=== PATIENT | male | born 1960 | race American Indian/Alaskan Native ===

== ENCOUNTER 2018-11-18 01:12 | Inpatient (IN) | payer BC ==
[2018-11-18 01:45] LABS: Basophils # (Auto) 0.1 K/mm3 (0.0-0.1); Basophils % (Auto) 0.4 % (0.0-1.8); Eosinophils # (Auto) 0.1 K/mm3 (0.0-0.4); Eosinophils % (Auto) 0.4 % (0.0-4.3); Hematocrit 42.3 % (35.5-45.6); Hemoglobin 14.4 gm/dl (11.8-15.2); Lymphocytes # (Auto) 2.4 K/mm3 (1.2-5.4); Lymphocytes % (Auto) 15.2 % (13.4-35.0); Mean Corpuscular HGB Conc 34 % (32-34); Mean Corpuscular Volume 88 fl (84-94); Monocytes # (Auto) 1.6 K/mm3 (0.0-0.8); Monocytes % (Auto) 10.1 % (0.0-7.3); Platelet Count 280 K/mm3 (140-440); Red Blood Count 4.83 M/mm3 (3.65-5.03); Red Cell Distribution Width 14.2 % (13.2-15.2)
--- NOTE | 2018-11-18 02:20 | XRay Report ---
PROCEDURE: XR CHEST ROUTINE 2V TECHNIQUE: PA and lateral chest radiographs were obtained. HISTORY: sob COMPARISONS: None. FINDINGS: Heart: Normal. Mediastinum/Vessels: Normal. Lungs/Pleural space: There is bilateral perihilar pulmonary edema. There are small effusions. There is no pneumothorax.. Bony thorax: No acute osseous abnormality. IMPRESSION: The heart size is normal.There is bilateral perihilar pulmonary edema. There are small ef fusions. There is no pneumothorax.. This document is electronically signed by Cheo Bright MD., November 18 2018 02:18:07 AM ET
[2018-11-18 02:31] LABS: BUN/Creatinine Ratio 21; Blood Urea Nitrogen 23 mg/dL (9-20); Calcium 9.3 mg/dL (8.4-10.2); Hemolysis Index 9
[2018-11-18 03:42] LABS: Chol/HDL Ratio 5.79 %
[2018-11-18] MEDS ORDERED: CARDIZEM ONE (03:49)
[2018-11-18] MEDS ORDERED: CARDIZEM IV ONE ×2 (03:51→04:43)
[2018-11-18] MEDS ORDERED: ASPIRIN PO ONE (03:53)
--- NOTE | 2018-11-18 04:01 | Emergency Department Report ---
ED General Adult HPI - General Chief complaint: Dyspnea/Respdistress Stated complaint: SOB/LUNGS SOUND LIKE FLUID IN THEM Time Seen by Provider: 11/18/18 03:47 Source: patient Mode of arrival: Ambulatory Limitations: No Limitations - History of Present Illness Initial comments: 58-year-old male with a history of hypertension and per him borderline diabetes presents with a complaint of shortness of breath. Patient states he says shortness of breath for the past 3 days progressively worsening. Patient also complains of feeling like his heart is racing as well. Patient states he has no prior history of PE or DVT. Patient states that he has no history of atrial fibrillation either. Patient states he felt like there was fluid on his lungs and thus he presented here. Patient complains of a cough as well which is nonproductive. - Related Data Allergies Allergy/AdvReac Type Severity Reaction Status Date / Time No Known Allergies Allergy Verified 11/18/18 03:58 ED Review of Systems ROS: Stated complaint: SOB/LUNGS SOUND LIKE FLUID IN THEM Other details as noted in HPI Constitutional: denies: chills, fever Eyes: denies: eye pain, eye discharge, vision change ENT: denies: ear pain, throat pain Respiratory: cough, SOB with exertion Cardiovascular: denies: chest pain, palpitations Endocrine: no symptoms reported Gastrointestinal: denies: abdominal pain, nausea, diarrhea Genitourinary: denies: urgency, dysuria Musculoskeletal: denies: back pain, joint swelling, arthralgia Skin: denies: rash, lesions Neurological: denies: headache, weakness, paresthesias Psychiatric: denies: anxiety, depression Hematological/Lymphatic: denies: easy bleeding, easy bruising ED Past Medical Hx - Past Medical History Previous Medical History?: Yes Hx Hypertension: Yes - Surgical History Past Surgical History?: No - Social History Smoking Status: Former Smoker Substance Use Type: None ED Physical Exam - General Limitations: No Limitations General appearance: alert, other (uncomfortable; moderate distress) - Head Head exam: Present: atraumatic, normocephalic - Eye Eye exam: Present: normal appearance - ENT ENT exam: Present: mucous membranes moist - Neck Neck exam: Present: normal inspection - Respiratory Respiratory exam: Present: respiratory distress, rales (to mid apices) - Cardiovascular Cardiovascular Exam: Present: tachycardia, irregular rhythm. Absent: systolic murmur, diastolic murmur, rubs, gallop - GI/Abdominal GI/Abdominal exam: Present: soft, normal bowel sounds - Rectal Rectal exam: Present: deferred - Extremities Exam Extremities exam: Present: normal inspection - Back Exam Back exam: Present: normal inspection - Neurological Exam Neurological exam: Present: alert, oriented X3, CN II-XII intact - Psychiatric Psychiatric exam: Present: normal affect, normal mood - Skin Skin exam: Present: warm, dry, intact, normal color. Absent: rash ED Course Vital Signs 11/18/18 11/18/18 11/18/18 01:25 03:31 03:45 Temperature 97.4 F L Pulse Rate 53 L 137 H 135 H Respiratory 20 13 38 H Rate Blood Pressure 142/113 159/119 159/119 O2 Sat by Pulse 95 94 92 Oximetry 11/18/18 11/18/18 11/18/18 03:53 04:00 04:15 Temperature Pulse Rate 146 H 104 H 103 H Respiratory 22 18 Rate Blood Pressure 159/116 143/92 145/102 O2 Sat by Pulse 90 93 Oximetry 11/18/18 11/18/18 04:35 04:45 Temperature Pulse Rate 117 H 108 H Respiratory 21 Rate Blood Pressure 145/102 156/108 O2 Sat by Pulse 90 Oximetry ED Medical Decision Making - Lab Data Result diagrams: 11/18/18 01:33 11/18/18 01:33 - EKG Data Rate: tachycardia - EKG Data Interpretation: other (atrial fibrillation with rapid ventricular rate) - Medical Decision Making Patient was placed on supplemental oxygen by emergency department. Patient's EKG shows rapid ventricular rate with atrial fibrillation which is new onset for the patient. Patient also noted have an elevated troponin was given aspirin therapy while in emergency department. She control his elevated heart rate patient received 2 doses of diltiazem 20 mg IV while in the emergency department. Cardiology was also consulted regarding the patient patient was started on heparin as well. Patient to be admitted to the hospitalist service for continuing management and treatment. - Differential Diagnosis anemia; arrhythmia; pulmonary embolism; STEMI; NSTEMI Critical Care Time: Yes Critical care time in (mins) excluding proc time.: 40 Critical care attestation.: If time is entered above; I have spent that time in minutes in the direct care of this critically ill patient, excluding procedure time. Critical care time does not include time spent in direct bedside care, frequent reassessments, and physician consultation. ED Disposition Clinical Impression: Atrial fibrillation with RVR, CHF (congestive heart failure), Pulmonary edema, NSTEMI (non-ST elevated myocardial infarction) Disposition: 09 OP ADMIT IP TO THIS HOSP Is pt being admited?: Yes Does the pt Need Aspirin: No Condition: Fair Instructions: Pulmonary Edema (ED) Referrals: PRIMARY CARE, [Primary Care Provider] - 3-5 Days Time of Disposition: 05:04
[2018-11-18] MEDS ORDERED: HEPARIN 10,000 UNITS/10 ML IV ONE (04:04)
[2018-11-18 04:21] LABS: INR 1.13 (0.87-1.13)
[2018-11-18 04:22] LABS: Partial Thromboplastin Time 32.3 Sec. (24.2-36.6)
[2018-11-18] MEDS ORDERED: NITROSTAT SL ONE (04:44)
--- NOTE | 2018-11-18 05:12 | Cat Scan Report ---
PROCEDURE: CT ANGIO CHEST TECHNIQUE: CT imaging is obtained through the chest and pulmonary angiographic phase following intra venous administration of contrast. Transaxial, coronal and sagittal reformations are provided with ma ximal intensity projection HISTORY: chest pain COMPARISONS: Chest radiographs of the same date FINDINGS: Normal caliber main pulmonary artery. Well opacified pulmonary arterial tree. No pulmonary embolism . No pericardial effusion. Coronary artery calcification. Mediastinal and hilar lymph node prominenc e, for example in the right hilum on axial series 2, image 54 measuring approximately 19 x 18 mm. Thoracic aorta is normal in course and caliber. No periaortic fluid or stranding. No pneumothorax. Right larger than left pleural effusions with associated compressive atelectasis. Pa tchy areas of airspace disease in the left greater than right upper lung and superior segment of the right lower lobe are most consolidative in the left upper lung seen on axial series 2, image 53. Air bronchograms are present. Mild bronchiectasis. Central airways are patent. Imaged portion of the upper abdomen is remarkable for a 2 cm left adrenal nodule with attenuation of approximately 8 Hounsfield units. The superficial soft tissues are unremarkable. No acute bony abnorm ality or worrisome osseous lesions identified. IMPRESSION: No pulmonary embolism. Multifocal airspace disease and right larger than left pleural effusions with mediastinal lymph node prominence. Correlation for infectious symptoms is requested. Radiographic follow-up to resolution is suggested. Coronary artery calcification. Benign left adrenal lipid rich adenoma measures up to 2 cm. This document is electronically signed by Neo Singer MD., November 18 2018 05:10:41 AM ET
[2018-11-18] MEDS: HEPARIN/ 0.45% NACL-25,000 UNIT/500 ML 25,000 UNIT/500 ML BAG IV SCH (05:17)
[2018-11-18 05:19] LABS: Hematocrit 41.2 % (35.5-45.6); Hemoglobin 14.2 gm/dl (11.8-15.2)
[2018-11-18] MEDS ORDERED: PROVENTIL IH ONE (05:30)
[2018-11-18 06:04] LABS: INR 1.1 (0.87-1.13)
[2018-11-18 06:05] LABS: Partial Thromboplastin Time 31.8 Sec. (24.2-36.6)
[2018-11-18] MEDS: CARDIZEM 100 MG in D5W 80 ML IV SCH (06:39)
[2018-11-18] MEDS: LEVAQUIN 500MG/100ML 500 MG/100 ML BAG IV SCH (06:39)
--- NOTE | 2018-11-18 13:57 | Consultation ---
History of Present Illness Consult date: 11/18/18 Consult reason: chest pain History of present illness: Patient is a 58 year old man who gives a history of hypertension, diabetes and a former smoker. He denies prior cardiac history and has not had any recent cardiac workup. He presents to the emergency department with shortness of breath. He was found to be in rapid atrial fibrillation and is currently on intravenous Diltiazem. Patient denies history of arrhythmias. He denies chest pain and palpations. He reports feeling well until 5 days ago. He has an elevated WBC but remains afebrile. Chest x-ray reports bilateral perihilar pulmonary edema with small pleural effusions. CTA is negative for pulmonary embolism. Medications and Allergies Allergies Allergy/AdvReac Type Severity Reaction Status Date / Time No Known Allergies Allergy Verified 11/18/18 03:58 Home Medications Medication Instructions Recorded Confirmed Last Taken Type Amlodipine Besylate [Norvasc] 10 mg PO QDAY 11/18/18 11/18/18 11/18/18 History Atorvastatin Calcium [Lipitor] 40 mg PO QDAY 11/18/18 11/18/18 Unknown History Lisinopril [Zestril TAB] 2.5 mg PO QDAY 11/18/18 11/18/18 11/18/18 History Metformin HCl 500 mg PO BIDWM 11/18/18 11/18/18 Unknown History methylPREDNISolone [Medrol] 1 dose PO TITRATE 11/18/18 11/18/18 11/18/18 History Active Meds: Active Medications Heparin Sodium/Sodium Chloride (Heparin/ 0.45% Nacl-25,000 Unit/500 Ml) 25,000 unit in 500 mls @ 20 mls/hr IV TITRATE [facility]; Protocol Last Admin: 11/18/18 05:17 Dose: 1,000 units/hr, 20 mls/hr Documented by: Levofloxacin/Dextrose (Levaquin 500mg/100ml) 500 mg in 100 mls @ 100 mls/hr IV Q24HR@0600 [facility]; Protocol Last Admin: 11/18/18 06:39 Dose: 100 mls/hr Documented by: Diltiazem HCl 100 mg/ Dextrose 100 mls @ 5 mls/hr IV DIRECT [facility]; Protocol Last Infusion: 11/18/18 07:05 Dose: 10 mg/hr, 10 mls/hr Documented by: Physical Examination Vital Signs Temp Pulse Resp BP Pulse Ox 97.4 F L 53 L 20 142/113 95 11/18/18 01:25 11/18/18 01:25 11/18/18 01:25 11/18/18 01:25 11/18/18 01:25 General appearance: no acute distress HEENT: Positive: PERRL Neck: Positive: trachea midline Cardiac: Positive: irregularly irregular Lungs: Positive: Decreased Breath Sounds Extremities: Present: +1 Edema Results 11/18/18 05:07 11/18/18 01:33 Coagulation 11/18/18 11/18/18 Range/Units 04:01 05:20 PT 15.2 H 14.9 (12.2-14.9) Sec. INR 1.13 1.10 (0.87-1.13) APTT 32.3 31.8 (24.2-36.6) Sec. Lipids 11/18/18 Range/Units 01:33 Triglycerides 178 H (2-149) mg/dL Cholesterol 197 (50-199) mg/dL HDL Cholesterol 34 L (40-59) mg/dL Cholesterol/HDL Ratio 5.79 % CBC 11/18/18 11/18/18 Range/Units 01:33 05:07 WBC 16.0 H (4.5-11.0) K/mm3 RBC 4.83 (3.65-5.03) M/mm3 Hgb 14.4 14.2 (11.8-15.2) gm/dl Hct 42.3 41.2 (35.5-45.6) % Plt Count 280 277 (140-440) K/mm3 Lymph # 2.4 (1.2-5.4) K/mm3 [place] # 1.6 H (0.0-0.8) K/mm3 Eos # 0.1 (0.0-0.4) K/mm3 Baso # 0.1 (0.0-0.1) K/mm3 Comprehensive Metabolic Panel 11/18/18 Range/Units 01:33 Sodium 141 (137-145) mmol/L Potassium 3.9 (3.6-5.0) mmol/L Chloride 100.6 (98-107) mmol/L Carbon Dioxide 25 (22-30) mmol/L BUN 23 H (9-20) mg/dL Creatinine 1.1 (0.8-1.5) mg/dL Glucose 172 H (75-100) mg/dL Calcium 9.3 (8.4-10.2) mg/dL
--- NOTE | 2018-11-18 14:55 | History and Physical Report ---
History of Present Illness Date of examination: 11/18/18 Date of admission: 11/18/18 06:19 Chief complaint: sob History of present illness: 58-year-old male with significant past medical history of hypertension and diabetes mellitus who presented through the emergency department with complaints of progressively worsening shortness of breath for the past 4 days. Patient denied any chest pain or palpitations. Patient denies any history of heart disease or atrial fibrillation. Patient reports some cough and cold-like symptoms that occur also worsening over the past 4 days. Patient reports cough of yellowish brown sputum. She denies any headache or visual disturbances. Past History Past Medical History: diabetes, hypertension Past Surgical History: No surgical history Social history: smoking (former) Family history: no significant family history Medications and Allergies Allergies Allergy/AdvReac Type Severity Reaction Status Date / Time No Known Allergies Allergy Verified 11/18/18 03:58 Home Medications Medication Instructions Recorded Confirmed Last Taken Type Amlodipine Besylate [Norvasc] 10 mg PO QDAY 11/18/18 11/18/18 11/18/18 History Atorvastatin Calcium [Lipitor] 40 mg PO QDAY 11/18/18 11/18/18 Unknown History Lisinopril [Zestril TAB] 2.5 mg PO QDAY 11/18/18 11/18/18 11/18/18 History Metformin HCl 500 mg PO BIDWM 11/18/18 11/18/18 Unknown History methylPREDNISolone [Medrol] 1 dose PO TITRATE 11/18/18 11/18/18 11/18/18 History Active Meds: Active Medications Heparin Sodium/Sodium Chloride (Heparin/ 0.45% Nacl-25,000 Unit/500 Ml) 25,000 unit in 500 mls @ 20 mls/hr IV TITRATE [facility]; Protocol Last Admin: 11/18/18 05:17 Dose: 1,000 units/hr, 20 mls/hr Documented by: Levofloxacin/Dextrose (Levaquin 500mg/100ml) 500 mg in 100 mls @ 100 mls/hr IV Q24HR@0600 [facility]; Protocol Last Admin: 11/18/18 06:39 Dose: 100 mls/hr Documented by: Diltiazem HCl 100 mg/ Dextrose 100 mls @ 5 mls/hr IV DIRECT [facility]; Protocol Last Infusion: 11/18/18 07:05 Dose: 10 mg/hr, 10 mls/hr Documented by: Review of Systems All systems: negative Exam - Constitutional Vitals: Temp Pulse Resp BP Pulse Ox 97.4 F L 104 H 23 140/83 92 11/18/18 01:25 11/18/18 12:45 11/18/18 12:45 11/18/18 12:45 11/18/18 12:45 General appearance: Present: no acute distress, well-nourished - EENT Eyes: Present: PERRL ENT: hearing intact, clear oral mucosa - Neck Neck: Present: supple, normal ROM - Respiratory Respiratory effort: normal Respiratory: bilateral: CTA - Cardiovascular Heart Sounds: Present: S1 & S2. Absent: rub, click - Extremities Extremities: pulses symmetrical, No edema Peripheral Pulses: within normal limits - Abdominal General gastrointestinal: Present: soft, non-tender, non-distended, normal bowel sounds Male genitourinary: Present: normal - Integumentary Integumentary: Present: clear, warm, dry - Musculoskeletal Musculoskeletal: gait normal, strength equal bilaterally - Psychiatric Psychiatric: appropriate mood/affect, intact judgment & insight - Neurologic Neurologic: CNII-XII intact, moves all extremities Results - Labs CBC & Chem 7: 11/18/18 05:07 11/18/18 01:33 Labs: Laboratory Last Values WBC 16.0 K/mm3 (4.5-11.0) H 11/18/18 01:33 RBC 4.83 M/mm3 (3.65-5.03) 11/18/18 01:33 Hgb 14.2 gm/dl (11.8-15.2) 11/18/18 05:07 Hct 41.2 % (35.5-45.6) 11/18/18 05:07 MCV 88 fl (84-94) 11/18/18 01:33 MCH 30 pg (28-32) 11/18/18 01:33 MCHC 34 % (32-34) 11/18/18 01:33 RDW 14.2 % (13.2-15.2) 11/18/18 01:33 Plt Count 277 K/mm3 (140-440) 11/18/18 05:07 Lymph % (Auto) 15.2 % (13.4-35.0) 11/18/18 01:33 [place] % (Auto) 10.1 % (0.0-7.3) H 11/18/18 01:33 Eos % (Auto) 0.4 % (0.0-4.3) 11/18/18 01:33 Baso % (Auto) 0.4 % (0.0-1.8) 11/18/18 01:33 Lymph # 2.4 K/mm3 (1.2-5.4) 11/18/18 01:33 [place] # 1.6 K/mm3 (0.0-0.8) H 11/18/18 01:33 Eos # 0.1 K/mm3 (0.0-0.4) 11/18/18 01:33 Baso # 0.1 K/mm3 (0.0-0.1) 11/18/18 01:33 Seg Neutrophils % 73.9 % (40.0-70.0) H 11/18/18 01:33 Seg Neutrophils # 11.8 K/mm3 (1.8-7.7) H 11/18/18 01:33 PT 14.9 Sec. (12.2-14.9) 11/18/18 05:20 INR 1.10 (0.87-1.13) 11/18/18 05:20 APTT 31.8 Sec. (24.2-36.6) 11/18/18 05:20 Heparin Anti-Xa Level < 0.10 U.I./ml (0.3-0.7) L 11/18/18 11:33 Sodium 141 mmol/L (137-145) 11/18/18 01:33 Potassium 3.9 mmol/L (3.6-5.0) 11/18/18 01:33 Chloride 100.6 mmol/L (98-107) 11/18/18 01:33 Carbon Dioxide 25 mmol/L (22-30) 11/18/18 01:33 Anion Gap 19 mmol/L 11/18/18 01:33 BUN 23 mg/dL (9-20) H 11/18/18 01:33 Creatinine 1.1 mg/dL (0.8-1.5) 11/18/18 01:33 Estimated GFR > 60 ml/min 11/18/18 01:33 BUN/Creatinine Ratio 21 % 11/18/18 01:33 Glucose 172 mg/dL (75-100) H 11/18/18 01:33 Lactic Acid 1.60 mmol/L (0.7-2.0) 11/18/18 06:00 Calcium 9.3 mg/dL (8.4-10.2) 11/18/18 01:33 Troponin T 0.243 ng/mL (0.00-0.029) H* 11/18/18 01:33 NT-Pro-B Natriuret Pep 4314 pg/mL (0-900) H 11/18/18 01:33 Triglycerides 178 mg/dL (2-149) H 11/18/18 01:33 Cholesterol 197 mg/dL (50-199) 11/18/18 01:33 LDL Cholesterol Direct 132 mg/dL (50-130) H 11/18/18 01:33 HDL Cholesterol 34 mg/dL (40-59) L 11/18/18 01:33 Cholesterol/HDL Ratio 5.79 % 11/18/18 01:33 Assessment and Plan Assessment and plan: Acute hypoxemic respiratory failure. Etiology secondary to heart failure and pneumonia. Continue O2 for supportive care. BiPAP if clinically indicated. Atrial fibrillation with RVR. Rate has been controlled with Cardizem. Cardiology to consider addition of amiodarone. Patient will likely need long- term anticoagulation. Echocardiogram pending. Left lower lobe pneumonia. Continue IV antibiotics.
--- NOTE | 2018-11-18 15:11 | Consultation ---
History of Present Illness Consult date: 11/18/18 Requesting physician: CIERA MEDLEY Reason for consult: other (Atrial Fibrillation with RVR; SOB) History of present illness: PULMONARY/CCM CONSULT NOTE (Full dictation # [id number]) Please see dictated notes for full details Past History Past Medical History: diabetes, hypertension Past Surgical History: No surgical history Social history: smoking (former) Family history: no significant family history Medications and Allergies Allergies Allergy/AdvReac Type Severity Reaction Status Date / Time No Known Allergies Allergy Verified 11/18/18 03:58 Home Medications Medication Instructions Recorded Confirmed Last Taken Type Amlodipine Besylate [Norvasc] 10 mg PO QDAY 11/18/18 11/18/18 11/18/18 History Atorvastatin Calcium [Lipitor] 40 mg PO QDAY 11/18/18 11/18/18 Unknown History Lisinopril [Zestril TAB] 2.5 mg PO QDAY 11/18/18 11/18/18 11/18/18 History Metformin HCl 500 mg PO BIDWM 11/18/18 11/18/18 Unknown History methylPREDNISolone [Medrol] 1 dose PO TITRATE 11/18/18 11/18/18 11/18/18 History Active Meds: Active Medications Heparin Sodium/Sodium Chloride (Heparin/ 0.45% Nacl-25,000 Unit/500 Ml) 25,000 unit in 500 mls @ 20 mls/hr IV TITRATE [facility]; Protocol Last Admin: 11/18/18 05:17 Dose: 1,000 units/hr, 20 mls/hr Documented by: Levofloxacin/Dextrose (Levaquin 500mg/100ml) 500 mg in 100 mls @ 100 mls/hr IV Q24HR@0600 [facility]; Protocol Last Admin: 11/18/18 06:39 Dose: 100 mls/hr Documented by: Diltiazem HCl 100 mg/ Dextrose 100 mls @ 5 mls/hr IV DIRECT [facility]; Protocol Last Infusion: 11/18/18 07:05 Dose: 10 mg/hr, 10 mls/hr Documented by: Physical Examination Vital signs: Vital Signs Temp Pulse Resp BP Pulse Ox 97.4 F L 53 L 20 142/113 95 11/18/18 01:25 11/18/18 01:25 11/18/18 01:25 11/18/18 01:25 11/18/18 01:25 Results - Laboratory Findings CBC and BMP: 11/18/18 05:07 11/18/18 01:33 PT/INR, D-dimer PT 14.9 Sec. (12.2-14.9) 11/18/18 05:20 INR 1.10 (0.87-1.13) 11/18/18 05:20 Abnormal lab findings: Abnormal Labs 11/18/18 11/18/18 11/18/18 01:33 01:33 01:33 WBC 16.0 H [place] % (Auto) 10.1 H [place] # 1.6 H Seg Neutrophils % 73.9 H Seg Neutrophils # 11.8 H PT Heparin Anti-Xa Level BUN 23 H Glucose 172 H Troponin T 0.243 H* NT-Pro-B Natriuret Pep 4314 H Triglycerides 178 H LDL Cholesterol Direct 132 H HDL Cholesterol 34 L 11/18/18 11/18/18 04:01 11:33 WBC [place] % (Auto) [place] # Seg Neutrophils % Seg Neutrophils # PT 15.2 H Heparin Anti-Xa Level < 0.10 L BUN Glucose Troponin T NT-Pro-B Natriuret Pep Triglycerides LDL Cholesterol Direct HDL Cholesterol
[2018-11-18] MEDS ORDERED: LASIX ONE (18:13)
[2018-11-18] MEDS ORDERED: PEPCID ONE (18:14)
[2018-11-18] MEDS: PEPCID PO SCH (18:20)
[2018-11-18] MEDS: LASIX IV SCH (18:20)
--- NOTE | 2018-11-18 23:02 | Consultation ---
PULMONARY CRITICAL CARE CONSULTATION NOTE CONSULTING PHYSICIAN: Yris Dobbins MD REASON FOR CONSULTATION: Shortness of breath, atrial fibrillation with rapid ventricular response, new onset. CHIEF COMPLAINT AND HISTORY OF PRESENT ILLNESS: The patient is a 58-year-old male with a past medical history significant amongst other things for a diagnosis of hypertension and borderline diabetes according to the patient, came in after about 3-4 days of shortness of breath. He denied any palpitations. He denied any loss of consciousness. He also described increasing dyspnea on exertion. He apparently did complain of palpitations when he initially came, but denied that to me. He was evaluated in the Emergency Room, found to be in atrial and flutter. He also had a cough that was nonproductive. We were asked to assist with management. When I stopped by to see him, he was resting in bed, 2D echocardiogram was being done. He was feeling a little bit better, was still confused and trying to understand what exactly was going on with his health. He describes himself as a former smoker. He has a 10+ pack year tobacco smoking history, but family confirms he quit smoking about 2 months ago. He denied any new onset leg pain or swelling either unilaterally or bilaterally or any suggestion of venous thromboembolic phenomenon. This really is as much of the history of presentation as I have. PAST MEDICAL HISTORY: Again, significant for a diagnosis of hypertension, borderline diabetes, also history of tobacco use disorder. PAST SURGICAL HISTORY: Denied. MEDICATIONS: He was on at the time I stopped by to see him were reviewed. Pertinent medications include the following: He was on a diltiazem drip at 10 mg per hour, IV heparin for atrial fibrillation protocol, Levaquin 500 mg IV daily. ALLERGIES: No known drug allergies. DIET: Obese gentleman. Denies significant weight loss or gain in the preceding few weeks to months. FAMILY AND SOCIAL HISTORY: Lives in the community, has a 10+ pack year tobacco smoking history. Denies illicit drug use or abuse. Denies alcohol abuse. REVIEW OF SYSTEMS: No loss of consciousness. No new onset seizures. No new onset focal weakness. He had the dyspnea on exertion. He had some palpitations apparently. Denied gross hematochezia or melena. Denied gross hematuria or dysuria. Denies hematemesis. Denies hemoptysis. As far as he knows, he denies any snoring. He denies nonrestorative sleep. He denies polydipsia, polyuria. He denies heat or cold intolerance. A complete 13-system review of system was obtained. Pertinent positives and/or negatives as in body of history above, otherwise they are noncontributory. PHYSICAL EXAMINATION: VITAL SIGNS: At presentation in the emergency room, he was afebrile, temperature 97.4 degrees Fahrenheit, pulse was 137, respiratory rate was 13, blood pressure 159/119. O2 sats were 92%, inspired oxygen concentration at that time was not recorded. When I stopped by to see him, O2 sats were 97% that was on 3 liters nasal cannula. GENERAL: He is a well-built, middle-aged obese -[place] male. HEAD, EYES, EARS, NOSE AND THROAT: Normocephalic, atraumatic, talking to me in mostly complete sentences with mildly increased respiratory effort at rest. He is anicteric. No conjunctival erythema. Oropharynx is moist, is a Mallampati #3 oropharynx. He has some mild jugular venous distention. No thyromegaly. Grossly, no palpable lymph nodes in the supraclavicular or submandibular lymph node chains. LUNGS: Auscultation of both lung caban do reveal diminished bilateral breath sounds, inspiratory rales in the bases in particular, no active wheezing. Some dull reduced basilar air entry. HEART: Heart sounds 1 and 2 are heard. Irregular rate and rhythm at the time of my evaluation with a soft systolic murmur. ABDOMEN: Soft, full, protuberant. Bowel sounds are positive, nontender. No palpable hepatosplenomegaly. EXTREMITIES: Without overt digital clubbing or cyanosis. He has trace pedal edema. Dorsalis pedis pulses are palpable bilaterally. NEUROLOGIC: Pupils are equal, round, about 4 mm, reactive to light. Extraocular muscle movements are intact. He moves all 4 extremities spontaneously. No fasciculations. No spasticity. The skin is of normal turgor without overt cellulitis or rash. His mood is normal and his affect is appropriate, but anxious. LABORATORY DATA: From my review are as follows: White cell count 16,000, hemoglobin 14.4, hematocrit 42.3 and platelet count 280. No manual differential. INR within normal limits. Serum sodium 141, potassium 3.9, chloride was 101, bicarbonate was 25, BUN 23, creatinine 1.1, glucose was 172. Lactic acid within normal limits. Troponin was elevated at 0.24. BNP was elevated at 4314, LDL cholesterol was elevated at 132. Two sets of blood cultures are no growth to date. Radiographic studies have been reviewed. Chest x-ray shows gross cardiomegaly, uncoiling of the aorta. He has an enlarged right pulmonary artery trunk. He has small bilateral effusions and increased interstitial markings with a hilar predominant consistent with pulmonary edema. I would say mild to moderate. A CT angiogram was also done. I have reviewed the radiologist's interpretation. I have also reviewed the film, decent contrast face timing. No gross filling defects consistent with pulmonary emboli, large right pleural effusion, moderately large right pleural effusion and a small pleural effusion on the left, mild ground glass opacification and infiltrates involving the upper lobes bilaterally, overall still consistent with pulmonary edema, but cannot rule out pneumonia. No pulmonary embolism. ASSESSMENT AND PLAN: 1. Acute hypoxemic respiratory failure presumably secondary to acute congestive heart failure exacerbation. 2. Acute congestive heart failure exacerbation. A 2D echo shows an ejection fraction of 15-20%. 3. Pulmonary hypertension, probably related to above. 4. Atrial fibrillation with rapid ventricular response, new onset. 5. Bilateral pleural effusions. 6. Pulmonary edema. 7. Leukocytosis, possibly secondary to occult pneumonia. 8. Elevated serum troponin, non-ST elevation myocardial infarction. 9. Elevated BNP. 10. Hyperlipidemia. 11. Tobacco use disorder. PLAN: We will continue the IV Cardizem drip. I will defer amiodarone infusion therapy to Cardiology. The rate is a little bit better at this point. Heart failure optimization therapy will also be deferred to Cardiology. He will benefit obviously from beta blockade. Gentle diuresis as necessary will also be utilized during this admission. I doubt we need to go after the pleural effusion at this time as long as his blood pressure is fine. I will go with gentle diuresis in the short time. I will go with Lasix 20 mg IV b.i.d. x 2 doses and reevaluate. Cardiology evaluation is in order and is ongoing. We will continue full anticoagulation. We will complete 5 days of empiric Levaquin monotherapy. Sputum will be sent for Gram stain, cultures and sensitivities if he is able to cough up any. I will put him on GI prophylaxis, especially with him being on full anticoagulation. Tobacco abstinence continued has been strongly counseled. I will get a CRP level to better evaluate the true infectious potential of this leukocytosis. Lactic acid level was within normal limits. Flu and pneumonia vaccination will be addressed per protocol. Thank you very much for the consult, Dr. Dobbins. We will follow along and make further recommendations as picture progresses/becomes clearer. He is critically ill on life-sustaining interventions including intravenous anticoagulation and IV Cardizem at high risk for further deterioration including the risk of . At this time, we spent about 35-40 minutes of critical care time without overlap and excluding any procedural time that may be necessary. JOB# [id number] NURIS/CHEVY ARRIETA
[2018-11-19 05:23] LABS: Basophils # (Auto) 0.1 K/mm3 (0.0-0.1); Basophils % (Auto) 0.7 % (0.0-1.8); Eosinophils # (Auto) 0.1 K/mm3 (0.0-0.4); Eosinophils % (Auto) 0.3 % (0.0-4.3); Hematocrit 43.1 % (35.5-45.6); Hemoglobin 14.7 gm/dl (11.8-15.2); Lymphocytes # (Auto) 2.2 K/mm3 (1.2-5.4); Lymphocytes % (Auto) 13.3 % (13.4-35.0); Mean Corpuscular HGB Conc 34 % (32-34); Mean Corpuscular Volume 88 fl (84-94); Monocytes # (Auto) 2.1 K/mm3 (0.0-0.8); Monocytes % (Auto) 12.8 % (0.0-7.3); Platelet Count 280 K/mm3 (140-440); Red Blood Count 4.88 M/mm3 (3.65-5.03); Red Cell Distribution Width 14.6 % (13.2-15.2)
[2018-11-19 05:36] LABS: BUN/Creatinine Ratio 16; Blood Urea Nitrogen 11 mg/dL (9-20); Calcium 9.2 mg/dL (8.4-10.2); Hemolysis Index 2
[2018-11-19] MEDS ORDERED: APRESOLINE IV PRN (06:06)
[2018-11-19] MEDS: LEVAQUIN 500MG/100ML 500 MG/100 ML BAG IV SCH (06:36)
[2018-11-19] MEDS: LASIX IV SCH ×2 (06:37→21:22)
[2018-11-19] MEDS: HEPARIN/ 0.45% NACL-25,000 UNIT/500 ML 25,000 UNIT/500 ML BAG IV SCH (08:53)
[2018-11-19] MEDS: CARDIZEM 100 MG in D5W 80 ML IV SCH ×3 (08:55→23:03)
[2018-11-19] MEDS: PEPCID PO SCH (10:54)
--- NOTE | 2018-11-19 12:52 | Progress Note ---
Assessment and Plan Atrial fibrillation, new onset on IV diltiazem Shortness of breath chest x-ray showed a left hilar infiltrate, and the white count was 16,000. an echocardiogram revealed a 4 chamber dilated cardiomyopathy, decreased left ventricular systolic function, EF 15-20%. The duration of the cardiomyopathy is uncertain. Hypertension Diabetes Recommendations: Atrial fibrillation rate control, with Cardizem. We will transition to oral cardizem. He will ultimately need long-term oral anticoagulation therapy. Medical therapy for dilated cardiomyopathy as tolerated. Further cardiac evaluation and management will depend on clinical course. Subjective Date of service: 11/19/18 Interval history: Patient reports his breathing has improved. Afib with a well controlled ventricular rate on telemetry. IV diltiazem continues. Objective Vital Signs Temp Pulse Resp BP Pulse Ox 11/19/18 09:45 95 11/19/18 07:11 103 H 27 H 145/101 91 11/19/18 07:00 108 H 32 H 145/101 93 11/19/18 06:51 111 H 29 H 150/109 92 11/19/18 06:40 96 H 28 H 150/109 87 11/19/18 06:31 110 H 29 H 156/106 91 11/19/18 06:21 107 H 22 159/97 93 11/19/18 06:11 98 H 25 H 158/112 90 11/19/18 06:00 101 H 24 158/112 90 11/19/18 05:51 98 H 23 159/99 90 11/19/18 05:41 98 H 27 H 152/108 88 11/19/18 05:30 86 29 H 152/108 90 11/19/18 05:21 93 H 30 H 144/111 90 11/19/18 05:11 143 H 26 H 146/113 88 11/19/18 05:09 92 11/19/18 05:00 108 H 26 H 146/113 93 11/19/18 04:50 113 H 22 149/104 89 11/19/18 04:41 96 H 24 159/97 86 11/19/18 04:30 88 28 H 159/97 88 11/19/18 04:21 91 H 30 H 156/107 89 11/19/18 04:11 99 H 31 H 166/113 86 11/19/18 04:00 95 H 30 H 166/113 88 11/19/18 03:51 97 H 28 H 151/113 89 11/19/18 03:41 83 25 H 151/113 91 11/19/18 03:31 108 H 22 151/113 91 11/19/18 03:21 88 29 H 151/108 91 11/19/18 03:11 102 H 25 H 149/106 87 11/19/18 03:01 99 H 31 H 149/106 91 11/19/18 02:51 100 H 28 H 141/109 92 11/19/18 02:40 97 H 26 H 89 11/19/18 02:00 98 11/19/18 01:45 121 H 30 H 163/108 96 11/19/18 00:15 110 H 25 H 162/106 87 11/19/18 00:00 97 H 25 H 162/106 88 11/18/18 23:45 115 H 19 165/114 91 11/18/18 23:31 164/120 90 11/18/18 22:15 109 H 29 H 153/102 93 11/18/18 22:00 95 H 23 153/102 94 11/18/18 21:45 108 H 27 H 149/100 92 11/18/18 21:15 112 H 15 156/135 92 11/18/18 21:01 102 H 21 149/100 94 11/18/18 20:31 117 H 25 H 168/88 95 11/18/18 20:15 113 H 15 168/88 97 11/18/18 20:00 103 H 32 H 168/88 93 11/18/18 19:45 110 H 18 168/88 93 11/18/18 19:31 100 H 26 H 170/130 90 11/18/18 19:15 112 H 22 143/113 92 11/18/18 19:01 107 H 23 143/113 91 11/18/18 18:45 102 H 34 H 143/113 94 11/18/18 18:31 117 H 17 152/116 93 11/18/18 18:15 92 H 28 H 155/112 93 11/18/18 18:01 98 H 29 H 155/112 94 11/18/18 17:31 96 H 23 155/112 89 11/18/18 17:26 97.9 F 11/18/18 17:25 106 H 17 155/112 94 11/18/18 17:15 103 H 32 H 150/102 91 11/18/18 17:01 113 H 20 93 11/18/18 16:45 150/102 95 11/18/18 16:31 97 H 27 H 93 11/18/18 16:15 110 H 21 93 11/18/18 16:01 112 H 32 H 91 11/18/18 15:45 110 H 19 150/102 95 11/18/18 15:31 111 H 26 H 150/102 95 11/18/18 15:15 15 150/102 92 11/18/18 15:01 20 150/102 93 11/18/18 14:45 99 H 14 150/102 95 11/18/18 14:31 22 150/102 92 11/18/18 14:30 107 H 11/18/18 14:15 30 H 150/102 93 11/18/18 14:01 24 150/102 95 11/18/18 14:00 100 H 11/18/18 13:45 28 H 150/102 94 11/18/18 13:31 30 H 150/102 95 11/18/18 13:15 17 150/102 93 11/18/18 13:01 109 H 25 H 150/102 93 - Physical Examination General: No Apparent Distress HEENT: Positive: PERRL Neck: Positive: trachea midline Cardiac: Positive: irregularly irregular Lungs: Positive: Decreased Breath Sounds Neuro: Positive: Grossly Intact Extremities: Present: +1 Edema - Labs and Meds CBC 11/19/18 Range/Units 04:50 WBC 16.6 H (4.5-11.0) K/mm3 RBC 4.88 (3.65-5.03) M/mm3 Hgb 14.7 (11.8-15.2) gm/dl Hct 43.1 (35.5-45.6) % Plt Count 280 (140-440) K/mm3 Lymph # 2.2 (1.2-5.4) K/mm3 [place] # 2.1 H (0.0-0.8) K/mm3 Eos # 0.1 (0.0-0.4) K/mm3 Baso # 0.1 (0.0-0.1) K/mm3 Comprehensive Metabolic Panel 11/19/18 Range/Units 04:50 Sodium 143 (137-145) mmol/L Potassium 3.6 (3.6-5.0) mmol/L Chloride 99.1 (98-107) mmol/L Carbon Dioxide 28 (22-30) mmol/L BUN 11 (9-20) mg/dL Creatinine 0.7 L (0.8-1.5) mg/dL Glucose 140 H (75-100) mg/dL Calcium 9.2 (8.4-10.2) mg/dL
--- NOTE | 2018-11-19 12:57 | Progress Note ---
Assessment and Plan Assessment and plan: Acute hypoxemic respiratory failure. Etiology secondary to heart failure and pneumonia. Continue O2 for supportive care. BiPAP if clinically indicated. New-onset Atrial fibrillation with RVR. Rate has been controlled with IV Cardizem. Patient will likely need long-term anticoagulation. Echocardiogram revealed a 4 chamber dilated cardiomyopathy, decreased left ventricular systolic function, EF 15-20%. Left lower lobe pneumonia. Continue IV antibiotics. Hypertension. Continue antihypertensive medications. Diabetes mellitus type 2. Continue Accu-Cheks and sliding scale insulin. History Interval history: no new issues Hospitalist Physical - Constitutional Vitals: Temp Pulse Resp BP Pulse Ox 97.9 F 103 H 27 H 145/101 95 11/18/18 17:26 11/19/18 07:11 11/19/18 07:11 11/19/18 07:11 11/19/18 09:45 General appearance: Present: no acute distress, well-nourished - EENT Eyes: Present: PERRL, EOM intact ENT: hearing intact, clear oral mucosa, dentition normal - Neck Neck: Present: supple, normal ROM - Respiratory Respiratory effort: normal Respiratory: bilateral: CTA - Cardiovascular Rhythm: regular Heart Sounds: Present: S1 & S2. Absent: gallop, rub - Extremities Extremities: no ischemia, No edema, Full ROM - Abdominal General gastrointestinal: soft, non-tender, non-distended, normal bowel sounds - Integumentary Integumentary: Present: clear, warm, dry - Neurologic Neurologic: CNII-XII intact, moves all extremities Results - Labs CBC & Chem 7: 11/19/18 04:50 11/19/18 04:50 Labs: Laboratory Last Values WBC 16.6 K/mm3 (4.5-11.0) H 11/19/18 04:50 RBC 4.88 M/mm3 (3.65-5.03) 11/19/18 04:50 Hgb 14.7 gm/dl (11.8-15.2) 11/19/18 04:50 Hct 43.1 % (35.5-45.6) 11/19/18 04:50 MCV 88 fl (84-94) 11/19/18 04:50 MCH 30 pg (28-32) 11/19/18 04:50 MCHC 34 % (32-34) 11/19/18 04:50 RDW 14.6 % (13.2-15.2) 11/19/18 04:50 Plt Count 280 K/mm3 (140-440) 11/19/18 04:50 Lymph % (Auto) 13.3 % (13.4-35.0) L 11/19/18 04:50 [place] % (Auto) 12.8 % (0.0-7.3) H 11/19/18 04:50 Eos % (Auto) 0.3 % (0.0-4.3) 11/19/18 04:50 Baso % (Auto) 0.7 % (0.0-1.8) 11/19/18 04:50 Lymph # 2.2 K/mm3 (1.2-5.4) 11/19/18 04:50 [place] # 2.1 K/mm3 (0.0-0.8) H 11/19/18 04:50 Eos # 0.1 K/mm3 (0.0-0.4) 11/19/18 04:50 Baso # 0.1 K/mm3 (0.0-0.1) 11/19/18 04:50 Seg Neutrophils % 72.9 % (40.0-70.0) H 11/19/18 04:50 Seg Neutrophils # 12.1 K/mm3 (1.8-7.7) H 11/19/18 04:50 PT 14.9 Sec. (12.2-14.9) 11/18/18 05:20 INR 1.10 (0.87-1.13) 11/18/18 05:20 APTT 31.8 Sec. (24.2-36.6) 11/18/18 05:20 Heparin Anti-Xa Level 0.17 U.I./ml (0.3-0.7) L 11/19/18 08:15 Sodium 143 mmol/L (137-145) 11/19/18 04:50 Potassium 3.6 mmol/L (3.6-5.0) 11/19/18 04:50 Chloride 99.1 mmol/L (98-107) 11/19/18 04:50 Carbon Dioxide 28 mmol/L (22-30) 11/19/18 04:50 Anion Gap 20 mmol/L 11/19/18 04:50 BUN 11 mg/dL (9-20) 11/19/18 04:50 Creatinine 0.7 mg/dL (0.8-1.5) L 11/19/18 04:50 Estimated GFR > 60 ml/min 11/19/18 04:50 BUN/Creatinine Ratio 16 % 11/19/18 04:50 Glucose 140 mg/dL (75-100) H 11/19/18 04:50 Lactic Acid 1.60 mmol/L (0.7-2.0) 11/18/18 06:00 Calcium 9.2 mg/dL (8.4-10.2) 11/19/18 04:50 Troponin T 0.243 ng/mL (0.00-0.029) H* 11/18/18 01:33 C-Reactive Protein 2.30 mg/dL (0.00-1.30) H 11/18/18 15:32 NT-Pro-B Natriuret Pep 4314 pg/mL (0-900) H 11/18/18 01:33 Triglycerides 178 mg/dL (2-149) H 11/18/18 01:33 Cholesterol 197 mg/dL (50-199) 11/18/18 01:33 LDL Cholesterol Direct 132 mg/dL (50-130) H 11/18/18 01:33 HDL Cholesterol 34 mg/dL (40-59) L 11/18/18 01:33 Cholesterol/HDL Ratio 5.79 % 11/18/18 01:33 Active Medications - Current Medications Current Medications: Generic Name Dose Route Start Last Admin Trade Name Freq PRN Reason Stop Dose Admin Famotidine 20 mg 11/18/18 16:00 11/19/18 10:54 Pepcid PO 20 mg QDAY IBIS Administration Furosemide 20 mg 11/18/18 18:00 11/19/18 06:37 Lasix IV 11/20/18 06:01 20 mg 0600,1800 IBIS Administration Hydralazine HCl 10 mg 11/19/18 06:06 Apresoline IV Q4H PRN Hypertension Heparin Sodium/Sodium Chloride 25,000 unit in 500 mls @ 20 mls/hr 11/18/18 05:00 11/19/18 08:53 Heparin/ 0.45% Nacl-25,000 Unit/500 Ml IV 1,600 units/hr TITRATE IBIS 32 mls/hr Administration Protocol 1,000 UNITS/HR Levofloxacin/Dextrose 500 mg in 100 mls @ 100 mls/hr 11/18/18 05:26 11/19/18 06:36 Levaquin 500mg/100ml IV 100 mls/hr Q24HR@0600 IBIS Administration Protocol Diltiazem HCl 100 mg/ Dextrose 100 mls @ 5 mls/hr 11/18/18 06:00 11/19/18 08:55 IV 15 mg/hr DIRECT IBIS 15 mls/hr Administration Protocol 5 MG/HR
--- NOTE | 2018-11-19 13:46 | Progress Note ---
Assessment and Plan Acute hypoxemic respiratory failure presumably secondary to acute CHF exacerbation. Acute congestive heart failure exacerbation. (ejection fraction of 15-20%) Pulmonary hypertension, probably related to above. Atrial fibrillation with rapid ventricular response, new onset. Bilateral pleural effusions. Pulmonary edema. Leukocytosis, possibly secondary to occult pneumonia. Elevated serum troponin, non-ST elevation myocardial infarction. Elevated BNP. Hyperlipidemia. Tobacco use disorder. - continue to wean supplemental oxygen to keep O2 sats>90% - Continue with cardizem infusion for rate, control. Transition to oral therapy - Anticoagulated with heparin infusion, transition to oral therapy - Heart failure measures - Cardioprotective measures - Diuresis while monitoring renal function, hemodynamics and electrolyte profile - Replace electrolytes as indicated - Smoking cessation counselling - Cardiac diet - Complete 5 day course for CAP - Mobility, increase activity - Influenza and pneumonia vaccination per protocol prior to discharge - ABG and CXR prn - continue other care per attending / other consultants ... re-evaluate in am & prn The high probability of a clinically significant, sudden or life-threatening deterioration of the [cardiac, neurology] system(s) required my full and direct attention, intervention and personal management. The aggregate critical care time was [31] minutes without overlap. Time includes spent on; [x] Data Review and interpretation [x] Patient assessment and monitoring of vital signs [x] Documentation [x] Medication orders and management Subjective Date of service: 11/19/18 Principal diagnosis: Ac hypoxemic Resp failure; New onset CHF (EF 20%); Pulm HTN; A-Fib with RVR Interval history: Patient is seen today for: Acute hypoxemic Resp failure; Acute congestive heart failure exacerbation (ejection fraction of 15-20%); Pulmonary hypertension; Atrial fibrillation with rapid ventricular response, new onset; Bilateral pleural effusions; Acute Pulmonary edema. Seen and examined at bedside; 24hour events reviewed; nursing and respiratory care staff consulted; no adverse overnight events reported to me; remains on cardizem drip; remains on supplemental oxygen; good diuresis; denies acute chest pains or palpitations; still with RVR and cardizem drip up to 15 mg/hr Objective Vital Signs - 12hr 11/19/18 11/19/18 11/19/18 01:45 02:00 02:40 Pulse Rate 121 H 97 H Respiratory 30 H 26 H Rate Blood Pressure 163/108 O2 Sat by Pulse 96 98 89 Oximetry 11/19/18 11/19/18 11/19/18 02:51 03:01 03:11 Pulse Rate 100 H 99 H 102 H Respiratory 28 H 31 H 25 H Rate Blood Pressure 141/109 149/106 149/106 O2 Sat by Pulse 92 91 87 Oximetry 11/19/18 11/19/18 11/19/18 03:21 03:31 03:41 Pulse Rate 88 108 H 83 Respiratory 29 H 22 25 H Rate Blood Pressure 151/108 151/113 151/113 O2 Sat by Pulse 91 91 91 Oximetry 11/19/18 11/19/18 11/19/18 03:51 04:00 04:11 Pulse Rate 97 H 95 H 99 H Respiratory 28 H 30 H 31 H Rate Blood Pressure 151/113 166/113 166/113 O2 Sat by Pulse 89 88 86 Oximetry 11/19/18 11/19/18 11/19/18 04:21 04:30 04:41 Pulse Rate 91 H 88 96 H Respiratory 30 H 28 H 24 Rate Blood Pressure 156/107 159/97 159/97 O2 Sat by Pulse 89 88 86 Oximetry 11/19/18 11/19/18 11/19/18 04:50 05:00 05:09 Pulse Rate 113 H 108 H Respiratory 22 26 H Rate Blood Pressure 149/104 146/113 O2 Sat by Pulse 89 93 92 Oximetry 11/19/18 11/19/18 11/19/18 05:11 05:21 05:30 Pulse Rate 143 H 93 H 86 Respiratory 26 H 30 H 29 H Rate Blood Pressure 146/113 144/111 152/108 O2 Sat by Pulse 88 90 90 Oximetry 11/19/18 11/19/18 11/19/18 05:41 05:51 06:00 Pulse Rate 98 H 98 H 101 H Respiratory 27 H 23 24 Rate Blood Pressure 152/108 159/99 158/112 O2 Sat by Pulse 88 90 90 Oximetry 11/19/18 11/19/18 11/19/18 06:11 06:21 06:31 Pulse Rate 98 H 107 H 110 H Respiratory 25 H 22 29 H Rate Blood Pressure 158/112 159/97 156/106 O2 Sat by Pulse 90 93 91 Oximetry 11/19/18 11/19/18 11/19/18 06:40 06:51 07:00 Pulse Rate 96 H 111 H 108 H Respiratory 28 H 29 H 32 H Rate Blood Pressure 150/109 150/109 145/101 O2 Sat by Pulse 87 92 93 Oximetry 11/19/18 11/19/18 07:11 09:45 Pulse Rate 103 H Respiratory 27 H Rate Blood Pressure 145/101 O2 Sat by Pulse 91 95 Oximetry Constitutional: alert, appears uncomfortable, other (middle aged AAM normocephalic and atraumatic with mildly increased resp effort at rest) Eyes: non-icteric ENT: oropharynx moist, other (mallampati 3) Neck: supple, no lymphadenopathy, no JVD, other (no thyromegaly) Effort: mildly labored Ascultation: Bilateral: diminished breath sounds, rales Percussion: Bilateral: not dull Cardiovascular: irregular rhythm, murmur noted (REFUGIO) Gastrointestinal: normoactive bowel sounds, soft, non-tender, non-distended Integumentary: normal Extremities: no cyanosis, pulses normal, no ischemia or petechiae, edema (1+) Neurologic: normal mental status, non-focal exam, pupils equal and round, CN II- XII normal, motor strength normal and Psychiatric: mood appropriate, affect normal CBC and BMP: 11/22/18 06:09 11/22/18 06:09 ABG, PT/INR, D-dimer: PT/INR, D-dimer PT 14.9 Sec. (12.2-14.9) 11/18/18 05:20 INR 1.10 (0.87-1.13) 11/18/18 05:20 Abnormal lab findings: Abnormal Labs 11/18/18 11/18/18 11/18/18 01:33 01:33 01:33 WBC 16.0 H Lymph % (Auto) [place] % (Auto) 10.1 H [place] # 1.6 H Seg Neutrophils % 73.9 H Seg Neutrophils # 11.8 H PT Heparin Anti-Xa Level BUN 23 H Creatinine Glucose 172 H Troponin T 0.243 H* C-Reactive Protein NT-Pro-B Natriuret Pep 4314 H Triglycerides 178 H LDL Cholesterol Direct 132 H HDL Cholesterol 34 L 11/18/18 11/18/18 11/18/18 04:01 11:33 15:32 WBC Lymph % (Auto) [place] % (Auto) [place] # Seg Neutrophils % Seg Neutrophils # PT 15.2 H Heparin Anti-Xa Level < 0.10 L BUN Creatinine Glucose Troponin T C-Reactive Protein 2.30 H NT-Pro-B Natriuret Pep Triglycerides LDL Cholesterol Direct HDL Cholesterol 11/18/18 11/19/18 11/19/18 18:10 00:54 04:50 WBC 16.6 H Lymph % (Auto) 13.3 L [place] % (Auto) 12.8 H [place] # 2.1 H Seg Neutrophils % 72.9 H Seg Neutrophils # 12.1 H PT Heparin Anti-Xa Level < 0.10 L < 0.10 L BUN Creatinine Glucose Troponin T C-Reactive Protein NT-Pro-B Natriuret Pep Triglycerides LDL Cholesterol Direct HDL Cholesterol 11/19/18 11/19/18 04:50 08:15 WBC Lymph % (Auto) [place] % (Auto) [place] # Seg Neutrophils % Seg Neutrophils # PT Heparin Anti-Xa Level 0.17 L BUN Creatinine 0.7 L Glucose 140 H Troponin T C-Reactive Protein NT-Pro-B Natriuret Pep Triglycerides LDL Cholesterol Direct HDL Cholesterol Chest x-ray: image reviewed (mild interstitial edema with small pleural effusion) Allied health notes reviewed: nursing
[2018-11-19] MEDS: LOPRESSOR PO SCH ×2 (13:48→21:20)
[2018-11-20] MEDS: HEPARIN/ 0.45% NACL-25,000 UNIT/500 ML 25,000 UNIT/500 ML BAG IV SCH ×2 (00:57→19:25)
[2018-11-20] MEDS: LEVAQUIN 500MG/100ML 500 MG/100 ML BAG IV SCH (06:21)
[2018-11-20] MEDS: LASIX IV SCH (06:21)
[2018-11-20 06:26] LABS: Basophils # (Auto) 0.1 K/mm3 (0.0-0.1); Basophils % (Auto) 0.6 % (0.0-1.8); Eosinophils # (Auto) 0.1 K/mm3 (0.0-0.4); Eosinophils % (Auto) 0.4 % (0.0-4.3); Hematocrit 43.2 % (35.5-45.6); Hemoglobin 15.1 gm/dl (11.8-15.2); Lymphocytes # (Auto) 2.3 K/mm3 (1.2-5.4); Lymphocytes % (Auto) 11.5 % (13.4-35.0); Mean Corpuscular HGB Conc 35 % (32-34); Mean Corpuscular Volume 88 fl (84-94); Monocytes # (Auto) 2.1 K/mm3 (0.0-0.8); Platelet Count 280 K/mm3 (140-440); Red Blood Count 4.92 M/mm3 (3.65-5.03); Red Cell Distribution Width 14.6 % (13.2-15.2)
[2018-11-20 07:30] LABS: BUN/Creatinine Ratio TNR; Blood Urea Nitrogen TNR mg/dL (9-20); Calcium TNR mg/dL (8.4-10.2); Hemolysis Index TNR
[2018-11-20 09:46] LABS: BUN/Creatinine Ratio 14; Blood Urea Nitrogen 11 mg/dL (9-20); Calcium 8.8 mg/dL (8.4-10.2); Hemolysis Index 19
[2018-11-20] MEDS: PEPCID PO SCH (10:56)
--- NOTE | 2018-11-20 11:58 | Progress Note ---
Assessment and Plan 1. Atrial fibrillation with a controlled ventricular response. 2. Dilated cardiomyopathy four-chamber dilation and the ejection fraction 15- 20% 3. Essential hypertension 4. Type 2 diabetes mellitus 5. Pulmonary infiltrate with elevated white count. Rule out colon malignancy acquired pneumonia. Plan. Transition to oral Cardizem and oral anticoagulation. She'll have a follow-up chest x-ray. Subjective Date of service: 11/20/18 Interval history: No cardiac symptoms. Objective Vital Signs Temp Pulse Resp BP Pulse Ox 11/20/18 10:09 96 11/20/18 08:00 98.9 F 18 96 11/20/18 04:38 99.0 F 80 27 H 94 11/20/18 04:31 112 H 27 H 166/113 94 11/20/18 04:21 105 H 33 H 161/105 83 L 11/20/18 04:11 100 H 30 H 161/105 87 11/20/18 04:00 105 H 35 H 161/105 81 L 11/20/18 03:51 107 H 32 H 157/117 85 11/20/18 03:41 100 H 32 H 157/117 85 11/20/18 03:30 103 H 27 H 157/117 85 11/20/18 03:21 108 H 21 159/117 88 11/20/18 03:11 96 H 32 H 159/117 82 L 11/20/18 03:00 100 H 28 H 159/117 88 11/20/18 02:51 99 H 34 H 140/107 77 L 11/20/18 02:41 90 33 H 140/107 84 11/20/18 02:30 92 H 30 H 140/107 88 11/20/18 02:21 92 H 20 143/100 91 11/20/18 02:11 90 31 H 143/100 92 11/20/18 02:00 96 H 31 H 143/100 11/20/18 01:51 96 H 25 H 140/102 94 11/20/18 01:41 82 32 H 140/102 94 11/20/18 01:30 90 24 140/102 94 11/20/18 01:21 85 34 H 137/101 95 11/20/18 01:11 82 23 137/101 96 11/20/18 01:00 80 26 H 137/101 89 11/20/18 00:51 82 29 H 134/102 93 11/20/18 00:41 81 30 H 134/102 94 11/20/18 00:30 98.8 F 80 28 H 134/102 90 11/20/18 00:21 79 31 H 136/106 91 11/20/18 00:11 69 32 H 136/106 94 11/20/18 00:01 89 26 H 136/106 94 11/19/18 23:51 81 30 H 136/106 95 11/19/18 23:41 67 26 H 136/106 97 11/19/18 23:30 69 32 H 136/106 100 11/19/18 23:21 66 19 140/105 98 11/19/18 23:11 66 30 H 140/105 96 11/19/18 23:01 69 27 H 144/97 94 11/19/18 22:50 75 28 H 140/105 94 11/19/18 22:40 67 19 140/105 94 11/19/18 22:30 76 20 140/105 96 11/19/18 22:21 76 19 143/101 96 11/19/18 22:11 77 29 H 143/101 91 11/19/18 22:01 68 25 H 143/101 94 11/19/18 22:00 95 11/19/18 21:51 105 H 21 139/88 95 11/19/18 21:43 79 26 H 139/88 94 11/19/18 21:41 85 27 H 139/88 94 11/19/18 21:30 66 22 139/88 94 11/19/18 21:21 75 18 129/90 95 11/19/18 21:20 85 18 129/90 94 11/19/18 21:18 79 17 129/90 100 11/19/18 21:11 76 20 129/90 96 11/19/18 21:00 78 19 129/90 98 11/19/18 20:51 78 27 H 135/109 92 11/19/18 20:41 74 28 H 135/109 98 11/19/18 20:30 80 29 H 135/109 93 11/19/18 20:21 64 18 110/80 97 11/19/18 20:11 77 28 H 110/80 97 11/19/18 20:01 80 28 H 110/80 96 11/19/18 19:51 79 19 123/84 97 11/19/18 19:41 80 25 H 123/84 94 11/19/18 19:31 73 19 123/84 91 11/19/18 19:30 98.0 F 11/19/18 19:21 84 23 136/85 96 11/19/18 19:15 79 18 94 11/19/18 19:11 71 24 96 11/19/18 19:01 81 22 96 11/19/18 18:51 75 25 H 96 11/19/18 18:41 73 24 93 11/19/18 18:31 81 26 H 95 11/19/18 18:21 68 25 H 93 11/19/18 18:11 77 23 94 11/19/18 18:00 70 25 H 133/94 92 11/19/18 17:51 73 30 H 137/96 93 11/19/18 17:45 94 11/19/18 17:41 80 27 H 137/96 98 11/19/18 17:30 76 30 H 137/96 89 11/19/18 17:21 75 24 137/88 95 11/19/18 17:11 80 16 137/88 94 11/19/18 17:00 74 25 H 137/88 97 11/19/18 16:51 86 26 H 124/94 93 11/19/18 16:41 71 30 H 124/94 94 11/19/18 16:30 77 29 H 124/94 90 11/19/18 16:21 70 22 123/88 96 11/19/18 16:11 71 20 123/88 96 11/19/18 16:00 69 18 123/88 93 11/19/18 15:51 76 14 121/91 96 11/19/18 15:41 77 33 H 121/91 95 11/19/18 15:31 83 17 121/91 89 11/19/18 15:21 78 25 H 140/87 96 11/19/18 15:11 79 18 140/87 95 11/19/18 15:01 82 28 H 112/60 91 11/19/18 14:51 85 24 140/87 93 11/19/18 14:41 92 H 26 H 140/87 94 11/19/18 14:31 90 18 140/87 90 11/19/18 14:21 86 36 H 144/84 93 11/19/18 14:11 112 H 21 144/84 95 11/19/18 14:01 99 H 20 144/84 88 11/19/18 14:00 94 11/19/18 13:51 114 H 21 136/104 95 11/19/18 13:48 116 H 136/104 11/19/18 13:41 104 H 12 136/104 95 11/19/18 13:31 112 H 23 136/104 93 11/19/18 13:21 105 H 18 140/85 96 11/19/18 13:11 100 H 25 H 140/85 94 11/19/18 13:00 101 H 32 H 140/85 92 11/19/18 12:51 103 H 23 138/95 94 11/19/18 12:41 103 H 17 138/95 94 11/19/18 12:30 102 H 28 H 138/95 90 11/19/18 12:21 103 H 22 135/93 93 11/19/18 12:11 110 H 25 H 135/93 93 11/19/18 12:00 95 H 17 141/86 90 - Physical Examination General: Appears Well, No Apparent Distress HEENT: Positive: PERRL, Normocephaly, Mucus Membranes Moist Neck: Positive: neck supple, trachea midline. Negative: JVD/HJR Cardiac: Positive: irregularly irregular, S1/S2, PMI, Laterally Displaced Lungs: Positive: clear to auscultation, No Wheeze, Rales, Rhonchi Neuro: Positive: Grossly Intact Abdomen: Positive: Unremarkable, Soft Extremities: Present: +1 Edema - Labs and Meds CBC 11/20/18 Range/Units 05:32 WBC 19.5 H (4.5-11.0) K/mm3 RBC 4.92 (3.65-5.03) M/mm3 Hgb 15.1 (11.8-15.2) gm/dl Hct 43.2 (35.5-45.6) % Plt Count 280 (140-440) K/mm3 Lymph # 2.3 (1.2-5.4) K/mm3 [place] # 2.1 H (0.0-0.8) K/mm3 Eos # 0.1 (0.0-0.4) K/mm3 Baso # 0.1 (0.0-0.1) K/mm3 Comprehensive Metabolic Panel 11/20/18 11/20/18 Range/Units 05:32 08:44 Sodium TNR 137 Potassium TNR 3.7 Chloride TNR 94.5 L Carbon Dioxide TNR 27 BUN TNR 11 Creatinine TNR 0.8 Glucose TNR 200 H Calcium TNR 8.8
[2018-11-20] MEDS: LOPRESSOR PO SCH ×3 (12:04→21:42)
--- NOTE | 2018-11-20 12:22 | Progress Note ---
Assessment and Plan Assessment and plan: Acute hypoxemic respiratory failure. Etiology secondary to heart failure and pneumonia. Continue O2 for supportive care. BiPAP if clinically indicated. New-onset Atrial fibrillation with RVR. Rate has been controlled with IV Cardizem. Transition to by mouth medications per cardiology. Patient will likely need long-term anticoagulation. Echocardiogram revealed a 4 chamber dilated cardiomyopathy, decreased left ventricular systolic function, EF 15-20%. Left lower lobe pneumonia. Continue IV antibiotics. Hypertension. Continue antihypertensive medications. Diabetes mellitus type 2. Continue Accu-Cheks and sliding scale insulin. History Interval history: no new issues Hospitalist Physical - Constitutional Vitals: Temp Pulse Resp BP Pulse Ox 98.9 F 118 H 18 166/113 96 11/20/18 08:00 11/20/18 10:00 11/20/18 12:00 11/20/18 04:31 11/20/18 12:00 General appearance: Present: no acute distress, well-nourished - EENT Eyes: Present: PERRL, EOM intact ENT: hearing intact, clear oral mucosa, dentition normal - Neck Neck: Present: supple, normal ROM - Respiratory Respiratory effort: normal Respiratory: bilateral: CTA - Cardiovascular Rhythm: regular Heart Sounds: Present: S1 & S2. Absent: gallop, rub - Extremities Extremities: no ischemia, No edema, Full ROM - Abdominal General gastrointestinal: soft, non-tender, non-distended, normal bowel sounds - Integumentary Integumentary: Present: clear, warm, dry - Neurologic Neurologic: CNII-XII intact, moves all extremities Results - Labs CBC & Chem 7: 11/20/18 05:32 11/20/18 08:44 Labs: Laboratory Last Values WBC 19.5 K/mm3 (4.5-11.0) H 11/20/18 05:32 RBC 4.92 M/mm3 (3.65-5.03) 11/20/18 05:32 Hgb 15.1 gm/dl (11.8-15.2) 11/20/18 05:32 Hct 43.2 % (35.5-45.6) 11/20/18 05:32 MCV 88 fl (84-94) 11/20/18 05:32 MCH 31 pg (28-32) 11/20/18 05:32 MCHC 35 % (32-34) H 11/20/18 05:32 RDW 14.6 % (13.2-15.2) 11/20/18 05:32 Plt Count 280 K/mm3 (140-440) 11/20/18 05:32 Lymph % (Auto) 11.5 % (13.4-35.0) L 11/20/18 05:32 [place] % (Auto) 11.0 % (0.0-7.3) H 11/20/18 05:32 Eos % (Auto) 0.4 % (0.0-4.3) 11/20/18 05:32 Baso % (Auto) 0.6 % (0.0-1.8) 11/20/18 05:32 Lymph # 2.3 K/mm3 (1.2-5.4) 11/20/18 05:32 [place] # 2.1 K/mm3 (0.0-0.8) H 11/20/18 05:32 Eos # 0.1 K/mm3 (0.0-0.4) 11/20/18 05:32 Baso # 0.1 K/mm3 (0.0-0.1) 11/20/18 05:32 Seg Neutrophils % 76.5 % (40.0-70.0) H 11/20/18 05:32 Seg Neutrophils # 14.9 K/mm3 (1.8-7.7) H 11/20/18 05:32 PT 14.9 Sec. (12.2-14.9) 11/18/18 05:20 INR 1.10 (0.87-1.13) 11/18/18 05:20 APTT 31.8 Sec. (24.2-36.6) 11/18/18 05:20 Heparin Anti-Xa Level 0.10 U.I./ml (0.3-0.7) L 11/20/18 08:44 Sodium 137 mmol/L (137-145) 11/20/18 08:44 Potassium 3.7 mmol/L (3.6-5.0) 11/20/18 08:44 Chloride 94.5 mmol/L (98-107) L 11/20/18 08:44 Carbon Dioxide 27 mmol/L (22-30) 11/20/18 08:44 Anion Gap 19 mmol/L 11/20/18 08:44 BUN 11 mg/dL (9-20) 11/20/18 08:44 Creatinine 0.8 mg/dL (0.8-1.5) 11/20/18 08:44 Estimated GFR > 60 ml/min 11/20/18 08:44 BUN/Creatinine Ratio 14 % 11/20/18 08:44 Glucose 200 mg/dL (75-100) H 11/20/18 08:44 Lactic Acid 1.60 mmol/L (0.7-2.0) 11/18/18 06:00 Calcium 8.8 mg/dL (8.4-10.2) 11/20/18 08:44 Troponin T 0.243 ng/mL (0.00-0.029) H* 11/18/18 01:33 C-Reactive Protein 2.30 mg/dL (0.00-1.30) H 11/18/18 15:32 NT-Pro-B Natriuret Pep 4314 pg/mL (0-900) H 11/18/18 01:33 Triglycerides 178 mg/dL (2-149) H 11/18/18 01:33 Cholesterol 197 mg/dL (50-199) 11/18/18 01:33 LDL Cholesterol Direct 132 mg/dL (50-130) H 11/18/18 01:33 HDL Cholesterol 34 mg/dL (40-59) L 11/18/18 01:33 Cholesterol/HDL Ratio 5.79 % 11/18/18 01:33 Active Medications - Current Medications Current Medications: Generic Name Dose Route Start Last Admin Trade Name Freq PRN Reason Stop Dose Admin Famotidine 20 mg 11/18/18 16:00 11/20/18 10:56 Pepcid PO 20 mg QDAY IBIS Administration Hydralazine HCl 10 mg 11/19/18 06:06 Apresoline IV Q4H PRN Hypertension Heparin Sodium/Sodium Chloride 25,000 unit in 500 mls @ 20 mls/hr 11/18/18 05:00 11/20/18 09:02 Heparin/ 0.45% Nacl-25,000 Unit/500 Ml IV 1,700 units/hr TITRATE IBIS 34 mls/hr Titration Protocol 1,000 UNITS/HR Levofloxacin/Dextrose 500 mg in 100 mls @ 100 mls/hr 11/18/18 05:26 11/20/18 06:21 Levaquin 500mg/100ml IV 100 mls/hr Q24HR@0600 IBIS Administration Protocol Diltiazem HCl 100 mg/ Dextrose 100 mls @ 5 mls/hr 11/18/18 06:00 11/19/18 23:03 IV 15 mg/hr DIRECT IBIS 15 mls/hr Administration Protocol 5 MG/HR Metoprolol Tartrate 50 mg 11/19/18 14:00 11/20/18 12:04 Lopressor PO Not Given Q8H IBIS
--- NOTE | 2018-11-20 12:51 | Progress Note ---
Assessment and Plan Acute hypoxemic respiratory failure presumably secondary to acute CHF exacerbation. Acute congestive heart failure exacerbation. (ejection fraction of 15-20%) Pulmonary hypertension, probably related to above. Atrial fibrillation with rapid ventricular response, new onset. Bilateral pleural effusions. Pulmonary edema. Leukocytosis, possibly secondary to occult pneumonia. Elevated serum troponin, non-ST elevation myocardial infarction. Elevated BNP. Hyperlipidemia. Tobacco use disorder. - Wean supplemental oxygen to keep O2 sats>90% -Continue with cardizem infusion for rate, control. Transition to oral therapy -Anticoagulated with heparin infusion, transition to oral therapy -Heart failure measures -Cardioprotective measures -Diuresis while monitoring renal function, hemodynamics and electrolyte profile -Replace electrolytes as indicated -Smoking cessation counselling -Cardiac diet -Complete 5 day course for CAP -Mobility, increase activity -Influenza and pneumonia vaccination per protocol prior to discharge -ABG and CXR prn Subjective Date of service: 11/20/18 Interval history: Patient is seen today for: Acute hypoxemic respiratory failure, Afib with RVR, Acute heart failure, pulmonary edema, bilateral pleural effusions Seen and examined at bedside; 24hour events reviewed; nursing and respiratory care staff consulted; no adverse overnight events reported to me; lying quietly in bed on supplemental oxygen at 3L/min, no chest pain, no shortness of breath, no nausea, vomiting, no fever. Remains on cardizem and heparin infusions Objective - Exam Narrative Exam: General appearance: Present: no acute distress, well-nourished, on supplemental oxygen - EENT Eyes: Present: PERRL, EOM intact ENT: hearing intact, clear oral mucosa, dentition normal - Neck Neck: Present: supple, normal ROM - Respiratory Respiratory effort: normal Respiratory: bilateral: CTA - Cardiovascular Rhythm: irregular Heart Sounds: Present: S1 & S2. Absent: gallop, rub - Extremities Extremities: no ischemia, No edema, Full ROM - Abdominal General gastrointestinal: soft, non-tender, non-distended, normal bowel sounds - Integumentary Integumentary: Present: clear, warm, dry - Neurologic Neurologic: CNII-XII intact, moves all extremities Vital Signs - 12hr 11/20/18 11/20/18 11/20/18 00:51 01:00 01:11 Temperature Pulse Rate 82 80 82 Respiratory 29 H 26 H 23 Rate Blood Pressure 134/102 137/101 137/101 O2 Sat by Pulse 93 89 96 Oximetry 03/23/19 03/23/19 03/23/19 01:21 01:30 01:41 Temperature Pulse Rate 85 90 82 Respiratory 34 H 24 32 H Rate Blood Pressure 137/101 140/102 140/102 O2 Sat by Pulse 95 94 94 Oximetry 11/20/18 11/20/18 11/20/18 01:51 02:00 02:11 Temperature Pulse Rate 96 H 96 H 90 Respiratory 25 H 31 H 31 H Rate Blood Pressure 140/102 143/100 143/100 O2 Sat by Pulse 94 92 Oximetry 11/20/18 11/20/18 11/20/18 02:21 02:30 02:41 Temperature Pulse Rate 92 H 92 H 90 Respiratory 20 30 H 33 H Rate Blood Pressure 143/100 140/107 140/107 O2 Sat by Pulse 91 88 84 Oximetry 11/20/18 11/20/18 11/20/18 02:51 03:00 03:11 Temperature Pulse Rate 99 H 100 H 96 H Respiratory 34 H 28 H 32 H Rate Blood Pressure 140/107 159/117 159/117 O2 Sat by Pulse 77 L 88 82 L Oximetry 11/20/18 11/20/18 11/20/18 03:21 03:30 03:41 Temperature Pulse Rate 108 H 103 H 100 H Respiratory 21 27 H 32 H Rate Blood Pressure 159/117 157/117 157/117 O2 Sat by Pulse 88 85 85 Oximetry 11/20/18 11/20/18 11/20/18 03:51 04:00 04:11 Temperature Pulse Rate 107 H 105 H 100 H Respiratory 32 H 35 H 30 H Rate Blood Pressure 157/117 161/105 161/105 O2 Sat by Pulse 85 81 L 87 Oximetry 11/20/18 11/20/18 11/20/18 04:21 04:31 04:38 Temperature 99.0 F Pulse Rate 105 H 112 H 80 Respiratory 33 H 27 H 27 H Rate Blood Pressure 161/105 166/113 O2 Sat by Pulse 83 L 94 94 Oximetry 11/20/18 11/20/18 11/20/18 08:00 10:00 10:09 Temperature 98.9 F Pulse Rate 118 H Respiratory 18 18 Rate Blood Pressure O2 Sat by Pulse 96 96 96 Oximetry 11/20/18 12:00 Temperature 98.1 F Pulse Rate Respiratory 18 Rate Blood Pressure O2 Sat by Pulse 96 Oximetry CBC and BMP: 11/22/18 06:09 11/22/18 06:09 ABG, PT/INR, D-dimer: PT/INR, D-dimer PT 14.9 Sec. (12.2-14.9) 11/18/18 05:20 INR 1.10 (0.87-1.13) 11/18/18 05:20 Abnormal lab findings: Abnormal Labs 11/18/18 11/18/18 11/18/18 01:33 01:33 01:33 WBC 16.0 H MCHC Lymph % (Auto) [place] % (Auto) 10.1 H Rains # 1.6 H Seg Neutrophils % 73.9 H Seg Neutrophils # 11.8 H PT Heparin Anti-Xa Level Chloride BUN 23 H Creatinine Glucose 172 H Troponin T 0.243 H* C-Reactive Protein NT-Pro-B Natriuret Pep 4314 H Triglycerides 178 H LDL Cholesterol Direct 132 H HDL Cholesterol 34 L 11/18/18 11/18/18 11/18/18 04:01 11:33 15:32 WBC MCHC Lymph % (Auto) [place] % (Auto) Rains # Seg Neutrophils % Seg Neutrophils # PT 15.2 H Heparin Anti-Xa Level < 0.10 L Chloride BUN Creatinine Glucose Troponin T C-Reactive Protein 2.30 H NT-Pro-B Natriuret Pep Triglycerides LDL Cholesterol Direct HDL Cholesterol 11/18/18 11/19/18 11/19/18 18:10 00:54 04:50 WBC 16.6 H MCHC Lymph % (Auto) 13.3 L [place] % (Auto) 12.8 H Rains # 2.1 H Seg Neutrophils % 72.9 H Seg Neutrophils # 12.1 H PT Heparin Anti-Xa Level < 0.10 L < 0.10 L Chloride BUN Creatinine Glucose Troponin T C-Reactive Protein NT-Pro-B Natriuret Pep Triglycerides LDL Cholesterol Direct HDL Cholesterol 11/19/18 11/19/18 11/20/18 04:50 08:15 05:32 WBC 19.5 H MCHC 35 H Lymph % (Auto) 11.5 L [place] % (Auto) 11.0 H Rains # 2.1 H Seg Neutrophils % 76.5 H Seg Neutrophils # 14.9 H PT Heparin Anti-Xa Level 0.17 L Chloride BUN Creatinine 0.7 L Glucose 140 H Troponin T C-Reactive Protein NT-Pro-B Natriuret Pep Triglycerides LDL Cholesterol Direct HDL Cholesterol 11/20/18 11/20/18 08:44 08:44 WBC MCHC Lymph % (Auto) [place] % (Auto) Rains # Seg Neutrophils % Seg Neutrophils # PT Heparin Anti-Xa Level 0.10 L Chloride 94.5 L BUN Creatinine Glucose 200 H Troponin T C-Reactive Protein NT-Pro-B Natriuret Pep Triglycerides LDL Cholesterol Direct HDL Cholesterol Chest x-ray: image reviewed Allied health notes reviewed: nursing
[2018-11-20] MEDS: CARDIZEM 100 MG in D5W 80 ML IV SCH (18:32)
[2018-11-21] MEDS: CARDIZEM 100 MG in D5W 80 ML IV SCH ×2 (02:46→09:31)
[2018-11-21] MEDS: LOPRESSOR PO SCH ×3 (06:47→22:59)
[2018-11-21] MEDS: LEVAQUIN 500MG/100ML 500 MG/100 ML BAG IV SCH (08:37)
--- NOTE | 2018-11-21 10:44 | Progress Note ---
Assessment and Plan Assessment and plan: Acute hypoxemic respiratory failure. Etiology secondary to heart failure and pneumonia. Continue O2 for supportive care. BiPAP if clinically indicated. New-onset Atrial fibrillation with RVR. Rate has been controlled with IV Cardizem. Transition to by mouth medications per cardiology. Patient will likely need long-term anticoagulation. Echocardiogram revealed a 4 chamber dilated cardiomyopathy, decreased left ventricular systolic function, EF 15-20%. Sepsis. Present on admission. Continue antibiotics and follow cultures. Left lower lobe pneumonia. Continue IV antibiotics. Hypertension. Continue antihypertensive medications. Diabetes mellitus type 2. Continue Accu-Cheks and sliding scale insulin. History Interval history: no new issues Hospitalist Physical - Constitutional Vitals: Temp Pulse Resp BP Pulse Ox 99.5 F 88 29 H 147/90 94 11/21/18 08:00 11/21/18 10:00 11/21/18 08:00 11/21/18 06:47 11/21/18 10:06 General appearance: Present: no acute distress, well-nourished - EENT Eyes: Present: PERRL, EOM intact ENT: hearing intact, clear oral mucosa, dentition normal - Neck Neck: Present: supple, normal ROM - Respiratory Respiratory effort: normal Respiratory: bilateral: CTA - Cardiovascular Rhythm: regular Heart Sounds: Present: S1 & S2. Absent: gallop, rub - Extremities Extremities: no ischemia, No edema, Full ROM - Abdominal General gastrointestinal: soft, non-tender, non-distended, normal bowel sounds - Integumentary Integumentary: Present: clear, warm, dry - Neurologic Neurologic: CNII-XII intact, moves all extremities Results - Labs CBC & Chem 7: 11/20/18 05:32 11/20/18 08:44 Labs: Laboratory Last Values WBC 19.5 K/mm3 (4.5-11.0) H 11/20/18 05:32 RBC 4.92 M/mm3 (3.65-5.03) 11/20/18 05:32 Hgb 15.1 gm/dl (11.8-15.2) 11/20/18 05:32 Hct 43.2 % (35.5-45.6) 11/20/18 05:32 MCV 88 fl (84-94) 11/20/18 05:32 MCH 31 pg (28-32) 11/20/18 05:32 MCHC 35 % (32-34) H 11/20/18 05:32 RDW 14.6 % (13.2-15.2) 11/20/18 05:32 Plt Count 280 K/mm3 (140-440) 11/20/18 05:32 Lymph % (Auto) 11.5 % (13.4-35.0) L 11/20/18 05:32 [place] % (Auto) 11.0 % (0.0-7.3) H 11/20/18 05:32 Eos % (Auto) 0.4 % (0.0-4.3) 11/20/18 05:32 Baso % (Auto) 0.6 % (0.0-1.8) 11/20/18 05:32 Lymph # 2.3 K/mm3 (1.2-5.4) 11/20/18 05:32 [place] # 2.1 K/mm3 (0.0-0.8) H 11/20/18 05:32 Eos # 0.1 K/mm3 (0.0-0.4) 11/20/18 05:32 Baso # 0.1 K/mm3 (0.0-0.1) 11/20/18 05:32 Seg Neutrophils % 76.5 % (40.0-70.0) H 11/20/18 05:32 Seg Neutrophils # 14.9 K/mm3 (1.8-7.7) H 11/20/18 05:32 PT 14.9 Sec. (12.2-14.9) 11/18/18 05:20 INR 1.10 (0.87-1.13) 11/18/18 05:20 APTT 31.8 Sec. (24.2-36.6) 11/18/18 05:20 Heparin Anti-Xa Level 0.15 U.I./ml (0.3-0.7) L 11/20/18 15:41 Sodium 137 mmol/L (137-145) 11/20/18 08:44 Potassium 3.7 mmol/L (3.6-5.0) 11/20/18 08:44 Chloride 94.5 mmol/L (98-107) L 11/20/18 08:44 Carbon Dioxide 27 mmol/L (22-30) 11/20/18 08:44 Anion Gap 19 mmol/L 11/20/18 08:44 BUN 11 mg/dL (9-20) 11/20/18 08:44 Creatinine 0.8 mg/dL (0.8-1.5) 11/20/18 08:44 Estimated GFR > 60 ml/min 11/20/18 08:44 BUN/Creatinine Ratio 14 % 11/20/18 08:44 Glucose 200 mg/dL (75-100) H 11/20/18 08:44 Lactic Acid 1.60 mmol/L (0.7-2.0) 11/18/18 06:00 Calcium 8.8 mg/dL (8.4-10.2) 11/20/18 08:44 Troponin T 0.243 ng/mL (0.00-0.029) H* 11/18/18 01:33 C-Reactive Protein 2.30 mg/dL (0.00-1.30) H 11/18/18 15:32 NT-Pro-B Natriuret Pep 4314 pg/mL (0-900) H 11/18/18 01:33 Triglycerides 178 mg/dL (2-149) H 11/18/18 01:33 Cholesterol 197 mg/dL (50-199) 11/18/18 01:33 LDL Cholesterol Direct 132 mg/dL (50-130) H 11/18/18 01:33 HDL Cholesterol 34 mg/dL (40-59) L 11/18/18 01:33 Cholesterol/HDL Ratio 5.79 % 11/18/18 01:33 Active Medications - Current Medications Current Medications: Generic Name Dose Route Start Last Admin Trade Name Freq PRN Reason Stop Dose Admin Famotidine 20 mg 11/18/18 16:00 11/20/18 10:56 Pepcid PO 20 mg QDAY IBIS Administration Hydralazine HCl 10 mg 11/19/18 06:06 Apresoline IV Q4H PRN Hypertension Heparin Sodium/Sodium Chloride 25,000 unit in 500 mls @ 20 mls/hr 11/18/18 05:00 11/20/18 19:25 Heparin/ 0.45% Nacl-25,000 Unit/500 Ml IV 1,700 units/hr TITRATE IBIS 34 mls/hr Administration Protocol 1,000 UNITS/HR Levofloxacin/Dextrose 500 mg in 100 mls @ 100 mls/hr 11/18/18 05:26 11/21/18 08:37 Levaquin 500mg/100ml IV 11/22/18 06:59 100 mls/hr Q24HR@0600 IBIS Administration Protocol Diltiazem HCl 100 mg/ Dextrose 100 mls @ 5 mls/hr 11/18/18 06:00 11/21/18 09: 31 IV 10 mg/hr DIRECT IBIS 10 mls/hr Administration Protocol 5 MG/HR Metoprolol Tartrate 50 mg 11/19/18 14:00 11/21/18 06:47 Lopressor PO 50 mg Q8H IBIS Administration
--- NOTE | 2018-11-21 12:37 | Progress Note ---
Assessment and Plan Acute hypoxemic respiratory failure presumably secondary to acute CHF exacerbation. Acute congestive heart failure exacerbation. (ejection fraction of 15-20%) Pulmonary hypertension, probably related to above. Atrial fibrillation with rapid ventricular response, new onset. Bilateral pleural effusions. Pulmonary edema. Leukocytosis, possibly secondary to occult pneumonia. Elevated serum troponin, non-ST elevation myocardial infarction. Elevated BNP. Hyperlipidemia. Tobacco use disorder. - Wean supplemental oxygen to keep O2 sats>90% -Continue with cardizem infusion for rate, control. Transition to oral therapy -Anticoagulated with heparin infusion, transition to oral therapy -Heart failure measures -Cardioprotective measures -Diuresis while monitoring renal function, hemodynamics and electrolyte profile -Replace electrolytes as indicated -Smoking cessation counselling -Cardiac diet -Complete 5 day course for CAP -Mobility, increase activity -Influenza and pneumonia vaccination per protocol prior to discharge -ABG and CXR prn Subjective Date of service: 11/21/18 Interval history: Patient is seen today for: Acute hypoxemic respiratory failure, Afib with RVR, Acute heart failure, pulmonary edema, bilateral pleural effusions Seen and examined at bedside; 24hour events reviewed; nursing and respiratory care staff consulted; no adverse overnight events reported to me; lying quietly in bed on supplemental oxygen at 3L/min, no chest pain, no shortness of breath, no nausea, vomiting, no fever. Remains on cardizem and heparin infusions Objective - Exam Narrative Exam: General appearance: Present: no acute distress, well-nourished, on supplemental oxygen - EENT Eyes: Present: PERRL, EOM intact ENT: hearing intact, clear oral mucosa, dentition normal - Neck Neck: Present: supple, normal ROM - Respiratory Respiratory effort: normal Respiratory: bilateral: CTA - Cardiovascular Rhythm: irregular Heart Sounds: Present: S1 & S2. Absent: gallop, rub - Extremities Extremities: no ischemia, No edema, Full ROM - Abdominal General gastrointestinal: soft, non-tender, non-distended, normal bowel sounds - Integumentary Integumentary: Present: clear, warm, dry - Neurologic Neurologic: CNII-XII intact, moves all extremities Vital Signs - 12hr 11/21/18 11/21/18 11/21/18 04:00 06:47 08:00 Temperature 98.8 F 99.5 F Pulse Rate 94 H Pulse Rate [ 95 H 81 From Monitor] Respiratory 30 H 29 H Rate Blood Pressure 147/90 O2 Sat by Pulse 93 99 Oximetry 11/21/18 11/21/18 10:00 10:06 Temperature Pulse Rate 88 Pulse Rate [ From Monitor] Respiratory Rate Blood Pressure O2 Sat by Pulse 94 Oximetry CBC and BMP: 11/22/18 06:09 11/22/18 06:09 ABG, PT/INR, D-dimer: PT/INR, D-dimer PT 14.9 Sec. (12.2-14.9) 11/18/18 05:20 INR 1.10 (0.87-1.13) 11/18/18 05:20 Abnormal lab findings: Abnormal Labs 11/18/18 11/18/18 11/18/18 01:33 01:33 01:33 WBC 16.0 H MCHC Lymph % (Auto) [place] % (Auto) 10.1 H [place] # 1.6 H Seg Neutrophils % 73.9 H Seg Neutrophils # 11.8 H PT Heparin Anti-Xa Level Chloride BUN 23 H Creatinine Glucose 172 H Troponin T 0.243 H* C-Reactive Protein NT-Pro-B Natriuret Pep 4314 H Triglycerides 178 H LDL Cholesterol Direct 132 H HDL Cholesterol 34 L 11/18/18 11/18/18 11/18/18 04:01 11:33 15:32 WBC MCHC Lymph % (Auto) [place] % (Auto) [place] # Seg Neutrophils % Seg Neutrophils # PT 15.2 H Heparin Anti-Xa Level < 0.10 L Chloride BUN Creatinine Glucose Troponin T C-Reactive Protein 2.30 H NT-Pro-B Natriuret Pep Triglycerides LDL Cholesterol Direct HDL Cholesterol 11/18/18 11/19/18 11/19/18 18:10 00:54 04:50 WBC 16.6 H MCHC Lymph % (Auto) 13.3 L [place] % (Auto) 12.8 H [place] # 2.1 H Seg Neutrophils % 72.9 H Seg Neutrophils # 12.1 H PT Heparin Anti-Xa Level < 0.10 L < 0.10 L Chloride BUN Creatinine Glucose Troponin T C-Reactive Protein NT-Pro-B Natriuret Pep Triglycerides LDL Cholesterol Direct HDL Cholesterol 11/19/18 11/19/18 11/20/18 04:50 08:15 05:32 WBC 19.5 H MCHC 35 H Lymph % (Auto) 11.5 L [place] % (Auto) 11.0 H [place] # 2.1 H Seg Neutrophils % 76.5 H Seg Neutrophils # 14.9 H PT Heparin Anti-Xa Level 0.17 L Chloride BUN Creatinine 0.7 L Glucose 140 H Troponin T C-Reactive Protein NT-Pro-B Natriuret Pep Triglycerides LDL Cholesterol Direct HDL Cholesterol 11/20/18 11/20/18 11/20/18 08:44 08:44 15:41 WBC MCHC Lymph % (Auto) [place] % (Auto) [place] # Seg Neutrophils % Seg Neutrophils # PT Heparin Anti-Xa Level 0.10 L 0.15 L Chloride 94.5 L BUN Creatinine Glucose 200 H Troponin T C-Reactive Protein NT-Pro-B Natriuret Pep Triglycerides LDL Cholesterol Direct HDL Cholesterol
[2018-11-21] MEDS ORDERED: CARDIZEM PO SCH (13:00)
[2018-11-21] MEDS: CARDIZEM PO SCH ×2 (13:22→22:59)
[2018-11-21] MEDS: PEPCID PO SCH (13:22)
--- NOTE | 2018-11-21 13:51 | Progress Note ---
Assessment and Plan 1. Atrial fibrillation with a controlled ventricular response. 2. Dilated cardiomyopathy four-chamber dilation and the ejection fraction 15- 20% 3. Essential hypertension 4. Type 2 diabetes mellitus 5. Pulmonary infiltrate with elevated white count. Rule out malignancy vs acquired pneumonia. Plan. Transition to oral Cardizem and oral anticoagulation. He'll have a follow-up chest x-ray. Subjective Date of service: 11/21/18 Interval history: No cardiac symptoms. Objective Vital Signs Temp Pulse Pulse Resp BP Pulse Ox 11/21/18 13:27 96 H 139/83 11/21/18 13:22 94 H 139/83 11/21/18 12:00 98.5 F 91 H 23 92 11/21/18 10:06 94 11/21/18 10:00 88 11/21/18 08:00 99.5 F 81 29 H 99 11/21/18 06:47 94 H 147/90 11/21/18 04:00 98.8 F 95 H 30 H 93 11/21/18 00:00 98.9 F 87 28 H 93 11/20/18 22:00 87 97 11/20/18 21:42 90 136/95 11/20/18 20:00 98.1 F 11/20/18 19:49 93 H 16 96 11/20/18 18:00 18 96 11/20/18 16:00 98.4 F 18 96 11/20/18 14:05 95 H 122/86 11/20/18 14:00 16 96 - Physical Examination General: Appears Well, No Apparent Distress HEENT: Positive: PERRL, Normocephaly, Mucus Membranes Moist Neck: Positive: neck supple, trachea midline. Negative: JVD/HJR Cardiac: Positive: irregularly irregular, S1/S2, PMI, Laterally Displaced. Negative: S3 Lungs: Positive: clear to auscultation, No Wheeze, Rales, Rhonchi Neuro: Positive: Grossly Intact Abdomen: Positive: Unremarkable, Soft Extremities: Present: +1 Edema
[2018-11-21] MEDS: HEPARIN/ 0.45% NACL-25,000 UNIT/500 ML 25,000 UNIT/500 ML BAG IV SCH (14:30)
[2018-11-22] MEDS: HEPARIN/ 0.45% NACL-25,000 UNIT/500 ML 25,000 UNIT/500 ML BAG IV SCH ×2 (01:34→17:54)
[2018-11-22] MEDS: LOPRESSOR PO SCH ×3 (06:30→21:28)
[2018-11-22] MEDS: LEVAQUIN 500MG/100ML 500 MG/100 ML BAG IV SCH (06:30)
[2018-11-22] MEDS: CARDIZEM PO SCH ×3 (06:31→21:30)
[2018-11-22 06:43] LABS: Basophils # (Auto) 0.1 K/mm3 (0.0-0.1); Basophils % (Auto) 0.5 % (0.0-1.8); Eosinophils # (Auto) 0.5 K/mm3 (0.0-0.4); Eosinophils % (Auto) 2.8 % (0.0-4.3); Hematocrit 42.3 % (35.5-45.6); Hemoglobin 14.4 gm/dl (11.8-15.2); Lymphocytes # (Auto) 2.1 K/mm3 (1.2-5.4); Lymphocytes % (Auto) 12.2 % (13.4-35.0); Mean Corpuscular HGB Conc 34 % (32-34); Mean Corpuscular Volume 87 fl (84-94); Monocytes # (Auto) 1.6 K/mm3 (0.0-0.8); Monocytes % (Auto) 9.7 % (0.0-7.3); Platelet Count 302 K/mm3 (140-440); Red Blood Count 4.85 M/mm3 (3.65-5.03); Red Cell Distribution Width 14.6 % (13.2-15.2)
[2018-11-22 07:25] LABS: BUN/Creatinine Ratio 19; Blood Urea Nitrogen 13 mg/dL (9-20); Calcium 8.8 mg/dL (8.4-10.2); Hemolysis Index 49
[2018-11-22] MEDS: PEPCID PO SCH (10:25)
--- NOTE | 2018-11-22 12:21 | Progress Note ---
Assessment and Plan Atrial fibrillation, new onset on cardizem and metoprolol for rate control. Shortness of breath chest x-ray showed a left hilar infiltrate, and the white count was 16,000. an echocardiogram revealed a 4 chamber dilated cardiomyopathy, decreased left ventricular systolic function, EF 15-20%. The duration of the cardiomyopathy is uncertain. Hypertension Diabetes Recommendations: Atrial fibrillation rate control, with Cardizem and metoprolol. He will ultimately need long-term oral anticoagulation therapy. Medical therapy for dilated cardiomyopathy as tolerated. Further ischemic evaluation with a [facility] tomorrow morning. Subjective Date of service: 11/22/18 Interval history: Patient reports his breathing has improved. Afib with a well controlled ventricular rate on telemetry. Objective Vital Signs Temp Pulse Pulse Resp BP Pulse Ox 11/22/18 12:03 98.4 F 89 20 140/92 95 11/22/18 10:00 95 11/22/18 08:15 98.3 F 88 20 125/99 88 11/22/18 06:30 115 H 154/107 11/22/18 04:34 99.0 F 20 154/107 11/22/18 04:00 115 H 20 154/107 97 11/22/18 03:24 20 11/22/18 00:20 98.7 F 20 133/93 11/22/18 00:00 98.7 F 91 H 91 H 104 H 133/93 91 11/21/18 22:59 106 H 126/97 11/21/18 22:45 94 11/21/18 20:14 98.5 F 95 H 20 126/97 91 11/21/18 19:33 89 11/21/18 17:27 98.4 F 89 20 140/107 91 11/21/18 17:00 86 33 H 142/98 93 11/21/18 16:50 83 14 126/82 93 11/21/18 16:40 88 19 126/82 95 11/21/18 16:30 86 16 146/95 91 11/21/18 16:20 79 16 146/95 89 11/21/18 16:10 83 16 146/95 94 11/21/18 16:00 75 20 146/95 91 11/21/18 15:50 81 27 H 141/104 95 11/21/18 15:40 80 32 H 141/104 89 11/21/18 15:30 82 31 H 141/104 93 11/21/18 15:20 81 31 H 125/92 95 11/21/18 15:10 83 32 H 125/92 95 11/21/18 15:00 81 29 H 125/92 90 11/21/18 14:50 82 13 135/91 93 11/21/18 14:40 85 25 H 135/91 95 11/21/18 14:30 85 25 H 135/91 92 11/21/18 14:20 94 H 28 H 136/97 93 11/21/18 14:10 82 24 136/97 91 11/21/18 14:00 85 28 H 136/97 94 11/21/18 13:50 93 H 37 H 130/93 94 11/21/18 13:40 90 34 H 130/93 93 11/21/18 13:30 100 H 32 H 130/93 93 11/21/18 13:27 96 H 139/83 11/21/18 13:22 94 H 139/83 11/21/18 13:20 108 H 156/126 93 11/21/18 13:15 93 11/21/18 13:00 90 36 H 126/89 90 11/21/18 12:50 98 H 37 H 126/89 90 11/21/18 12:40 97 H 24 126/89 90 11/21/18 12:30 90 29 H 126/89 93 11/21/18 12:20 94 H 18 126/89 92 - Physical Examination General: No Apparent Distress HEENT: Positive: PERRL Neck: Positive: trachea midline Cardiac: Positive: irregularly irregular Lungs: Positive: Decreased Breath Sounds Neuro: Positive: Grossly Intact - Labs and Meds CBC 11/22/18 Range/Units 06:09 WBC 17.1 H (4.5-11.0) K/mm3 RBC 4.85 (3.65-5.03) M/mm3 Hgb 14.4 (11.8-15.2) gm/dl Hct 42.3 (35.5-45.6) % Plt Count 302 (140-440) K/mm3 Lymph # 2.1 (1.2-5.4) K/mm3 [place] # 1.6 H (0.0-0.8) K/mm3 Eos # 0.5 H (0.0-0.4) K/mm3 Baso # 0.1 (0.0-0.1) K/mm3 Comprehensive Metabolic Panel 11/22/18 Range/Units 06:09 Sodium 138 (137-145) mmol/L Potassium 4.6 D (3.6-5.0) mmol/L Chloride 99.8 (98-107) mmol/L Carbon Dioxide 24 (22-30) mmol/L BUN 13 (9-20) mg/dL Creatinine 0.7 L (0.8-1.5) mg/dL Glucose 154 H (75-100) mg/dL Calcium 8.8 (8.4-10.2) mg/dL - Allied health notes Allied health notes reviewed: nursing
--- NOTE | 2018-11-22 12:46 | Progress Note ---
Assessment and Plan Assessment and plan: Acute hypoxemic respiratory failure. Etiology secondary to heart failure and pneumonia. Continue O2 for supportive care. BiPAP if clinically indicated. New-onset Atrial fibrillation with RVR. Rate controlled on by mouth Cardizem and metoprolol. Patient will likely need long-term anticoagulation. Currently with IV heparin. Echocardiogram revealed a 4 chamber dilated cardiomyopathy, decreased left ventricular systolic function, EF 15-20%. Further ischemic evaluation with a [facility] tomorrow morning. Sepsis. Present on admission. Continue antibiotics and follow cultures. Left lower lobe pneumonia. Continue IV antibiotics. Recheck chest x-ray in a.m. Hypertension. Continue antihypertensive medications. Diabetes mellitus type 2. Continue Accu-Cheks and sliding scale insulin. History Interval history: no new issues Hospitalist Physical - Constitutional Vitals: Temp Pulse Resp BP Pulse Ox 98.4 F 89 20 140/92 95 11/22/18 12:03 11/22/18 12:03 11/22/18 12:03 11/22/18 12:03 11/22/18 12:03 General appearance: Present: no acute distress, well-nourished - EENT Eyes: Present: PERRL, EOM intact ENT: hearing intact, clear oral mucosa, dentition normal - Neck Neck: Present: supple, normal ROM - Respiratory Respiratory effort: normal Respiratory: bilateral: CTA - Cardiovascular Rhythm: regular Heart Sounds: Present: S1 & S2. Absent: gallop, rub - Extremities Extremities: no ischemia, No edema, Full ROM - Abdominal General gastrointestinal: soft, non-tender, non-distended, normal bowel sounds - Integumentary Integumentary: Present: clear, warm, dry - Neurologic Neurologic: CNII-XII intact, moves all extremities Results - Labs CBC & Chem 7: 11/22/18 06:09 11/22/18 06:09 Labs: Laboratory Last Values WBC 17.1 K/mm3 (4.5-11.0) H 11/22/18 06:09 RBC 4.85 M/mm3 (3.65-5.03) 11/22/18 06:09 Hgb 14.4 gm/dl (11.8-15.2) 11/22/18 06:09 Hct 42.3 % (35.5-45.6) 11/22/18 06:09 MCV 87 fl (84-94) 11/22/18 06:09 MCH 30 pg (28-32) 11/22/18 06:09 MCHC 34 % (32-34) 11/22/18 06:09 RDW 14.6 % (13.2-15.2) 11/22/18 06:09 Plt Count 302 K/mm3 (140-440) 11/22/18 06:09 Lymph % (Auto) 12.2 % (13.4-35.0) L 11/22/18 06:09 [place] % (Auto) 9.7 % (0.0-7.3) H 11/22/18 06:09 Eos % (Auto) 2.8 % (0.0-4.3) 11/22/18 06:09 Baso % (Auto) 0.5 % (0.0-1.8) 11/22/18 06:09 Lymph # 2.1 K/mm3 (1.2-5.4) 11/22/18 06:09 [place] # 1.6 K/mm3 (0.0-0.8) H 11/22/18 06:09 Eos # 0.5 K/mm3 (0.0-0.4) H 11/22/18 06:09 Baso # 0.1 K/mm3 (0.0-0.1) 11/22/18 06:09 Seg Neutrophils % 74.8 % (40.0-70.0) H 11/22/18 06:09 Seg Neutrophils # 12.8 K/mm3 (1.8-7.7) H 11/22/18 06:09 PT 14.9 Sec. (12.2-14.9) 11/18/18 05:20 INR 1.10 (0.87-1.13) 11/18/18 05:20 APTT 31.8 Sec. (24.2-36.6) 11/18/18 05:20 Heparin Anti-Xa Level 0.14 U.I./ml (0.3-0.7) L 11/21/18 23:05 Sodium 138 mmol/L (137-145) 11/22/18 06:09 Potassium 4.6 mmol/L (3.6-5.0) D 11/22/18 06:09 Chloride 99.8 mmol/L (98-107) 11/22/18 06:09 Carbon Dioxide 24 mmol/L (22-30) 11/22/18 06:09 Anion Gap 19 mmol/L 11/22/18 06:09 BUN 13 mg/dL (9-20) 11/22/18 06:09 Creatinine 0.7 mg/dL (0.8-1.5) L 11/22/18 06:09 Estimated GFR > 60 ml/min 11/22/18 06:09 BUN/Creatinine Ratio 19 % 11/22/18 06:09 Glucose 154 mg/dL (75-100) H 11/22/18 06:09 Lactic Acid 1.60 mmol/L (0.7-2.0) 11/18/18 06:00 Calcium 8.8 mg/dL (8.4-10.2) 11/22/18 06:09 Troponin T 0.243 ng/mL (0.00-0.029) H* 11/18/18 01:33 C-Reactive Protein 2.30 mg/dL (0.00-1.30) H 11/18/18 15:32 NT-Pro-B Natriuret Pep 4314 pg/mL (0-900) H 11/18/18 01:33 Triglycerides 178 mg/dL (2-149) H 11/18/18 01:33 Cholesterol 197 mg/dL (50-199) 11/18/18 01:33 LDL Cholesterol Direct 132 mg/dL (50-130) H 11/18/18 01:33 HDL Cholesterol 34 mg/dL (40-59) L 11/18/18 01:33 Cholesterol/HDL Ratio 5.79 % 11/18/18 01:33 Active Medications - Current Medications Current Medications: Generic Name Dose Route Start Last Admin Trade Name Freq PRN Reason Stop Dose Admin Diltiazem HCl 60 mg 11/21/18 14:00 11/22/18 06:31 Cardizem PO 60 mg Q8HR IBIS Administration Famotidine 20 mg 11/18/18 16:00 11/22/18 10:25 Pepcid PO 20 mg QDAY IBIS Administration Hydralazine HCl 10 mg 11/19/18 06:06 Apresoline IV Q4H PRN Hypertension Heparin Sodium/Sodium Chloride 25,000 unit in 500 mls @ 20 mls/hr 11/18/18 05:00 11/22/18 01:34 Heparin/ 0.45% Nacl-25,000 Unit/500 Ml IV 1,900 units/hr TITRATE IBIS 38 mls/hr Administration Protocol 1,000 UNITS/HR Sodium Chloride 500 mls @ 50 mls/hr 11/22/18 13:00 Nacl 0.9% 500 Ml IV 11/22/18 22:59 DIRECT IBIS Metoprolol Tartrate 50 mg 11/19/18 14:00 11/22/18 06:30 Lopressor PO 50 mg Q8H IBIS Administration
[2018-11-22] MEDS ORDERED: NACL 0.9% 500 ML 500 ML IV SCH (13:00)
--- NOTE | 2018-11-22 13:45 | Progress Note ---
Assessment and Plan Patient resting on nasal canula. O2 saturation 95% on 2 litres O2. No complaint of chest pain or shortness of breath or cough. IMMPRESSION: 1. Perihilar edema 2. Perihilar pneumonia. 3.Bilateral pleural effusions. 4.Possible COPD. 5. CHF 6. Atrial fibrillation 7. Pulmonary hypertension. - Patient Problems (1) CHF (congestive heart failure) Current Visit: Yes Status: Acute Plan to address problem: Management as per cardiology. (2) NSTEMI (non-ST elevated myocardial infarction) Current Visit: Yes Status: Acute Plan to address problem: Patient is on I/V Heparin. Management as per cardiology. (3) Atrial fibrillation with RVR Current Visit: Yes Status: Acute Plan to address problem: Patient is on I/V Heparin. Management as per cardiology. (4) Pulmonary edema Current Visit: Yes Status: Acute Plan to address problem: Improving. (5) Pneumonia Current Visit: Yes Status: Acute Plan to address problem: Possible perihilar pneumonia. Patient is on Levaquin. (6) COPD (chronic obstructive pulmonary disease) Current Visit: Yes Status: Acute Plan to address problem: Possible COPD with History of smoking. Albuterol/atrovent aerosol treatments q 6 hours prn for shortness of breath. PFTs as out patient. Subjective Date of service: 11/22/18 Interval history: Patient resting on nasal canula. O2 saturation 95% on 2 litres O2. No complaint of chest pain or shortness of breath or cough. Objective Vital Signs - 12hr 11/22/18 11/22/18 11/22/18 03:24 04:00 04:34 Temperature 99.0 F Pulse Rate Pulse Rate [ 115 H Left] Respiratory 20 20 20 Rate Blood Pressure 154/107 154/107 O2 Sat by Pulse 97 Oximetry 11/22/18 11/22/18 11/22/18 06:30 08:15 10:00 Temperature 98.3 F Pulse Rate 115 H 88 Pulse Rate [ Left] Respiratory 20 Rate Blood Pressure 154/107 125/99 O2 Sat by Pulse 88 95 Oximetry 11/22/18 12:03 Temperature 98.4 F Pulse Rate 89 Pulse Rate [ Left] Respiratory 20 Rate Blood Pressure 140/92 O2 Sat by Pulse 95 Oximetry Constitutional: no acute distress, alert Eyes: non-icteric ENT: oropharynx moist Neck: supple Ascultation: Bilateral: diminished breath sounds, rales Cardiovascular: regular rate and rhythm Gastrointestinal: normoactive bowel sounds, soft, non-tender Integumentary: normal Extremities: no cyanosis, no edema Neurologic: normal mental status, non-focal exam, pupils equal and round, CN II- XII normal Psychiatric: mood appropriate CBC and BMP: 11/22/18 06:09 11/22/18 06:09 ABG, PT/INR, D-dimer: PT/INR, D-dimer PT 14.9 Sec. (12.2-14.9) 11/18/18 05:20 INR 1.10 (0.87-1.13) 11/18/18 05:20 Abnormal lab findings: Abnormal Labs 11/18/18 11/18/18 11/18/18 01:33 01:33 01:33 WBC 16.0 H MCHC Lymph % (Auto) [place] % (Auto) 10.1 H [place] # 1.6 H Eos # Seg Neutrophils % 73.9 H Seg Neutrophils # 11.8 H PT Heparin Anti-Xa Level Chloride BUN 23 H Creatinine Glucose 172 H Troponin T 0.243 H* C-Reactive Protein NT-Pro-B Natriuret Pep 4314 H Triglycerides 178 H LDL Cholesterol Direct 132 H HDL Cholesterol 34 L 11/18/18 11/18/18 11/18/18 04:01 11:33 15:32 WBC MCHC Lymph % (Auto) [place] % (Auto) [place] # Eos # Seg Neutrophils % Seg Neutrophils # PT 15.2 H Heparin Anti-Xa Level < 0.10 L Chloride BUN Creatinine Glucose Troponin T C-Reactive Protein 2.30 H NT-Pro-B Natriuret Pep Triglycerides LDL Cholesterol Direct HDL Cholesterol 11/18/18 11/19/18 11/19/18 18:10 00:54 04:50 WBC 16.6 H MCHC Lymph % (Auto) 13.3 L [place] % (Auto) 12.8 H [place] # 2.1 H Eos # Seg Neutrophils % 72.9 H Seg Neutrophils # 12.1 H PT Heparin Anti-Xa Level < 0.10 L < 0.10 L Chloride BUN Creatinine Glucose Troponin T C-Reactive Protein NT-Pro-B Natriuret Pep Triglycerides LDL Cholesterol Direct HDL Cholesterol 11/19/18 11/19/18 11/20/18 04:50 08:15 05:32 WBC 19.5 H MCHC 35 H Lymph % (Auto) 11.5 L [place] % (Auto) 11.0 H [place] # 2.1 H Eos # Seg Neutrophils % 76.5 H Seg Neutrophils # 14.9 H PT Heparin Anti-Xa Level 0.17 L Chloride BUN Creatinine 0.7 L Glucose 140 H Troponin T C-Reactive Protein NT-Pro-B Natriuret Pep Triglycerides LDL Cholesterol Direct HDL Cholesterol 11/20/18 11/20/18 11/20/18 08:44 08:44 15:41 WBC MCHC Lymph % (Auto) [place] % (Auto) [place] # Eos # Seg Neutrophils % Seg Neutrophils # PT Heparin Anti-Xa Level 0.10 L 0.15 L Chloride 94.5 L BUN Creatinine Glucose 200 H Troponin T C-Reactive Protein NT-Pro-B Natriuret Pep Triglycerides LDL Cholesterol Direct HDL Cholesterol 11/21/18 11/21/18 11/22/18 15:16 23:05 06:09 WBC 17.1 H MCHC Lymph % (Auto) 12.2 L [place] % (Auto) 9.7 H [place] # 1.6 H Eos # 0.5 H Seg Neutrophils % 74.8 H Seg Neutrophils # 12.8 H PT Heparin Anti-Xa Level < 0.10 L 0.14 L Chloride BUN Creatinine Glucose Troponin T C-Reactive Protein NT-Pro-B Natriuret Pep Triglycerides LDL Cholesterol Direct HDL Cholesterol 11/22/18 06:09 WBC MCHC Lymph % (Auto) [place] % (Auto) [place] # Eos # Seg Neutrophils % Seg Neutrophils # PT Heparin Anti-Xa Level Chloride BUN Creatinine 0.7 L Glucose 154 H Troponin T C-Reactive Protein NT-Pro-B Natriuret Pep Triglycerides LDL Cholesterol Direct HDL Cholesterol Chest x-ray: report reviewed (Perihilaredema.), image reviewed Additional Studies: Angio CT of chest done on IMPRESSION: No pulmonary embolism. Multifocal airspace disease and right larger than left pleural effusions with mediastinal lymph node prominence. Correlation for infectious symptoms is requested. Radiographic follow-up to resolution is suggested. Coronary artery calcification. Benign left adrenal lipid rich adenoma measures up to 2 cm. Allied health notes reviewed: nursing
--- NOTE | 2018-11-22 13:46 | Progress Note ---
Assessment and Plan Acute hypoxemic respiratory failure presumably secondary to acute CHF exacerbation. Acute congestive heart failure exacerbation. (ejection fraction of 15-20%) Pulmonary hypertension, probably related to above. Atrial fibrillation with rapid ventricular response, new onset. Bilateral pleural effusions. Pulmonary edema. Leukocytosis, possibly secondary to occult pneumonia. Elevated serum troponin, non-ST elevation myocardial infarction. Elevated BNP. Hyperlipidemia. Tobacco use disorder. - continue to wean supplemental oxygen to keep O2 sats>90% - Continue with cardizem infusion for rate, control. Transition to oral therapy - Anticoagulated with heparin infusion, transition to oral therapy - Heart failure measures - Cardioprotective measures - Diuresis while monitoring renal function, hemodynamics and electrolyte profile - Replace electrolytes as indicated - Smoking cessation counselling - Cardiac diet - Complete 5 day course for CAP - Mobility, increase activity - Influenza and pneumonia vaccination per protocol prior to discharge - ABG and CXR prn - continue other care per attending / other consultants ... re-evaluate in am & prn The high probability of a clinically significant, sudden or life-threatening deterioration of the [cardiac, neurology] system(s) required my full and direct attention, intervention and personal management. The aggregate critical care time was [31] minutes without overlap. Time includes spent on; [x] Data Review and interpretation [x] Patient assessment and monitoring of vital signs [x] Documentation [x] Medication orders and management Subjective Date of service: 11/22/18 Principal diagnosis: Ac hypoxemic Resp failure; New onset CHF (EF 20%); Pulm HTN; A-Fib with RVR Interval history: Patient is seen today for: Acute hypoxemic Resp failure; Acute congestive heart failure exacerbation (ejection fraction of 15-20%); Pulmonary hypertension; Atrial fibrillation with rapid ventricular response, new onset; Bilateral pleural effusions; Acute Pulmonary edema. Seen and examined at bedside; 24hour events reviewed; nursing and respiratory care staff consulted; no adverse overnight events reported to me; Objective Vital Signs - 12hr 11/22/18 11/22/18 11/22/18 03:24 04:00 04:34 Temperature 99.0 F Pulse Rate Pulse Rate [ 115 H Left] Respiratory 20 20 20 Rate Blood Pressure 154/107 154/107 O2 Sat by Pulse 97 Oximetry 11/22/18 11/22/18 11/22/18 06:30 08:15 10:00 Temperature 98.3 F Pulse Rate 115 H 88 Pulse Rate [ Left] Respiratory 20 Rate Blood Pressure 154/107 125/99 O2 Sat by Pulse 88 95 Oximetry 11/22/18 12:03 Temperature 98.4 F Pulse Rate 89 Pulse Rate [ Left] Respiratory 20 Rate Blood Pressure 140/92 O2 Sat by Pulse 95 Oximetry Constitutional: alert, appears uncomfortable, other (middle aged AAM normocephalic and atraumatic with mildly increased resp effort at rest) Eyes: non-icteric ENT: oropharynx moist, other (mallampati 3) Neck: supple, no lymphadenopathy, no JVD, other (no thyromegaly) Effort: mildly labored Ascultation: Bilateral: diminished breath sounds, rales Percussion: Bilateral: not dull Cardiovascular: irregular rhythm, murmur noted (REFUGIO) Gastrointestinal: normoactive bowel sounds, soft, non-tender, non-distended Integumentary: normal Extremities: no cyanosis, pulses normal, no ischemia or petechiae, edema (1+) Neurologic: normal mental status, non-focal exam, pupils equal and round, CN II- XII normal, motor strength normal and Psychiatric: mood appropriate, affect normal CBC and BMP: 11/22/18 06:09 11/22/18 06:09 ABG, PT/INR, D-dimer: PT/INR, D-dimer PT 14.9 Sec. (12.2-14.9) 11/18/18 05:20 INR 1.10 (0.87-1.13) 11/18/18 05:20 Abnormal lab findings: Abnormal Labs 11/18/18 11/18/18 11/18/18 01:33 01:33 01:33 WBC 16.0 H MCHC Lymph % (Auto) [place] % (Auto) 10.1 H [place] # 1.6 H Eos # Seg Neutrophils % 73.9 H Seg Neutrophils # 11.8 H PT Heparin Anti-Xa Level Chloride BUN 23 H Creatinine Glucose 172 H Troponin T 0.243 H* C-Reactive Protein NT-Pro-B Natriuret Pep 4314 H Triglycerides 178 H LDL Cholesterol Direct 132 H HDL Cholesterol 34 L 11/18/18 11/18/18 11/18/18 04:01 11:33 15:32 WBC MCHC Lymph % (Auto) [place] % (Auto) [place] # Eos # Seg Neutrophils % Seg Neutrophils # PT 15.2 H Heparin Anti-Xa Level < 0.10 L Chloride BUN Creatinine Glucose Troponin T C-Reactive Protein 2.30 H NT-Pro-B Natriuret Pep Triglycerides LDL Cholesterol Direct HDL Cholesterol 11/18/18 11/19/18 11/19/18 18:10 00:54 04:50 WBC 16.6 H MCHC Lymph % (Auto) 13.3 L [place] % (Auto) 12.8 H [place] # 2.1 H Eos # Seg Neutrophils % 72.9 H Seg Neutrophils # 12.1 H PT Heparin Anti-Xa Level < 0.10 L < 0.10 L Chloride BUN Creatinine Glucose Troponin T C-Reactive Protein NT-Pro-B Natriuret Pep Triglycerides LDL Cholesterol Direct HDL Cholesterol 11/19/18 11/19/18 11/20/18 04:50 08:15 05:32 WBC 19.5 H MCHC 35 H Lymph % (Auto) 11.5 L [place] % (Auto) 11.0 H [place] # 2.1 H Eos # Seg Neutrophils % 76.5 H Seg Neutrophils # 14.9 H PT Heparin Anti-Xa Level 0.17 L Chloride BUN Creatinine 0.7 L Glucose 140 H Troponin T C-Reactive Protein NT-Pro-B Natriuret Pep Triglycerides LDL Cholesterol Direct HDL Cholesterol 11/20/18 11/20/18 11/20/18 08:44 08:44 15:41 WBC MCHC Lymph % (Auto) [place] % (Auto) [place] # Eos # Seg Neutrophils % Seg Neutrophils # PT Heparin Anti-Xa Level 0.10 L 0.15 L Chloride 94.5 L BUN Creatinine Glucose 200 H Troponin T C-Reactive Protein NT-Pro-B Natriuret Pep Triglycerides LDL Cholesterol Direct HDL Cholesterol 11/21/18 11/21/18 11/22/18 15:16 23:05 06:09 WBC 17.1 H MCHC Lymph % (Auto) 12.2 L [place] % (Auto) 9.7 H [place] # 1.6 H Eos # 0.5 H Seg Neutrophils % 74.8 H Seg Neutrophils # 12.8 H PT Heparin Anti-Xa Level < 0.10 L 0.14 L Chloride BUN Creatinine Glucose Troponin T C-Reactive Protein NT-Pro-B Natriuret Pep Triglycerides LDL Cholesterol Direct HDL Cholesterol 11/22/18 06:09 WBC MCHC Lymph % (Auto) [place] % (Auto) [place] # Eos # Seg Neutrophils % Seg Neutrophils # PT Heparin Anti-Xa Level Chloride BUN Creatinine 0.7 L Glucose 154 H Troponin T C-Reactive Protein NT-Pro-B Natriuret Pep Triglycerides LDL Cholesterol Direct HDL Cholesterol Allied health notes reviewed: nursing
[2018-11-22] MEDS: XOPENEX IH PRN (18:32)
[2018-11-22] MEDS: ATROVENT IH SCH (18:33)
[2018-11-23] MEDS: ATROVENT IH SCH ×3 (01:16→18:30)
[2018-11-23 05:41] LABS: INR 1.04 (0.87-1.13)
[2018-11-23 06:11] LABS: BUN/Creatinine Ratio 18; Blood Urea Nitrogen 14 mg/dL (9-20); Calcium 9.1 mg/dL (8.4-10.2); Hemolysis Index 3
[2018-11-23] MEDS: HEPARIN/ 0.45% NACL-25,000 UNIT/500 ML 25,000 UNIT/500 ML BAG IV SCH ×2 (06:24→11:28)
[2018-11-23] MEDS: LOPRESSOR PO SCH ×4 (06:29→21:10)
[2018-11-23] MEDS: CARDIZEM PO SCH ×4 (06:29→21:10)
[2018-11-23] MEDS ORDERED: ECOTRIN PO ONE (09:12)
--- NOTE | 2018-11-23 09:33 | XRay Report ---
ROUTINE CHEST, TWO VIEWS: HISTORY: Pneumonia. Minimal improvement in the bilateral perihilar infiltrates or edema is demonstrated. No new consolidation has developed. Small pleural effusions are and lateral image which are unchanged in heart size is borderline. IMPRESSION: Mild improvement in bilateral infiltrates or edema.
[2018-11-23] MEDS: NACL 0.9% 500 ML 500 ML IV SCH ×2 (09:37→10:10)
[2018-11-23] MEDS ORDERED: HEPARIN/NS 5000 UNIT/500ML(CATH LAB) 1,000 ML IR ONE (09:43)
[2018-11-23] MEDS ORDERED: HEPARIN 10,000 UNITS/10 ML ONE (09:43)
[2018-11-23] MEDS ORDERED: XYLOCAINE 2% INFILTRATI ONE (09:43)
[2018-11-23] MEDS ORDERED: CALAN ONE (09:43)
[2018-11-23] MEDS ORDERED: NITROGLYCERIN SYRINGE 3 ML ONE (09:44)
[2018-11-23] MEDS ORDERED: SUBLIMAZE ONE (09:44)
[2018-11-23] MEDS ORDERED: VERSED ONE (09:44)
--- NOTE | 2018-11-23 10:52 | Event Note ---
Date: 11/23/18 Cardiac catheterization completed via the right radial artery, no complications. Findings: Mild irregularities, no significant obstructive lesions. A 50% stenosis of the distal LAD is of no clinical significance. Severe dilated nonischemic cardiomyopathy, ejection fraction approximately 20%. Recommend medical therapy for nonischemic cardiomyopathy and risk factor modification.
[2018-11-23] MEDS ORDERED: NACL 0.9% 1000 ML 1,000 ML IV SCH (11:00)
--- NOTE | 2018-11-23 11:23 | Cardiac Catherization Report ---
REASON FOR PROCEDURE: The patient is a 58-year-old man who presented to the hospital with congestive heart failure, and atrial fibrillation. His heart failure was treated, an echocardiogram demonstrated severe left ventricular systolic dysfunction. He is recommended for left heart catheterization for ischemic assessment of his heart failure and left ventricular systolic dysfunction. PROCEDURES: 1. Left heart catheterization. 2. Selective left and right coronary angiography. 3. Left ventricular angiography. 4. Sedation time start 10:09, end 10:23. DESCRIPTION OF PROCEDURE: The patient was prepped and draped in a sterile fashion after informed consent. The right radial cath site was prepped and draped after a negative Zachery test. The right radial artery was entered using Seldinger technique followed by placement of a 6-Divehi hydrophilic sheath. Routine radial cocktail was administered via the sheath. Left coronary angiography was performed using a #3.5 left Alyssa catheter. A #4 right Alyssa was used for right coronary angiography. The right coronary catheter was also used for left ventricle angiography. The catheters were then removed, sheath removed, and hemostasis achieved using a TR band. The patient was returned to the postprocedure unit in stable condition. There were no complications. FINDINGS: HEMODYNAMICS: Left ventricle end-diastolic pressure was 22, following coronary angiography. Ascending aortic pressure 151/87. There was no significant pressure gradient on pullback across the aortic valve. CORONARY ANGIOGRAPHY: The left main coronary artery was free of significant disease. The left anterior descending artery contained a 50% stenosis located in its distal segment, Otherwise, the remainder of the LAD and diagonal branches contained mild irregularities with no significant obstructive lesions. A small remote intermedius artery was free of significant disease. The circumflex artery and its obtuse marginal branches contained mild luminal irregularities. The right coronary artery was dominant and similarly contained mild luminal irregularities. The left ventricle is severely dilated, with severe left ventricular systolic dysfunction and estimated ejection fraction 20%. CONCLUSION: 1. 50% stenosis of the distal LAD, otherwise mild luminal irregularities with no significant obstructive lesions in other coronary segments. 2. Dilated, nonischemic cardiomyopathy, severe left ventricular systolic dysfunction, ejection fraction approximately 20%. RECOMMENDATION: Medical therapy for dilated nonischemic cardiomyopathy. JOB# [id number] CA/NTS
[2018-11-23] MEDS: LEVAQUIN 750MG/150ML 750 MG/150 ML BAG IV SCH (11:27)
[2018-11-23] MEDS: PEPCID PO SCH (11:27)
--- NOTE | 2018-11-23 13:28 | Progress Note ---
Assessment and Plan Patient resting on room air. O2 saturation 91% on room air. No complaint of chest pain or shortness of breath or cough.Ultrasound of chest results pending. IMMPRESSION: 1. Perihilar edema 2. Perihilar pneumonia. 3.Bilateral pleural effusions. 4.Possible COPD. 5. CHF 6. Atrial fibrillation 7. Pulmonary hypertension. - Patient Problems (1) CHF (congestive heart failure) Current Visit: Yes Status: Acute Plan to address problem: Management as per cardiology. (2) NSTEMI (non-ST elevated myocardial infarction) Current Visit: Yes Status: Acute Plan to address problem: Patient is on I/V Heparin. Management as per cardiology. (3) Atrial fibrillation with RVR Current Visit: Yes Status: Acute Plan to address problem: Patient is on I/V Heparin. Management as per cardiology. (4) Pulmonary edema Current Visit: Yes Status: Acute Plan to address problem: Improving. (5) Pneumonia Current Visit: Yes Status: Acute Plan to address problem: Possible perihilar pneumonia. Patient is on Levaquin. (6) COPD (chronic obstructive pulmonary disease) Current Visit: Yes Status: Acute Plan to address problem: Possible COPD with History of smoking. Albuterol/atrovent aerosol treatments q 6 hours prn for shortness of breath. PFTs as out patient. Subjective Date of service: 11/23/18 Principal diagnosis: Ac hypoxemic Resp failure; New onset CHF (EF 20%); Pulm HTN; A-Fib with RVR Interval history: Patient resting on room air. O2 saturation 91% on room air. No complaint of chest pain or shortness of breath or cough.Ultrasound of chest results pending. Objective Vital Signs - 12hr 11/23/18 11/23/18 11/23/18 01:31 04:19 08:00 Temperature 98.5 F Pulse Rate 107 H Pulse Rate [ 84 Anterior Bilateral Throughout] Pulse Rate [ 58 L From Monitor] Respiratory 20 18 Rate Respiratory 18 Rate [Anterior Bilateral Throughout] Blood Pressure 153/101 Blood Pressure [Left] O2 Sat by Pulse 94 Oximetry 11/23/18 11/23/18 11/23/18 08:14 10:00 11:00 Temperature 98.4 F Pulse Rate 97 H 94 H Pulse Rate [ Anterior Bilateral Throughout] Pulse Rate [ From Monitor] Respiratory 18 Rate Respiratory Rate [Anterior Bilateral Throughout] Blood Pressure 124/99 Blood Pressure 145/110 [Left] O2 Sat by Pulse Oximetry 11/23/18 11/23/18 11/23/18 11:05 11:23 11:25 Temperature Pulse Rate 56 L 84 Pulse Rate [ Anterior Bilateral Throughout] Pulse Rate [ From Monitor] Respiratory Rate Respiratory Rate [Anterior Bilateral Throughout] Blood Pressure 145/110 151/105 Blood Pressure 151/105 [Left] O2 Sat by Pulse 94 Oximetry 11/23/18 11/23/18 11/23/18 11:47 11:50 12:05 Temperature Pulse Rate 84 98 H 80 Pulse Rate [ Anterior Bilateral Throughout] Pulse Rate [ From Monitor] Respiratory Rate Respiratory Rate [Anterior Bilateral Throughout] Blood Pressure 151/105 Blood Pressure 151/105 153/101 [Left] O2 Sat by Pulse Oximetry Constitutional: no acute distress, alert Eyes: non-icteric ENT: oropharynx moist Neck: supple Effort: mildly labored Ascultation: Bilateral: diminished breath sounds, rales Percussion: Bilateral: not dull Cardiovascular: regular rate and rhythm Gastrointestinal: normoactive bowel sounds, soft, non-tender Integumentary: normal Extremities: no cyanosis, no edema Neurologic: normal mental status, non-focal exam, pupils equal and round, CN II- XII normal Psychiatric: mood appropriate CBC and BMP: 11/22/18 06:09 11/23/18 04:44 ABG, PT/INR, D-dimer: PT/INR, D-dimer PT 14.2 Sec. (12.2-14.9) 11/23/18 04:44 INR 1.04 (0.87-1.13) 11/23/18 04:44 Abnormal lab findings: Abnormal Labs 11/18/18 11/18/18 11/18/18 01:33 01:33 01:33 WBC 16.0 H MCHC Lymph % (Auto) [place] % (Auto) 10.1 H [place] # 1.6 H Eos # Seg Neutrophils % 73.9 H Seg Neutrophils # 11.8 H PT Heparin Anti-Xa Level Sodium Chloride BUN 23 H Creatinine Glucose 172 H POC Glucose Troponin T 0.243 H* C-Reactive Protein NT-Pro-B Natriuret Pep 4314 H Triglycerides 178 H LDL Cholesterol Direct 132 H HDL Cholesterol 34 L 11/18/18 11/18/18 11/18/18 04:01 11:33 15:32 WBC MCHC Lymph % (Auto) [place] % (Auto) [place] # Eos # Seg Neutrophils % Seg Neutrophils # PT 15.2 H Heparin Anti-Xa Level < 0.10 L Sodium Chloride BUN Creatinine Glucose POC Glucose Troponin T C-Reactive Protein 2.30 H NT-Pro-B Natriuret Pep Triglycerides LDL Cholesterol Direct HDL Cholesterol 11/18/18 11/19/18 11/19/18 18:10 00:54 04:50 WBC 16.6 H MCHC Lymph % (Auto) 13.3 L [place] % (Auto) 12.8 H [place] # 2.1 H Eos # Seg Neutrophils % 72.9 H Seg Neutrophils # 12.1 H PT Heparin Anti-Xa Level < 0.10 L < 0.10 L Sodium Chloride BUN Creatinine Glucose POC Glucose Troponin T C-Reactive Protein NT-Pro-B Natriuret Pep Triglycerides LDL Cholesterol Direct HDL Cholesterol 11/19/18 11/19/18 11/20/18 04:50 08:15 05:32 WBC 19.5 H MCHC 35 H Lymph % (Auto) 11.5 L [place] % (Auto) 11.0 H [place] # 2.1 H Eos # Seg Neutrophils % 76.5 H Seg Neutrophils # 14.9 H PT Heparin Anti-Xa Level 0.17 L Sodium Chloride BUN Creatinine 0.7 L Glucose 140 H POC Glucose Troponin T C-Reactive Protein NT-Pro-B Natriuret Pep Triglycerides LDL Cholesterol Direct HDL Cholesterol 11/20/18 11/20/18 11/20/18 08:44 08:44 15:41 WBC MCHC Lymph % (Auto) [place] % (Auto) [place] # Eos # Seg Neutrophils % Seg Neutrophils # PT Heparin Anti-Xa Level 0.10 L 0.15 L Sodium Chloride 94.5 L BUN Creatinine Glucose 200 H POC Glucose Troponin T C-Reactive Protein NT-Pro-B Natriuret Pep Triglycerides LDL Cholesterol Direct HDL Cholesterol 11/21/18 11/21/18 11/22/18 15:16 23:05 06:09 WBC 17.1 H MCHC Lymph % (Auto) 12.2 L [place] % (Auto) 9.7 H [place] # 1.6 H Eos # 0.5 H Seg Neutrophils % 74.8 H Seg Neutrophils # 12.8 H PT Heparin Anti-Xa Level < 0.10 L 0.14 L Sodium Chloride BUN Creatinine Glucose POC Glucose Troponin T C-Reactive Protein NT-Pro-B Natriuret Pep Triglycerides LDL Cholesterol Direct HDL Cholesterol 11/22/18 11/22/18 11/22/18 06:09 18:27 21:12 WBC MCHC Lymph % (Auto) [place] % (Auto) [place] # Eos # Seg Neutrophils % Seg Neutrophils # PT Heparin Anti-Xa Level Sodium Chloride BUN Creatinine 0.7 L Glucose 154 H POC Glucose 134 H 150 H Troponin T C-Reactive Protein NT-Pro-B Natriuret Pep Triglycerides LDL Cholesterol Direct HDL Cholesterol 11/23/18 11/23/18 11/23/18 04:44 04:44 07:21 WBC MCHC Lymph % (Auto) [place] % (Auto) [place] # Eos # Seg Neutrophils % Seg Neutrophils # PT Heparin Anti-Xa Level 0.10 L Sodium 136 L Chloride BUN Creatinine Glucose 126 H POC Glucose 126 H Troponin T C-Reactive Protein NT-Pro-B Natriuret Pep Triglycerides LDL Cholesterol Direct HDL Cholesterol Chest x-ray: report reviewed (Mild improvement in bilateral pulmonary infiltrates or edema.), image reviewed Allied health notes reviewed: nursing
--- NOTE | 2018-11-23 16:08 | Progress Note ---
Assessment and Plan Assessment and plan: Acute hypoxemic respiratory failure. Etiology secondary to heart failure and pneumonia. Continue O2 for supportive care. BiPAP if clinically indicated. New-onset Atrial fibrillation with RVR. Rate controlled on by mouth Cardizem and metoprolol. Patient will likely need long-term anticoagulation. Currently with IV heparin. Echocardiogram revealed a 4 chamber dilated cardiomyopathy, decreased left ventricular systolic function, EF 15-20%. LHC done this morning showed mild irregularities, EF 20% Sepsis. Present on admission. Continue antibiotics and cultures are negative so far Left lower lobe pneumonia. Continue IV antibiotics. Repeat chest x-ray showed mild improvement in infiltrates and edema Hypertension. Continue antihypertensive medications. Diabetes mellitus type 2. Continue Accu-Cheks and sliding scale insulin. Disposition; possible discharge tomorrow. History Interval history: Patient was seen and evaluated this morning, patient denies shortness of breath, chest pain. Hospitalist Physical - Physical exam Narrative exam: Not in cardiopulmonary distress. The patient appeared well nourished and normally developed. Vital signs as documented. Head exam is unremarkable. No scleral icterus . Neck is without jugular venous distension, thyromegaly, or carotid bruits. Lungs are clear to auscultation. Cardiac exam reveals regular rate and Rhythm. First and second heart sounds normal. No murmurs, rubs or gallops. Abdominal exam reveals normal bowel sounds, no masses, no organomegaly and no aortic enlargement. Extremities are nonedematous and both femoral and pedal pulses are normal. 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 No focal weakness. - Constitutional Vitals: Temp Pulse Resp BP Pulse Ox 98.4 F 87 18 125/97 94 11/23/18 08:14 11/23/18 12:50 11/23/18 08:14 11/23/18 12:50 11/23/18 11:05 General appearance: Present: no acute distress, well-nourished Results - Labs CBC & Chem 7: 11/22/18 06:09 11/23/18 04:44 Labs: Laboratory Last Values WBC 17.1 K/mm3 (4.5-11.0) H 11/22/18 06:09 RBC 4.85 M/mm3 (3.65-5.03) 11/22/18 06:09 Hgb 14.4 gm/dl (11.8-15.2) 11/22/18 06:09 Hct 42.3 % (35.5-45.6) 11/22/18 06:09 MCV 87 fl (84-94) 11/22/18 06:09 MCH 30 pg (28-32) 11/22/18 06:09 MCHC 34 % (32-34) 11/22/18 06:09 RDW 14.6 % (13.2-15.2) 11/22/18 06:09 Plt Count 302 K/mm3 (140-440) 11/22/18 06:09 Lymph % (Auto) 12.2 % (13.4-35.0) L 11/22/18 06:09 [place] % (Auto) 9.7 % (0.0-7.3) H 11/22/18 06:09 Eos % (Auto) 2.8 % (0.0-4.3) 11/22/18 06:09 Baso % (Auto) 0.5 % (0.0-1.8) 11/22/18 06:09 Lymph # 2.1 K/mm3 (1.2-5.4) 11/22/18 06:09 [place] # 1.6 K/mm3 (0.0-0.8) H 11/22/18 06:09 Eos # 0.5 K/mm3 (0.0-0.4) H 11/22/18 06:09 Baso # 0.1 K/mm3 (0.0-0.1) 11/22/18 06:09 Seg Neutrophils % 74.8 % (40.0-70.0) H 11/22/18 06:09 Seg Neutrophils # 12.8 K/mm3 (1.8-7.7) H 11/22/18 06:09 PT 14.2 Sec. (12.2-14.9) 11/23/18 04:44 INR 1.04 (0.87-1.13) 11/23/18 04:44 APTT 31.8 Sec. (24.2-36.6) 11/18/18 05:20 Heparin Anti-Xa Level < 0.10 U.I./ml (0.3-0.7) L 11/23/18 14:24 Sodium 136 mmol/L (137-145) L 11/23/18 04:44 Potassium 4.0 mmol/L (3.6-5.0) 11/23/18 04:44 Chloride 99.1 mmol/L (98-107) 11/23/18 04:44 Carbon Dioxide 25 mmol/L (22-30) 11/23/18 04:44 Anion Gap 16 mmol/L 11/23/18 04:44 BUN 14 mg/dL (9-20) 11/23/18 04:44 Creatinine 0.8 mg/dL (0.8-1.5) 11/23/18 04:44 Estimated GFR > 60 ml/min 11/23/18 04:44 BUN/Creatinine Ratio 18 % 11/23/18 04:44 Glucose 126 mg/dL (75-100) H 11/23/18 04:44 POC Glucose 158 (70-105) H 11/23/18 15:46 Lactic Acid 1.60 mmol/L (0.7-2.0) 11/18/18 06:00 Calcium 9.1 mg/dL (8.4-10.2) 11/23/18 04:44 Troponin T 0.243 ng/mL (0.00-0.029) H* 11/18/18 01:33 C-Reactive Protein 2.30 mg/dL (0.00-1.30) H 11/18/18 15:32 NT-Pro-B Natriuret Pep 4314 pg/mL (0-900) H 11/18/18 01:33 Triglycerides 178 mg/dL (2-149) H 11/18/18 01:33 Cholesterol 197 mg/dL (50-199) 11/18/18 01:33 LDL Cholesterol Direct 132 mg/dL (50-130) H 11/18/18 01:33 HDL Cholesterol 34 mg/dL (40-59) L 11/18/18 01:33 Cholesterol/HDL Ratio 5.79 % 11/18/18 01:33 Active Medications - Current Medications Current Medications: Generic Name Dose Route Start Last Admin Trade Name Freq PRN Reason Stop Dose Admin Diltiazem HCl 60 mg 11/21/18 14:00 11/23/18 13:15 Cardizem PO Not Given Q8HR IBIS Famotidine 20 mg 11/18/18 16:00 11/23/18 11:27 Pepcid PO 20 mg QDAY IBIS Administration Hydralazine HCl 10 mg 11/19/18 06:06 Apresoline IV Q4H PRN Hypertension Heparin Sodium/Sodium Chloride 25,000 unit in 500 mls @ 20 mls/hr 11/18/18 05:00 11/23/18 11:28 Heparin/ 0.45% Nacl-25,000 Unit/500 Ml IV 2,000 units/hr TITRATE IBIS 40 mls/hr Administration Protocol 1,000 UNITS/HR Levofloxacin/Dextrose 750 mg in 150 mls @ 100 mls/hr 11/23/18 10:00 11/23/18 11:27 Levaquin 750mg/150ml IV 100 mls/hr Q24HR IBIS Administration Protocol Sodium Chloride 500 mls @ 50 mls/hr 11/23/18 10:00 11/23/18 10:10 Nacl 0.9% 500 Ml IV 50 mls/hr DIRECT IBIS Administration Ipratropium [place] 0.5 mg 11/22/18 16:00 11/23/18 09:54 Atrovent IH Not Given Q8HRT IBIS Levalbuterol HCl 0.63 mg 11/22/18 14:10 11/22/18 18:32 Xopenex IH 0.63 mg Q8HRT PRN Administration Shortness Of Breath Metoprolol Tartrate 50 mg 11/19/18 14:00 11/23/18 13:15 Lopressor PO Not Given Q8H IBIS
[2018-11-23] MEDS ORDERED: TESSALON PERLES PO PRN (22:17)
[2018-11-24] MEDS: ATROVENT IH SCH ×3 (01:21→16:48)
[2018-11-24] MEDS: HEPARIN/ 0.45% NACL-25,000 UNIT/500 ML 25,000 UNIT/500 ML BAG IV SCH (06:19)
[2018-11-24] MEDS: LOPRESSOR PO SCH (06:20)
[2018-11-24] MEDS: CARDIZEM PO SCH (06:23)
[2018-11-24 06:35] LABS: Basophils # (Auto) 0.1 K/mm3 (0.0-0.1); Basophils % (Auto) 1.1 % (0.0-1.8); Eosinophils % (Auto) 7.7 % (0.0-4.3); Hematocrit 44.2 % (35.5-45.6); Hemoglobin 15.2 gm/dl (11.8-15.2); Lymphocytes # (Auto) 2.3 K/mm3 (1.2-5.4); Lymphocytes % (Auto) 18.5 % (13.4-35.0); Mean Corpuscular HGB Conc 34 % (32-34); Mean Corpuscular Volume 87 fl (84-94); Monocytes # (Auto) 1.1 K/mm3 (0.0-0.8); Monocytes % (Auto) 8.8 % (0.0-7.3); Platelet Count 346 K/mm3 (140-440); Red Blood Count 5.08 M/mm3 (3.65-5.03); Red Cell Distribution Width 14.2 % (13.2-15.2)
[2018-11-24 07:01] LABS: BUN/Creatinine Ratio 14; Blood Urea Nitrogen 13 mg/dL (9-20); Calcium 9.1 mg/dL (8.4-10.2); Hemolysis Index 0
[2018-11-24] MEDS ORDERED: NACL 0.9% 500 ML 500 ML ONE (08:12)
--- NOTE | 2018-11-24 08:50 | Progress Note ---
Assessment and Plan Persistent atrial fibrillation + SHAJI thrombus on HOLLAND therefore cardioversion deferred Non-ischemic cardiomyopathy, LVEF < 20% Slow flow on HOLLAND consistent with depressed CO Non-obstructive CAD by cardiac cath Chronic systolic heart failure Pneumonia Recommendations: Start eliquis 5 mg po bid Change metoprolol to toprol XL 50 mg bid Start low dose ACEi and aldactone Outpatient cardiology follow-up will be scheduled prior to discharge Subjective Date of service: 11/24/18 Principal diagnosis: Ac hypoxemic Resp failure; New onset CHF (EF 20%); Pulm HTN; A-Fib with RVR Interval history: HOLLAND performed today without complications Objective Vital Signs Temp Pulse Pulse Resp Resp BP BP 11/24/18 08:39 115 H 20 160/133 11/24/18 08:35 117 H 30 H 139/113 11/24/18 08:33 92 H 26 H 156/105 11/24/18 08:27 96 H 20 156/108 11/24/18 06:23 59 L 144/115 11/24/18 06:20 59 L 144/115 11/24/18 05:16 97.8 F 56 L 18 144/100 11/24/18 00:39 98.4 F 84 129/88 11/23/18 22:00 90 11/23/18 21:11 11/23/18 21:10 102 H 160/113 11/23/18 19:59 97.8 F 72 20 142/105 11/23/18 12:50 87 11/23/18 12:35 80 11/23/18 12:20 98 H 11/23/18 12:05 80 11/23/18 11:50 98 H 11/23/18 11:47 84 151/105 11/23/18 11:25 151/105 11/23/18 11:23 84 11/23/18 11:05 56 L 145/110 11/23/18 11:00 94 H 11/23/18 10:00 97 H BP Pulse Ox Pulse Ox 11/24/18 08:39 97 11/24/18 08:35 98 11/24/18 08:33 93 11/24/18 08:27 92 11/24/18 06:23 11/24/18 06:20 11/24/18 05:16 96 11/24/18 00:39 95 11/23/18 22:00 11/23/18 21:11 96 11/23/18 21:10 11/23/18 19:59 90 11/23/18 12:50 125/97 11/23/18 12:35 142/96 11/23/18 12:20 141/101 11/23/18 12:05 153/101 11/23/18 11:50 151/105 11/23/18 11:47 11/23/18 11:25 11/23/18 11:23 151/105 11/23/18 11:05 94 11/23/18 11:00 145/110 11/23/18 10:00 - Physical Examination General: No Apparent Distress HEENT: Positive: PERRL Neck: Positive: trachea midline Cardiac: Positive: Reg Rate and Rhythm, irregularly irregular Lungs: Positive: Normal Exam Neuro: Positive: Grossly Intact Abdomen: Positive: Unremarkable, Soft Extremities: Present: +1 Edema - Labs and Meds CBC 11/24/18 Range/Units 06:19 WBC 12.7 H (4.5-11.0) K/mm3 RBC 5.08 H (3.65-5.03) M/mm3 Hgb 15.2 (11.8-15.2) gm/dl Hct 44.2 (35.5-45.6) % Plt Count 346 (140-440) K/mm3 Lymph # 2.3 (1.2-5.4) K/mm3 [place] # 1.1 H (0.0-0.8) K/mm3 Eos # 1.0 H (0.0-0.4) K/mm3 Baso # 0.1 (0.0-0.1) K/mm3 Comprehensive Metabolic Panel 11/24/18 Range/Units 06:19 Sodium 135 L (137-145) mmol/L Potassium 4.4 (3.6-5.0) mmol/L Chloride 98.6 (98-107) mmol/L Carbon Dioxide 23 (22-30) mmol/L BUN 13 (9-20) mg/dL Creatinine 0.9 (0.8-1.5) mg/dL Glucose 132 H (75-100) mg/dL Calcium 9.1 (8.4-10.2) mg/dL - Allied health notes Allied health notes reviewed: nursing
[2018-11-24] MEDS ORDERED: VERSED IV NR (09:00)
[2018-11-24] MEDS ORDERED: NACL 0.9% 500 ML 500 ML IV SCH (09:00)
[2018-11-24] MEDS ORDERED: HURRICAINE ONE 20% TOPICAL SPRAY MM NR (09:00)
[2018-11-24] MEDS ORDERED: SUBLIMAZE IV NR (09:00)
[2018-11-24 09:38] LABS: Albumin 3.5 g/dL (3.9-5); Bilirubin,Direct 0.3 mg/dL (0-0.2)
[2018-11-24] MEDS: PEPCID PO SCH (09:49)
[2018-11-24] MEDS: LEVAQUIN 750MG/150ML 750 MG/150 ML BAG IV SCH (09:49)
[2018-11-24] MEDS: ALDACTONE PO SCH (10:02)
[2018-11-24] MEDS: ZESTRIL PO SCH (10:03)
[2018-11-24] MEDS: TOPROL XL PO SCH ×2 (10:04→22:48)
[2018-11-24] MEDS: ELIQUIS PO SCH ×2 (10:32→22:48)
--- NOTE | 2018-11-24 11:14 | Progress Note ---
Assessment and Plan Patient resting on room air. O2 saturation 95% on room air. No complaint of chest pain or shortness of breath or cough.Ultrasound of chest results still pending. IMMPRESSION: 1. Perihilar edema 2. Perihilar pneumonia. 3.Bilateral pleural effusions. 4.Possible COPD. 5. CHF 6. Atrial fibrillation 7. Pulmonary hypertension. - Patient Problems (1) CHF (congestive heart failure) Current Visit: Yes Status: Acute Plan to address problem: Management as per cardiology. (2) NSTEMI (non-ST elevated myocardial infarction) Current Visit: Yes Status: Acute Plan to address problem: Management as per cardiology. (3) Atrial fibrillation with RVR Current Visit: Yes Status: Acute Plan to address problem: Patient is on Eliquis. Management as per cardiology. (4) Pulmonary edema Current Visit: Yes Status: Acute Plan to address problem: Improving. (5) Pneumonia Current Visit: Yes Status: Acute Plan to address problem: Possible perihilar pneumonia. Patient is on Levaquin. (6) COPD (chronic obstructive pulmonary disease) Current Visit: Yes Status: Acute Plan to address problem: Possible COPD with History of smoking. Albuterol/atrovent aerosol treatments q 6 hours prn for shortness of breath. PFTs as out patient. Subjective Date of service: 11/24/18 Principal diagnosis: Ac hypoxemic Resp failure; New onset CHF (EF 20%); Pulm HTN; A-Fib with RVR Interval history: Patient resting on room air. O2 saturation 95% on room air. No complaint of chest pain or shortness of breath or cough.Ultrasound of chest results still pending. Objective Vital Signs - 12hr 11/24/18 11/24/18 11/24/18 00:39 05:16 06:20 Temperature 98.4 F 97.8 F Pulse Rate 84 56 L 59 L Pulse Rate [ Intra-Procedure ] Pulse Rate [ Post-Procedure] Respiratory 18 Rate Respiratory Rate [Intra- Procedure] Respiratory Rate [Post- Procedure] Blood Pressure 129/88 144/100 144/115 Blood Pressure [Intra- Procedure] Blood Pressure [Post-Procedure ] O2 Sat by Pulse 95 96 Oximetry O2 Sat by Pulse Oximetry [ Intra-Procedure ] O2 Sat by Pulse Oximetry [Post -Procedure] 11/24/18 11/24/18 11/24/18 06:23 08:27 08:33 Temperature Pulse Rate 59 L Pulse Rate [ 96 H 92 H Intra-Procedure ] Pulse Rate [ Post-Procedure] Respiratory Rate Respiratory 20 26 H Rate [Intra- Procedure] Respiratory Rate [Post- Procedure] Blood Pressure 144/115 Blood Pressure 156/108 156/105 [Intra- Procedure] Blood Pressure [Post-Procedure ] O2 Sat by Pulse Oximetry O2 Sat by Pulse 92 93 Oximetry [ Intra-Procedure ] O2 Sat by Pulse Oximetry [Post -Procedure] 11/24/18 11/24/18 11/24/18 08:35 08:39 08:44 Temperature Pulse Rate Pulse Rate [ 117 H 115 H 106 H Intra-Procedure ] Pulse Rate [ Post-Procedure] Respiratory Rate Respiratory 30 H 20 20 Rate [Intra- Procedure] Respiratory Rate [Post- Procedure] Blood Pressure Blood Pressure 139/113 160/133 131/108 [Intra- Procedure] Blood Pressure [Post-Procedure ] O2 Sat by Pulse Oximetry O2 Sat by Pulse 98 97 96 Oximetry [ Intra-Procedure ] O2 Sat by Pulse Oximetry [Post -Procedure] 11/24/18 09:03 Temperature Pulse Rate Pulse Rate [ Intra-Procedure ] Pulse Rate [ 103 H Post-Procedure] Respiratory Rate Respiratory Rate [Intra- Procedure] Respiratory 20 Rate [Post- Procedure] Blood Pressure Blood Pressure [Intra- Procedure] Blood Pressure 152/108 [Post-Procedure ] O2 Sat by Pulse Oximetry O2 Sat by Pulse Oximetry [ Intra-Procedure ] O2 Sat by Pulse 99 Oximetry [Post -Procedure] Constitutional: no acute distress, alert Eyes: non-icteric ENT: oropharynx moist Neck: supple Effort: mildly labored Ascultation: Bilateral: diminished breath sounds, rales Percussion: Bilateral: not dull Cardiovascular: regular rate and rhythm Gastrointestinal: normoactive bowel sounds, soft, non-tender Integumentary: normal Extremities: no cyanosis, no edema Neurologic: normal mental status, non-focal exam, pupils equal and round, CN II- XII normal Psychiatric: mood appropriate CBC and BMP: 11/24/18 06:19 11/24/18 06:19 ABG, PT/INR, D-dimer: PT/INR, D-dimer PT 14.2 Sec. (12.2-14.9) 11/23/18 04:44 INR 1.04 (0.87-1.13) 11/23/18 04:44 Abnormal lab findings: Abnormal Labs 11/18/18 11/18/18 11/18/18 01:33 01:33 01:33 WBC 16.0 H RBC MCHC Lymph % (Auto) [place] % (Auto) 10.1 H Eos % (Auto) [place] # 1.6 H Eos # Seg Neutrophils % 73.9 H Seg Neutrophils # 11.8 H PT Heparin Anti-Xa Level Sodium Chloride BUN 23 H Creatinine Glucose 172 H POC Glucose Direct Bilirubin ALT Troponin T 0.243 H* C-Reactive Protein NT-Pro-B Natriuret Pep 4314 H Albumin Triglycerides 178 H LDL Cholesterol Direct 132 H HDL Cholesterol 34 L 11/18/18 11/18/18 11/18/18 04:01 11:33 15:32 WBC RBC MCHC Lymph % (Auto) [place] % (Auto) Eos % (Auto) [place] # Eos # Seg Neutrophils % Seg Neutrophils # PT 15.2 H Heparin Anti-Xa Level < 0.10 L Sodium Chloride BUN Creatinine Glucose POC Glucose Direct Bilirubin ALT Troponin T C-Reactive Protein 2.30 H NT-Pro-B Natriuret Pep Albumin Triglycerides LDL Cholesterol Direct HDL Cholesterol 11/18/18 11/19/18 11/19/18 18:10 00:54 04:50 WBC 16.6 H RBC MCHC Lymph % (Auto) 13.3 L [place] % (Auto) 12.8 H Eos % (Auto) [place] # 2.1 H Eos # Seg Neutrophils % 72.9 H Seg Neutrophils # 12.1 H PT Heparin Anti-Xa Level < 0.10 L < 0.10 L Sodium Chloride BUN Creatinine Glucose POC Glucose Direct Bilirubin ALT Troponin T C-Reactive Protein NT-Pro-B Natriuret Pep Albumin Triglycerides LDL Cholesterol Direct HDL Cholesterol 11/19/18 11/19/18 11/20/18 04:50 08:15 05:32 WBC 19.5 H RBC MCHC 35 H Lymph % (Auto) 11.5 L [place] % (Auto) 11.0 H Eos % (Auto) [place] # 2.1 H Eos # Seg Neutrophils % 76.5 H Seg Neutrophils # 14.9 H PT Heparin Anti-Xa Level 0.17 L Sodium Chloride BUN Creatinine 0.7 L Glucose 140 H POC Glucose Direct Bilirubin ALT Troponin T C-Reactive Protein NT-Pro-B Natriuret Pep Albumin Triglycerides LDL Cholesterol Direct HDL Cholesterol 11/20/18 11/20/18 11/20/18 08:44 08:44 15:41 WBC RBC MCHC Lymph % (Auto) [place] % (Auto) Eos % (Auto) [place] # Eos # Seg Neutrophils % Seg Neutrophils # PT Heparin Anti-Xa Level 0.10 L 0.15 L Sodium Chloride 94.5 L BUN Creatinine Glucose 200 H POC Glucose Direct Bilirubin ALT Troponin T C-Reactive Protein NT-Pro-B Natriuret Pep Albumin Triglycerides LDL Cholesterol Direct HDL Cholesterol 11/21/18 11/21/18 11/22/18 15:16 23:05 06:09 WBC 17.1 H RBC MCHC Lymph % (Auto) 12.2 L [place] % (Auto) 9.7 H Eos % (Auto) [place] # 1.6 H Eos # 0.5 H Seg Neutrophils % 74.8 H Seg Neutrophils # 12.8 H PT Heparin Anti-Xa Level < 0.10 L 0.14 L Sodium Chloride BUN Creatinine Glucose POC Glucose Direct Bilirubin ALT Troponin T C-Reactive Protein NT-Pro-B Natriuret Pep Albumin Triglycerides LDL Cholesterol Direct HDL Cholesterol 11/22/18 11/22/18 11/22/18 06:09 18:27 21:12 WBC RBC MCHC Lymph % (Auto) [place] % (Auto) Eos % (Auto) [place] # Eos # Seg Neutrophils % Seg Neutrophils # PT Heparin Anti-Xa Level Sodium Chloride BUN Creatinine 0.7 L Glucose 154 H POC Glucose 134 H 150 H Direct Bilirubin ALT Troponin T C-Reactive Protein NT-Pro-B Natriuret Pep Albumin Triglycerides LDL Cholesterol Direct HDL Cholesterol 11/23/18 11/23/18 11/23/18 04:44 04:44 07:21 WBC RBC MCHC Lymph % (Auto) [place] % (Auto) Eos % (Auto) [place] # Eos # Seg Neutrophils % Seg Neutrophils # PT Heparin Anti-Xa Level 0.10 L Sodium 136 L Chloride BUN Creatinine Glucose 126 H POC Glucose 126 H Direct Bilirubin ALT Troponin T C-Reactive Protein NT-Pro-B Natriuret Pep Albumin Triglycerides LDL Cholesterol Direct HDL Cholesterol 11/23/18 11/23/18 11/23/18 11:49 14:24 15:46 WBC RBC MCHC Lymph % (Auto) [place] % (Auto) Eos % (Auto) [place] # Eos # Seg Neutrophils % Seg Neutrophils # PT Heparin Anti-Xa Level < 0.10 L Sodium Chloride BUN Creatinine Glucose POC Glucose 186 H 158 H Direct Bilirubin ALT Troponin T C-Reactive Protein NT-Pro-B Natriuret Pep Albumin Triglycerides LDL Cholesterol Direct HDL Cholesterol 11/23/18 11/23/18 11/24/18 19:47 21:41 06:19 WBC 12.7 H RBC 5.08 H MCHC Lymph % (Auto) [place] % (Auto) 8.8 H Eos % (Auto) 7.7 H [place] # 1.1 H Eos # 1.0 H Seg Neutrophils % Seg Neutrophils # 8.1 H PT Heparin Anti-Xa Level 0.21 L Sodium Chloride BUN Creatinine Glucose POC Glucose 136 H Direct Bilirubin ALT Troponin T C-Reactive Protein NT-Pro-B Natriuret Pep Albumin Triglycerides LDL Cholesterol Direct HDL Cholesterol 11/24/18 11/24/18 06:19 06:19 WBC RBC MCHC Lymph % (Auto) [place] % (Auto) Eos % (Auto) [place] # Eos # Seg Neutrophils % Seg Neutrophils # PT Heparin Anti-Xa Level Sodium 135 L Chloride BUN Creatinine Glucose 132 H POC Glucose Direct Bilirubin 0.3 H ALT 66 H Troponin T C-Reactive Protein NT-Pro-B Natriuret Pep Albumin 3.5 L Triglycerides LDL Cholesterol Direct HDL Cholesterol Allied health notes reviewed: nursing
--- NOTE | 2018-11-24 15:58 | Progress Note ---
Assessment and Plan Assessment and plan: Acute hypoxemic respiratory failure. Etiology secondary to heart failure and pneumonia. Continue O2 for supportive care. BiPAP if clinically indicated. New-onset Atrial fibrillation with RVR. Rate controlled on by mouth Cardizem and metoprolol. Patient will likely need long-term anticoagulation. Currently with IV heparin. Echocardiogram revealed a 4 chamber dilated cardiomyopathy, decreased left ventricular systolic function, EF 15-20%. LHC done this morning showed mild irregularities, EF 20% HOLLAND was done and showed left atrial appendage thrombus. Sepsis. Present on admission. Continue antibiotics and cultures are negative so far Left lower lobe pneumonia. Continue IV antibiotics. Repeat chest x-ray showed mild improvement in infiltrates and edema Hypertension. Continue antihypertensive medications. Diabetes mellitus type 2. Continue Accu-Cheks and sliding scale insulin. Disposition; continue inpatient care. We'll follow cardiology recommendations. History Interval history: Patient was seen and evaluated this morning, patient denies shortness of breath, chest pain. Hospitalist Physical - Physical exam Narrative exam: Not in cardiopulmonary distress. The patient appeared well nourished and normally developed. Vital signs as documented. Head exam is unremarkable. No scleral icterus . Neck is without jugular venous distension, thyromegaly, or carotid bruits. Lungs are clear to auscultation. Cardiac exam reveals regular rate and Rhythm. First and second heart sounds normal. No murmurs, rubs or gallops. Abdominal exam reveals normal bowel sounds, no masses, no organomegaly and no aortic enlargement. Extremities are nonedematous and both femoral and pedal pulses are normal. FURNITURE STAINER: Alert and oriented 3. No focal weakness. - Constitutional Vitals: Temp Pulse Resp BP Pulse Ox 97.8 F 103 H 20 152/108 99 11/24/18 05:16 11/24/18 09:03 11/24/18 09:03 11/24/18 09:03 11/24/18 09:03 General appearance: Present: no acute distress, well-nourished Results - Labs CBC & Chem 7: 11/24/18 06:19 11/24/18 06:19 Labs: Laboratory Last Values WBC 12.7 K/mm3 (4.5-11.0) H 11/24/18 06:19 RBC 5.08 M/mm3 (3.65-5.03) H 11/24/18 06:19 Hgb 15.2 gm/dl (11.8-15.2) 11/24/18 06:19 Hct 44.2 % (35.5-45.6) 11/24/18 06:19 MCV 87 fl (84-94) 11/24/18 06:19 MCH 30 pg (28-32) 11/24/18 06:19 MCHC 34 % (32-34) 11/24/18 06:19 RDW 14.2 % (13.2-15.2) 11/24/18 06:19 Plt Count 346 K/mm3 (140-440) 11/24/18 06:19 Lymph % (Auto) 18.5 % (13.4-35.0) 11/24/18 06:19 [place] % (Auto) 8.8 % (0.0-7.3) H 11/24/18 06:19 Eos % (Auto) 7.7 % (0.0-4.3) H 11/24/18 06:19 Baso % (Auto) 1.1 % (0.0-1.8) 11/24/18 06:19 Lymph # 2.3 K/mm3 (1.2-5.4) 11/24/18 06:19 [place] # 1.1 K/mm3 (0.0-0.8) H 11/24/18 06:19 Eos # 1.0 K/mm3 (0.0-0.4) H 11/24/18 06:19 Baso # 0.1 K/mm3 (0.0-0.1) 11/24/18 06:19 Seg Neutrophils % 63.9 % (40.0-70.0) 11/24/18 06:19 Seg Neutrophils # 8.1 K/mm3 (1.8-7.7) H 11/24/18 06:19 PT 14.2 Sec. (12.2-14.9) 11/23/18 04:44 INR 1.04 (0.87-1.13) 11/23/18 04:44 APTT 31.8 Sec. (24.2-36.6) 11/18/18 05:20 Heparin Anti-Xa Level 0.21 U.I./ml (0.3-0.7) L 11/23/18 19:47 Sodium 135 mmol/L (137-145) L 11/24/18 06:19 Potassium 4.4 mmol/L (3.6-5.0) 11/24/18 06:19 Chloride 98.6 mmol/L (98-107) 11/24/18 06:19 Carbon Dioxide 23 mmol/L (22-30) 11/24/18 06:19 Anion Gap 18 mmol/L 11/24/18 06:19 BUN 13 mg/dL (9-20) 11/24/18 06:19 Creatinine 0.9 mg/dL (0.8-1.5) 11/24/18 06:19 Estimated GFR > 60 ml/min 11/24/18 06:19 BUN/Creatinine Ratio 14 % 11/24/18 06:19 Glucose 132 mg/dL (75-100) H 11/24/18 06:19 POC Glucose 160 (70-105) H 11/24/18 12:17 Lactic Acid 1.60 mmol/L (0.7-2.0) 11/18/18 06:00 Calcium 9.1 mg/dL (8.4-10.2) 11/24/18 06:19 Total Bilirubin 1.20 mg/dL (0.1-1.2) 11/24/18 06:19 Direct Bilirubin 0.3 mg/dL (0-0.2) H 11/24/18 06:19 Indirect Bilirubin 0.9 mg/dL 11/24/18 06:19 AST 32 units/L (5-40) 11/24/18 06:19 ALT 66 units/L (7-56) H 11/24/18 06:19 Alkaline Phosphatase 75 units/L (35-129) 11/24/18 06:19 Troponin T 0.243 ng/mL (0.00-0.029) H* 11/18/18 01:33 C-Reactive Protein 2.30 mg/dL (0.00-1.30) H 11/18/18 15:32 NT-Pro-B Natriuret Pep 4314 pg/mL (0-900) H 11/18/18 01:33 Total Protein 7.0 g/dL (6.3-8.2) 11/24/18 06:19 Albumin 3.5 g/dL (3.9-5) L 11/24/18 06:19 Albumin/Globulin Ratio 1.0 % 11/24/18 06:19 Triglycerides 178 mg/dL (2-149) H 11/18/18 01:33 Cholesterol 197 mg/dL (50-199) 11/18/18 01:33 LDL Cholesterol Direct 132 mg/dL (50-130) H 11/18/18 01:33 HDL Cholesterol 34 mg/dL (40-59) L 11/18/18 01:33 Cholesterol/HDL Ratio 5.79 % 11/18/18 01:33 Active Medications - Current Medications Current Medications: Generic Name Dose Route Start Last Admin Trade Name Freq PRN Reason Stop Dose Admin Apixaban 5 mg 11/24/18 10:00 11/24/18 10:32 Eliquis PO 5 mg Q12HR IBIS Administration Protocol Atorvastatin Calcium 40 mg 11/24/18 22:00 Lipitor PO QHS IBIS Benzonatate 100 mg 11/23/18 22:17 Tessalon Perles PO Q6H PRN COUGHING Famotidine 20 mg 11/18/18 16:00 11/24/18 09:49 Pepcid PO 20 mg QDAY IBIS Administration Hydralazine HCl 10 mg 11/19/18 06:06 Apresoline IV Q4H PRN Hypertension Levofloxacin/Dextrose 750 mg in 150 mls @ 100 mls/hr 11/23/18 10:00 11/24/18 09:49 Levaquin 750mg/150ml IV 100 mls/hr Q24HR IBIS Administration Protocol Sodium Chloride 500 mls @ 50 mls/hr 11/23/18 10:00 11/23/18 10:10 Nacl 0.9% 500 Ml IV 50 mls/hr DIRECT IBIS Administration Ipratropium [place] 0.5 mg 11/22/18 16:00 11/24/18 08:50 Atrovent IH Not Given Q8HRT IBIS Levalbuterol HCl 0.63 mg 11/22/18 14:10 11/22/18 18:32 Xopenex IH 0.63 mg Q8HRT PRN Administration Shortness Of Breath Lisinopril 2.5 mg 11/24/18 10:00 11/24/18 10:03 Zestril PO 2.5 mg QDAY IBIS Administration Metoprolol Succinate 50 mg 11/24/18 10:00 11/24/18 10:04 Toprol Xl PO 50 mg Q12HR IBIS Administration Spironolactone 25 mg 11/24/18 10:00 11/24/18 10:02 Aldactone PO 25 mg QDAY IBIS Administration
[2018-11-25 06:35] LABS: BUN/Creatinine Ratio 18; Blood Urea Nitrogen 16 mg/dL (9-20); Calcium 9.3 mg/dL (8.4-10.2); Hemolysis Index 18
[2018-11-25] MEDS: ATROVENT IH SCH ×5 (08:24→22:27)
[2018-11-25] MEDS: LEVAQUIN 750MG/150ML 750 MG/150 ML BAG IV SCH (09:33)
[2018-11-25] MEDS: ALDACTONE PO SCH (09:34)
[2018-11-25] MEDS: ZESTRIL PO SCH (09:34)
[2018-11-25] MEDS: TOPROL XL PO SCH ×2 (09:35→22:17)
[2018-11-25] MEDS: ELIQUIS PO SCH ×2 (09:36→22:16)
[2018-11-25] MEDS: PEPCID PO SCH (09:36)
--- NOTE | 2018-11-25 09:56 | Progress Note ---
Assessment and Plan Acute hypoxemic respiratory failure presumably secondary to acute CHF exacerbation. Acute congestive heart failure exacerbation. (ejection fraction of 15-20%) Pulmonary hypertension, probably related to above. Atrial fibrillation with rapid ventricular response, new onset. Bilateral pleural effusions. Pulmonary edema. Leukocytosis, possibly secondary to occult pneumonia. Elevated serum troponin, non-ST elevation myocardial infarction. Elevated BNP. Hyperlipidemia. Tobacco use disorder. - Wean supplemental oxygen to keep O2 sats>90% -Anticoagulated on oral therapy -Heart failure measures -Cardioprotective measures -Diuresis while monitoring renal function, hemodynamics and electrolyte profile -Replace electrolytes as indicated -Smoking cessation counselling -Cardiac diet -Completed 5 day course for CAP, monitor off antibiotics -Mobility, increase activity -Influenza and pneumonia vaccination per protocol prior to discharge -ABG and CXR prn Discharge planning Subjective Date of service: 11/25/18 Principal diagnosis: Ac hypoxemic Resp failure; New onset CHF (EF 20%); Pulm HTN; A-Fib with RVR Interval history: Patient is seen today for: Acute hypoxemic respiratory failure, Afib with RVR, Acute heart failure, pulmonary edema, bilateral pleural effusions Seen and examined at bedside; 24hour events reviewed; nursing and respiratory care staff consulted; no adverse overnight events reported to me; lying quietly in bed off supplemental oxygen , no chest pain, no shortness of breath, no nausea, vomiting, no fever. s/p Echocardiogram revealed a 4 chamber dilated cardiomyopathy, decreased left ventricular systolic function, EF 15-20%. LHC done,showed mild irregularities, EF 20% HOLLAND was done and showed left atrial appendage thrombus. Objective Vital Signs - 12hr 11/24/18 11/25/18 11/25/18 22:00 00:00 00:10 Temperature Pulse Rate 121 H Pulse Rate [ 72 72 Anterior Bilateral Throughout] Respiratory Rate Respiratory 20 20 Rate [Anterior Bilateral Throughout] Blood Pressure Blood Pressure [Left] O2 Sat by Pulse Oximetry 11/25/18 11/25/18 11/25/18 00:14 05:49 08:00 Temperature 97.7 F 97.3 F L 98 F Pulse Rate 79 49 L 60 Pulse Rate [ Anterior Bilateral Throughout] Respiratory 24 20 18 Rate Respiratory Rate [Anterior Bilateral Throughout] Blood Pressure 131/78 113/83 Blood Pressure 153/105 [Left] O2 Sat by Pulse 96 97 Oximetry 11/25/18 11/25/18 11/25/18 08:20 09:34 09:35 Temperature Pulse Rate 113 H 120 H 120 H Pulse Rate [ Anterior Bilateral Throughout] Respiratory Rate Respiratory Rate [Anterior Bilateral Throughout] Blood Pressure 153/105 153/105 Blood Pressure [Left] O2 Sat by Pulse 97 Oximetry Constitutional: no acute distress, alert Eyes: non-icteric ENT: oropharynx moist Neck: supple Effort: mildly labored Ascultation: Bilateral: diminished breath sounds, rales Percussion: Bilateral: not dull Cardiovascular: regular rate and rhythm Gastrointestinal: normoactive bowel sounds, soft, non-tender Integumentary: normal Extremities: no cyanosis, no edema Neurologic: normal mental status, non-focal exam, pupils equal and round, CN II- XII normal Psychiatric: mood appropriate CBC and BMP: 11/26/18 05:58 11/25/18 04:35 ABG, PT/INR, D-dimer: PT/INR, D-dimer PT 14.2 Sec. (12.2-14.9) 11/23/18 04:44 INR 1.04 (0.87-1.13) 11/23/18 04:44 Abnormal lab findings: Abnormal Labs 11/18/18 11/18/18 11/18/18 01:33 01:33 01:33 WBC 16.0 H RBC MCHC Lymph % (Auto) [place] % (Auto) 10.1 H Eos % (Auto) [place] # 1.6 H Eos # Seg Neutrophils % 73.9 H Seg Neutrophils # 11.8 H PT Heparin Anti-Xa Level Sodium Chloride BUN 23 H Creatinine Glucose 172 H POC Glucose Direct Bilirubin ALT Troponin T 0.243 H* C-Reactive Protein NT-Pro-B Natriuret Pep 4314 H Albumin Triglycerides 178 H LDL Cholesterol Direct 132 H HDL Cholesterol 34 L 11/18/18 11/18/18 11/18/18 04:01 11:33 15:32 WBC RBC MCHC Lymph % (Auto) [place] % (Auto) Eos % (Auto) [place] # Eos # Seg Neutrophils % Seg Neutrophils # PT 15.2 H Heparin Anti-Xa Level < 0.10 L Sodium Chloride BUN Creatinine Glucose POC Glucose Direct Bilirubin ALT Troponin T C-Reactive Protein 2.30 H NT-Pro-B Natriuret Pep Albumin Triglycerides LDL Cholesterol Direct HDL Cholesterol 11/18/18 11/19/18 11/19/18 18:10 00:54 04:50 WBC 16.6 H RBC MCHC Lymph % (Auto) 13.3 L [place] % (Auto) 12.8 H Eos % (Auto) [place] # 2.1 H Eos # Seg Neutrophils % 72.9 H Seg Neutrophils # 12.1 H PT Heparin Anti-Xa Level < 0.10 L < 0.10 L Sodium Chloride BUN Creatinine Glucose POC Glucose Direct Bilirubin ALT Troponin T C-Reactive Protein NT-Pro-B Natriuret Pep Albumin Triglycerides LDL Cholesterol Direct HDL Cholesterol 11/19/18 11/19/18 11/20/18 04:50 08:15 05:32 WBC 19.5 H RBC MCHC 35 H Lymph % (Auto) 11.5 L [place] % (Auto) 11.0 H Eos % (Auto) [place] # 2.1 H Eos # Seg Neutrophils % 76.5 H Seg Neutrophils # 14.9 H PT Heparin Anti-Xa Level 0.17 L Sodium Chloride BUN Creatinine 0.7 L Glucose 140 H POC Glucose Direct Bilirubin ALT Troponin T C-Reactive Protein NT-Pro-B Natriuret Pep Albumin Triglycerides LDL Cholesterol Direct HDL Cholesterol 11/20/18 11/20/18 11/20/18 08:44 08:44 15:41 WBC RBC MCHC Lymph % (Auto) [place] % (Auto) Eos % (Auto) [place] # Eos # Seg Neutrophils % Seg Neutrophils # PT Heparin Anti-Xa Level 0.10 L 0.15 L Sodium Chloride 94.5 L BUN Creatinine Glucose 200 H POC Glucose Direct Bilirubin ALT Troponin T C-Reactive Protein NT-Pro-B Natriuret Pep Albumin Triglycerides LDL Cholesterol Direct HDL Cholesterol 11/21/18 11/21/18 11/22/18 15:16 23:05 06:09 WBC 17.1 H RBC MCHC Lymph % (Auto) 12.2 L [place] % (Auto) 9.7 H Eos % (Auto) [place] # 1.6 H Eos # 0.5 H Seg Neutrophils % 74.8 H Seg Neutrophils # 12.8 H PT Heparin Anti-Xa Level < 0.10 L 0.14 L Sodium Chloride BUN Creatinine Glucose POC Glucose Direct Bilirubin ALT Troponin T C-Reactive Protein NT-Pro-B Natriuret Pep Albumin Triglycerides LDL Cholesterol Direct HDL Cholesterol 11/22/18 11/22/18 11/22/18 06:09 18:27 21:12 WBC RBC MCHC Lymph % (Auto) [place] % (Auto) Eos % (Auto) [place] # Eos # Seg Neutrophils % Seg Neutrophils # PT Heparin Anti-Xa Level Sodium Chloride BUN Creatinine 0.7 L Glucose 154 H POC Glucose 134 H 150 H Direct Bilirubin ALT Troponin T C-Reactive Protein NT-Pro-B Natriuret Pep Albumin Triglycerides LDL Cholesterol Direct HDL Cholesterol 11/23/18 11/23/18 11/23/18 04:44 04:44 07:21 WBC RBC MCHC Lymph % (Auto) [place] % (Auto) Eos % (Auto) [place] # Eos # Seg Neutrophils % Seg Neutrophils # PT Heparin Anti-Xa Level 0.10 L Sodium 136 L Chloride BUN Creatinine Glucose 126 H POC Glucose 126 H Direct Bilirubin ALT Troponin T C-Reactive Protein NT-Pro-B Natriuret Pep Albumin Triglycerides LDL Cholesterol Direct HDL Cholesterol 11/23/18 11/23/18 11/23/18 11:49 14:24 15:46 WBC RBC MCHC Lymph % (Auto) [place] % (Auto) Eos % (Auto) [place] # Eos # Seg Neutrophils % Seg Neutrophils # PT Heparin Anti-Xa Level < 0.10 L Sodium Chloride BUN Creatinine Glucose POC Glucose 186 H 158 H Direct Bilirubin ALT Troponin T C-Reactive Protein NT-Pro-B Natriuret Pep Albumin Triglycerides LDL Cholesterol Direct HDL Cholesterol 11/23/18 11/23/18 11/24/18 19:47 21:41 06:19 WBC 12.7 H RBC 5.08 H MCHC Lymph % (Auto) [place] % (Auto) 8.8 H Eos % (Auto) 7.7 H [place] # 1.1 H Eos # 1.0 H Seg Neutrophils % Seg Neutrophils # 8.1 H PT Heparin Anti-Xa Level 0.21 L Sodium Chloride BUN Creatinine Glucose POC Glucose 136 H Direct Bilirubin ALT Troponin T C-Reactive Protein NT-Pro-B Natriuret Pep Albumin Triglycerides LDL Cholesterol Direct HDL Cholesterol 11/24/18 11/24/18 11/24/18 06:19 06:19 09:37 WBC RBC MCHC Lymph % (Auto) [place] % (Auto) Eos % (Auto) [place] # Eos # Seg Neutrophils % Seg Neutrophils # PT Heparin Anti-Xa Level Sodium 135 L Chloride BUN Creatinine Glucose 132 H POC Glucose 136 H Direct Bilirubin 0.3 H ALT 66 H Troponin T C-Reactive Protein NT-Pro-B Natriuret Pep Albumin 3.5 L Triglycerides LDL Cholesterol Direct HDL Cholesterol 11/24/18 11/24/18 11/24/18 12:17 17:00 21:48 WBC RBC MCHC Lymph % (Auto) [place] % (Auto) Eos % (Auto) [place] # Eos # Seg Neutrophils % Seg Neutrophils # PT Heparin Anti-Xa Level Sodium Chloride BUN Creatinine Glucose POC Glucose 160 H 108 H 135 H Direct Bilirubin ALT Troponin T C-Reactive Protein NT-Pro-B Natriuret Pep Albumin Triglycerides LDL Cholesterol Direct HDL Cholesterol 11/25/18 11/25/18 00:19 04:35 WBC RBC MCHC Lymph % (Auto) [place] % (Auto) Eos % (Auto) [place] # Eos # Seg Neutrophils % Seg Neutrophils # PT Heparin Anti-Xa Level Sodium Chloride BUN Creatinine Glucose 136 H POC Glucose 134 H Direct Bilirubin ALT Troponin T C-Reactive Protein NT-Pro-B Natriuret Pep Albumin Triglycerides LDL Cholesterol Direct HDL Cholesterol Allied health notes reviewed: nursing
--- NOTE | 2018-11-25 11:37 | Discharge Summary ---
Providers - Providers Date of Admission: 11/18/18 06:19 Date of discharge: 11/26/18 Attending physician: NELSON FERRERA MD 11/18/18 03:52 Consult to Cardiology [CONS] Stat Consulting Provider: JODY SANTOS Reason For Exam: chest pain 11/18/18 07:01 Consult to Physician [CONS] Routine Comment: Rodger @ notified @ 08:32- LXM Consulting Provider: ANGELA MCDERMOTT Physician Instructions: Reason For Exam: cc 11/23/18 10:49 Consult to Cardiac Rehabilitation [CONS] Routine Reason For Exam: Cardiac Rehab Evaluation Primary care physician: MANAGER ORACLE Hospitalization Reason for admission: atrial fibrillation, pneumonia, left atrial thrombus Condition: Stable Hospital course: Acute hypoxemic respiratory failure. Etiology secondary to heart failure and pneumonia. Continue O2 for supportive care. BiPAP if clinically indicated. resolved. New-onset Atrial fibrillation with RVR; on by mouth metoprolol, digoxin and eliquis. Echocardiogram revealed a 4 chamber dilated cardiomyopathy, decreased left ventricular systolic function, EF 15-20%. LHC done showed mild irregularities, EF 20% HOLLAND was done and showed left atrial appendage thrombus. Continue with eliquis. Sepsis; resolved with IV antibiotics and fluids Left lower lobe pneumonia. treated with antibiotic and resolved Hypertension controlled Diabetes mellitus type 2 continue home medications. Cardiology evaluated the patient and recommend to DC the patient once heart rate is not >110. patient was hemodynamically stable. Appropriate medication scripts were given. Disposition: DC-01 TO HOME OR SELFCARE Time spent for discharge: 32 minutes - Discharge Diagnoses (1) Atrial fibrillation with RVR Status: Acute (2) CHF (congestive heart failure) Status: Acute (3) COPD (chronic obstructive pulmonary disease) Status: Acute (4) NSTEMI (non-ST elevated myocardial infarction) Status: Acute (5) Pneumonia Status: Acute (6) Pulmonary edema Status: Acute Core Measure Documentation - Palliative Care Palliative Care/ Comfort Measures: Not Applicable - Core Measures Any of the following diagnoses?: heart failure, none - Heart Failure Discharge Requirements KELLY/ARB for LVSD if EF <40%: Yes Beta darien at discharge: Yes Exam - Physical Exam Narrative exam: Not in cardiopulmonary distress. The patient appeared well nourished and normally developed. Vital signs as documented. Head exam is unremarkable. No scleral icterus . Neck is without jugular venous distension, thyromegaly, or carotid bruits. Lungs are clear to auscultation. Cardiac exam reveals irregular rate and Rhythm. Abdominal exam reveals normal bowel sounds. Extremities are nonedematous and both femoral and pedal pulses are normal. PREPRESS SUPERVISOR: Alert and oriented 3. No focal weakness. - Constitutional Vitals: Temp Pulse Resp BP Pulse Ox 98 F 113 H 18 153/105 98 11/25/18 08:00 11/25/18 10:00 11/25/18 10:00 11/25/18 09:35 11/25/18 10:00 Plan Activity: no restrictions Weight Bearing Status: Full Weight Bearing Diet: low salt Follow up with: PRIMARY CAREMD [Primary Care Provider] - 3-5 Days JODY SANTOS MD [Staff Physician] - 7 Days Prescriptions: Digoxin 250 mcg PO DAILY #30 tablet Apixaban [Eliquis] 5 mg PO Q12HR #60 tablet levoFLOXacin [Levaquin] 750 mg PO QDAY #3 tablet Atorvastatin Calcium [Lipitor] 40 mg PO QDAY #30 tablet Metoprolol Xl [Metoprolol SUCCINATE ER TAB] 100 mg PO Q12HR #120 tablet Famotidine [Pepcid] 20 mg PO QDAY #30 tablet Lisinopril [Zestril TAB] 2.5 mg PO QDAY #30 tablet
[2018-11-25] MEDS ORDERED: CORDARONE 150 MG in D5W 100 ML IV ONE (13:30)
--- NOTE | 2018-11-25 14:02 | Progress Note ---
Assessment and Plan Assessment and plan: Acute hypoxemic respiratory failure. Etiology secondary to heart failure and pneumonia. Continue O2 for supportive care. BiPAP if clinically indicated. New-onset Atrial fibrillation with RVR; on by mouth metoprolol. Rate is not controlled and patient started with amiodarone. Patient is on eliquis Echocardiogram revealed a 4 chamber dilated cardiomyopathy, decreased left ventricular systolic function, EF 15-20%. LHC done this morning showed mild irregularities, EF 20% HOLLAND was done and showed left atrial appendage thrombus. Sepsis; continue his Levaquin Left lower lobe pneumonia. Continue Levaquin. Repeat chest x-ray showed mild improvement in infiltrates and edema Hypertension. Continue antihypertensive medications. Diabetes mellitus type 2. Continue Accu-Cheks and sliding scale insulin. Disposition; continue inpatient care. Patient started with amiodarone today. - Patient Problems (1) Atrial fibrillation with RVR Current Visit: Yes Status: Acute (2) CHF (congestive heart failure) Current Visit: Yes Status: Acute (3) COPD (chronic obstructive pulmonary disease) Current Visit: Yes Status: Acute (4) NSTEMI (non-ST elevated myocardial infarction) Current Visit: Yes Status: Acute (5) Pneumonia Current Visit: Yes Status: Acute (6) Pulmonary edema Current Visit: Yes Status: Acute History Interval history: Patient was seen and evaluated this morning, patient denies shortness of breath, chest pain. The plan was to discharge him today but his heart rate went up in the 150s and cardiology held the discharge and will start on amiodarone Hospitalist Physical - Physical exam Narrative exam: Not in cardiopulmonary distress. The patient appeared well nourished and normally developed. Vital signs as documented. Head exam is unremarkable. No scleral icterus . Neck is without jugular venous distension, thyromegaly, or carotid bruits. Lungs are clear to auscultation. Cardiac exam reveals irregular rate and Rhythm. Abdominal exam reveals normal bowel sounds. Extremities are nonedematous and both femoral and pedal pulses are normal. MEDICAL AUTHORIZATION SPECIALIST: Alert and oriented 3. No focal weakness. - Constitutional Vitals: Temp Pulse Resp BP Pulse Ox 98 F 113 H 18 153/105 98 11/25/18 08:00 11/25/18 10:00 11/25/18 10:00 11/25/18 09:35 11/25/18 10:00 General appearance: Present: no acute distress, well-nourished Results - Labs CBC & Chem 7: 11/24/18 06:19 11/25/18 04:35 Labs: Laboratory Last Values WBC 12.7 K/mm3 (4.5-11.0) H 11/24/18 06:19 RBC 5.08 M/mm3 (3.65-5.03) H 11/24/18 06:19 Hgb 15.2 gm/dl (11.8-15.2) 11/24/18 06:19 Hct 44.2 % (35.5-45.6) 11/24/18 06:19 MCV 87 fl (84-94) 11/24/18 06:19 MCH 30 pg (28-32) 11/24/18 06:19 MCHC 34 % (32-34) 11/24/18 06:19 RDW 14.2 % (13.2-15.2) 11/24/18 06:19 Plt Count 346 K/mm3 (140-440) 11/24/18 06:19 Lymph % (Auto) 18.5 % (13.4-35.0) 11/24/18 06:19 [place] % (Auto) 8.8 % (0.0-7.3) H 11/24/18 06:19 Eos % (Auto) 7.7 % (0.0-4.3) H 11/24/18 06:19 Baso % (Auto) 1.1 % (0.0-1.8) 11/24/18 06:19 Lymph # 2.3 K/mm3 (1.2-5.4) 11/24/18 06:19 [place] # 1.1 K/mm3 (0.0-0.8) H 11/24/18 06:19 Eos # 1.0 K/mm3 (0.0-0.4) H 11/24/18 06:19 Baso # 0.1 K/mm3 (0.0-0.1) 11/24/18 06:19 Seg Neutrophils % 63.9 % (40.0-70.0) 11/24/18 06:19 Seg Neutrophils # 8.1 K/mm3 (1.8-7.7) H 11/24/18 06:19 PT 14.2 Sec. (12.2-14.9) 11/23/18 04:44 INR 1.04 (0.87-1.13) 11/23/18 04:44 APTT 31.8 Sec. (24.2-36.6) 11/18/18 05:20 Heparin Anti-Xa Level 0.21 U.I./ml (0.3-0.7) L 11/23/18 19:47 Sodium 138 mmol/L (137-145) 11/25/18 04:35 Potassium 4.7 mmol/L (3.6-5.0) 11/25/18 04:35 Chloride 98.4 mmol/L (98-107) 11/25/18 04:35 Carbon Dioxide 24 mmol/L (22-30) 11/25/18 04:35 Anion Gap 20 mmol/L 11/25/18 04:35 BUN 16 mg/dL (9-20) 11/25/18 04:35 Creatinine 0.9 mg/dL (0.8-1.5) 11/25/18 04:35 Estimated GFR > 60 ml/min 11/25/18 04:35 BUN/Creatinine Ratio 18 % 11/25/18 04:35 Glucose 136 mg/dL (75-100) H 11/25/18 04:35 POC Glucose 152 (70-105) H 11/25/18 08:35 Lactic Acid 1.60 mmol/L (0.7-2.0) 11/18/18 06:00 Calcium 9.3 mg/dL (8.4-10.2) 11/25/18 04:35 Total Bilirubin 1.20 mg/dL (0.1-1.2) 11/24/18 06:19 Direct Bilirubin 0.3 mg/dL (0-0.2) H 11/24/18 06:19 Indirect Bilirubin 0.9 mg/dL 11/24/18 06:19 AST 32 units/L (5-40) 11/24/18 06:19 ALT 66 units/L (7-56) H 11/24/18 06:19 Alkaline Phosphatase 75 units/L (35-129) 11/24/18 06:19 Troponin T 0.243 ng/mL (0.00-0.029) H* 11/18/18 01:33 C-Reactive Protein 2.30 mg/dL (0.00-1.30) H 11/18/18 15:32 NT-Pro-B Natriuret Pep 4314 pg/mL (0-900) H 11/18/18 01:33 Total Protein 7.0 g/dL (6.3-8.2) 11/24/18 06:19 Albumin 3.5 g/dL (3.9-5) L 11/24/18 06:19 Albumin/Globulin Ratio 1.0 % 11/24/18 06:19 Triglycerides 178 mg/dL (2-149) H 11/18/18 01:33 Cholesterol 197 mg/dL (50-199) 11/18/18 01:33 LDL Cholesterol Direct 132 mg/dL (50-130) H 11/18/18 01:33 HDL Cholesterol 34 mg/dL (40-59) L 11/18/18 01:33 Cholesterol/HDL Ratio 5.79 % 11/18/18 01:33 Active Medications - Current Medications Current Medications: Generic Name Dose Route Start Last Admin Trade Name Freq PRN Reason Stop Dose Admin Amiodarone HCl 400 mg 11/25/18 22:00 Cordarone PO 11/26/18 10:01 BID IBIS Amiodarone HCl 200 mg 11/27/18 10:00 Cordarone PO QDAY IBIS Apixaban 5 mg 11/24/18 10:00 11/25/18 09:36 Eliquis PO 5 mg Q12HR IBIS Administration Protocol Atorvastatin Calcium 40 mg 11/24/18 22:00 11/24/18 22:48 Lipitor PO 40 mg QHS IBIS Administration Benzonatate 100 mg 11/23/18 22:17 Tessalon Perles PO Q6H PRN COUGHING Famotidine 20 mg 11/18/18 16:00 11/25/18 09:36 Pepcid PO 20 mg QDAY IBIS Administration Hydralazine HCl 10 mg 11/19/18 06:06 Apresoline IV Q4H PRN Hypertension Levofloxacin/Dextrose 750 mg in 150 mls @ 100 mls/hr 11/23/18 10:00 11/25/18 09:33 Levaquin 750mg/150ml IV 100 mls/hr Q24HR IBIS Administration Protocol Sodium Chloride 500 mls @ 50 mls/hr 11/23/18 10:00 11/23/18 10:10 Nacl 0.9% 500 Ml IV 50 mls/hr DIRECT IBIS Administration Ipratropium [place] 0.5 mg 11/22/18 16:00 11/25/18 08:24 Atrovent IH 0.5 mg Q8HRT IBIS Administration Levalbuterol HCl 0.63 mg 11/22/18 14:10 11/22/18 18:32 Xopenex IH 0.63 mg Q8HRT PRN Administration Shortness Of Breath Lisinopril 2.5 mg 11/24/18 10:00 11/25/18 09:34 Zestril PO 2.5 mg QDAY IBIS Administration Metoprolol Succinate 50 mg 11/24/18 10:00 11/25/18 09:35 Toprol Xl PO 50 mg Q12HR IBIS Administration Spironolactone 25 mg 11/24/18 10:00 11/25/18 09:34 Aldactone PO 25 mg QDAY IBIS Administration Nutrition/Malnutrition Assess - Dietary Evaluation Nutrition/Malnutrition Findings: Nutrition Notes Start: 11/25/18 13:41 Freq: Status: Active Protocol: Document 11/25/18 13:42 RD (Rec: 11/25/18 13:45 RD [email or web address]) Co-Sign 11/25/18 13:42 LP Nutrition Notes Need for Assessment generated from: LOS Initial or Follow up Brief Note Current Diagnosis COPD,Diabetes,Sepsis,Heart Failure,Respiratory Failure Other Pertinent Diagnosis A fib, Pulm edema, NSTEMI, Pneu Current Diet cardiac Subjective/Other Information RD screen for LOS. Pt reports eating most of meals when he likes the food. Pt complains that food served in hospital is bland. Requests more omelettes, grits, hamburgers, broccoli, toast, and jam. Pt states appetite is normal. Reported intakes average 81%. Nutrition Intervention Revisit per MD consult or patient Sign Off request:
--- NOTE | 2018-11-25 15:03 | Progress Note ---
Assessment and Plan Acute systolic heart failure Pneumonia Persistent atrial fibrillation + SHAJI thrombus on HOLLAND therefore cardioversion deferred Non-ischemic cardiomyopathy, uncertain duration LVEF < 20% by echo this admission Non-obstructive CAD by cardiac cath this admission Hypertension Diabetes Recommendations: Continue eliquis and metoprolol. We will add amiodarone for optimal rate control of Afib that persists. Continue medical management for his nonischemic cardiomyopathy. Subjective Date of service: 11/25/18 Principal diagnosis: Ac hypoxemic Resp failure; New onset CHF (EF 20%); Pulm HTN; A-Fib with RVR Interval history: Rapid atrial fibrillation on telemetry. Patient remains asymptomatic. Objective Vital Signs Temp Pulse Pulse Pulse Pulse Pulse Resp 11/25/18 14:52 106 H 11/25/18 14:40 105 H 11/25/18 11:13 65 11/25/18 10:00 156 H 113 H 113 H 113 H 18 11/25/18 09:35 120 H 11/25/18 09:34 120 H 11/25/18 08:35 122 H 11/25/18 08:23 113 H 11/25/18 08:20 113 H 11/25/18 08:00 98 F 60 18 11/25/18 05:49 97.3 F L 49 L 20 11/25/18 00:14 97.7 F 79 24 11/25/18 00:10 72 11/25/18 00:00 72 11/24/18 22:00 121 H 11/24/18 20:28 97.9 F 61 20 11/24/18 18:26 97.6 F 56 L 20 11/24/18 17:04 97.5 F L 54 L 11/24/18 17:03 11/24/18 17:01 69 11/24/18 16:50 80 Resp BP BP Pulse Ox 11/25/18 14:52 18 11/25/18 14:40 18 11/25/18 11:13 119/99 90 11/25/18 10:00 98 11/25/18 09:35 153/105 11/25/18 09:34 153/105 11/25/18 08:35 18 11/25/18 08:23 18 11/25/18 08:20 97 11/25/18 08:00 153/105 11/25/18 05:49 113/83 97 11/25/18 00:14 131/78 96 11/25/18 00:10 20 11/25/18 00:00 20 11/24/18 22:00 11/24/18 20:28 133/96 93 11/24/18 18:26 135/87 95 11/24/18 17:04 130/83 98 11/24/18 17:03 97 11/24/18 17:01 16 11/24/18 16:50 16 - Physical Examination General: No Apparent Distress HEENT: Positive: PERRL Neck: Positive: trachea midline Cardiac: Positive: irregularly irregular Lungs: Positive: Decreased Breath Sounds Neuro: Positive: Grossly Intact Extremities: Absent: +1 Edema - Labs and Meds Comprehensive Metabolic Panel 11/25/18 Range/Units 04:35 Sodium 138 (137-145) mmol/L Potassium 4.7 (3.6-5.0) mmol/L Chloride 98.4 (98-107) mmol/L Carbon Dioxide 24 (22-30) mmol/L BUN 16 (9-20) mg/dL Creatinine 0.9 (0.8-1.5) mg/dL Glucose 136 H (75-100) mg/dL Calcium 9.3 (8.4-10.2) mg/dL - Allied health notes Allied health notes reviewed: nursing
[2018-11-25] MEDS ORDERED: CORDARONE PO SCH (22:00)
[2018-11-26 06:29] LABS: Hematocrit 42.4 % (35.5-45.6); Hemoglobin 14.8 gm/dl (11.8-15.2)
--- NOTE | 2018-11-26 07:16 | Ultrasound Report ---
PROCEDURE: US CHEST TECHNIQUE: Targeted imaging was obtained of the patient's bilateral effusions. HISTORY: Bilateral pleural effusions. COMPARISONS: None FINDINGS: There is a large right-sided effusion with an estimated volume of 1412 cc. There is a smaller left-sided effusion with an estimated volume of 119 cc. IMPRESSION: Bilateral effusions as described.. This document is electronically signed by Jose Angel Orantes MD., November 26 2018 07:13:54 AM ET
[2018-11-26] MEDS: ATROVENT IH SCH (07:46)
[2018-11-26] MEDS: XOPENEX IH PRN (07:46)
[2018-11-26] MEDS ORDERED: TOPROL XL PO SCH (10:00)
[2018-11-26] MEDS ORDERED: ZESTRIL PO SCH (10:00)
[2018-11-26] MEDS: LEVAQUIN 750MG/150ML 750 MG/150 ML BAG IV SCH (10:16)
[2018-11-26] MEDS: PEPCID PO SCH (10:18)
[2018-11-26] MEDS: ELIQUIS PO SCH (10:18)
[2018-11-26] MEDS: ALDACTONE PO SCH (10:19)
--- NOTE | 2018-11-26 10:22 | Progress Note ---
Assessment and Plan Acute hypoxemic respiratory failure presumably secondary to acute CHF exacerbation. Acute congestive heart failure exacerbation. (ejection fraction of 15-20%) Pulmonary hypertension, probably related to above. Atrial fibrillation with rapid ventricular response, new onset. Bilateral pleural effusions. Pulmonary edema. Leukocytosis, possibly secondary to occult pneumonia. Elevated serum troponin, non-ST elevation myocardial infarction. Elevated BNP. Hyperlipidemia. Tobacco use disorder. -Anticoagulated -Heart failure measures -Cardioprotective measures -Diuresis while monitoring renal function, hemodynamics and electrolyte profile -Replace electrolytes as indicated -Smoking cessation counselling reiterated at the bedside -Cardiac diet -Continue to monitor off antibioitcs -Mobility, increase activity -Influenza and pneumonia vaccination per protocol prior to discharge -ABG and CXR prn Out patient follow up for PFT to evaluate lung physiology. Patient has a history of tobacco use disorder and heart failure. They often have concomitant sleep apnea and undiagnosed COPD Subjective Date of service: 11/26/18 Principal diagnosis: Ac hypoxemic Resp failure; New onset CHF (EF 20%); Pulm HTN; A-Fib with RVR Interval history: Patient is seen today for: Acute hypoxemic respiratory failure, Afib with RVR, Acute heart failure, pulmonary edema, bilateral pleural effusions Seen and examined at bedside; 24hour events reviewed; nursing and respiratory care staff consulted; no adverse overnight events reported to me; lying quietly in bed on room air with adequate saturations, no chest pain, no shortness of b reath, no nausea, vomiting, no fever. s/p Echocardiogram revealed a 4 chamber dilated cardiomyopathy, decreased left ventricular systolic function, EF 15-20%. LHC done,showed mild irregularities, EF 20% HOLLAND was done and showed left atrial appendage thrombus. Objective Vital Signs - 12hr 11/25/18 11/25/18 11/26/18 22:28 23:22 04:00 Temperature 98.1 F 98.5 F Pulse Rate 62 77 Pulse Rate [ 110 H Anterior Bilateral Throughout] Respiratory 18 18 Rate Respiratory 16 Rate [Anterior Bilateral Throughout] Blood Pressure 138/100 Blood Pressure 132/93 [Left] O2 Sat by Pulse 93 91 Oximetry 11/26/18 11/26/18 04:25 07:43 Temperature 97.9 F Pulse Rate 109 H 60 Pulse Rate [ Anterior Bilateral Throughout] Respiratory 20 Rate Respiratory Rate [Anterior Bilateral Throughout] Blood Pressure 137/92 Blood Pressure [Left] O2 Sat by Pulse 91 Oximetry Constitutional: no acute distress, alert Eyes: non-icteric ENT: oropharynx moist Neck: supple, no lymphadenopathy, no JVD Effort: normal Ascultation: Bilateral: diminished breath sounds, rhonchi (at the bases) Percussion: Bilateral: not dull Cardiovascular: regular rate and rhythm Gastrointestinal: normoactive bowel sounds, soft, non-tender Integumentary: normal Extremities: no cyanosis, no edema Neurologic: normal mental status, non-focal exam, pupils equal and round, CN II- XII normal, motor strength normal and Psychiatric: mood appropriate, affect normal CBC and BMP: 11/26/18 05:58 11/25/18 04:35 ABG, PT/INR, D-dimer: PT/INR, D-dimer PT 14.2 Sec. (12.2-14.9) 11/23/18 04:44 INR 1.04 (0.87-1.13) 11/23/18 04:44 Abnormal lab findings: Abnormal Labs 11/18/18 11/18/18 11/18/18 01:33 01:33 01:33 WBC 16.0 H RBC MCHC Lymph % (Auto) Wright % (Auto) 10.1 H Eos % (Auto) Wright # 1.6 H Eos # Seg Neutrophils % 73.9 H Seg Neutrophils # 11.8 H PT Heparin Anti-Xa Level Sodium Chloride BUN 23 H Creatinine Glucose 172 H POC Glucose Direct Bilirubin ALT Troponin T 0.243 H* C-Reactive Protein NT-Pro-B Natriuret Pep 4314 H Albumin Triglycerides 178 H LDL Cholesterol Direct 132 H HDL Cholesterol 34 L 11/18/18 11/18/18 11/18/18 04:01 11:33 15:32 WBC RBC MCHC Lymph % (Auto) Wright % (Auto) Eos % (Auto) Wright # Eos # Seg Neutrophils % Seg Neutrophils # PT 15.2 H Heparin Anti-Xa Level < 0.10 L Sodium Chloride BUN Creatinine Glucose POC Glucose Direct Bilirubin ALT Troponin T C-Reactive Protein 2.30 H NT-Pro-B Natriuret Pep Albumin Triglycerides LDL Cholesterol Direct HDL Cholesterol 11/18/18 11/19/18 11/19/18 18:10 00:54 04:50 WBC 16.6 H RBC MCHC Lymph % (Auto) 13.3 L Wright % (Auto) 12.8 H Eos % (Auto) Wright # 2.1 H Eos # Seg Neutrophils % 72.9 H Seg Neutrophils # 12.1 H PT Heparin Anti-Xa Level < 0.10 L < 0.10 L Sodium Chloride BUN Creatinine Glucose POC Glucose Direct Bilirubin ALT Troponin T C-Reactive Protein NT-Pro-B Natriuret Pep Albumin Triglycerides LDL Cholesterol Direct HDL Cholesterol 11/19/18 11/19/18 11/20/18 04:50 08:15 05:32 WBC 19.5 H RBC MCHC 35 H Lymph % (Auto) 11.5 L Wright % (Auto) 11.0 H Eos % (Auto) Wright # 2.1 H Eos # Seg Neutrophils % 76.5 H Seg Neutrophils # 14.9 H PT Heparin Anti-Xa Level 0.17 L Sodium Chloride BUN Creatinine 0.7 L Glucose 140 H POC Glucose Direct Bilirubin ALT Troponin T C-Reactive Protein NT-Pro-B Natriuret Pep Albumin Triglycerides LDL Cholesterol Direct HDL Cholesterol 11/20/18 11/20/18 11/20/18 08:44 08:44 15:41 WBC RBC MCHC Lymph % (Auto) Wright % (Auto) Eos % (Auto) Wright # Eos # Seg Neutrophils % Seg Neutrophils # PT Heparin Anti-Xa Level 0.10 L 0.15 L Sodium Chloride 94.5 L BUN Creatinine Glucose 200 H POC Glucose Direct Bilirubin ALT Troponin T C-Reactive Protein NT-Pro-B Natriuret Pep Albumin Triglycerides LDL Cholesterol Direct HDL Cholesterol 11/21/18 11/21/18 11/22/18 15:16 23:05 06:09 WBC 17.1 H RBC MCHC Lymph % (Auto) 12.2 L Wright % (Auto) 9.7 H Eos % (Auto) Wright # 1.6 H Eos # 0.5 H Seg Neutrophils % 74.8 H Seg Neutrophils # 12.8 H PT Heparin Anti-Xa Level < 0.10 L 0.14 L Sodium Chloride BUN Creatinine Glucose POC Glucose Direct Bilirubin ALT Troponin T C-Reactive Protein NT-Pro-B Natriuret Pep Albumin Triglycerides LDL Cholesterol Direct HDL Cholesterol 11/22/18 11/22/18 11/22/18 06:09 18:27 21:12 WBC RBC MCHC Lymph % (Auto) Wright % (Auto) Eos % (Auto) Wright # Eos # Seg Neutrophils % Seg Neutrophils # PT Heparin Anti-Xa Level Sodium Chloride BUN Creatinine 0.7 L Glucose 154 H POC Glucose 134 H 150 H Direct Bilirubin ALT Troponin T C-Reactive Protein NT-Pro-B Natriuret Pep Albumin Triglycerides LDL Cholesterol Direct HDL Cholesterol 11/23/18 11/23/18 11/23/18 04:44 04:44 07:21 WBC RBC MCHC Lymph % (Auto) Wright % (Auto) Eos % (Auto) Wright # Eos # Seg Neutrophils % Seg Neutrophils # PT Heparin Anti-Xa Level 0.10 L Sodium 136 L Chloride BUN Creatinine Glucose 126 H POC Glucose 126 H Direct Bilirubin ALT Troponin T C-Reactive Protein NT-Pro-B Natriuret Pep Albumin Triglycerides LDL Cholesterol Direct HDL Cholesterol 11/23/18 11/23/18 11/23/18 11:49 14:24 15:46 WBC RBC MCHC Lymph % (Auto) Wright % (Auto) Eos % (Auto) Wright # Eos # Seg Neutrophils % Seg Neutrophils # PT Heparin Anti-Xa Level < 0.10 L Sodium Chloride BUN Creatinine Glucose POC Glucose 186 H 158 H Direct Bilirubin ALT Troponin T C-Reactive Protein NT-Pro-B Natriuret Pep Albumin Triglycerides LDL Cholesterol Direct HDL Cholesterol 11/23/18 11/23/18 11/24/18 19:47 21:41 06:19 WBC 12.7 H RBC 5.08 H MCHC Lymph % (Auto) Wright % (Auto) 8.8 H Eos % (Auto) 7.7 H Wright # 1.1 H Eos # 1.0 H Seg Neutrophils % Seg Neutrophils # 8.1 H PT Heparin Anti-Xa Level 0.21 L Sodium Chloride BUN Creatinine Glucose POC Glucose 136 H Direct Bilirubin ALT Troponin T C-Reactive Protein NT-Pro-B Natriuret Pep Albumin Triglycerides LDL Cholesterol Direct HDL Cholesterol 11/24/18 11/24/18 11/24/18 06:19 06:19 09:37 WBC RBC MCHC Lymph % (Auto) Wright % (Auto) Eos % (Auto) Wright # Eos # Seg Neutrophils % Seg Neutrophils # PT Heparin Anti-Xa Level Sodium 135 L Chloride BUN Creatinine Glucose 132 H POC Glucose 136 H Direct Bilirubin 0.3 H ALT 66 H Troponin T C-Reactive Protein NT-Pro-B Natriuret Pep Albumin 3.5 L Triglycerides LDL Cholesterol Direct HDL Cholesterol 11/24/18 11/24/18 11/24/18 12:17 17:00 21:48 WBC RBC MCHC Lymph % (Auto) Wright % (Auto) Eos % (Auto) Wright # Eos # Seg Neutrophils % Seg Neutrophils # PT Heparin Anti-Xa Level Sodium Chloride BUN Creatinine Glucose POC Glucose 160 H 108 H 135 H Direct Bilirubin ALT Troponin T C-Reactive Protein NT-Pro-B Natriuret Pep Albumin Triglycerides LDL Cholesterol Direct HDL Cholesterol 11/25/18 11/25/18 11/25/18 00:19 04:35 08:35 WBC RBC MCHC Lymph % (Auto) Wright % (Auto) Eos % (Auto) Wright # Eos # Seg Neutrophils % Seg Neutrophils # PT Heparin Anti-Xa Level Sodium Chloride BUN Creatinine Glucose 136 H POC Glucose 134 H 152 H Direct Bilirubin ALT Troponin T C-Reactive Protein NT-Pro-B Natriuret Pep Albumin Triglycerides LDL Cholesterol Direct HDL Cholesterol 11/25/18 20:48 WBC RBC MCHC Lymph % (Auto) Wright % (Auto) Eos % (Auto) Wright # Eos # Seg Neutrophils % Seg Neutrophils # PT Heparin Anti-Xa Level Sodium Chloride BUN Creatinine Glucose POC Glucose 125 H Direct Bilirubin ALT Troponin T C-Reactive Protein NT-Pro-B Natriuret Pep Albumin Triglycerides LDL Cholesterol Direct HDL Cholesterol Allied health notes reviewed: nursing
--- NOTE | 2018-11-26 10:25 | Progress Note ---
Assessment and Plan Acute systolic heart failure Pneumonia Persistent atrial fibrillation + SHAJI thrombus on HOLLAND therefore cardioversion deferred Non-ischemic cardiomyopathy, uncertain duration LVEF < 20% by echo this admission Non-obstructive CAD by cardiac cath this admission Hypertension Diabetes Recommendations: Increase metoprolol XL to 100 mg po bid Start digoxin loading Discontinue amiodarone due to risk of cardioversion as patient has evidence of a SHAJI thrombus Discussed with Dr Flores Subjective Date of service: 11/26/18 Principal diagnosis: Ac hypoxemic Resp failure; New onset CHF (EF 20%); Pulm HTN; A-Fib with RVR Interval history: Patient is doing well He wants to go home Tele is showing afib with RVR Objective Vital Signs Temp Pulse Pulse Resp Resp BP BP 11/26/18 07:43 97.9 F 60 20 137/92 11/26/18 04:25 109 H 11/26/18 04:00 98.5 F 77 18 132/93 11/25/18 23:22 98.1 F 62 18 138/100 11/25/18 22:28 110 H 16 11/25/18 22:17 109 H 138/72 11/25/18 20:00 98.4 F 49 L 18 138/72 11/25/18 19:30 115 H 11/25/18 16:00 98.4 F 66 18 114/82 11/25/18 15:59 98.4 F 20 11/25/18 15:56 72 11/25/18 14:52 106 H 18 11/25/18 14:40 105 H 18 11/25/18 11:13 65 119/99 Pulse Ox 11/26/18 07:43 91 11/26/18 04:25 11/26/18 04:00 91 11/25/18 23:22 93 11/25/18 22:28 11/25/18 22:17 11/25/18 20:00 97 11/25/18 19:30 11/25/18 16:00 98 11/25/18 15:59 11/25/18 15:56 98 11/25/18 14:52 11/25/18 14:40 11/25/18 11:13 90 - Physical Examination General: No Apparent Distress HEENT: Positive: PERRL Neck: Positive: trachea midline Cardiac: Positive: irregularly irregular Lungs: Positive: Normal Exam Neuro: Positive: Grossly Intact Abdomen: Positive: Unremarkable, Soft Extremities: Absent: +1 Edema - Labs and Meds CBC 11/26/18 Range/Units 05:58 Hgb 14.8 (11.8-15.2) gm/dl Hct 42.4 (35.5-45.6) % Plt Count 372 (140-440) K/mm3 - Allied health notes Allied health notes reviewed: nursing
[2018-11-26 11:39] VITALS: BP 133/104
[2018-11-26] MEDS ORDERED: LANOXIN IV SCH (12:00)
[2018-11-27] MEDS ORDERED: CORDARONE PO SCH (10:00)
== END 2018-11-26 14:30 | disposition home or self-care (01) | DRG 871 ==
LOC: ED 01:12 → CC1 06:19 → 4A 11-21 17:40
PROVIDERS: ADMIT Internal Medicine; ATTEND Internal Medicine
PROC: 4A023N7 Measurement of Cardiac Sampling and Pressure, Left Heart, Percutaneous Approach (ICD-10-PCS; principal; 2018-11-23)
PROC: B2151ZZ Fluoroscopy of Left Heart using Low Osmolar Contrast (ICD-10-PCS; 2018-11-23)
PROC: B2111ZZ Fluoroscopy of Multiple Coronary Arteries using Low Osmolar Contrast (ICD-10-PCS; 2018-11-23)
DX: A41.9 Sepsis, unspecified organism (principal); I21.4 Non-ST elevation (NSTEMI) myocardial infarction; J96.01 Acute respiratory failure with hypoxia; J18.1 Lobar pneumonia, unspecified organism; I50.23 Acute on chronic systolic (congestive) heart failure; J90 Pleural effusion, not elsewhere classified; I42.0 Dilated cardiomyopathy; J44.0 Chronic obstructive pulmonary disease with (acute) lower respiratory infection; Z87.891 Personal history of nicotine dependence; I48.91 Unspecified atrial fibrillation; Z79.899 Other long term (current) drug therapy; Z79.84 Long term (current) use of oral hypoglycemic drugs; E11.9 Type 2 diabetes mellitus without complications; I11.0 Hypertensive heart disease with heart failure; I27.20 Pulmonary hypertension, unspecified; E78.5 Hyperlipidemia, unspecified
CPT/HCPCS: 36415; 71046; 71275; 76604; 80048; 80061; 80076; 82140; 82962; 83880; 84484; 85014; 85018; 85025; 85049; 85520; 85610; 85730; 86140; 87040; 93005; 93010; 93306; 93312; 93320; 93325; 93458; 94640; 94760; G0378; A9270-GY; C1894; J0282; J0360; J1160; J1644; J1940; J1956; J2250; J3010; J7030; J7040; Q9967

== ENCOUNTER 2019-07-19 17:00 | Inpatient (IN) | payer BC, OTHER ==
--- NOTE | 2019-07-19 17:15 | Event Note ---
ED Screening Note Date of service: 07/19/19 Time: 17:14 ED Screening Note: 59 y/o male comes in for bilateral lower extremity swelling This initial assessment/diagnostic orders/clinical plan/treatment(s) is/are subject to change based on patients health status, clinical progression and re-assessment by fellow clinical providers in the ED. Further treatment and workup at subsequent clinical providers discretion. Patient/guardian urged not to elope from the ED as their condition may be serious if not clinically assessed and managed. Initial orders include:
--- NOTE | 2019-07-19 17:51 | XRay Report ---
CHEST 2 VIEWS INDICATION / CLINICAL INFORMATION: sob. COMPARISON: 11/23/2018 FINDINGS: SUPPORT DEVICES: None. HEART / MEDIASTINUM: Mild cardiomegaly with left ventricular configuration. The thoracic aorta is tor tuous but unchanged in appearance. LUNGS / PLEURA: No acute pulmonary disease. A small right pleural effusion is present. No pneumothorax. ADDITIONAL FINDINGS: No significant additional findings. IMPRESSION: 1. Small right pleural effusion. 2. Stable mild cardiomegaly. Signer Name: Juanpablo Rosen MD Signed: 07/19/2019 5:46 PM Workstation Name: [id number]
[2019-07-19 18:10] LABS: Basophils % (Auto) 0.4 % (0.0-1.8); Eosinophils # (Auto) 0.1 K/mm3 (0.0-0.4); Eosinophils % (Auto) 0.5 % (0.0-4.3); Hematocrit 50.4 % (35.5-45.6); Hemoglobin 16.8 gm/dl (11.8-15.2); Lymphocytes # (Auto) 2.1 K/mm3 (1.2-5.4); Lymphocytes % (Auto) 16.6 % (13.4-35.0); Mean Corpuscular HGB Conc 33 % (32-34); Mean Corpuscular Volume 93 fl (84-94); Monocytes # (Auto) 1.1 K/mm3 (0.0-0.8); Monocytes % (Auto) 8.8 % (0.0-7.3); Platelet Count 189 K/mm3 (140-440); Red Blood Count 5.44 M/mm3 (3.65-5.03)
[2019-07-19 18:41] LABS: Albumin 3.6 g/dL (3.9-5); Calcium 8.9 mg/dL (8.4-10.2)
[2019-07-19] MEDS ORDERED: FUROSEMIDE 40 MG/4 ML INJ IV ONE (19:27)
[2019-07-19] MEDS ORDERED: dilTIAZem 25 MG/5 ML INJ IV ONE (19:41)
[2019-07-19] MEDS ORDERED: ONDANSETRON 4 MG/2 ML INJ IV PRN (19:59)
[2019-07-19] MEDS ORDERED: ALBUTEROL 2.5 MG/3 ML NEBU IH PRN (19:59)
[2019-07-19] MEDS ORDERED: NITROGLYCERIN 0.4 MG TAB SUBL SL PRN (19:59)
[2019-07-19] MEDS ORDERED: DEXTROSE 50% IN WATER (25GM) 50 ML SYRINGE IV PRN ×3 (20:03→22:00)
--- NOTE | 2019-07-19 20:22 | Emergency Department Report ---
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 Vickers, for a CHF exacerbation and A. fib with RVR. The patient has been having 4-5 days of progressively worsening lower extremity swelling and admits to noncompliance with his diuretics. He has some intermittent shortness of breath but denies any fever, chest pain, nausea, vomiting or diaphoresis. He also has a history of hypertension and non-insulin dependent diabetes. He does not have a primary care physician. He went into the [place] [facility] and was sent with an office note saying that the offshore wind operations manager recommends admission for heart failure exacerbation, IV diuretics, atrophic relation rate control and IV inotropes. He had an echocardiogram in May that shows persistent dilated cardiomyopathy with an EF of 15-20%. ED Past Medical Hx - Past Medical History Previous Medical History?: Yes Hx Hypertension: Yes (since 2013) Hx Heart Attack/AMI: No Hx Congestive Heart Failure: Yes Hx Diabetes: No Hx Deep Vein Thrombosis: No Hx Pulmonary Embolism: No Hx Liver Disease: No Hx Renal Disease: No Hx Arthritis: No Hx Seizures: No Hx Kidney Stones: No Hx Asthma: No Hx COPD: No Hx Tuberculosis: No Hx Dementia: No Hx HIV: No - Surgical History Past Surgical History?: No Hx Coronary Stent: No Hx Pacemaker: No Hx Internal Defibrillator: No - Social History Smoking Status: Never Smoker Substance Use Type: None - Medications Home Medications: Home Medications Medication Instructions Recorded Confirmed Last Taken Type Metformin HCl 500 mg PO BIDWM 11/18/18 07/19/19 07/19/19 History Apixaban [Eliquis] 5 mg PO Q12HR #60 tablet 11/25/18 07/19/19 07/19/19 Rx Atorvastatin Calcium [Lipitor] 40 mg PO QDAY #30 tablet 11/25/18 07/19/19 Rx Famotidine [Pepcid] 20 mg PO QDAY #30 tablet 11/25/18 07/19/19 Unknown Rx Aspirin [Aspirin BABY CHEW TAB] 81 mg PO QDAY 07/19/19 07/19/19 Unknown History Furosemide [Lasix TAB] 20 mg PO QDAY 07/19/19 07/19/19 Unknown History Lisinopril [Zestril TAB] 20 mg PO QDAY 07/19/19 07/19/19 07/18/19 History Spironolactone [Aldactone] 25 mg PO QDAY 07/19/19 07/19/19 Unknown History ED Review of Systems ROS: Stated complaint: LEG SWELLING/PAIN Other details as noted in HPI Comment: All other systems reviewed and negative Constitutional: denies: chills, fever Eyes: denies: eye pain, vision change ENT: denies: ear pain, throat pain Respiratory: orthopnea, shortness of breath. denies: cough Cardiovascular: edema. denies: chest pain Gastrointestinal: denies: abdominal pain, nausea Genitourinary: denies: dysuria, discharge Musculoskeletal: denies: back pain, arthralgia Skin: denies: rash, lesions Neurological: denies: headache, weakness Physical Exam - Physical Exam Vital Signs: Vital Signs 07/19/19 07/19/19 07/19/19 17:08 19:35 19:53 Temperature 97.5 F L 97.6 F Pulse Rate 102 H 131 H 136 H Respiratory 18 12 Rate Blood Pressure 124/103 138/109 Blood Pressure 123/90 [Left] O2 Sat by Pulse 96 100 Oximetry Physical Exam: GENERAL: The patient is well-developed well-nourished. HENT: Normocephalic. Atraumatic. Patient has moist mucous membranes. EYES: Extraocular motions are intact. Pupils equal reactive to light bilaterally. NECK: Supple. Trachea is midline. CHEST/LUNGS: Clear to auscultation. There is no respiratory distress noted. HEART/CARDIOVASCULAR: Irregular rhythm. Moderate tachycardia. ABDOMEN: Abdomen is soft, nontender. Patient has normal bowel sounds. There is no abdominal distention. SKIN: 2+ pitting edema to the bilateral lower extremities. NEURO: The patient is awake, alert, and oriented. The patient is cooperative. The patient has no focal neurologic deficits. Normal speech. MUSCULOSKELETAL: There is no tenderness or deformity. There is no evidence of acute injury. ED Course Vital Signs 07/19/19 07/19/19 07/19/19 17:08 19:35 19:53 Temperature 97.5 F L 97.6 F Pulse Rate 102 H 131 H 136 H Respiratory 18 12 Rate Blood Pressure 124/103 138/109 Blood Pressure 123/90 [Left] O2 Sat by Pulse 96 100 Oximetry ED Medical Decision Making - Lab Data Result diagrams: 07/19/19 17:56 07/19/19 17:56 - EKG Data -: EKG Interpreted by Me - EKG Data When compared to previous EKG there are: no significant change Interpretation: other (atrial fibrillation with rate 133 bpm, PVCs, left anterior fascicular block) - Radiology Data Radiology results: image reviewed interpreted by me: Chest x-ray shows some mild bilateral basilar pleural effusions. There is some pulmonary vascular congestion. - Medical Decision Making This patient was sent in by his offshore wind operations manager for a CHF exacerbation and atrial fibrillation with RVR. Patient has some mild shortness of breath but does not appear in any respiratory distress. There is basilar pleural effusions seen on chest x-ray was some pulmonary vascular congestion. Patient does have a very elevated BNP level but he also has some renal insufficiency. Labs also show some elevated bilirubin and transaminitis. Patient has hyperglycemia with a blood sugar greater than 500 but no signs of diabetic ketoacidosis without any venous acidosis or elevated anion gap. He was given some IV insulin by the hospitalist service. Patient was given a dose of Lasix to start diuresis and a dose of Cardizem for rate control of his atrial fibrillation. He will be admitted to the hospital for further evaluation and treatment was accepted for admission by the hospitalist service. - Differential Diagnosis atrial fibrillation with RVR, CHF, pneumonia, PE Critical Care Time: Yes Critical care time in (mins) excluding proc time.: 31 Critical care attestation.: If time is entered above; I have spent that time in minutes in the direct care of this critically ill patient, excluding procedure time. Critical care time was spent on this patient and doing his initial evaluation, reviewing of his cardiology office note and medical records, ordering and interpretation of labs and imaging, multiple discussions with the patient, and discussion with the hospitalist service. Critical Care Time: 31 minutes ED Disposition Clinical Impression: Atrial fibrillation with RVR, Transaminitis Acute exacerbation of CHF (congestive heart failure) Qualifiers: Heart failure type: unspecified Qualified Code(s): I50.9 - Heart failure, unspecified Uncontrolled diabetes mellitus Qualifiers: Diabetes mellitus type: other specified (including ZENAIDA) Glycemic state: with hyperglycemia Qualified Code(s): E13.65 - Other specified diabetes mellitus with hyperglycemia Disposition: OP ADMIT IP TO THIS HOSP Is pt being admited?: Yes Condition: Serious Time of Disposition: 01:33
[2019-07-19] MEDS ORDERED: INSULIN REGULAR, HUMAN 100 UNITS/1 ML ONE (20:49)
[2019-07-19] MEDS ORDERED: INSULIN REGULAR, HUMAN 100 UNITS/1 ML SUB-Q ONE (21:00)
--- NOTE | 2019-07-19 21:07 | History and Physical Report ---
<EL SANTOYO - Last Filed: 07/19/19 21:02> History of Present Illness Date of examination: 07/19/19 Date of admission: 07/19/19 20:00 Chief complaint: Bilateral lower extremity edema History of present illness: 59-year-old -[place] male with history of dilated nonischemic cardiomyopathy, systolic CHF with EF 15-20%, hypertension, pulmonary hypertension, A. 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 He was found to be in CHF exacerbation and A. fib with RVR and was referred to ED for further evaluation and treatment. Pt states that he went on vacation to [place] for about 7-8 days and forgot to bring his medication. Since returning from vacation about 4-5 days ago, he's ex perienced progressively worsening BLE and dyspnea with exertion. Additionally pt complains of cough with occasional clear sputum production. Pt states other than not taking meds while on vacation, he has been compliant. A review of medical records shows that pt was admitted in October of this year. At which time he had Echo and [facility] with revealed severe left ventricular systolic dysfunction and EF 15-20% . Past History Past Medical History: diabetes, heart failure (dilated nonischemic cardiomyopathy, EF 15-20%), hypertension Past Surgical History: Other ([facility] 10/2018) Social history: Lives alone Family history: no significant family history Medications and Allergies Allergies Allergy/AdvReac Type Severity Reaction Status Date / Time No Known Allergies Allergy Verified 11/18/18 03:58 Home Medications Medication Instructions Recorded Confirmed Last Taken Type Metformin HCl 500 mg PO BIDWM 11/18/18 07/19/19 07/19/19 History Apixaban [Eliquis] 5 mg PO Q12HR #60 tablet 11/25/18 07/19/19 07/19/19 Rx Atorvastatin Calcium [Lipitor] 40 mg PO QDAY #30 tablet 11/25/18 07/19/19 07/18/19 Rx Famotidine [Pepcid] 20 mg PO QDAY #30 tablet 11/25/18 07/19/19 Unknown Rx Aspirin [Aspirin BABY CHEW TAB] 81 mg PO QDAY 07/19/19 07/19/19 Unknown History Furosemide [Lasix TAB] 20 mg PO QDAY 07/19/19 07/19/19 Unknown History Lisinopril [Zestril TAB] 20 mg PO QDAY 07/19/19 07/19/19 07/18/19 History Spironolactone [Aldactone] 25 mg PO QDAY 07/19/19 07/19/19 Unknown History Active Meds: Active Medications Albuterol (Proventil) 2.5 mg IH Q3HRT PRN PRN Reason: Shortness Of Breath Apixaban (Eliquis) 5 mg PO Q12HR [facility]; Protocol Aspirin (Baby Aspirin) 81 mg PO QDAY [facility] Atorvastatin Calcium (Lipitor) 40 mg PO QDAY [facility] Dextrose (D50w (25gm) Syringe) 50 ml IV Q30MIN PRN; Protocol PRN Reason: Hypoglycemia Docusate Sodium (Colace) 100 mg PO BID [facility] Famotidine (Pepcid) 20 mg PO QDAY [facility] Furosemide (Lasix) 40 mg IV BID@0600,1800 [facility] Heparin Sodium (Porcine) (Heparin) 5,000 unit SUB-Q Q12HR [facility] Insulin Glargine (Lantus) 15 units SUB-Q QHS [facility] Insulin Human Lispro (Humalog) 0 unit SUB-Q ACHS [facility]; Protocol Metformin HCl (Glucophage) 500 mg PO BIDWM [facility] Miscellaneous Medication (Lisinopril [Zestril Tab]) 20 mg PO QDAY [facility] Nitroglycerin (Nitrostat) 0.4 mg SL .Q5MIN PRN PRN Reason: Chest Pain Ondansetron HCl (Zofran) 4 mg IV Q8H PRN PRN Reason: Nausea And Vomiting Sodium Chloride (Sodium Chloride Flush Syringe 10 Ml) 10 ml IV BID [facility] Sodium Chloride (Sodium Chloride Flush Syringe 10 Ml) 10 ml IV PRN PRN PRN Reason: LINE FLUSH Review of Systems All systems: negative Constitutional: weight gain Cardiovascular: edema, shortness of breath, dyspnea on exertion, leg edema Respiratory: cough with sputum (clear ) Exam - Physical Exam Narrative exam: Physical exam General appearance: Present: No acute distress, alert and oriented 3, - [place]ese [place]ese male - EENT Eyes: Present: PERRL, EOM intact ENT: hearing intact, normal dentition - Neck Neck: Present: supple, normal ROM - Respiratory Respiratory effort: Non-labored Respiratory: Faint bibasilar crackles - Cardiovascular Heart rate: 133 (bpm) Rhythm: A-fib Heart Sounds: Present: S1 & S2. Absent: rub, click - Extremities Extremities: no ischemia, pulses intact, bilateral lobes from a 3+ pitting edema - Peripheral Assessment Peripheral Pulses: within normal limits - Abdominal General gastrointestinal: soft, non-tender, normal bowel sounds - Integumentary Integumentary: Present: warm, dry - Musculoskeletal Musculoskeletal: Able to move all extremities, normal gait -Neurological Neurological: CN II-XII intact - Psychiatric Psychiatric: Appropriate for situation ,cooperative - Constitutional Vitals: Temp Pulse Resp BP Pulse Ox 97.6 F 100 H 21 119/91 97 07/19/19 19:35 07/19/19 20:00 07/19/19 20:00 07/19/19 20:00 07/19/19 20:00 Results - Labs CBC & Chem 7: 07/19/19 17:56 07/19/19 17:56 Labs: Laboratory Last Values WBC 12.3 K/mm3 (4.5-11.0) H 07/19/19 17:56 RBC 5.44 M/mm3 (3.65-5.03) H 07/19/19 17:56 Hgb 16.8 gm/dl (11.8-15.2) H 07/19/19 17:56 Hct 50.4 % (35.5-45.6) H 07/19/19 17:56 MCV 93 fl (84-94) 07/19/19 17:56 MCH 31 pg (28-32) 07/19/19 17:56 MCHC 33 % (32-34) 07/19/19 17:56 RDW 16.0 % (13.2-15.2) H 07/19/19 17:56 Plt Count 189 K/mm3 (140-440) 07/19/19 17:56 Lymph % (Auto) 16.6 % (13.4-35.0) 07/19/19 17:56 Cloud % (Auto) 8.8 % (0.0-7.3) H 07/19/19 17:56 Eos % (Auto) 0.5 % (0.0-4.3) 07/19/19 17:56 Baso % (Auto) 0.4 % (0.0-1.8) 07/19/19 17:56 Lymph # 2.1 K/mm3 (1.2-5.4) 07/19/19 17:56 Cloud # 1.1 K/mm3 (0.0-0.8) H 07/19/19 17:56 Eos # 0.1 K/mm3 (0.0-0.4) 07/19/19 17:56 Baso # 0.0 K/mm3 (0.0-0.1) 07/19/19 17:56 Seg Neutrophils % 73.7 % (40.0-70.0) H 07/19/19 17:56 Seg Neutrophils # 9.1 K/mm3 (1.8-7.7) H 07/19/19 17:56 Sodium 129 mmol/L (137-145) L 07/19/19 17:56 Potassium 4.7 mmol/L (3.6-5.0) 07/19/19 17:56 Chloride 90.4 mmol/L (98-107) L 07/19/19 17:56 Carbon Dioxide 18 mmol/L (22-30) L 07/19/19 17:56 Anion Gap 25 mmol/L 07/19/19 17:56 BUN 33 mg/dL (9-20) H 07/19/19 17:56 Creatinine 1.9 mg/dL (0.8-1.5) H 07/19/19 17:56 Estimated GFR 44 ml/min 07/19/19 17:56 BUN/Creatinine Ratio 17 % 07/19/19 17:56 Glucose 586 mg/dL (75-100) H* 07/19/19 17:56 Hemoglobin A1c 10.6 % (4-6) H 07/19/19 20:18 Calcium 8.9 mg/dL (8.4-10.2) 07/19/19 17:56 Total Bilirubin 3.00 mg/dL (0.1-1.2) H 07/19/19 17:56 AST 57 units/L (5-40) H 07/19/19 17:56 ALT 88 units/L (7-56) H 07/19/19 17:56 Alkaline Phosphatase 175 units/L (35-129) H 07/19/19 17:56 NT-Pro-B Natriuret Pep 49826 pg/mL (0-900) H 07/19/19 17:56 Total Protein 6.1 g/dL (6.3-8.2) L 07/19/19 17:56 Albumin 3.6 g/dL (3.9-5) L 07/19/19 17:56 Albumin/Globulin Ratio 1.4 % 07/19/19 17:56 - Imaging and Cardiology Imaging and Cardiology: CXR: FINDINGS: SUPPORT DEVICES: None. HEART / MEDIASTINUM: Mild cardiomegaly with left ventricular configuration. The thoracic aorta is tortuous but unchanged in appearance. LUNGS / PLEURA: No acute pulmonary disease. A small right pleural effusion is present. No pneumothorax. ADDITIONAL FINDINGS: No significant additional findings. IMPRESSION: 1. Small right pleural effusion. 2. Stable mild cardiomegaly. Assessment and Plan Assessment and plan: 59-year-old -[place]ese male with history of dilated nonischemic cardiomyopathy, systolic CHF with EF 15-20%, hypertension, pulmonary hypertension, A. 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 Acute Exacerbation Systolic CHF -EF 15-20% seen on Echo done 11/18/18 [place] [address] -CXR shows small right pleural effusion. -Start IV Lasix BID -Cardiology consulted Afib with RVR -hx of Afib -Anticoagulated on Eliquis -EKG showed Afib with specific T wave abnormalities -Patient given Cardizem bolus in ED and was responsive -Cardiology following DM -with hyperglycemia BG 586 -POC BG monitoring -Hold Metformin due to elevated Cr -Scheduled Lantus and SSI coverage prn -HgbA1C 10.6 TESSA -Cr on admission 1.9 -Gentle Hydrate with IVF -Avoid nephrotoxic agents -Renal dose all meds -May consider nephrology consult if no improvement with hydration Hyponatremia -Na on admission 129 -Slowly correct Na with IVF -Continue to monitor replete prn HTN -Monitor BP -Resume home hypertensive meds DVT PPX -On Heparin Advance Directives: No VTE prophylaxis?: Chemical Plan of care discussed with patient/family: Yes <ODALIS CHÁVEZ - Last Filed: 07/20/19 00:48> History of Present Illness Date of admission: 07/19/19 20:00 Medications and Allergies Active Meds: Active Medications Albuterol (Proventil) 2.5 mg IH Q3HRT PRN PRN Reason: Shortness Of Breath Apixaban (Eliquis) 5 mg PO Q12HR [facility]; Protocol Last Admin: 07/19/19 22:16 Dose: 5 mg Documented by: Aspirin (Baby Aspirin) 81 mg PO QDAY [facility] Atorvastatin Calcium (Lipitor) 40 mg PO QDAY [facility] Dextrose (D50w (25gm) Syringe) 0 ml IV Q30MIN PRN; Protocol PRN Reason: Hypoglycemia Docusate Sodium (Colace) 100 mg PO BID [facility] Last Admin: 07/19/19 22:16 Dose: 100 mg Documented by: Famotidine (Pepcid) 20 mg PO QDAY [facility] Furosemide (Lasix) 40 mg IV BID@0600,1800 [facility] Heparin Sodium (Porcine) (Heparin) 5,000 unit SUB-Q Q12HR [facility] Last Admin: 07/19/19 22:17 Dose: 5,000 unit Documented by: Insulin Glargine (Lantus) 15 units SUB-Q QHS [facility] Last Admin: 07/19/19 22:48 Dose: 15 units Documented by: Insulin Human Lispro (Humalog) 0 unit SUB-Q ACHS [facility]; Protocol Last Admin: 07/19/19 22:54 Dose: 8 unit Documented by: Lisinopril (Zestril) 20 mg PO QDAY [facility] Nitroglycerin (Nitrostat) 0.4 mg SL .Q5MIN PRN PRN Reason: Chest Pain Ondansetron HCl (Zofran) 4 mg IV Q8H PRN PRN Reason: Nausea And Vomiting Last Admin: 07/19/19 22:21 Dose: 4 mg Documented by: Sodium Chloride (Sodium Chloride Flush Syringe 10 Ml) 10 ml IV BID [facility] Last Admin: 07/19/19 22:25 Dose: 10 ml Documented by: Sodium Chloride (Sodium Chloride Flush Syringe 10 Ml) 10 ml IV PRN PRN PRN Reason: LINE FLUSH Exam - Constitutional Vitals: Temp Pulse Resp BP Pulse Ox 97.9 F 110 H 18 139/98 97 07/19/19 21:22 07/19/19 21:22 07/19/19 21:22 07/19/19 21:20 07/19/19 21:20 Results - Labs CBC & Chem 7: 07/19/19 17:56 07/19/19 17:56 Labs: Laboratory Last Values WBC 12.3 K/mm3 (4.5-11.0) H 07/19/19 17:56 RBC 5.44 M/mm3 (3.65-5.03) H 07/19/19 17:56 Hgb 16.8 gm/dl (11.8-15.2) H 07/19/19 17:56 Hct 50.4 % (35.5-45.6) H 07/19/19 17:56 MCV 93 fl (84-94) 07/19/19 17:56 MCH 31 pg (28-32) 07/19/19 17:56 MCHC 33 % (32-34) 07/19/19 17:56 RDW 16.0 % (13.2-15.2) H 07/19/19 17:56 Plt Count 189 K/mm3 (140-440) 07/19/19 17:56 Lymph % (Auto) 16.6 % (13.4-35.0) 07/19/19 17:56 Cloud % (Auto) 8.8 % (0.0-7.3) H 07/19/19 17:56 Eos % (Auto) 0.5 % (0.0-4.3) 07/19/19 17:56 Baso % (Auto) 0.4 % (0.0-1.8) 07/19/19 17:56 Lymph # 2.1 K/mm3 (1.2-5.4) 07/19/19 17:56 Cloud # 1.1 K/mm3 (0.0-0.8) H 07/19/19 17:56 Eos # 0.1 K/mm3 (0.0-0.4) 07/19/19 17:56 Baso # 0.0 K/mm3 (0.0-0.1) 07/19/19 17:56 Seg Neutrophils % 73.7 % (40.0-70.0) H 07/19/19 17:56 Seg Neutrophils # 9.1 K/mm3 (1.8-7.7) H 07/19/19 17:56 VBG pH 7.375 (7.320-7.420) 07/19/19 20:43 Sodium 129 mmol/L (137-145) L 07/19/19 17:56 Potassium 4.7 mmol/L (3.6-5.0) 07/19/19 17:56 Chloride 90.4 mmol/L (98-107) L 07/19/19 17:56 Carbon Dioxide 18 mmol/L (22-30) L 07/19/19 17:56 Anion Gap 25 mmol/L 07/19/19 17:56 BUN 33 mg/dL (9-20) H 07/19/19 17:56 Creatinine 1.9 mg/dL (0.8-1.5) H 07/19/19 17:56 Estimated GFR 44 ml/min 07/19/19 17:56 BUN/Creatinine Ratio 17 % 07/19/19 17:56 Glucose 586 mg/dL (75-100) H* 07/19/19 17:56 POC Glucose 361 (70-105) H 07/19/19 22:59 Hemoglobin A1c 10.6 % (4-6) H 07/19/19 20:18 Calcium 8.9 mg/dL (8.4-10.2) 07/19/19 17:56 Total Bilirubin 3.00 mg/dL (0.1-1.2) H 07/19/19 17:56 AST 57 units/L (5-40) H 07/19/19 17:56 ALT 88 units/L (7-56) H 07/19/19 17:56 Alkaline Phosphatase 175 units/L (35-129) H 07/19/19 17:56 NT-Pro-B Natriuret Pep 70651 pg/mL (0-900) H 07/19/19 17:56 Total Protein 6.1 g/dL (6.3-8.2) L 07/19/19 17:56 Albumin 3.6 g/dL (3.9-5) L 07/19/19 17:56 Albumin/Globulin Ratio 1.4 % 07/19/19 17:56 Assessment and Plan Assessment and plan: Patient seen and examined Agree with SENIOR MECHANICAL TECHNICIAN note/h and p/ assessment and plan presented with CHf exacerbation, uncontrolled DM atrial fib with RVR resume home meds, iv lasix, subqu insulin, monitor electrolytes will hold iv fluid, monitor ins/os, daily wt, cardiology consult if renal function declines will need nephrology consult
[2019-07-19] MEDS ORDERED: SODIUM CHLORIDE 0.9% 1000 ML 1,000 ML IV SCH (22:00)
[2019-07-19] MEDS ORDERED: metFORMIN 500 MG TAB PO SCH (22:00)
[2019-07-19] MEDS: DOCUSATE SODIUM 100 MG CAP PO SCH (22:16)
[2019-07-19] MEDS: APIXABAN 5 MG TAB PO SCH (22:16)
[2019-07-19] MEDS: HEPARIN 5,000 UNIT/1 ML VIAL SUB-Q SCH (22:17)
[2019-07-19] MEDS: INSULIN GLARGINE 100 UNITS/ML SUB-Q SCH (22:48)
[2019-07-19] MEDS: INSULIN LISPRO 100 UNIT/ML SUB-Q SCH (22:54)
[2019-07-20] MEDS: FUROSEMIDE 40 MG/4 ML INJ IV SCH ×2 (05:49→18:24)
[2019-07-20 06:31] LABS: Bacteria,Urine 1+ /HPF (Negative); Bilirubin,Urine NEG (Negative); Blood,Urine SM (Negative); Color,Urine Yellow (Yellow); Mucus,Urine FEW /HPF; Urobilinogen,Urine < 2.0 mg/dL (<2.0)
[2019-07-20 06:35] LABS: Basophils # (Auto) 0.1 K/mm3 (0.0-0.1); Basophils % (Auto) 0.5 % (0.0-1.8); Eosinophils # (Auto) 0.3 K/mm3 (0.0-0.4); Eosinophils % (Auto) 2.4 % (0.0-4.3); Hematocrit 51.8 % (35.5-45.6); Hemoglobin 17.4 gm/dl (11.8-15.2); Lymphocytes # (Auto) 2.9 K/mm3 (1.2-5.4); Mean Corpuscular HGB Conc 34 % (32-34); Mean Corpuscular Volume 93 fl (84-94); Monocytes # (Auto) 1.2 K/mm3 (0.0-0.8); Monocytes % (Auto) 9.9 % (0.0-7.3); Platelet Count 197 K/mm3 (140-440); Red Blood Count 5.56 M/mm3 (3.65-5.03); Red Cell Distribution Width 15.9 % (13.2-15.2)
[2019-07-20 07:04] LABS: Calcium 9.5 mg/dL (8.4-10.2)
[2019-07-20] MEDS: INSULIN LISPRO 100 UNIT/ML SUB-Q SCH ×3 (09:31→18:24)
[2019-07-20] MEDS: APIXABAN 5 MG TAB PO SCH ×2 (09:32→21:19)
[2019-07-20] MEDS: FAMOTIDINE 20 MG TAB PO SCH (09:32)
[2019-07-20] MEDS: LISINOPRIL 20 MG TAB PO SCH (09:32)
[2019-07-20] MEDS: DOCUSATE SODIUM 100 MG CAP PO SCH ×2 (09:32→21:19)
[2019-07-20] MEDS: ASPIRIN 81 MG TAB CHEW PO SCH (09:33)
[2019-07-20] MEDS: HEPARIN 5,000 UNIT/1 ML VIAL SUB-Q SCH (09:33)
[2019-07-20] MEDS ORDERED: LISINOPRIL 20 MG PO SCH (10:00)
--- NOTE | 2019-07-20 12:12 | Consultation ---
<FABIAN POSADA - Last Filed: 07/20/19 12:16> History of Present Illness Consult date: 07/20/19 Consult reason: atrial fibrillation, congestive heart failure History of present illness: This is a 59-year old male with a dilated nonischemic cardiomyopathy, ejection fraction 15-20% and paroxysmal fibrillation. A prior attempt for [facility]LLAND guided cardioversion was deferred due to finding of an SHAJI thrombus. He is anticoagulated with Eliquis therapy. 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 Past History Past Medical History: atrial fib, diabetes, heart failure (dilated nonischemic cardiomyopathy, EF 15-20%), hypertension Past Surgical History: Other ([facility] 10/2018) Social history: Lives alone Family history: no significant family history Medications and Allergies Allergies Allergy/AdvReac Type Severity Reaction Status Date / Time No Known Allergies Allergy Verified 11/18/18 03:58 Home Medications Medication Instructions Recorded Confirmed Last Taken Type Metformin HCl 500 mg PO BIDWM 11/18/18 07/19/19 07/19/19 History Apixaban [Eliquis] 5 mg PO Q12HR #60 tablet 11/25/18 07/19/19 07/19/19 Rx Atorvastatin Calcium [Lipitor] 40 mg PO QDAY #30 tablet 11/25/18 07/19/19 07/18/19 Rx Famotidine [Pepcid] 20 mg PO QDAY #30 tablet 11/25/18 07/19/19 Unknown Rx Aspirin [Aspirin BABY CHEW TAB] 81 mg PO QDAY 07/19/19 07/19/19 Unknown History Furosemide [Lasix TAB] 20 mg PO QDAY 07/19/19 07/19/19 Unknown History Lisinopril [Zestril TAB] 20 mg PO QDAY 07/19/19 07/19/19 07/18/19 History Spironolactone [Aldactone] 25 mg PO QDAY 07/19/19 07/19/19 Unknown History Active Meds: Active Medications Albuterol (Proventil) 2.5 mg IH Q3HRT PRN PRN Reason: Shortness Of Breath Apixaban (Eliquis) 5 mg PO Q12HR [facility]; Protocol Last Admin: 07/20/19 09:32 Dose: 5 mg Documented by: Aspirin (Baby Aspirin) 81 mg PO QDAY [facility] Last Admin: 07/20/19 09:33 Dose: 81 mg Documented by: Atorvastatin Calcium (Lipitor) 40 mg PO QDAY [facility] Last Admin: 07/20/19 09:32 Dose: 40 mg Documented by: Carvedilol (Coreg) 25 mg PO BID [facility] Dextrose (D50w (25gm) Syringe) 0 ml IV Q30MIN PRN; Protocol PRN Reason: Hypoglycemia Docusate Sodium (Colace) 100 mg PO BID [facility] Last Admin: 07/20/19 09:32 Dose: 100 mg Documented by: Famotidine (Pepcid) 20 mg PO QDAY [facility] Last Admin: 07/20/19 09:32 Dose: 20 mg Documented by: Furosemide (Lasix) 40 mg IV BID@0600,1800 [facility] Last Admin: 07/20/19 05:49 Dose: 40 mg Documented by: Milrinone Lactate/Dextrose (Milrinone-D5w 20 Mg/100 Ml) 20 mg in 100 mls @ 14.186 mls/hr IV TITR [facility] Stop: 07/23/19 12:59 Insulin Glargine (Lantus) 15 units SUB-Q QHS [facility] Last Admin: 07/19/19 22:48 Dose: 15 units Documented by: Insulin Human Lispro (Humalog) 0 unit SUB-Q ACHS [facility]; Protocol Last Admin: 07/20/19 09:31 Dose: 3 unit Documented by: Lisinopril (Zestril) 20 mg PO QDAY [facility] Last Admin: 07/20/19 09:32 Dose: 20 mg Documented by: Nitroglycerin (Nitrostat) 0.4 mg SL .Q5MIN PRN PRN Reason: Chest Pain Ondansetron HCl (Zofran) 4 mg IV Q8H PRN PRN Reason: Nausea And Vomiting Last Admin: 07/19/19 22:21 Dose: 4 mg Documented by: Sodium Chloride (Sodium Chloride Flush Syringe 10 Ml) 10 ml IV BID [facility] Last Admin: 07/19/19 22:25 Dose: 10 ml Documented by: Sodium Chloride (Sodium Chloride Flush Syringe 10 Ml) 10 ml IV PRN PRN PRN Reason: LINE FLUSH Physical Examination Vital Signs Temp Pulse Resp BP Pulse Ox 97.5 F L 102 H 18 124/103 96 07/19/19 17:08 07/19/19 17:08 07/19/19 17:08 07/19/19 17:08 07/19/19 17:08 General appearance: no acute distress HEENT: Positive: PERRL Neck: Positive: trachea midline Cardiac: Positive: irregularly irregular Lungs: Positive: Decreased Breath Sounds Neuro: Positive: Grossly Intact Extremities: Present: edema Results 07/20/19 06:16 07/20/19 06:16 Cardiac Enzymes 07/19/19 Range/Units 17:56 AST 57 H (5-40) units/L CBC 07/19/19 07/20/19 Range/Units 17:56 06:16 WBC 12.3 H 12.5 H (4.5-11.0) K/mm3 RBC 5.44 H 5.56 H (3.65-5.03) M/mm3 Hgb 16.8 H 17.4 H (11.8-15.2) gm/dl Hct 50.4 H 51.8 H (35.5-45.6) % Plt Count 189 197 (140-440) K/mm3 Lymph # 2.1 2.9 (1.2-5.4) K/mm3 [place] # 1.1 H 1.2 H (0.0-0.8) K/mm3 Eos # 0.1 0.3 (0.0-0.4) K/mm3 Baso # 0.0 0.1 (0.0-0.1) K/mm3 Comprehensive Metabolic Panel 07/19/19 07/20/19 Range/Units 17:56 06:16 Sodium 129 L 142 D (137-145) mmol/L Potassium 4.7 4.7 (3.6-5.0) mmol/L Chloride 90.4 L 94.7 L (98-107) mmol/L Carbon Dioxide 18 L 25 D (22-30) mmol/L BUN 33 H 32 H (9-20) mg/dL Creatinine 1.9 H 1.6 H (0.8-1.5) mg/dL Glucose 586 H* 290 H (75-100) mg/dL Calcium 8.9 9.5 (8.4-10.2) mg/dL AST 57 H (5-40) units/L ALT 88 H (7-56) units/L Alkaline Phosphatase 175 H (35-129) units/L Total Protein 6.1 L (6.3-8.2) g/dL Albumin 3.6 L (3.9-5) g/dL Assessment and Plan Systolic heart failure Chronic atrial fibrillation Hx of SHAJI thrombus -on eliquis for oral anticoagulation Non-ischemic cardiomyopathy LVEF 15-20% by echo 05/2019 Non-obstructive CAD by cardiac cath 10/2018 Hypertension Diabetes -uncontrolled Elevated liver transamanase Recommendations: Fluid/sodium restriction. Daily weight. Rate control strategy with beta blockers for chronic atrial fibrillation. Continue with diuretics, afterload agents for systolic heart failure. We will start a 72 trial of intravenous milrinone for heart failure exacerbation. <MIKA BASSETT - Last Filed: 07/23/19 10:34> Medications and Allergies Active Meds: Active Medications Albuterol (Proventil) 2.5 mg IH Q3HRT PRN PRN Reason: Shortness Of Breath Apixaban (Eliquis) 5 mg PO Q12HR [facility]; Protocol Last Admin: 07/22/19 21:07 Dose: 5 mg Documented by: Aspirin (Baby Aspirin) 81 mg PO QDAY [facility] Last Admin: 07/22/19 10:00 Dose: 81 mg Documented by: Atorvastatin Calcium (Lipitor) 40 mg PO QDAY [facility] Last Admin: 07/22/19 10:00 Dose: 40 mg Documented by: Carvedilol (Coreg) 12.5 mg PO BID [facility] Last Admin: 07/22/19 21:07 Dose: 12.5 mg Documented by: Dextrose (D50w (25gm) Syringe) 0 ml IV Q30MIN PRN; Protocol PRN Reason: Hypoglycemia Docusate Sodium (Colace) 100 mg PO BID [facility] Last Admin: 07/22/19 21:07 Dose: 100 mg Documented by: Famotidine (Pepcid) 20 mg PO QDAY [facility] Last Admin: 07/22/19 10:00 Dose: 20 mg Documented by: Furosemide (Lasix) 40 mg IV BID@0600,1800 [facility] Last Admin: 07/23/19 06:14 Dose: 40 mg Documented by: Milrinone Lactate/Dextrose (Milrinone-D5w 20 Mg/100 Ml) 20 mg in 100 mls @ 14.186 mls/hr IV TITR [facility] Stop: 07/23/19 12:59 Last Admin: 07/23/19 06:30 Dose: 0.375 mcg/kg/min, 14.186 mls/hr Documented by: Ceftriaxone Sodium (Rocephin/Ns 1 Gm/50 Ml) 1 gm in 50 mls @ 100 mls/hr IV Q24HR [facility]; Protocol Last Admin: 07/22/19 16:55 Dose: 100 mls/hr Documented by: Insulin Glargine (Lantus) 25 units SUB-Q QHS [facility] Last Admin: 07/22/19 22:01 Dose: 25 units Documented by: Insulin Human Lispro (Humalog) 0 unit SUB-Q ACHS [facility]; Protocol Last Admin: 07/23/19 09:09 Dose: 8 unit Documented by: Lisinopril (Zestril) 20 mg PO QDAY [facility] Last Admin: 07/22/19 10:00 Dose: 20 mg Documented by: Nitroglycerin (Nitrostat) 0.4 mg SL .Q5MIN PRN PRN Reason: Chest Pain Ondansetron HCl (Zofran) 4 mg IV Q8H PRN PRN Reason: Nausea And Vomiting Last Admin: 07/19/19 22:21 Dose: 4 mg Documented by: Sodium Chloride (Sodium Chloride Flush Syringe 10 Ml) 10 ml IV BID [facility] Last Admin: 07/22/19 22:09 Dose: Not Given Documented by: Sodium Chloride (Sodium Chloride Flush Syringe 10 Ml) 10 ml IV PRN PRN PRN Reason: LINE FLUSH Last Admin: 07/23/19 06:15 Dose: 10 ml Documented by: Physical Examination Vital Signs Temp Pulse Resp BP Pulse Ox 97.5 F L 102 H 18 124/103 96 07/19/19 17:08 07/19/19 17:08 07/19/19 17:08 07/19/19 17:08 07/19/19 17:08 Results 07/22/19 10:41 07/22/19 10:41 CBC 07/22/19 Range/Units 10:41 WBC 10.3 (4.5-11.0) K/mm3 RBC 5.18 H (3.65-5.03) M/mm3 Hgb 16.1 H (11.8-15.2) gm/dl Hct 47.5 H (35.5-45.6) % Plt Count 172 (140-440) K/mm3 Comprehensive Metabolic Panel 07/22/19 Range/Units 10:41 Sodium 136 L (137-145) mmol/L Potassium 3.5 L (3.6-5.0) mmol/L Chloride 94.0 L (98-107) mmol/L Carbon Dioxide 26 (22-30) mmol/L BUN 37 H (9-20) mg/dL Creatinine 1.6 H (0.8-1.5) mg/dL Glucose 321 H (75-100) mg/dL Calcium 8.0 L (8.4-10.2) mg/dL Assessment and Plan Has seen and evaluated the patient and agree with the assessment and plan. The patient's presenting with systolic heart failure, permanent atrial fibrillation, history of left atrial thrombus on Eliquis, nonischemic cardiomyopathy with an ejection fraction 15-20% by echo in May 2019, and nonobstructive coronary artery disease by cardiac cath in October 2018. Patient is currently presenting with volume overload. Will manage this with fluid and sodium restriction, daily weights, strict diagnosis. We'll continue to treat the patient which in all diuresis as tolerated. And plan to start milrinone. Currently the patient's atrial fibrillation is rate controlled
--- NOTE | 2019-07-20 13:01 | Progress Note ---
Assessment and Plan Assessment and plan: 59-year-old -[place] male with history of dilated nonischemic cardiomyopathy, systolic CHF with EF 15-20%, hypertension, pulmonary hypertension, A. fib anticoagulated on Eliquis who presents to [facility] ED after presenting to his review consultant with complaints of worsening bilateral lower extremity edema and shortness of breath. Acute Exacerbation Systolic CHF -EF 15-20% seen on Echo done 11/18/18 [place] [address] -CXR shows small right pleural effusion. -Started IV Lasix BID -Cardiology consulted, following Afib with RVR -hx of Afib -Anticoagulated on Eliquis -EKG showed Afib with specific T wave abnormalities -Patient given Cardizem bolus in ED and was responsive -Cardiology following DM -with hyperglycemia BG 586 -POC BG monitoring -Hold Metformin due to elevated Cr -Scheduled Lantus and SSI coverage prn -HgbA1C 10.6 TESSA -Cr on admission 1.9 -Gentle Hydrate with IVF -Avoid nephrotoxic agents -Renal dose all meds -May consider nephrology consult if no improvement with hydration Hyponatremia -Na on admission 129, now 142 -Slowly correct Na with IVF -Continue to monitor replete prn HTN -Monitor BP -Resume home hypertensive meds DVT PPX -On Heparin History Interval history: Shortness of breath Leg edema both legs Hospitalist Physical - Physical exam Narrative exam: Gen: Not in acute distress, lying in bed,obese HEENT: Normocephalic, atraumatic Neck: supple, no JVD Heart: S1 and S2 reg, no murmurs, rubs or gallop Lungs: Bilateral basal crackles, Abd: soft, non tender, non distended, normal BS, Ext: Bilateral leg edema, no clubbing, no cyanosis Neuro: Awake, alert, oriented X 3, no focal neurological signs - Constitutional Vitals: Temp Pulse Resp BP Pulse Ox 97.5 F L 59 L 18 126/86 97 07/20/19 08:21 07/20/19 11:56 07/20/19 08:21 07/20/19 11:56 07/20/19 11:56 General appearance: Present: no acute distress Results - Labs CBC & Chem 7: 07/21/19 05:28 07/21/19 05:28 Labs: Laboratory Last Values WBC 12.5 K/mm3 (4.5-11.0) H 07/20/19 06:16 RBC 5.56 M/mm3 (3.65-5.03) H 07/20/19 06:16 Hgb 17.4 gm/dl (11.8-15.2) H 07/20/19 06:16 Hct 51.8 % (35.5-45.6) H 07/20/19 06:16 MCV 93 fl (84-94) 07/20/19 06:16 MCH 31 pg (28-32) 07/20/19 06:16 MCHC 34 % (32-34) 07/20/19 06:16 RDW 15.9 % (13.2-15.2) H 07/20/19 06:16 Plt Count 197 K/mm3 (140-440) 07/20/19 06:16 Lymph % (Auto) 23.0 % (13.4-35.0) 07/20/19 06:16 [place] % (Auto) 9.9 % (0.0-7.3) H 07/20/19 06:16 Eos % (Auto) 2.4 % (0.0-4.3) 07/20/19 06:16 Baso % (Auto) 0.5 % (0.0-1.8) 07/20/19 06:16 Lymph # 2.9 K/mm3 (1.2-5.4) 07/20/19 06:16 [place] # 1.2 K/mm3 (0.0-0.8) H 07/20/19 06:16 Eos # 0.3 K/mm3 (0.0-0.4) 07/20/19 06:16 Baso # 0.1 K/mm3 (0.0-0.1) 07/20/19 06:16 Seg Neutrophils % 64.2 % (40.0-70.0) 07/20/19 06:16 Seg Neutrophils # 8.1 K/mm3 (1.8-7.7) H 07/20/19 06:16 VBG pH 7.375 (7.320-7.420) 07/19/19 20:43 Sodium 142 mmol/L (137-145) D 07/20/19 06:16 Potassium 4.7 mmol/L (3.6-5.0) 07/20/19 06:16 Chloride 94.7 mmol/L (98-107) L 07/20/19 06:16 Carbon Dioxide 25 mmol/L (22-30) D 07/20/19 06:16 Anion Gap 27 mmol/L 07/20/19 06:16 BUN 32 mg/dL (9-20) H 07/20/19 06:16 Creatinine 1.6 mg/dL (0.8-1.5) H 07/20/19 06:16 Estimated GFR 54 ml/min 07/20/19 06:16 BUN/Creatinine Ratio 20 % 07/20/19 06:16 Glucose 290 mg/dL (75-100) H 07/20/19 06:16 POC Glucose 241 (70-105) H 07/20/19 12:06 Hemoglobin A1c 10.6 % (4-6) H 07/19/19 20:18 Calcium 9.5 mg/dL (8.4-10.2) 07/20/19 06:16 Total Bilirubin 3.00 mg/dL (0.1-1.2) H 07/19/19 17:56 AST 57 units/L (5-40) H 07/19/19 17:56 ALT 88 units/L (7-56) H 07/19/19 17:56 Alkaline Phosphatase 175 units/L (35-129) H 07/19/19 17:56 NT-Pro-B Natriuret Pep 47816 pg/mL (0-900) H 07/19/19 17:56 Total Protein 6.1 g/dL (6.3-8.2) L 07/19/19 17:56 Albumin 3.6 g/dL (3.9-5) L 07/19/19 17:56 Albumin/Globulin Ratio 1.4 % 07/19/19 17:56 Urine Color Yellow (Yellow) 07/20/19 Unknown Urine Turbidity Clear (Clear) 07/20/19 Unknown Urine pH 5.0 (5.0-7.0) 07/20/19 Unknown Ur Specific [place] 1.008 (1.003-1.030) 07/20/19 Unknown Urine Protein 30 mg/dl mg/dL (Negative) 07/20/19 Unknown Urine Glucose (UA) 150 mg/dL (Negative) 07/20/19 Unknown Urine Ketones Neg mg/dL (Negative) 07/20/19 Unknown Urine Blood Sm (Negative) 07/20/19 Unknown Urine Nitrite Neg (Negative) 07/20/19 Unknown Urine Bilirubin Neg (Negative) 07/20/19 Unknown Urine Urobilinogen < 2.0 mg/dL (<2.0) 07/20/19 Unknown Ur Leukocyte Esterase Tr (Negative) 07/20/19 Unknown Urine WBC (Auto) 8.0 /HPF (0.0-6.0) H 07/20/19 Unknown Urine RBC (Auto) 2.0 /HPF (0.0-6.0) 07/20/19 Unknown Urine Bacteria (Auto) 1+ /HPF (Negative) 07/20/19 Unknown Urine Mucus Few /HPF 07/20/19 Unknown Active Medications - Current Medications Current Medications: Generic Name Dose Route Start Last Admin Trade Name Freq PRN Reason Stop Dose Admin Albuterol 2.5 mg 07/19/19 19:59 Proventil IH Q3HRT PRN Shortness Of Breath Apixaban 5 mg 07/19/19 22:00 07/20/19 09:32 Eliquis PO 5 mg Q12HR IBIS Administration Protocol Aspirin 81 mg 07/20/19 10:00 07/20/19 09:33 Baby Aspirin PO 81 mg QDAY IBIS Administration Atorvastatin Calcium 40 mg 07/20/19 10:00 07/20/19 09:32 Lipitor PO 40 mg QDAY IBIS Administration Carvedilol 25 mg 07/20/19 13:00 Coreg PO BID IBIS Dextrose 0 ml 07/19/19 22:00 D50w (25gm) Syringe IV Q30MIN PRN Hypoglycemia Protocol Docusate Sodium 100 mg 07/19/19 22:00 07/20/19 09:32 Colace PO 100 mg BID IBIS Administration Famotidine 20 mg 07/20/19 10:00 07/20/19 09:32 Pepcid PO 20 mg QDAY IBIS Administration Furosemide 40 mg 07/20/19 06:00 07/20/19 05:49 Lasix IV 40 mg BID@0600,1800 IBIS Administration Milrinone Lactate/Dextrose 20 mg in 100 mls @ 14.186 mls/hr 07/20/19 13:00 Milrinone-D5w 20 Mg/100 Ml IV 07/23/19 12:59 TITR IBIS 0.375 MCG/KG/MIN Insulin Glargine 15 units 07/19/19 22:00 07/19/19 22:48 Lantus SUB-Q 15 units QHS IBIS Administration Insulin Human Lispro 0 unit 07/19/19 22:00 07/20/19 09:31 Humalog SUB-Q 3 unit ACHS IBIS Administration Protocol Lisinopril 20 mg 07/20/19 10:00 07/20/19 09:32 Zestril PO 20 mg QDAY IBIS Administration Nitroglycerin 0.4 mg 07/19/19 19:59 Nitrostat SL .Q5MIN PRN Chest Pain Ondansetron HCl 4 mg 07/19/19 19:59 07/19/19 22:21 Zofran IV 4 mg Q8H PRN Administration Nausea And Vomiting Sodium Chloride 10 ml 07/19/19 22:00 07/19/19 22:25 Sodium Chloride Flush Syringe 10 Ml IV 10 ml BID IBIS Administration Sodium Chloride 10 ml 07/19/19 19:59 Sodium Chloride Flush Syringe 10 Ml IV PRN PRN LINE FLUSH Nutrition/Malnutrition Assess - Dietary Evaluation Nutrition/Malnutrition Findings: Nutrition Notes Start: 07/20/19 11:5 3 Freq: Status: Active Protocol: Document 07/20/19 11:53 CT (Rec: 07/20/19 12:13 CT [id number]) Co-Sign 07/20/19 11:53 LM Nutrition Notes Need for Assessment generated from: MD Order,Education Initial or Follow up Assessment Current Diagnosis Acute Kidney Injury,Diabetes, Hypertension,Heart Failure Other Pertinent Diagnosis A-fib, Bilat LE edema Current Diet Cardiac/Consistent CHO Labs/Tests A1c 10.6 Glu 290 BUN 32 Creatinine 1.6 Pertinent Medications Lasix Lantus Humalog Height 6 ft 4 in Weight 126.1 kg Usual Body Weight 125.645 kg [place] Body Weight (kg) 91.81 BMI 33.8 Intake Prior to Admission Good Weight Status Obese Subjective/Other Information Consult for cardiac/consistent CHO diet education. Pt stated that he has had previous diet education. He accepted more education but was dismissive about the information given to him. Handout was left with the pt. Pt stated that he has a bad taste in his mouth which makes his food taste bad. Pt stated he ate 100% of his breakfast. Pt preferences include cold milk, fruit and cereal. Burn Absent Trauma Absent GI Symptoms None Food Allergy No Current % PO Good (75-100%) Minimum of two criteria No physical signs of malnutrition #1 Nutrition Diagnosis Food and nutrition-related knowledge deficit Etiology limited previous education on a cardiac consistent CHO diet As Evidenced by Signs and Symptoms pt acceptance of education and handout Nutrition Intervention Teaching Recipient Patient Learning Readiness Fair Teaching Methods Discussion,Handout Response to Teaching Verbalize understanding Education Handouts Provided Heart Healthy CHO counting Barriers to Learning Motivation RD phone number provided Yes Patient aware of follow up options Yes Anticipated Discharge Needs: Cardiac/Consistent CHO diet Revisit per MD consult or patient Sign Off request:
[2019-07-20] MEDS: carvediloL 25 MG TAB PO SCH ×2 (15:35→21:19)
[2019-07-21] MEDS: INSULIN LISPRO 100 UNIT/ML SUB-Q SCH ×4 (01:23→19:09)
[2019-07-21] MEDS: INSULIN GLARGINE 100 UNITS/ML SUB-Q SCH (01:27)
[2019-07-21] MEDS: FUROSEMIDE 40 MG/4 ML INJ IV SCH ×2 (05:34→19:12)
[2019-07-21 06:19] LABS: Hematocrit 47.6 % (35.5-45.6); Hemoglobin 16.1 gm/dl (11.8-15.2); Mean Corpuscular HGB Conc 34 % (32-34); Mean Corpuscular Volume 93 fl (84-94); Platelet Count 173 K/mm3 (140-440); Red Blood Count 5.14 M/mm3 (3.65-5.03)
[2019-07-21 06:43] LABS: Calcium 8.4 mg/dL (8.4-10.2)
[2019-07-21] MEDS: DOCUSATE SODIUM 100 MG CAP PO SCH (10:10)
[2019-07-21] MEDS: ASPIRIN 81 MG TAB CHEW PO SCH (10:10)
[2019-07-21] MEDS: APIXABAN 5 MG TAB PO SCH (10:10)
[2019-07-21] MEDS: LISINOPRIL 20 MG TAB PO SCH (10:11)
[2019-07-21] MEDS: FAMOTIDINE 20 MG TAB PO SCH (10:11)
--- NOTE | 2019-07-21 10:25 | Progress Note ---
Assessment and Plan Systolic heart failure Chronic atrial fibrillation Acute renal failure Hx of SHAJI thrombus -on eliquis for oral anticoagulation Non-ischemic cardiomyopathy LVEF 15-20% by echo 05/2019 Non-obstructive CAD by cardiac cath 10/2018 Hypertension Diabetes -uncontrolled Elevated liver transamanase Recommendations: Fluid/sodium restriction. Daily weight. Rate control strategy with beta blockers for chronic atrial fibrillation. Continue with diuretics, afterload agents for systolic heart failure. Initiate a trial of intravenous milrinone for heart failure exacerbation. Subjective Date of service: 07/21/19 Interval history: IV milrinone has not been started by the nursing staff. Patient reports he is diuresing well and that his breathing has improved. Afib with a well controlled ventricular rate on telemetry. Objective Vital Signs Temp Pulse Resp BP Pulse Ox 07/21/19 05:19 97.4 F L 60 16 94/73 98 07/21/19 00:15 97.6 F 52 L 16 114/78 95 07/20/19 22:00 60 07/20/19 21:19 106 H 111/82 07/20/19 20:15 98.6 F 72 20 102/78 91 07/20/19 18:16 111/82 07/20/19 16:34 126/95 07/20/19 15:35 106 H 07/20/19 13:00 139 H 07/20/19 11:56 59 L 126/86 97 - Physical Examination General: No Apparent Distress HEENT: Positive: PERRL Neck: Positive: trachea midline Cardiac: Positive: irregularly irregular Lungs: Positive: Decreased Breath Sounds Neuro: Positive: Grossly Intact Extremities: Present: edema - Labs and Meds CBC 07/21/19 Range/Units 05:28 WBC 11.3 H (4.5-11.0) K/mm3 RBC 5.14 H (3.65-5.03) M/mm3 Hgb 16.1 H (11.8-15.2) gm/dl Hct 47.6 H (35.5-45.6) % Plt Count 173 (140-440) K/mm3 Comprehensive Metabolic Panel 07/21/19 Range/Units 05:28 Sodium 137 (137-145) mmol/L Potassium 3.8 (3.6-5.0) mmol/L Chloride 95.6 L (98-107) mmol/L Carbon Dioxide 25 (22-30) mmol/L BUN 34 H (9-20) mg/dL Creatinine 1.7 H (0.8-1.5) mg/dL Glucose 206 H (75-100) mg/dL Calcium 8.4 (8.4-10.2) mg/dL
[2019-07-21] MEDS: MILRINONE-D5W 20 MG/100 ML 20 MG/100 ML BAG IV SCH (10:28)
[2019-07-22] MEDS: carvediloL 12.5 MG TAB PO SCH ×3 (00:05→21:07)
[2019-07-22] MEDS: DOCUSATE SODIUM 100 MG CAP PO SCH ×3 (00:05→21:07)
[2019-07-22] MEDS: APIXABAN 5 MG TAB PO SCH ×3 (00:06→21:07)
[2019-07-22] MEDS: INSULIN LISPRO 100 UNIT/ML SUB-Q SCH ×5 (00:13→22:01)
[2019-07-22] MEDS: INSULIN GLARGINE 100 UNITS/ML SUB-Q SCH ×2 (00:14→22:01)
[2019-07-22] MEDS: cefTRIAXone/NS 1 GM/50 ML 1 GM/50 ML BAG IV SCH ×2 (00:15→16:55)
[2019-07-22] MEDS: MILRINONE-D5W 20 MG/100 ML 20 MG/100 ML BAG IV SCH ×3 (00:25→16:55)
--- NOTE | 2019-07-22 06:31 | Progress Note ---
Assessment and Plan Assessment and plan: 59-year-old -[place] male with history of dilated nonischemic cardiomyopathy, systolic CHF with EF 15-20%, hypertension, pulmonary hypertension, A. 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 Acute Exacerbation Systolic CHF -EF 15-20% seen on Echo done 11/18/18 [place] [address] -CXR shows small right pleural effusion. -Started IV Lasix BID -Cardiology consulted, following -Patient put on Milrinone drip by cardiology Afib with RVR -hx of Afib -Anticoagulated on Eliquis -EKG showed Afib with specific T wave abnormalities -Patient given Cardizem bolus in ED and was responsive -Cardiology following DM -with hyperglycemia -POC BG monitoring -Hold Metformin due to elevated Cr -Scheduled Lantus and SSI coverage prn -HgbA1C 10.6 -Increase lantus to 25 Units qhs from 15 TESSA -Cr on admission 1.9 -Gentle Hydrate with IVF -Avoid nephrotoxic agents -Renal dose all meds -May consider nephrology consult if no improvement with hydration Hyponatremia -Na on admission 129, now 142 -Slowly correct Na with IVF -Continue to monitor replete prn HTN -Monitor BP -Resume home hypertensive meds DVT PPX -On Eliquis Hopefully dc home in 2 days after Milrinone completed 07/23 History Interval history: Shortness of breath, improved Less swelling of legs Hospitalist Physical - Physical exam Narrative exam: Gen: Not in acute distress, lying in bed,obese HEENT: Normocephalic, atraumatic Neck: supple, no JVD Heart: S1 and S2 reg, no murmurs, rubs or gallop Lungs: Bilateral basal crackles, Abd: soft, non tender, non distended, normal BS, Ext: Bilateral leg edema, no clubbing, no cyanosis Neuro: Awake, alert, oriented X 3, no focal neurological signs - Constitutional Vitals: Temp Pulse Resp BP Pulse Ox 97.8 F 131 H 16 104/75 94 07/22/19 04:19 07/22/19 05:09 07/22/19 04:19 07/22/19 04:19 07/22/19 04:19 General appearance: Present: no acute distress, obese Results - Labs CBC & Chem 7: 07/21/19 05:28 07/21/19 05:28 Labs: Laboratory Last Values WBC 11.3 K/mm3 (4.5-11.0) H 07/21/19 05:28 RBC 5.14 M/mm3 (3.65-5.03) H 07/21/19 05:28 Hgb 16.1 gm/dl (11.8-15.2) H 07/21/19 05:28 Hct 47.6 % (35.5-45.6) H 07/21/19 05:28 MCV 93 fl (84-94) 07/21/19 05:28 MCH 31 pg (28-32) 07/21/19 05:28 MCHC 34 % (32-34) 07/21/19 05:28 RDW 16.0 % (13.2-15.2) H 07/21/19 05:28 Plt Count 173 K/mm3 (140-440) 07/21/19 05:28 Lymph % (Auto) 23.0 % (13.4-35.0) 07/20/19 06:16 [place] % (Auto) 9.9 % (0.0-7.3) H 07/20/19 06:16 Eos % (Auto) 2.4 % (0.0-4.3) 07/20/19 06:16 Baso % (Auto) 0.5 % (0.0-1.8) 07/20/19 06:16 Lymph # 2.9 K/mm3 (1.2-5.4) 07/20/19 06:16 [place] # 1.2 K/mm3 (0.0-0.8) H 07/20/19 06:16 Eos # 0.3 K/mm3 (0.0-0.4) 07/20/19 06:16 Baso # 0.1 K/mm3 (0.0-0.1) 07/20/19 06:16 Seg Neutrophils % 64.2 % (40.0-70.0) 07/20/19 06:16 Seg Neutrophils # 8.1 K/mm3 (1.8-7.7) H 07/20/19 06:16 VBG pH 7.375 (7.320-7.420) 07/19/19 20:43 Sodium 137 mmol/L (137-145) 07/21/19 05:28 Potassium 3.8 mmol/L (3.6-5.0) 07/21/19 05:28 Chloride 95.6 mmol/L (98-107) L 07/21/19 05:28 Carbon Dioxide 25 mmol/L (22-30) 07/21/19 05:28 Anion Gap 20 mmol/L 07/21/19 05:28 BUN 34 mg/dL (9-20) H 07/21/19 05:28 Creatinine 1.7 mg/dL (0.8-1.5) H 07/21/19 05:28 Estimated GFR 50 ml/min 07/21/19 05:28 BUN/Creatinine Ratio 20 % 07/21/19 05:28 Glucose 206 mg/dL (75-100) H 07/21/19 05:28 POC Glucose 419 (70-105) H 07/21/19 21:01 Hemoglobin A1c 10.6 % (4-6) H 07/19/19 20:18 Calcium 8.4 mg/dL (8.4-10.2) 07/21/19 05:28 Total Bilirubin 3.00 mg/dL (0.1-1.2) H 07/19/19 17:56 AST 57 units/L (5-40) H 07/19/19 17:56 ALT 88 units/L (7-56) H 07/19/19 17:56 Alkaline Phosphatase 175 units/L (35-129) H 07/19/19 17:56 NT-Pro-B Natriuret Pep 49068 pg/mL (0-900) H 07/19/19 17:56 Total Protein 6.1 g/dL (6.3-8.2) L 07/19/19 17:56 Albumin 3.6 g/dL (3.9-5) L 07/19/19 17:56 Albumin/Globulin Ratio 1.4 % 07/19/19 17:56 Urine Color Yellow (Yellow) 07/20/19 Unknown Urine Turbidity Clear (Clear) 07/20/19 Unknown Urine pH 5.0 (5.0-7.0) 07/20/19 Unknown Ur Specific [place] 1.008 (1.003-1.030) 07/20/19 Unknown Urine Protein 30 mg/dl mg/dL (Negative) 07/20/19 Unknown Urine Glucose (UA) 150 mg/dL (Negative) 07/20/19 Unknown Urine Ketones Neg mg/dL (Negative) 07/20/19 Unknown Urine Blood Sm (Negative) 07/20/19 Unknown Urine Nitrite Neg (Negative) 07/20/19 Unknown Urine Bilirubin Neg (Negative) 07/20/19 Unknown Urine Urobilinogen < 2.0 mg/dL (<2.0) 07/20/19 Unknown Ur Leukocyte Esterase Tr (Negative) 07/20/19 Unknown Urine WBC (Auto) 8.0 /HPF (0.0-6.0) H 07/20/19 Unknown Urine RBC (Auto) 2.0 /HPF (0.0-6.0) 07/20/19 Unknown Urine Bacteria (Auto) 1+ /HPF (Negative) 07/20/19 Unknown Urine Mucus Few /HPF 07/20/19 Unknown Active Medications - Current Medications Current Medications: Generic Name Dose Route Start Last Admin Trade Name Freq PRN Reason Stop Dose Admin Albuterol 2.5 mg 07/19/19 19:59 Proventil IH Q3HRT PRN Shortness Of Breath Apixaban 5 mg 07/19/19 22:00 07/22/19 00:06 Eliquis PO 5 mg Q12HR IBIS Administration Protocol Aspirin 81 mg 07/20/19 10:00 07/21/19 10:10 Baby Aspirin PO 81 mg QDAY IBIS Administration Atorvastatin Calcium 40 mg 07/20/19 10:00 07/21/19 10:11 Lipitor PO 40 mg QDAY IBSI Administration Carvedilol 12.5 mg 07/21/19 22:00 07/22/19 00:05 Coreg PO 12.5 mg BID IBIS Administration Dextrose 0 ml 07/19/19 22:00 D50w (25gm) Syringe IV Q30MIN PRN Hypoglycemia Protocol Docusate Sodium 100 mg 07/19/19 22:00 07/22/19 00:05 Colace PO 100 mg BID IBIS Administration Famotidine 20 mg 07/20/19 10:00 07/21/19 10:11 Pepcid PO 20 mg QDAY IBIS Administration Furosemide 40 mg 07/20/19 06:00 07/21/19 19:12 Lasix IV 40 mg BID@0600,1800 IBIS Administration Milrinone Lactate/Dextrose 20 mg in 100 mls @ 14.186 mls/hr 07/20/19 13:00 07/22/19 00:25 Milrinone-D5w 20 Mg/100 Ml IV 07/23/19 12:59 0.375 mcg/kg/min TITR IBIS 14.186 mls/hr Administration 0.375 MCG/KG/MIN Ceftriaxone Sodium 1 gm in 50 mls @ 100 mls/hr 07/21/19 13:00 07/22/19 00:15 Rocephin/Ns 1 Gm/50 Ml IV 100 mls/hr Q24HR IBIS Administration Protocol Insulin Glargine 25 units 07/22/19 06:26 Lantus SUB-Q QHS [facility] Insulin Human Lispro 0 unit 07/19/19 22:00 07/22/19 00:13 Humalog SUB-Q 8 unit ACHS [facility] Administration Protocol Lisinopril 20 mg 07/20/19 10:00 07/21/19 10:11 Zestril PO Not Given QDAY [facility] Nitroglycerin 0.4 mg 07/19/19 19:59 Nitrostat SL .Q5MIN PRN Chest Pain Ondansetron HCl 4 mg 07/19/19 19:59 07/19/19 22:21 Zofran IV 4 mg Q8H PRN Administration Nausea And Vomiting Sodium Chloride 10 ml 07/19/19 22:00 07/21/19 01:28 Sodium Chloride Flush Syringe 10 Ml IV 10 ml BID IBIS Administration Sodium Chloride 10 ml 07/19/19 19:59 07/21/19 05:35 Sodium Chloride Flush Syringe 10 Ml IV 10 ml PRN PRN Administration LINE FLUSH Nutrition/Malnutrition Assess - Dietary Evaluation Nutrition/Malnutrition Findings: Nutrition Notes Start: 07/20/19 11:53 Freq: Status: Active Protocol: Document 07/20/19 11:53 CT (Rec: 07/20/19 12:13 CT [id number]) Co-Sign 07/20/19 11:53 LM Nutrition Notes Need for Assessment generated from: MD Order,Education Initial or Follow up Assessment Current Diagnosis Acute Kidney Injury,Diabetes, Hypertension,Heart Failure Other Pertinent Diagnosis A-fib, Bilat LE edema Current Diet Cardiac/Consistent CHO Labs/Tests A1c 10.6 Glu 290 BUN 32 Creatinine 1.6 Pertinent Medications Lasix Lantus Humalog Height 6 ft 4 in Weight 126.1 kg Usual Body Weight 125.645 kg [place] Body Weight (kg) 91.81 BMI 33.8 Intake Prior to Admission Good Weight Status Obese Subjective/Other Information Consult for cardiac/consistent CHO diet education. Pt stated that he has had previous diet education. He accepted more education but was dismissive about the information given to him. Handout was left with the pt. Pt stated that he has a bad taste in his mouth which makes his food taste bad. Pt stated he ate 100% of his breakfast. Pt preferences include cold milk, fruit and cereal. Burn Absent Trauma Absent GI Symptoms None Food Allergy No Current % PO Good (75-100%) Minimum of two criteria No physical signs of malnutrition #1 Nutrition Diagnosis Food and nutrition-related knowledge deficit Etiology limited previous education on a cardiac consistent CHO diet As Evidenced by Signs and Symptoms pt acceptance of education and handout Nutrition Intervention Teaching Recipient Patient Learning Readiness Fair Teaching Methods Discussion,Handout Response to Teaching Verbalize understanding Education Handouts Provided Heart Healthy CHO counting Barriers to Learning Motivation RD phone number provided Yes Patient aware of follow up options Yes Anticipated Discharge Needs: Cardiac/Consistent CHO diet Revisit per MD consult or patient Sign Off request:
[2019-07-22] MEDS: FUROSEMIDE 40 MG/4 ML INJ IV SCH ×2 (08:16→20:34)
[2019-07-22] MEDS: FAMOTIDINE 20 MG TAB PO SCH (10:00)
[2019-07-22] MEDS: ASPIRIN 81 MG TAB CHEW PO SCH (10:00)
[2019-07-22] MEDS: LISINOPRIL 20 MG TAB PO SCH (10:00)
--- NOTE | 2019-07-22 10:22 | Progress Note ---
Assessment and Plan Systolic heart failure Chronic atrial fibrillation Acute renal failure Hx of SHAJI thrombus -on eliquis for oral anticoagulation Non-ischemic cardiomyopathy LVEF 15-20% by echo 05/2019 Non-obstructive CAD by cardiac cath 10/2018 Hypertension Diabetes -uncontrolled Elevated liver transamanase Recommendations: Fluid/sodium restriction. Daily weight. Rate control strategy with beta blockers for chronic atrial fibrillation. Continue with diuretics, afterload agents for systolic heart failure. Continue trial of intravenous milrinone for an additional 24hrs for heart failure exacerbation. Subjective Date of service: 07/22/19 Interval history: Patient reports he is diuresing well. IV milrinone continues. Objective Vital Signs Temp Pulse Resp BP Pulse Ox 07/22/19 08:09 98.5 F 57 L 20 143/89 99 07/22/19 05:09 131 H 07/22/19 04:19 97.8 F 59 L 16 104/75 94 07/22/19 00:05 54 L 118/81 07/21/19 23:29 98.0 F 54 L 16 118/81 96 07/21/19 22:00 123 H 07/21/19 19:38 99.1 F 59 L 16 88/61 93 07/21/19 16:43 97.5 F L 59 L 19 121/69 98 07/21/19 12:39 113 H 07/21/19 11:22 97.9 F 88 18 129/75 90 - Physical Examination General: No Apparent Distress HEENT: Positive: PERRL Neck: Positive: trachea midline Cardiac: Positive: irregularly irregular Lungs: Positive: Decreased Breath Sounds Neuro: Positive: Grossly Intact Extremities: Present: edema
[2019-07-22 11:26] LABS: Hematocrit 47.5 % (35.5-45.6); Hemoglobin 16.1 gm/dl (11.8-15.2); Mean Corpuscular HGB Conc 34 % (32-34); Mean Corpuscular Volume 92 fl (84-94); Platelet Count 172 K/mm3 (140-440); Red Blood Count 5.18 M/mm3 (3.65-5.03); Red Cell Distribution Width 15.6 % (13.2-15.2)
--- NOTE | 2019-07-22 15:21 | Progress Note ---
Assessment and Plan /Acute Exacerbation Systolic CHF -EF 15-20% seen on Echo done 11/18/18 [place] [address] -CXR shows small right pleural effusion. -Started IV Lasix BID -Cardiology consulted, following -Patient put on Milrinone drip by cardiology /Afib with RVR -hx of Afib -Anticoagulated on Eliquis -EKG showed Afib with specific T wave abnormalities -Patient given Cardizem bolus in ED and was responsive -Cardiology following /DM -with hyperglycemia -POC BG monitoring -Hold Metformin due to elevated Cr -Scheduled Lantus and SSI coverage prn -HgbA1C 10.6 -Increase lantus to 25 Units qhs from 15 TESSA - likely from vasomotor nephropathy vs cardiorenal syndrom -Cr on admission 1.9 -Avoid nephrotoxic agents -Renal dose all meds -Consult nephrology /Hyponatremia, resolved - Likely from hyppervolemia from underlying CHF /HTN -Monitor BP -Resumed home hypertensive meds - We'll adjust meds as needed /DVT PPX -On Eliquis Hopefully dc home after Milrinone completed and clear by cardiology Brief History 59-year-old -[place] male with history of dilated nonischemic cardiomyopathy, systolic CHF with EF 15-20%, hypertension, pulmonary hypertension, A. 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 Hospitalist Physical Gen: Not in acute distress, lying in bed,obese HEENT: Normocephalic, atraumatic Neck: supple, no JVD Heart: S1 and S2 reg, no murmurs, rubs or gallop Lungs: Bilateral basal crackles, Abd: soft, non tender, non distended, normal BS, Ext: Bilateral leg edema, no clubbing, no cyanosis Neuro: Awake, alert, oriented X 3, no focal neurological signs Subjective Date of service: 07/22/19 Interval history: Patient seen and examined. Medical records and medication list reviewed. No acute event overnight noted by the RN. Patient denies any chest pain or difficulty breathing. Patient is tolerating diet. Still has significant bilateral lower extremity swelling Discussed plan of care at bedside with patient. Objective - Constitutional Vitals: Vital Signs - 12hr 07/22/19 07/22/19 07/22/19 04:19 05:09 08:09 Temperature 97.8 F 98.5 F Pulse Rate 59 L 131 H 57 L Respiratory 16 20 Rate Blood Pressure 104/75 143/89 O2 Sat by Pulse 94 99 Oximetry 07/22/19 13:12 Temperature 97.9 F Pulse Rate 48 L Respiratory 18 Rate Blood Pressure 119/90 O2 Sat by Pulse 98 Oximetry - Labs CBC & Chem 7: 07/22/19 10:41 07/24/19 08:40 Labs: Abnormal lab results 07/21/19 07/21/19 07/22/19 Range/Units 16:56 21:01 08:26 RBC (3.65-5.03) M/mm3 Hgb (11.8-15.2) gm/dl Hct (35.5-45.6) % RDW (13.2-15.2) % Sodium (137-145) mmol/L Potassium (3.6-5.0) mmol/L Chloride (98-107) mmol/L BUN (9-20) mg/dL Creatinine (0.8-1.5) mg/dL Glucose (75-100) mg/dL POC Glucose 433 H 419 H 230 H (70-105) Calcium (8.4-10.2) mg/dL 07/22/19 07/22/19 07/22/19 Range/Units 10:41 10:41 12:38 RBC 5.18 H (3.65-5.03) M/mm3 Hgb 16.1 H (11.8-15.2) gm/dl Hct 47.5 H (35.5-45.6) % RDW 15.6 H (13.2-15.2) % Sodium 136 L (137-145) mmol/L Potassium 3.5 L (3.6-5.0) mmol/L Chloride 94.0 L (98-107) mmol/L BUN 37 H (9-20) mg/dL Creatinine 1.6 H (0.8-1.5) mg/dL Glucose 321 H (75-100) mg/dL POC Glucose 198 H (70-105) Calcium 8.0 L (8.4-10.2) mg/dL
[2019-07-22] MEDS: POTASSIUM CHLORIDE ER 20 MEQ TAB PO SCH (20:34)
--- NOTE | 2019-07-22 22:42 | Progress Note ---
Assessment and Plan Systolic heart failure Chronic atrial fibrillation Acute renal failure Hx of SHAJI thrombus -on eliquis for oral anticoagulation Non-ischemic cardiomyopathy LVEF 15-20% by echo 05/2019 Non-obstructive CAD by cardiac cath 10/2018 Hypertension Diabetes -uncontrolled Elevated liver transamanase Recommendations: Fluid/sodium restriction. Daily weight. Rate control strategy with beta blockers for chronic atrial fibrillation. Continue with diuretics, afterload agents for systolic heart failure. Stop milrinone today. Subjective Date of service: 07/23/19 Interval history: No acute events. Resting comfortably. No chest pain or SOB. Objective Vital Signs Temp Pulse Pulse Resp BP Pulse Ox 07/22/19 21:07 114 H 125/91 07/22/19 20:46 114 H 18 07/22/19 20:11 97.8 F 07/22/19 20:09 58 L 18 125/91 98 07/22/19 18:10 98.6 F 53 L 18 140/93 98 07/22/19 13:12 97.9 F 48 L 18 119/90 98 07/22/19 10:00 48 L 07/22/19 08:09 98.5 F 57 L 20 143/89 99 07/22/19 05:09 131 H 07/22/19 04:19 97.8 F 59 L 16 104/75 94 07/22/19 00:05 54 L 118/81 07/21/19 23:29 98.0 F 54 L 16 118/81 96 - Physical Examination General: No Apparent Distress HEENT: Positive: PERRL Neck: Positive: trachea midline Neuro: Positive: Grossly Intact Extremities: Present: edema - Labs and Meds CBC 07/22/19 Range/Units 10:41 WBC 10.3 (4.5-11.0) K/mm3 RBC 5.18 H (3.65-5.03) M/mm3 Hgb 16.1 H (11.8-15.2) gm/dl Hct 47.5 H (35.5-45.6) % Plt Count 172 (140-440) K/mm3 Comprehensive Metabolic Panel 07/22/19 Range/Units 10:41 Sodium 136 L (137-145) mmol/L Potassium 3.5 L (3.6-5.0) mmol/L Chloride 94.0 L (98-107) mmol/L Carbon Dioxide 26 (22-30) mmol/L BUN 37 H (9-20) mg/dL Creatinine 1.6 H (0.8-1.5) mg/dL Glucose 321 H (75-100) mg/dL Calcium 8.0 L (8.4-10.2) mg/dL
[2019-07-23] MEDS: MILRINONE-D5W 20 MG/100 ML 20 MG/100 ML BAG IV SCH ×2 (00:01→06:30)
[2019-07-23] MEDS: FUROSEMIDE 40 MG/4 ML INJ IV SCH ×2 (06:14→17:11)
[2019-07-23] MEDS: INSULIN LISPRO 100 UNIT/ML SUB-Q SCH ×3 (09:09→17:11)
[2019-07-23] MEDS ORDERED: POTASSIUM CHLORIDE ER 20 MEQ TAB PO SCH (12:00)
[2019-07-23] MEDS: carvediloL 12.5 MG TAB PO SCH (12:50)
[2019-07-23] MEDS: ASPIRIN 81 MG TAB CHEW PO SCH (12:50)
[2019-07-23] MEDS: LISINOPRIL 20 MG TAB PO SCH (12:50)
[2019-07-23] MEDS: DOCUSATE SODIUM 100 MG CAP PO SCH (12:50)
[2019-07-23] MEDS: APIXABAN 5 MG TAB PO SCH (12:50)
[2019-07-23] MEDS: FAMOTIDINE 20 MG TAB PO SCH (12:51)
[2019-07-23] MEDS: cefTRIAXone/NS 1 GM/50 ML 1 GM/50 ML BAG IV SCH (12:51)
--- NOTE | 2019-07-23 13:01 | Progress Note ---
Assessment and Plan /Acute Exacerbation Systolic CHF -EF 15-20% seen on Echo done 11/18/18 [place] [address] -CXR shows small right pleural effusion. -Started IV Lasix BID -Cardiology consulted, following -Patient put on Milrinone drip by cardiology /Afib with RVR -hx of Afib -Anticoagulated on Eliquis -EKG showed Afib with specific T wave abnormalities -Patient given Cardizem bolus in ED and was responsive -Cardiology following /DM -with hyperglycemia -POC BG monitoring -Hold Metformin due to elevated Cr -Scheduled Lantus and SSI coverage prn -HgbA1C 10.6 -Increase lantus to 25 Units qhs from 15 TESSA on CKD 4- likely from vasomotor nephropathy vs cardiorenal syndrom -Cr on admission 1.9 -Avoid nephrotoxic agents -Renal dose all meds -Consult nephrology /Hyponatremia, resolved - Likely from hyppervolemia from underlying CHF and probably secondary to thiazide diuretic. /HTN -Monitor BP -Resumed home hypertensive meds - We'll adjust meds as needed /DVT PPX -On Eliquis Hopefully dc home after Milrinone completed and clear by cardiology Brief History 59-year-old -Ivorian male with history of dilated nonischemic cardiomyopathy, systolic CHF with EF 15-20%, hypertension, pulmonary hypertension, A. 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 Hospitalist Physical Gen: Not in acute distress, lying in bed,obese HEENT: Normocephalic, atraumatic Neck: supple, no JVD Heart: S1 and S2 reg, no murmurs, rubs or gallop Lungs: Bilateral basal crackles, Abd: soft, non tender, non distended, normal BS, Ext: Bilateral leg edema, no clubbing, no cyanosis Neuro: Awake, alert, oriented X 3, no focal neurological signs Subjective Date of service: 07/23/19 Interval history: Patient seen and examined. Medical records and medication list reviewed. No acute event overnight noted by the RN. Patient denies any chest pain or difficulty breathing. Patient is tolerating diet. Still has significant bilateral lower extremity swelling Discussed plan of care at bedside with patient. Patient still on milrinone drip - ending tomorrow morning Objective - Constitutional Vitals: Vital Signs - 12hr 07/23/19 07/23/19 07/23/19 05:07 05:10 05:13 Temperature 98.4 F Pulse Rate 57 L 47 L Respiratory 18 18 Rate Blood Pressure 151/105 Blood Pressure 152/98 [Left] O2 Sat by Pulse 98 96 Oximetry 07/23/19 07/23/19 07/23/19 06:00 07:11 07:51 Temperature 98.2 F Pulse Rate 110 H Respiratory 18 Rate Blood Pressure 130/95 146/112 Blood Pressure [Left] O2 Sat by Pulse Oximetry - Labs CBC & Chem 7: 07/22/19 10:41 07/24/19 08:40 Labs: Abnormal lab results 07/22/19 07/22/19 07/23/19 Range/Units 17:16 21:36 07:59 POC Glucose 276 H 292 H 354 H (70-105) 07/23/19 Range/Units 11:52 POC Glucose 162 H (70-105)
[2019-07-23] MEDS: POTASSIUM CHLORIDE ER 20 MEQ TAB PO SCH ×2 (13:37→13:38)
[2019-07-23 13:44] LABS: BUN/Creatinine Ratio 17; Blood Urea Nitrogen 22 mg/dL (9-20); Calcium 8.3 mg/dL (8.4-10.2); Hemolysis Index 7
--- NOTE | 2019-07-24 00:16 | Progress Note ---
Assessment and Plan Systolic heart failure Chronic atrial fibrillation Acute renal failure Hx of SHAJI thrombus -on eliquis for oral anticoagulation Non-ischemic cardiomyopathy LVEF 15-20% by echo 05/2019 Non-obstructive CAD by cardiac cath 10/2018 Hypertension Diabetes -uncontrolled Elevated liver transamanase Recommendations: Fluid/sodium restriction. Daily weight. Rate control strategy with beta blockers for chronic atrial fibrillation. Continue with diuretics, afterload agents for systolic heart failure. Stop milrinone today. Subjective Date of service: 07/24/19 Interval history: No acute events. Resting comfortably. No chest pain or SOB. Objective Vital Signs Temp Pulse Pulse Resp BP BP Pulse Ox 07/23/19 23:52 98.2 F 07/23/19 23:31 89 18 129/106 96 07/23/19 19:44 98.1 F 07/23/19 19:42 109 H 20 126/92 94 07/23/19 18:04 98.6 F 125 H 18 123/100 96 07/23/19 14:13 114 H 18 07/23/19 12:48 98.2 F 18 139/86 07/23/19 07:51 98.2 F 18 146/112 07/23/19 07:11 130/95 07/23/19 06:00 110 H 07/23/19 05:13 47 L 18 152/98 96 07/23/19 05:10 98.4 F 07/23/19 05:07 57 L 18 151/105 98 - Physical Examination General: No Apparent Distress HEENT: Positive: PERRL Neck: Positive: trachea midline Neuro: Positive: Grossly Intact Extremities: Present: edema - Labs and Meds Comprehensive Metabolic Panel 07/23/19 Range/Units 13:08 Sodium 141 (137-145) mmol/L Potassium 3.4 L (3.6-5.0) mmol/L Chloride 96.2 L (98-107) mmol/L Carbon Dioxide 30 (22-30) mmol/L BUN 22 H (9-20) mg/dL Creatinine 1.3 (0.8-1.5) mg/dL Glucose 248 H (75-100) mg/dL Calcium 8.3 L (8.4-10.2) mg/dL
[2019-07-24] MEDS: APIXABAN 5 MG TAB PO SCH ×3 (00:21→22:46)
[2019-07-24] MEDS: carvediloL 12.5 MG TAB PO SCH ×3 (00:21→22:45)
[2019-07-24] MEDS: INSULIN GLARGINE 100 UNITS/ML SUB-Q SCH ×2 (00:21→22:46)
[2019-07-24] MEDS: DOCUSATE SODIUM 100 MG CAP PO SCH ×3 (00:22→22:46)
[2019-07-24] MEDS: INSULIN LISPRO 100 UNIT/ML SUB-Q SCH ×5 (00:29→23:11)
[2019-07-24] MEDS ORDERED: INSULIN LISPRO 100 UNIT/ML SUB-Q SCH (07:30)
[2019-07-24] MEDS: FUROSEMIDE 40 MG/4 ML INJ IV SCH (08:04)
[2019-07-24 09:20] LABS: BUN/Creatinine Ratio 17; Blood Urea Nitrogen 20 mg/dL (9-20); Calcium 8.9 mg/dL (8.4-10.2); Hemolysis Index 6
[2019-07-24] MEDS: ASPIRIN 81 MG TAB CHEW PO SCH (10:00)
[2019-07-24] MEDS: FAMOTIDINE 20 MG TAB PO SCH (10:01)
[2019-07-24] MEDS: LISINOPRIL 20 MG TAB PO SCH (10:05)
[2019-07-24] MEDS: cefTRIAXone/NS 1 GM/50 ML 1 GM/50 ML BAG IV SCH (10:06)
--- NOTE | 2019-07-24 14:24 | Progress Note ---
Assessment and Plan /Acute Exacerbation Systolic CHF -EF 15-20% seen on Echo done 11/18/18 [place] [address] -CXR shows small right pleural effusion. -Started IV Lasix BID -Cardiology consulted, following -Patient put on Milrinone drip by cardiology - ended today /Afib with RVR -hx of Afib -Anticoagulated on Eliquis -EKG showed Afib with specific T wave abnormalities -Patient given Cardizem bolus in ED and was responsive -Cardiology following /DM -with hyperglycemia -POC BG monitoring -Hold Metformin due to elevated Cr -Scheduled Lantus and SSI coverage prn -HgbA1C 10.6 -Increase lantus to 25 Units qhs from 15 TESSA on CKD 4- likely from vasomotor nephropathy vs cardiorenal syndrom -Cr on admission 1.9 -Avoid nephrotoxic agents -Renal dose all meds -Consult nephrology /Hyponatremia, resolved - Likely from hyppervolemia from underlying CHF and probably secondary to thiazide diuretic. /HTN -Monitor BP -Resumed home hypertensive meds - We'll adjust meds as needed /DVT PPX -On Eliquis Hopefully dc home after Milrinone completed and clear by cardiology -likely tomorrow Brief History 59-year-old -Thai male with history of dilated nonischemic cardiomyopathy, systolic CHF with EF 15-20%, hypertension, pulmonary hypertension, A. 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 Hospitalist Physical Gen: Not in acute distress, lying in bed,obese HEENT: Normocephalic, atraumatic Neck: supple, no JVD Heart: S1 and S2 reg, no murmurs, rubs or gallop Lungs: Bilateral basal crackles, Abd: soft, non tender, non distended, normal BS, Ext: Bilateral leg edema, no clubbing, no cyanosis Neuro: Awake, alert, oriented X 3, no focal neurological signs Subjective Date of service: 07/24/19 Interval history: Patient seen and examined. Medical records and medication list reviewed. No acute event overnight noted by the RN. Patient denies any chest pain or difficulty breathing. Patient is tolerating diet. Still has significant bilateral lower extremity swelling Discussed plan of care at bedside with patient. milrinone drip ended this morning Objective - Constitutional Vitals: Vital Signs - 12hr 07/24/19 07/24/19 07/24/19 04:22 04:23 10:00 Temperature 98.3 F Pulse Rate 55 L 117 H Respiratory 18 Rate Blood Pressure 129/91 O2 Sat by Pulse 97 Oximetry 07/24/19 10:01 Temperature Pulse Rate 102 H Respiratory Rate Blood Pressure 126/98 O2 Sat by Pulse Oximetry - Labs CBC & Chem 7: 07/22/19 10:41 07/24/19 08:40 Labs: Abnormal lab results 07/23/19 07/23/19 07/24/19 Range/Units 16:41 20:59 07:58 Chloride (98-107) mmol/L Glucose (75-100) mg/dL POC Glucose 279 H 423 H 144 H (70-105) 07/24/19 07/24/19 Range/Units 08:40 12:37 Chloride 93.9 L (98-107) mmol/L Glucose 167 H (75-100) mg/dL POC Glucose 273 H (70-105)
[2019-07-24] MEDS: FUROSEMIDE 40 MG TAB PO SCH (17:26)
[2019-07-25] MEDS: FUROSEMIDE 40 MG TAB PO SCH (05:15)
[2019-07-25] MEDS: INSULIN LISPRO 100 UNIT/ML SUB-Q SCH ×3 (07:29→17:07)
--- NOTE | 2019-07-25 09:21 | Progress Note ---
<FABIAN POSADA - Last Filed: 07/25/19 09:20> Assessment and Plan Systolic heart failure Chronic atrial fibrillation Acute renal failure Hx of SHAJI thrombus -on eliquis for oral anticoagulation Non-ischemic cardiomyopathy LVEF 15-20% by echo 05/2019 Non-obstructive CAD by cardiac cath 10/2018 Hypertension Diabetes -uncontrolled Elevated liver transamanase Recommendations: Adivsed fluid/sodium restriction. Rate control strategy with beta blockers for chronic atrial fibrillation. Continue with diuretics, afterload agents for systolic heart failure. Stable cardiac edgar. Once discharged, patient will follow up with Dr Vickers within 3-5 days. Subjective Date of service: 07/25/19 Interval history: Patient has no complaints. Objective Vital Signs Temp Pulse Pulse Resp BP Pulse Ox 07/25/19 04:03 98.1 F 51 L 18 137/101 96 07/24/19 22:54 97.8 F 59 L 16 129/96 91 07/24/19 19:27 98.3 F 51 L 16 135/98 91 07/24/19 17:08 59 L 130/103 92 07/24/19 14:00 102 H 18 97 07/24/19 12:30 57 L 112/87 94 07/24/19 10:01 102 H 126/98 07/24/19 10:00 117 H - Physical Examination General: No Apparent Distress HEENT: Positive: PERRL Neck: Positive: trachea midline Cardiac: Positive: irregularly irregular Lungs: Positive: Decreased Breath Sounds Neuro: Positive: Grossly Intact Extremities: Absent: edema - Labs and Meds Comprehensive Metabolic Panel 07/24/19 Range/Units 08:40 Sodium 140 (137-145) mmol/L Potassium 3.8 (3.6-5.0) mmol/L Chloride 93.9 L (98-107) mmol/L Carbon Dioxide 30 (22-30) mmol/L BUN 20 (9-20) mg/dL Creatinine 1.2 (0.8-1.5) mg/dL Glucose 167 H (75-100) mg/dL Calcium 8.9 (8.4-10.2) mg/dL <MIKA BASSETT - Last Filed: 07/25/19 13:20> Assessment and Plan I've seen and evaluated the patient and agree with the assessment and plan. Recommend continue goal-directed medical therapy for treatment of nonischemic cardiomyopathy with ejection fraction of 15 point percent. Recommend continued rate control strategy for treatment of permanent atrial fibrillation and Eliquis for anticoagulation. Patient may be discharged home with close follow-up with Dr. Vickers. Objective Vital Signs Temp Pulse Pulse Resp BP Pulse Ox 07/25/19 08:05 97.6 F 44 L 20 128/92 96 07/25/19 04:03 98.1 F 51 L 18 137/101 96 07/24/19 22:54 97.8 F 59 L 16 129/96 91 07/24/19 19:27 98.3 F 51 L 16 135/98 91 07/24/19 17:08 59 L 130/103 92 07/24/19 14:00 102 H 18 97
[2019-07-25] MEDS: ASPIRIN 81 MG TAB CHEW PO SCH (10:29)
[2019-07-25] MEDS: APIXABAN 5 MG TAB PO SCH (10:30)
[2019-07-25] MEDS: LISINOPRIL 20 MG TAB PO SCH (10:30)
[2019-07-25] MEDS: cefTRIAXone/NS 1 GM/50 ML 1 GM/50 ML BAG IV SCH (10:30)
[2019-07-25] MEDS: DOCUSATE SODIUM 100 MG CAP PO SCH (10:30)
[2019-07-25] MEDS: carvediloL 12.5 MG TAB PO SCH (10:30)
[2019-07-25] MEDS: FAMOTIDINE 20 MG TAB PO SCH (10:30)
[2019-07-25 13:43] VITALS: BP 127/87
--- NOTE | 2019-07-25 14:56 | Discharge Summary ---
Providers - Providers Date of Admission: 07/19/19 20:00 Date of discharge: 07/25/19 Attending physician: ODALIS CHÁVEZ 07/19/19 19:59 Consult to Physician [CONS] Routine Comment: Consulting Provider: ASTRID MCMILLAN Physician Instructions: Reason For Exam: AE CHF, Afib RVR est pt Primary care physician: [employer] Hospitalization Condition: Serious Hospital course: 59-year-old -Turkish male with history of dilated nonischemic cardiomyopathy, systolic CHF with EF 15-20%, hypertension, pulmonary hypertension, A. 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 Discharge diagnosis and Mx: /Acute Exacerbation Systolic CHF -EF 15-20% seen on Echo done 11/18/18 [place] [address] -CXR shows small right pleural effusion. -Started IV Lasix BID -Cardiology consulted, following -Patient put on Milrinone drip by cardiology - ended 07/24/19 /Afib with RVR -hx of Afib -Anticoagulated on Eliquis -EKG showed Afib with specific T wave abnormalities -Patient given Cardizem bolus in ED and was responsive -Cardiology following /DM -with hyperglycemia -POC BG monitoring -Hold Metformin due to elevated Cr -Scheduled Lantus and SSI coverage prn -HgbA1C 10.6 -Increase lantus to 25 Units qhs from 15 TESSA on CKD 4- likely from vasomotor nephropathy vs cardiorenal syndrom -Cr on admission 1.9 -Avoid nephrotoxic agents -Renal dose all meds -Consult nephrology /Hyponatremia, resolved - Likely from hyppervolemia from underlying CHF and probably secondary to thiazide diuretic. /HTN -Monitor BP -Resumed home hypertensive meds - We'll adjust meds as needed /DVT PPX -On Eliquis Disposition: Home with HH Hospitalist Physical Gen: Not in acute distress, lying in bed,obese HEENT: Normocephalic, atraumatic Neck: supple, no JVD Heart: S1 and S2 reg, no murmurs, rubs or gallop Lungs: Bilateral basal crackles, Abd: soft, non tender, non distended, normal BS, Ext: Bilateral leg edema, no clubbing, no cyanosis Neuro: Awake, alert, oriented X 3, no focal neurological signs Disposition: [id number]/[id number] HOME UNDER HOME [facility] Time spent for discharge: 34 minutes Core Measure Documentation - Palliative Care Palliative Care/ Comfort Measures: Not Applicable - Core Measures Any of the following diagnoses?: heart failure - Heart Failure Discharge Requirements KELLY/ARB for LVSD if EF <40%: Yes Beta darien at discharge: Yes Exam - Constitutional Vitals: Temp Pulse Resp BP Pulse Ox 98.3 F 69 18 127/87 99 07/25/19 13:15 07/25/19 13:15 07/25/19 13:15 07/25/19 13:15 07/25/19 13:15 Plan Activity: advance as tolerated Weight Bearing Status: Non-Weight Bearing Diet: low fat, low salt, diabetic Special Instructions: restrict fluid intake to (1.2 L daily), record blood sugar diary Follow up with: PRIMARY CARE, [Primary Care Provider] - 3-5 Days ASTRID MCMILLAN MD [Staff Physician] - 7 Days Prescriptions: Insulin Glargine [Lantus VIAL] 25 units SUB-Q QHS #10 ml carvediloL [Coreg] 12.5 mg PO BID #60 tablet Furosemide [Lasix TAB] 80 mg PO 0600,1800 #60 tablet Lisinopril [Zestril TAB] 20 mg PO QDAY #30 tablet
== END 2019-07-25 17:30 | disposition home health service (06) | DRG 682 ==
LOC: ED 17:00 → 4A 20:00
PROVIDERS: ADMIT Internal Medicine; ATTEND Internal Medicine
DX: N17.0 Acute kidney failure with tubular necrosis (principal); I50.23 Acute on chronic systolic (congestive) heart failure; I13.0 Hypertensive heart and chronic kidney disease with heart failure and stage 1 through stage 4 chronic kidney disease, or unspecified chronic kidney disease; E87.1 Hypo-osmolality and hyponatremia; I48.20 Chronic atrial fibrillation, unspecified; I42.0 Dilated cardiomyopathy; E11.65 Type 2 diabetes mellitus with hyperglycemia; R74.0 Nonspecific elevation of levels of transaminase and lactic acid dehydrogenase [LDH]; N18.4 Chronic kidney disease, stage 4 (severe); Z79.01 Long term (current) use of anticoagulants; Z79.899 Other long term (current) drug therapy; Z79.82 Long term (current) use of aspirin
CPT/HCPCS: 36415; 71046; 80048; 80053; 81001; 82805; 82962; 83036; 83880; 85025; 85027; 87040; 87086; 93005; 93010; G0378; A9270-GY; J0696; J1644; J1815; J1940; J2260; J2405; J7030

== ENCOUNTER 2019-08-24 11:38 | Inpatient (IN) | payer OTHER ==
[2019-08-24] MEDS ORDERED: ASPIRIN 325 MG TAB PO ONE (11:52)
[2019-08-24 12:29] LABS: Basophils # (Auto) 0.1 K/mm3 (0.0-0.1); Basophils % (Auto) 0.8 % (0.0-1.8); Eosinophils # (Auto) 0.1 K/mm3 (0.0-0.4); Eosinophils % (Auto) 0.7 % (0.0-4.3); Hematocrit 50.2 % (35.5-45.6); Hemoglobin 17.5 gm/dl (11.8-15.2); Lymphocytes # (Auto) 2.6 K/mm3 (1.2-5.4); Lymphocytes % (Auto) 25.2 % (13.4-35.0); Mean Corpuscular HGB Conc 35 % (32-34); Mean Corpuscular Volume 91 fl (84-94); Monocytes # (Auto) 1.1 K/mm3 (0.0-0.8); Monocytes % (Auto) 10.7 % (0.0-7.3); Platelet Count 156 K/mm3 (140-440); Red Blood Count 5.52 M/mm3 (3.65-5.03); Red Cell Distribution Width 15.7 % (13.2-15.2)
--- NOTE | 2019-08-24 12:36 | XRay Report ---
CHEST 1 VIEW INDICATION: Chest Pain. COMPARISON: 07/19/2019. FINDINGS: Support devices: None. Heart: Stable mild cardiomegaly. Lungs/Pleura: No acute air space or interstitial disease. Stable mild blunting right costophrenic ang le.. Additional findings: None. IMPRESSION: Stable cardiomegaly and mild blunting right costophrenic angle. Signer Name: Ton Ahmadi MD Signed: 08/24/2019 12:32 PM Workstation Name: [id number]
[2019-08-24 12:52] LABS: Calcium 8.9 mg/dL (8.4-10.2)
--- NOTE | 2019-08-24 16:39 | Emergency Department Report ---
ED General Adult HPI - General Chief complaint: Dyspnea/Respdistress Stated complaint: CHF/CHEST PAIN Time Seen by Provider: 08/24/19 16:36 Source: patient, RN notes reviewed, old records reviewed Mode of arrival: Ambulatory Limitations: Physical Limitation - History of Present Illness Initial comments: This is a 59-year-old gentleman. His past medical history includes heart failure, chronic atrial fibrillation, renal insufficiency, left atrial thrombus, on systemic anticoagulation, ejection fraction 15-20%, nonobstructive heart disease, diabetes and hypertension, noncompliance The patient has a known history of left style and dietary noncompliance. He presents to the ER with a complaint of lower extremity swelling, shortness of breath, malaise and fatigue. He denies physical pain. He endorses compliance with his medications. He states that a friend drove him to the hospital today. He states his symptoms today are similar to prior episodes of CHF exacerbations. -: Gradual Consistency: constant Improves with: rest Worsens with: movement - Related Data Home Medications Medication Instructions Recorded Confirmed Last Taken Metformin HCl 500 mg PO BIDWM 11/18/18 08/24/19 07/19/19 Aspirin [Aspirin BABY CHEW TAB] 81 mg PO QDAY 07/19/19 08/24/19 Unknown Spironolactone [Aldactone] 25 mg PO QDAY 07/19/19 08/24/19 Unknown Previous Rx's Medication Instructions Recorded Last Taken Type Apixaban [Eliquis] 5 mg PO Q12HR #60 tablet 11/25/18 07/19/19 Rx Atorvastatin Calcium [Lipitor] 40 mg PO QDAY #30 tablet 11/25/18 07/18/19 Rx Famotidine [Pepcid] 20 mg PO QDAY #30 tablet 11/25/18 Unknown Rx Furosemide [Lasix TAB] 80 mg PO 0600,1800 #60 tablet 07/25/19 Unknown Rx Insulin Glargine [Lantus VIAL] 25 units SUB-Q QHS #10 ml 07/25/19 Unknown Rx carvediloL [Coreg] 12.5 mg PO BID #60 tablet 07/25/19 Unknown Rx lisinopriL [Zestril TAB] 20 mg PO QDAY #30 tablet 07/25/19 Unknown Rx Allergies Allergy/AdvReac Type Severity Reaction Status Date / Time No Known Allergies Allergy Verified 11/18/18 03:58 ED Review of Systems ROS: Stated complaint: CHF/CHEST PAIN Other details as noted in HPI Constitutional: malaise, weakness Eyes: denies: eye discharge ENT: denies: congestion Respiratory: shortness of breath Cardiovascular: palpitations, edema Gastrointestinal: denies: abdominal pain Musculoskeletal: myalgia Skin: denies: lesions Neurological: weakness Hematological/Lymphatic: denies: easy bleeding ED Past Medical Hx - Past Medical History Hx Hypertension: Yes (since 2013) Hx Heart Attack/AMI: No Hx Congestive Heart Failure: Yes Hx Diabetes: No Hx Deep Vein Thrombosis: No Hx Pulmonary Embolism: No Hx Liver Disease: No Hx Renal Disease: No Hx Sickle Cell Disease: No Hx Arthritis: No Hx Seizures: No Hx Kidney Stones: No Hx Asthma: No Hx COPD: No Hx Tuberculosis: No Hx Dementia: No Hx HIV: No - Surgical History Hx Coronary Stent: No Hx Open Heart Surgery: No Hx Pacemaker: No Hx Internal Defibrillator: No Hx Cholecystectomy: No Hx Appendectomy: No Hx Breast Surgery: No - Social History Smoking Status: Former Smoker Substance Use Type: Alcohol - Medications Home Medications: Home Medications Medication Instructions Recorded Confirmed Last Taken Type Metformin HCl 500 mg PO BIDWM 11/18/18 08/24/19 07/19/19 History Apixaban [Eliquis] 5 mg PO Q12HR #60 tablet 11/25/18 08/24/19 07/19/19 Rx Atorvastatin Calcium [Lipitor] 40 mg PO QDAY #30 tablet 11/25/18 08/24/19 07/18/19 Rx Famotidine [Pepcid] 20 mg PO QDAY #30 tablet 11/25/18 08/24/19 Unknown Rx Aspirin [Aspirin BABY CHEW TAB] 81 mg PO QDAY 07/19/19 08/24/19 Unknown History Spironolactone [Aldactone] 25 mg PO QDAY 07/19/19 08/24/19 Unknown History Furosemide [Lasix TAB] 80 mg PO 0600,1800 #60 tablet 07/25/19 08/24/19 Unknown Rx Insulin Glargine [Lantus VIAL] 25 units SUB-Q QHS #10 ml 07/25/19 08/24/19 Unknown Rx carvediloL [Coreg] 12.5 mg PO BID #60 tablet 07/25/19 08/24/19 Unknown Rx lisinopriL [Zestril TAB] 20 mg PO QDAY #30 tablet 07/25/19 08/24/19 Unknown Rx ED Physical Exam - General Limitations: Physical Limitation General appearance: alert, obese, other (the patient is listless, but arousable) - Head Head exam: Present: atraumatic, normocephalic - Eye Eye exam: Present: normal appearance - ENT ENT exam: Present: normal exam, normal orophraynx, mucous membranes moist, normal external ear exam - Neck Neck exam: Present: normal inspection, full ROM. Absent: tenderness, meningismus - Respiratory Respiratory exam: Present: rales (faint rales noted at the bases). Absent: respiratory distress - Cardiovascular Cardiovascular Exam: Present: tachycardia, irregular rhythm, normal heart sounds, JVD. Absent: diastolic murmur, rubs, gallop - GI/Abdominal GI/Abdominal exam: Present: soft, distended. Absent: tenderness, guarding, rebound, rigid, pulsatile mass - Rectal Rectal exam: Present: deferred - Extremities Exam Extremities exam: Present: normal inspection, full ROM, pedal edema, other (2+ p ulses noted in the bilateral upper and lower extremities. The pelvis is stable. There is no long bony tenderness. The muscular compartments are soft. There is no redness, pus, streaking or erythema.). Absent: calf tenderness - Back Exam Back exam: Present: normal inspection. Absent: tenderness, CVA tenderness (R), CVA tenderness (L), paraspinal tenderness, vertebral tenderness - Neurological Exam Neurological exam: Present: alert, other (there is no facial droop. The tongue is midline. Extraocular movements are intact bilaterally. There is 5 out of 5 strength in bilateral upper and lower extremities. Sensation is intact to light touch bilateral upper and lower extremities. There is no past-pointing. There is no pronator drift. There is normal omda-[id number]-atgk. There is a normal gait.) - Psychiatric Psychiatric exam: Present: anxious - Skin Skin exam: Present: warm, dry, intact, normal color. Absent: rash ED Course Vital Signs 08/24/19 08/24/19 08/24/19 11:50 16:59 17:01 Temperature 97.0 F L Pulse Rate 108 H Respiratory 20 Rate Blood Pressure 118/97 132/103 Blood Pressure [Left] O2 Sat by Pulse 98 93 94 Oximetry 08/24/19 08/24/19 08/24/19 17:15 17:31 17:45 Temperature Pulse Rate 114 H 118 H 112 H Respiratory 22 27 H 23 Rate Blood Pressure 132/103 132/103 132/103 Blood Pressure [Left] O2 Sat by Pulse 98 88 96 Oximetry 08/24/19 08/24/19 08/24/19 17:54 17:56 18:00 Temperature 97.6 F Pulse Rate 90 90 88 Respiratory 17 18 Rate Blood Pressure 125/87 Blood Pressure 132/103 [Left] O2 Sat by Pulse 97 94 Oximetry 08/24/19 08/24/19 08/24/19 18:15 18:31 18:45 Temperature Pulse Rate 86 92 H 84 Respiratory 17 16 16 Rate Blood Pressure 125/87 125/87 125/87 Blood Pressure [Left] O2 Sat by Pulse 97 98 97 Oximetry 08/24/19 08/24/19 08/24/19 19:00 19:15 19:31 Temperature Pulse Rate 86 88 97 H Respiratory 15 15 18 Rate Blood Pressure 129/87 129/87 129/87 Blood Pressure [Left] O2 Sat by Pulse 94 92 81 L Oximetry 08/24/19 19:45 Temperature Pulse Rate 103 H Respiratory 20 Rate Blood Pressure 129/87 Blood Pressure [Left] O2 Sat by Pulse 98 Oximetry ED Medical Decision Making - Lab Data Result diagrams: 08/24/19 12:19 08/24/19 12:19 Vital Signs 08/24/19 11:50 Temperature 97.0 F L Pulse Rate 108 H Respiratory 20 Rate Blood Pressure 118/97 O2 Sat by Pulse 98 Oximetry Lab Results 08/24/19 08/24/19 08/24/19 Range/Units 12:19 12:19 12:19 WBC 10.1 (4.5-11.0) K/mm3 RBC 5.52 H (3.65-5.03) M/mm3 Hgb 17.5 H (11.8-15.2) gm/dl Hct 50.2 H (35.5-45.6) % MCV 91 (84-94) fl MCH 32 (28-32) pg MCHC 35 H (32-34) % RDW 15.7 H (13.2-15.2) % Plt Count 156 (140-440) K/mm3 Lymph % (Auto) 25.2 (13.4-35.0) % [place] % (Auto) 10.7 H (0.0-7.3) % Eos % (Auto) 0.7 (0.0-4.3) % Baso % (Auto) 0.8 (0.0-1.8) % Lymph # 2.6 (1.2-5.4) K/mm3 [place] # 1.1 H (0.0-0.8) K/mm3 Eos # 0.1 (0.0-0.4) K/mm3 Baso # 0.1 (0.0-0.1) K/mm3 Seg Neutrophils % 62.6 (40.0-70.0) % Seg Neutrophils # 6.3 (1.8-7.7) K/mm3 Sodium 144 (137-145) mmol/L Potassium 4.0 (3.6-5.0) mmol/L Chloride 106.6 (98-107) mmol/L Carbon Dioxide 22 (22-30) mmol/L Anion Gap 19 mmol/L BUN 38 H (9-20) mg/dL Creatinine 1.9 H (0.8-1.5) mg/dL Estimated GFR 44 ml/min BUN/Creatinine Ratio 20 % Glucose 105 H (75-100) mg/dL Calcium 8.9 (8.4-10.2) mg/dL Troponin T 0.044 H (0.00-0.029) ng/mL NT-Pro-B Natriuret Pep 8127 H (0-900) pg/mL Triglycerides 89 (2-149) mg/dL Cholesterol 159 (50-199) mg/dL LDL Cholesterol Direct 111 (50-130) mg/dL 08/24/19 Range/Units 15:17 WBC (4.5-11.0) K/mm3 RBC (3.65-5.03) M/mm3 Hgb (11.8-15.2) gm/dl Hct (35.5-45.6) % MCV (84-94) fl MCH (28-32) pg MCHC (32-34) % RDW (13.2-15.2) % Plt Count (140-440) K/mm3 Lymph % (Auto) (13.4-35.0) % [place] % (Auto) (0.0-7.3) % Eos % (Auto) (0.0-4.3) % Baso % (Auto) (0.0-1.8) % Lymph # (1.2-5.4) K/mm3 [place] # (0.0-0.8) K/mm3 Eos # (0.0-0.4) K/mm3 Baso # (0.0-0.1) K/mm3 Seg Neutrophils % (40.0-70.0) % Seg Neutrophils # (1.8-7.7) K/mm3 Sodium (137-145) mmol/L Potassium (3.6-5.0) mmol/L Chloride (98-107) mmol/L Carbon Dioxide (22-30) mmol/L Anion Gap mmol/L BUN (9-20) mg/dL Creatinine (0.8-1.5) mg/dL Estimated GFR ml/min BUN/Creatinine Ratio % Glucose (75-100) mg/dL Calcium (8.4-10.2) mg/dL Troponin T 0.037 H (0.00-0.029) ng/mL NT-Pro-B Natriuret Pep (0-900) pg/mL Triglycerides (2-149) mg/dL Cholesterol (50-199) mg/dL LDL Cholesterol Direct (50-130) mg/dL - EKG Data -: EKG Interpreted by Me Rate: tachycardia - EKG Data 08/24/19 17:31 The EKG shows A. fib, rapid ventricular response, left axis deviation, question left anterior fascicular block, motion artifact, PVC, abnormal EKG, no endorsement of chest pain, EKG not consistent with STEMI. It appears to be unchanged from prior EKG from 07/19/2019. - Radiology Data Radiology results: report reviewed, image reviewed Print Report Referring Physician: ED DOC Patient Name: SHIRA MCKEE Date of : 1960 Sex: Male Report Date: 2019-08-24 Report Status: Finalized Findings [facility] [address] [place] [address] XRay Report Signed Patient: SHIRA MCKEE MR#: [id number] : 1960 Acct:[id number] Age/Sex: 59 / M ADM Date: 08/24/19 Loc: ED Attending Dr: Ordering Physician: DOUG PROCTOR MD Date of Service: 08/24/19 Procedure(s): XR chest 1V ap Accession Number(s): [id number] cc: DOUG PROCTOR MD Fluoro Time In Minutes: CHEST 1 VIEW INDICATION: Chest Pain. COMPARISON: 07/19/2019. FINDINGS: Support devices: None. Heart: Stable mild cardiomegaly. Lungs/Pleura: No acute air space or interstitial disease. Stable mild blunting right costophrenic angle.. Additional findings: None. IMPRESSION: Stable cardiomegaly and mild blunting right costophrenic angle. Signer Name: Ton Ahmadi MD Signed: 08/24/2019 12:32 PM Workstation Name: [id number] Transcribed By: ES Dictated By: Ton Ahmadi MD Electronically Authenticated By: Ton Ahmadi MD Signed Date/Time: 08/24/19 1232 - Medical Decision Making Differential diagnosis, including not limited to: CHF exacerbation, A. fib with RVR, dietary and lifestyle noncompliance Assessment and plan: 59-year-old gentleman presenting with CHF exacerbation, likely secondary to noncompliance, no endorsement of pain, and A. fib with RVR. He is sleepy but arousable. He is protecting his airway at this time. Supplemental oxygen ordered, diltiazem ordered, Lasix ordered. May have a component of cardiorenal syndrome. Elevated troponin is chronic, this is likely a type II troponin leak. He reports compliance with his systemic anticoagulation. He will require admission for rate control, and diuresis. Hospital physician, Dr. Boyer to admit patient to the medical service. Critical Care Time: Yes Critical care time in (mins) excluding proc time.: 35 Critical care attestation.: If time is entered above; I have spent that time in minutes in the direct care of this critically ill patient, excluding procedure time. ED Disposition Clinical Impression: Atrial fibrillation with RVR, CHF (congestive heart failure) Disposition: OP ADMIT IP TO THIS HOSP Is pt being admited?: Yes Condition: Serious
[2019-08-24] MEDS ORDERED: dilTIAZem 25 MG/5 ML INJ IV ONE (17:24)
[2019-08-24] MEDS ORDERED: FUROSEMIDE 40 MG/4 ML INJ IV ONE (17:24)
[2019-08-24] MEDS ORDERED: ASPIRIN 325 MG TAB ONE (17:40)
[2019-08-24] MEDS ORDERED: ACETAMINOPHEN 325 MG TAB PO PRN (18:04)
[2019-08-24] MEDS ORDERED: ONDANSETRON 4 MG/2 ML INJ IV PRN (18:04)
[2019-08-24] MEDS ORDERED: ALBUTEROL 2.5 MG/3 ML NEBU IH PRN (18:04)
--- NOTE | 2019-08-24 18:10 | History and Physical Report ---
History of Present Illness Chief complaint: I cannot breathe too well History of present illness: 59-year-old male with systolic congestive heart failure with ejection fraction of 15%, DM, HTN, atrial fibrillation, renal insufficiency, left atrial thrombus, on systemic anticoagulation, ejection fraction 15-20%, nonobstructive heart disease, noncompliance presents to ED for evaluation. Patient states that he had experienced shortness of breath over the last 2 days with worsening symptoms over the same timeframe. Patient acknowledges orthopnea and paroxysmal nocturnal dyspnea, decreased exercise tolerance, dyspnea on exertion, dyspnea at rest. Patient reports that he is compliant with some of his medications however he has ran out of other medication. Patient is unsure of which exact medication that he is taking. Patient transported to [facility] via private vehicle. Patient seen and evaluated in the emergency department. Patient lab and imaging studies reviewed. Patient sitting in bed using accessory muscles to breathe, patient appears uncomfortable, patient agitated. Patient unable to walk 10 feet without worsening shortness of breath. Patient found to have lab findings and clinical findings consistent with CHF decompensation as well as atrial fibrillation with rapid ventricular response. Patient admitted to telemetry for medical stabilization due to high likelihood of cardiac decompensation. Cardiology team consulted in the emergency department. Patient prior echo results reviewed. Patient initiated on CHF decompensation protocol. Prior admission on 07/19/2019 reviewed. All listed medication at time of admission has been reconciled. Past History Past Medical History: heart failure, hypertension, other (see hpi) Past Surgical History: No surgical history, Other (reviewed) Social history: single. denies: smoking, alcohol abuse, prescription drug abuse Family history: diabetes, hypertension Medications and Allergies Allergies Allergy/AdvReac Type Severity Reaction Status Date / Time No Known Allergies Allergy Verified 11/18/18 03:58 Home Medications Medication Instructions Recorded Confirmed Last Taken Type Metformin HCl 500 mg PO BIDWM 11/18/18 08/24/19 07/19/19 History Apixaban [Eliquis] 5 mg PO Q12HR #60 tablet 11/25/18 08/24/19 07/19/19 Rx Atorvastatin Calcium [Lipitor] 40 mg PO QDAY #30 tablet 11/25/18 08/24/19 07/18/19 Rx Famotidine [Pepcid] 20 mg PO QDAY #30 tablet 11/25/18 08/24/19 Unknown Rx Aspirin [Aspirin BABY CHEW TAB] 81 mg PO QDAY 07/19/19 08/24/19 Unknown History Spironolactone [Aldactone] 25 mg PO QDAY 07/19/19 08/24/19 Unknown History Furosemide [Lasix TAB] 80 mg PO 0600,1800 #60 tablet 07/25/19 08/24/19 Unknown Rx Insulin Glargine [Lantus VIAL] 25 units SUB-Q QHS #10 ml 07/25/19 08/24/19 Unknown Rx carvediloL [Coreg] 12.5 mg PO BID #60 tablet 07/25/19 08/24/19 Unknown Rx lisinopriL [Zestril TAB] 20 mg PO QDAY #30 tablet 07/25/19 08/24/19 Unknown Rx Active Meds: Active Medications Acetaminophen (Tylenol) 650 mg PO Q4H PRN PRN Reason: Pain MILD(1-3)/Fever >100.5/HOWELL Albuterol (Proventil) 2.5 mg IH Q4HRT PRN PRN Reason: Shortness Of Breath Apixaban (Eliquis) 5 mg PO Q12HR [facility]; Protocol Aspirin (Baby Aspirin) 81 mg PO QDAY [facility] Atorvastatin Calcium (Lipitor) 40 mg PO QDAY [facility] Carvedilol (Coreg) 12.5 mg PO BID [facility] Famotidine (Pepcid) 20 mg PO QDAY [facility] Furosemide (Lasix) 80 mg PO 0600,1800 [facility] Insulin Glargine (Lantus) 25 units SUB-Q QHS [facility] Lisinopril (Zestril) 20 mg PO QDAY [facility] Ondansetron HCl (Zofran) 4 mg IV Q8H PRN PRN Reason: Nausea And Vomiting Sodium Chloride (Sodium Chloride Flush Syringe 10 Ml) 10 ml IV BID [facility] Sodium Chloride (Sodium Chloride Flush Syringe 10 Ml) 10 ml IV PRN PRN PRN Reason: LINE FLUSH Spironolactone (Aldactone) 25 mg PO QDAY [facility] Review of Systems Constitutional: weight gain, weakness, no weight loss, no fever, no chills Ears, nose, mouth and throat: no ear pain, no ear discharge, no tinnitis, no nose pain, no nasal discharge Cardiovascular: orthopnea, palpitations, edema, shortness of breath, dyspnea on exertion, paroxysmal nocturnal dyspnea, high blood pressure, decreased exercise tolerance, no chest pain Respiratory: no cough, no cough with sputum, no excessive sputum, no shortness of breath Gastrointestinal: no abdominal pain, no nausea, no constipation, no change in bowel habits, no hematemesis Genitourinary Male: no dysuria, no hematuria, no flank pain, no urinary hesitancy Rectal: no pain, no incontinence Musculoskeletal: no neck stiffness, no shooting arm pain, no shooting leg pain Integumentary: no rash, no redness, no sores, no jaundice, no blisters Neurological: no head injury, no weakness, no parathesias, no tingling, no seizures, no syncope Psychiatric: no anxiety, no change in sleep habits, no hypersomnia, no change in libido, no suicidal ideation Endocrine: no cold intolerance, no heat intolerance, no polyphagia, no excessive thirst, no polyuria, no nocturia, no excessive sweating, no weight change Hematologic/Lymphatic: no easy bruising, no lymphadenopathy, no lymphedema Allergic/Immunologic: no urticaria, no wheezing, no anaphylaxis Exam - Constitutional Vitals: Temp Pulse Resp BP Pulse Ox 97.6 F 90 17 132/103 97 08/24/19 17:56 08/24/19 17:56 08/24/19 17:56 08/24/19 17:56 08/24/19 17:56 General appearance: Present: mild distress, obese, disheveled - EENT Eyes: Present: PERRL ENT: hearing intact, clear oral mucosa - Neck Neck: Present: supple, normal ROM - Respiratory Respiratory effort: labored, accessory muscle use Respiratory: bilateral: diminished, rales - Cardiovascular Rhythm: other (tachycardia) - Extremities Extremity abnormal: edema Peripheral Pulses: within normal limits - Abdominal General gastrointestinal: Present: soft, non-tender, non-distended, normal bowel sounds Male genitourinary: Present: normal - Integumentary Integumentary: Present: clear, warm, dry - Musculoskeletal Musculoskeletal: generalized weakness - Psychiatric Psychiatric: appropriate mood/affect, intact judgment & insight - Neurologic Neurologic: CNII-XII intact, moves all extremities Results - Labs CBC & Chem 7: 08/24/19 12:19 08/24/19 12:19 Labs: Abnormal lab results 08/24/19 08/24/19 08/24/19 Range/Units 12:19 12:19 12:19 RBC 5.52 H (3.65-5.03) M/mm3 Hgb 17.5 H (11.8-15.2) gm/dl Hct 50.2 H (35.5-45.6) % MCHC 35 H (32-34) % RDW 15.7 H (13.2-15.2) % [place] % (Auto) 10.7 H (0.0-7.3) % [place] # 1.1 H (0.0-0.8) K/mm3 BUN 38 H (9-20) mg/dL Creatinine 1.9 H (0.8-1.5) mg/dL Glucose 105 H (75-100) mg/dL Troponin T 0.044 H (0.00-0.029) ng/mL NT-Pro-B Natriuret Pep 8127 H (0-900) pg/mL 08/24/19 Range/Units 15:17 RBC (3.65-5.03) M/mm3 Hgb (11.8-15.2) gm/dl Hct (35.5-45.6) % MCHC (32-34) % RDW (13.2-15.2) % [place] % (Auto) (0.0-7.3) % [place] # (0.0-0.8) K/mm3 BUN (9-20) mg/dL Creatinine (0.8-1.5) mg/dL Glucose (75-100) mg/dL Troponin T 0.037 H (0.00-0.029) ng/mL NT-Pro-B Natriuret Pep (0-900) pg/mL Assessment and Plan - Patient Problems (1) Systolic CHF Current Visit: Yes Status: Acute Qualifiers: Heart failure chronicity: acute on chronic Qualified Code(s): I50.23 - Acute on chronic systolic (congestive) heart failure Plan to address problem: CHF protocol: Admit to telemetry, strict I&O, afterload reduction, daily weight, diuresis with Lasix, low-sodium diet, cardiology consulted in ED, previous echo from October 2018 reviewed, chest x-ray, pulse oximetry, supplemental oxygen. (2) HTN (hypertension) Current Visit: Yes Status: Acute Qualifiers: Hypertension type: essential hypertension Qualified Code(s): I10 - Essential (primary) hypertension Plan to address problem: Monitor blood pressure every shift, continue medical management. (3) Obesity hypoventilation syndrome Current Visit: Yes Status: Acute Plan to address problem: Supplemental oxygen, nebulizer therapy, pulse oximetry, chest x-ray, noninvasive positive pressure ventilation as clinically indicated, outpatient sleep study. (4) Atrial fibrillation with RVR Current Visit: Yes Status: Acute Plan to address problem: Patient responded to oral cardioversion with Cardizem, cardiology consulted, continue therapeutic anticoagulation. (5) Diabetes Current Visit: Yes Status: Acute Plan to address problem: Consistent carbohydrate diet, sliding scale insulin, Accu-Chek, hypoglycemia protocol. (6) TESSA (acute kidney injury) Current Visit: Yes Status: Acute Plan to address problem: Repeat BMP in a.m., monitor urine output every shift, gentle IV fluid resuscitation therapy as tolerated, urine electrolytes. (7) Atrial thrombus Current Visit: Yes Status: Acute Plan to address problem: HOLLAND from prior admission reviewed, cardiology consulted, continue therapeutic anticoagulation. (8) DVT prophylaxis Current Visit: Yes Status: Acute Plan to address problem: SCD to bilateral lower extremities while in bed, continue therapeutic anticoagulation.
[2019-08-24] MEDS: INSULIN GLARGINE 100 UNITS/ML SUB-Q SCH (22:55)
[2019-08-24] MEDS: APIXABAN 5 MG TAB PO SCH (22:55)
[2019-08-24] MEDS: carvediloL 12.5 MG TAB PO SCH (22:55)
[2019-08-25 05:43] LABS: Chol/HDL Ratio 2.74 %
[2019-08-25] MEDS ORDERED: FUROSEMIDE 40 MG TAB PO SCH (06:00)
[2019-08-25] MEDS: FAMOTIDINE 20 MG TAB PO SCH (09:54)
[2019-08-25] MEDS: APIXABAN 5 MG TAB PO SCH (09:54)
[2019-08-25] MEDS: ASPIRIN 81 MG TAB CHEW PO SCH (09:55)
[2019-08-25] MEDS: carvediloL 12.5 MG TAB PO SCH ×2 (09:55→23:03)
[2019-08-25] MEDS: SPIRONOLACTONE 25 MG TAB PO SCH (09:55)
[2019-08-25] MEDS: LISINOPRIL 20 MG TAB PO SCH (09:56)
--- NOTE | 2019-08-25 13:02 | Consultation ---
History of Present Illness Consult date: 08/25/19 Consult reason: congestive heart failure History of present illness: The patient is a 59-year-old man with a history of a dilated nonischemic cardiomyopathy, left ventricular ejection fraction 15-20%, first diagnosed in October 2018. He also has chronic atrial fibrillation on a rate control strategy. A HOLLAND in October showed evidence of a left atrial thrombus, strengthening the indication for chronic oral anticoagulation therapy. Unfortunately, the patient has been persistently noncompliant both with guideline directed heart failure therapy as well as oral anticoagulation, and has had multiple hospitalizations for heart failure exacerbation. His most recent extubation was 3 weeks ago. He is readmitted at this time with 3-4+ bilateral lower extremity edema extending to the sacral area and associated scrotal edema. There is no chest pain, no palpitations and no syncope. EKG shows atrial fibrillation with a well-controlled rate, left ventricular hypertrophy and left axis deviation. Chest x-ray shows no evidence of significant interstitial edema. Past History Past Medical History: CAD, heart failure, hypertension, other (see hpi) Past Surgical History: No surgical history, Other (reviewed) Social history: single. denies: smoking, alcohol abuse, prescription drug abuse Family history: diabetes, hypertension Medications and Allergies Allergies Allergy/AdvReac Type Severity Reaction Status Date / Time No Known Allergies Allergy Verified 11/18/18 03:58 Home Medications Medication Instructions Recorded Confirmed Last Taken Type Metformin HCl 500 mg PO BIDWM 11/18/18 08/24/19 07/19/19 History Apixaban [Eliquis] 5 mg PO Q12HR #60 tablet 11/25/18 08/24/19 07/19/19 Rx Atorvastatin Calcium [Lipitor] 40 mg PO QDAY #30 tablet 11/25/18 08/24/19 07/18/19 Rx Famotidine [Pepcid] 20 mg PO QDAY #30 tablet 11/25/18 08/24/19 Unknown Rx Aspirin [Aspirin BABY CHEW TAB] 81 mg PO QDAY 07/19/19 08/24/19 Unknown History Spironolactone [Aldactone] 25 mg PO QDAY 07/19/19 08/24/19 Unknown History Furosemide [Lasix TAB] 80 mg PO 0600,1800 #60 tablet 07/25/19 08/24/19 Unknown Rx Insulin Glargine [Lantus VIAL] 25 units SUB-Q QHS #10 ml 07/25/19 08/24/19 Unknown Rx carvediloL [Coreg] 12.5 mg PO BID #60 tablet 07/25/19 08/24/19 Unknown Rx lisinopriL [Zestril TAB] 20 mg PO QDAY #30 tablet 07/25/19 08/24/19 Unknown Rx Active Meds: Active Medications Acetaminophen (Tylenol) 650 mg PO Q4H PRN PRN Reason: Pain MILD(1-3)/Fever >100.5/HOWELL Albuterol (Proventil) 2.5 mg IH Q4HRT PRN PRN Reason: Shortness Of Breath Apixaban (Eliquis) 5 mg PO Q12HR [facility]; Protocol Last Admin: 08/25/19 09:54 Dose: 5 mg Documented by: Aspirin (Baby Aspirin) 81 mg PO QDAY [facility] Last Admin: 08/25/19 09:55 Dose: 81 mg Documented by: Atorvastatin Calcium (Lipitor) 40 mg PO QDAY [facility] Last Admin: 08/25/19 09:55 Dose: 40 mg Documented by: Carvedilol (Coreg) 12.5 mg PO BID [facility] Last Admin: 08/25/19 09:55 Dose: 12.5 mg Documented by: Famotidine (Pepcid) 20 mg PO QDAY [facility] Last Admin: 08/25/19 09:54 Dose: 20 mg Documented by: Furosemide (Lasix) 60 mg IV 0600,1800 [facility] Milrinone Lactate/Dextrose (Milrinone-D5w 20 Mg/100 Ml) 20 mg in 100 mls @ 13.421 mls/hr IV TITR [facility] Stop: 08/30/19 12:59 Insulin Glargine (Lantus) 25 units SUB-Q QHS [facility] Last Admin: 08/24/19 22:55 Dose: Not Given Documented by: Lisinopril (Zestril) 20 mg PO QDAY [facility] Last Admin: 08/25/19 09:56 Dose: 20 mg Documented by: Ondansetron HCl (Zofran) 4 mg IV Q8H PRN PRN Reason: Nausea And Vomiting Sodium Chloride (Sodium Chloride Flush Syringe 10 Ml) 10 ml IV BID [facility] Last Admin: 08/25/19 09:56 Dose: 10 ml Documented by: Sodium Chloride (Sodium Chloride Flush Syringe 10 Ml) 10 ml IV PRN PRN PRN Reason: LINE FLUSH Spironolactone (Aldactone) 25 mg PO QDAY [facility] Last Admin: 08/25/19 09:55 Dose: 25 mg Documented by: Review of Systems Cardiovascular: orthopnea, edema, shortness of breath, no chest pain, no palpitations, no rapid/irregular heart beat, no syncope, no lightheadedness Physical Examination Vital Signs Temp Pulse Resp BP Pulse Ox 97.0 F L 108 H 20 118/97 98 08/24/19 11:50 08/24/19 11:50 08/24/19 11:50 08/24/19 11:50 08/24/19 11:50 General appearance: no acute distress HEENT: Positive: PERRL Neck: Positive: neck supple Cardiac: Positive: irregularly irregular Lungs: Positive: Decreased Breath Sounds Neuro: Positive: Grossly Intact Abdomen: Positive: Soft Male genitourinary: Positive: deferred Skin: Positive: Clear Extremities: Present: +4 Edema Results 08/24/19 12:19 08/24/19 12:19 Lipids 08/24/19 Range/Units 12:19 Triglycerides 89 (2-149) mg/dL Cholesterol 159 (50-199) mg/dL HDL Cholesterol 58 (40-59) mg/dL Cholesterol/HDL Ratio 2.74 % Comprehensive Metabolic Panel 08/24/19 Range/Units 12:19 Sodium 144 (137-145) mmol/L Potassium 4.0 (3.6-5.0) mmol/L Chloride 106.6 (98-107) mmol/L Carbon Dioxide 22 (22-30) mmol/L BUN 38 H (9-20) mg/dL Creatinine 1.9 H (0.8-1.5) mg/dL Glucose 105 H (75-100) mg/dL Calcium 8.9 (8.4-10.2) mg/dL EKG interpretations - Telemetry EKG Rhythm: Atrial Fibrillation Assessment and Plan - Patient Problems (1) Acute on chronic systolic heart failure Current Visit: Yes Status: Acute Plan to address problem: The patient is admitted with acute on chronic systolic heart failure, as 4+ bilateral lower extremity edema extending to the sacral area and associated scrotal edema. He needs aggressive heart failure management, including intravenous diuretics and a trial of intravenous milrinone. (2) Chronic atrial fibrillation Current Visit: Yes Status: Acute Plan to address problem: Chronic atrial fibrillation will be managed on a rate control strategy. Before discharge, it'll be prudent to transition the patient to warfarin, which will be more affordable and therefore lead to better compliance.
--- NOTE | 2019-08-25 16:11 | Progress Note ---
Assessment and Plan (1) CHF Exacerbation Current Visit: Yes Status: Acute Qualifiers: Heart failure chronicity: acute on chronic Qualified Code(s): I50.23 - Acute on chronic systolic (congestive) heart failure Plan to address problem: IV Diuretics ECHO (2) HTN (hypertension) Current Visit: Yes Status: Acute Qualifiers: Hypertension type: essential hypertension Qualified Code(s): I10 - Essential (primary) hypertension Plan to address problem: Cont antihypertensives (3) Obesity hypoventilation syndrome Current Visit: Yes Status: Acute Plan to address problem: Supplemental oxygen, nebulizer therapy, pulse oximetry, chest x-ray, noninvasive positive pressure ventilation as clinically indicated, outpatient sleep study. (4) Atrial fibrillation with RVR Current Visit: Yes Status: Acute Plan to address problem: Patient responded to oral cardioversion with Cardizem, cardiology consulted, continue therapeutic anticoagulation. (5) Diabetes Current Visit: Yes Status: Acute Plan to address problem: Consistent carbohydrate diet, sliding scale insulin, Accu-Chek, hypoglycemia protocol. (6) TESSA (acute kidney injury) Current Visit: Yes Status: Acute Plan to address problem: Repeat BMP in a.m., monitor urine output every shift, gentle IV fluid resuscitation therapy as tolerated, urine electrolytes. (7) Atrial thrombus Current Visit: Yes Status: Acute Plan to address problem: HOLLAND from prior admission reviewed, cardiology consulted, continue therapeutic anticoagulation. (8) DVT prophylaxis Current Visit: Yes Status: Acute Plan to address problem: SCD to bilateral lower extremities while in bed, continue therapeutic anticoagulation. Subjective Date of service: 08/25/19 Principal diagnosis: CHF exacerbation Interval history: 59-year-old male with systolic congestive heart failure with ejection fraction of 15%, DM, HTN, atrial fibrillation, renal insufficiency, left atrial thrombus, on systemic anticoagulation, ejection fraction 15-20%, nonobstructive heart disease, noncompliance presents to ED for evaluation. Patient states that he had experienced shortness of breath over the last 2 days with worsening symptoms over the same timeframe. Patient acknowledges orthopnea and paroxysmal nocturnal dyspnea, decreased exercise tolerance, dyspnea on exertion, dyspnea at rest. Patient reports that he is compliant with some of his medications however he has ran out of other medication. Patient is unsure of which exact medication that he is taking. Patient transported to [facility] via private vehicle. Patient seen and evaluated in the emergency department. Patient lab and imaging studies reviewed. Patient sitting in bed using accessory muscles to breathe, patient appears uncomfortable, patient agitated. Patient unable to walk 10 feet without worsening shortness of breath. Patient found to have lab findings and clinical findings consistent with CHF decompensation as well as atrial fibrillation with rapid ventricular response. Patient admitted to telemetry for medical stabilization due to high likelihood of cardiac decompensation. Cardiology team consulted in the emergency department. Patient prior echo results reviewed. Patient initiated on CHF decompensation protocol. Prior admission on 07/19/2019 reviewed. All listed me dication at time of admission has been reconciled. Symptomatically better Objective - Constitutional Vitals: Vital Signs - 12hr 08/25/19 08/25/19 08/25/19 04:29 08:06 08:21 Temperature 98.0 F Pulse Rate 106 H Respiratory 20 Rate Blood Pressure 139/106 O2 Sat by Pulse 99 96 98 Oximetry 08/25/19 08/25/19 08/25/19 09:55 09:56 11:00 Temperature Pulse Rate 97 H 100 H 126 H Respiratory Rate Blood Pressure 134/90 134/90 O2 Sat by Pulse Oximetry 08/25/19 12:44 Temperature 98.2 F Pulse Rate 76 Respiratory 18 Rate Blood Pressure 141/95 O2 Sat by Pulse 97 Oximetry General appearance: Present: no acute distress, well-nourished - EENT Eyes: PERRL, EOM intact ENT: hearing intact, clear oral mucosa Ears: bilateral: normal - Neck Neck: supple, normal ROM - Respiratory Respiratory effort: normal Respiratory: bilateral: CTA - Breasts Breasts: normal - Cardiovascular Heart rate: 78 Rhythm: regular Heart Sounds: Present: S1 & S2. Absent: gallop, rub Extremities: no ischemia, pulses intact, No edema, normal color, Full ROM - Gastrointestinal General gastrointestinal: Present: soft, non-tender, non-distended, normal bowel sounds - Genitourinary Male genitourinary: normal - Integumentary Integumentary: clear, warm, dry - Musculoskeletal Musculoskeletal: 1, strength equal bilaterally - Neurologic Neurologic: moves all extremities - Psychiatric Psychiatric: memory intact, appropriate mood/affect, intact judgment & insight - Allied health notes Allied health notes reviewed: nursing, case management - Labs CBC & Chem 7: 08/24/19 12:19 08/24/19 12:19 Labs: Abnormal lab results 08/24/19 08/24/1908/24/19 Range/Units 12:19 17:30 22:19 BUN 38 H (9-20) mg/dL Creatinine 1.9 H (0.8-1.5) mg/dL Glucose 105 H (75-100) mg/dL POC Glucose 140 H (70-105) Total Creatine Kinase 195 H (55-170) units/L Troponin T 0.044 H 0.035 H (0.00-0.029) ng/mL - Imaging and cardiology EKG: report reviewed
[2019-08-25 17:43] LABS: INR 1.61 (0.87-1.13)
[2019-08-25] MEDS: FUROSEMIDE 100 MG/10 ML INJ IV SCH (17:50)
[2019-08-25] MEDS ORDERED: WARFARIN 5 MG TAB PO SCH (18:00)
[2019-08-25] MEDS ORDERED: FUROSEMIDE 20 MG/2 ML INJ IV SCH (18:00)
[2019-08-25] MEDS: INSULIN GLARGINE 100 UNITS/ML SUB-Q SCH (23:03)
[2019-08-26] MEDS: FUROSEMIDE 100 MG/10 ML INJ IV SCH ×2 (05:42→18:32)
[2019-08-26 06:47] LABS: Basophils % (Auto) 0.6 % (0.0-1.8); Eosinophils # (Auto) 0.1 K/mm3 (0.0-0.4); Eosinophils % (Auto) 1.2 % (0.0-4.3); Hematocrit 49.1 % (35.5-45.6); Hemoglobin 16.6 gm/dl (11.8-15.2); Lymphocytes # (Auto) 2.1 K/mm3 (1.2-5.4); Lymphocytes % (Auto) 24.6 % (13.4-35.0); Mean Corpuscular HGB Conc 34 % (32-34); Mean Corpuscular Volume 92 fl (84-94); Monocytes % (Auto) 11.6 % (0.0-7.3); Platelet Count 144 K/mm3 (140-440); Red Blood Count 5.33 M/mm3 (3.65-5.03); Red Cell Distribution Width 16.5 % (13.2-15.2)
[2019-08-26 06:56] LABS: INR 1.38 (0.87-1.13)
[2019-08-26 07:34] LABS: BUN/Creatinine Ratio TNR; Blood Urea Nitrogen TNR mg/dL (9-20); Calcium TNR mg/dL (8.4-10.2); Hemolysis Index TNR
[2019-08-26 09:03] LABS: Calcium 8.6 mg/dL (8.4-10.2)
--- NOTE | 2019-08-26 09:05 | Progress Note ---
Assessment and Plan Non-ischemic cardiomyopathy, LVEF 15-20% Acute on chronic systolic heart failure Permanent atrial fibrillation with history of SHAJI clot by HOLLAND 10/2018 Non-compliance Recommendations: Continue current management with milrinone and IV diuresis Monitor renal function Subjective Date of service: 08/26/19 Principal diagnosis: CHF exacerbation Interval history: Patient states that he is feeling better and edema is improving Objective Vital Signs Temp Pulse Resp BP Pulse Ox 08/26/19 06:25 97.5 F L 62 20 111/84 78 L 08/26/19 00:09 65 20 119/87 94 08/25/19 23:03 62 120/92 08/25/19 22:00 97 08/25/19 19:57 112 H 08/25/19 19:41 97.5 F L 08/25/19 19:32 105 H 20 118/90 97 08/25/19 17:05 106 H 114/95 99 08/25/19 12:44 98.2 F 76 18 141/95 97 08/25/19 11:00 126 H 08/25/19 09:56 100 H 134/90 08/25/19 09:55 97 H 134/90 - Physical Examination HEENT: Positive: PERRL Neck: Positive: neck supple, JVD/HJR Cardiac: Positive: Reg Rate and Rhythm Lungs: Positive: Decreased Breath Sounds Neuro: Positive: Grossly Intact Abdomen: Positive: Soft Skin: Positive: Clear Extremities: Present: +4 Edema - Labs and Meds Coagulation 08/25/19 08/26/19 Range/Units 16:44 06:17 PT 19.4 H 17.2 H (12.2-14.9) Sec. INR 1.61 H 1.38 H (0.87-1.13) CBC 08/26/19 Range/Units 06:17 WBC 8.4 (4.5-11.0) K/mm3 RBC 5.33 H (3.65-5.03) M/mm3 Hgb 16.6 H (11.8-15.2) gm/dl Hct 49.1 H (35.5-45.6) % Plt Count 144 (140-440) K/mm3 Lymph # 2.1 (1.2-5.4) K/mm3 [place] # 1.0 H (0.0-0.8) K/mm3 Eos # 0.1 (0.0-0.4) K/mm3 Baso # 0.0 (0.0-0.1) K/mm3 Comprehensive Metabolic Panel 08/26/19 Range/Units 06:17 Sodium TNR Potassium TNR Chloride TNR Carbon Dioxide TNR BUN TNR Creatinine TNR Glucose TNR Calcium TNR - Imaging and Cardiology EKG: report reviewed
[2019-08-26] MEDS: MILRINONE-D5W 20 MG/100 ML 20 MG/100 ML BAG IV SCH ×3 (09:07→22:07)
[2019-08-26] MEDS: FAMOTIDINE 20 MG TAB PO SCH (09:40)
[2019-08-26] MEDS: LISINOPRIL 20 MG TAB PO SCH (09:40)
[2019-08-26] MEDS: SPIRONOLACTONE 25 MG TAB PO SCH (09:42)
[2019-08-26] MEDS: ASPIRIN 81 MG TAB CHEW PO SCH (09:42)
[2019-08-26] MEDS: carvediloL 12.5 MG TAB PO SCH ×2 (09:42→22:07)
--- NOTE | 2019-08-26 16:25 | Progress Note ---
Assessment and Plan (1) CHF Exacerbation Current Visit: Yes Status: Acute Qualifiers: Heart failure chronicity: acute on chronic Qualified Code(s): I50.23 - Acute on chronic systolic (congestive) heart failure Plan to address problem: ECHO 15 to 20 percent Non-ischemic cardiomyopathy, LVEF 15-20% Acute on chronic systolic heart failure Permanent atrial fibrillation with history of SHAJI clot by HOLLAND 10/2018 Non-compliance Continue current management with milrinone and IV diuresis Monitor renal function (2) HTN (hypertension) Current Visit: Yes Status: Acute Qualifiers: Hypertension type: essential hypertension Qualified Code(s): I10 - Essential (primary) hypertension Plan to address problem: Cont antihypertensives (3) Obesity hypoventilation syndrome Current Visit: Yes Status: Acute Plan to address problem: Supplemental oxygen, nebulizer therapy, pulse oximetry, chest x-ray, noninvasive positive pressure ventilation as clinically indicated, outpatient sleep study. (4) Atrial fibrillation with RVR Current Visit: Yes Status: Acute Plan to address problem: Patient responded to oral cardioversion with Cardizem, cardiology consulted, continue therapeutic anticoagulation. (5) Diabetes Current Visit: Yes Status: Acute Plan to address problem: Consistent carbohydrate diet, sliding scale insulin, Accu-Chek, hypoglycemia protocol. (6) TESSA (acute kidney injury) Current Visit: Yes Status: Acute Plan to address problem: Repeat BMP in a.m., monitor urine output every shift, gentle IV fluid resuscitation therapy as tolerated, urine electrolytes. (7) Atrial thrombus Current Visit: Yes Status: Acute Plan to address problem: HOLLAND from prior admission reviewed, cardiology consulted, continue therapeutic anticoagulation. (8) DVT prophylaxis Current Visit: Yes Status: Acute Plan to address problem: SCD to bilateral lower extremities while in bed, continue therapeutic anticoagulation. Subjective Date of service: 08/26/19 Principal diagnosis: CHF exacerbation Interval history: 59-year-old male with systolic congestive heart failure with ejection fraction of 15%, DM, HTN, atrial fibrillation, renal insufficiency, left atrial thrombus, on systemic anticoagulation, ejection fraction 15-20%, nonobstructive heart disease, noncompliance presents to ED for evaluation. Patient states that he had experienced shortness of breath over the last 2 days with worsening symptoms over the same timeframe. Patient acknowledges orthopnea and paroxysmal nocturnal dyspnea, decreased exercise tolerance, dyspnea on exertion, dyspnea at rest. Patient reports that he is compliant with some of his medications however he has ran out of other medication. Patient is unsure of which exact medication that he is taking. Patient transported to [facility] via private vehicle. Patient seen and evaluated in the emergency department. Patient lab and imaging studies reviewed. Patient sitting in bed using accessory muscles to breathe, patient appears uncomfortable, patient agitated. Patient unable to walk 10 feet without worsening shortness of breath. Patient found to have lab findings and clinical findings consistent with CHF decompensation as well as atrial fibrillation with rapid ventricular response. Patient admitted to telemetry for medical stabilization due to high likelihood of cardiac decompensation. Cardiology team consulted in the emergency dep artment. Patient prior echo results reviewed. Patient initiated on CHF decompensation protocol. Prior admission on 07/19/2019 reviewed. All listed medication at time of admission has been reconciled. Symptomatically better Objective - Constitutional Vitals: Vital Signs - 12hr 08/26/19 08/26/19 08/26/19 06:25 09:00 09:40 Temperature 97.5 F L 98.7 F Pulse Rate 62 85 62 Respiratory 20 20 Rate Blood Pressure 111/84 131/88 111/84 O2 Sat by Pulse 78 L 95 Oximetry 08/26/19 08/26/19 08/26/19 09:42 11:57 11:58 Temperature 122.0 F H 98.2 F Pulse Rate 62 61 Respiratory 20 Rate Blood Pressure 111/84 106/72 O2 Sat by Pulse 95 Oximetry General appearance: Present: mild distress - EENT Eyes: PERRL, EOM intact ENT: hearing intact, clear oral mucosa Ears: bilateral: normal - Neck Neck: supple, normal ROM - Respiratory Respiratory effort: normal Respiratory: bilateral: CTA - Breasts Breasts: normal - Cardiovascular Heart rate: 78 Rhythm: regular Heart Sounds: Present: S1 & S2. Absent: gallop, rub Extremities: no ischemia, pulses intact, No edema, normal color, Full ROM - Gastrointestinal General gastrointestinal: Present: soft, non-tender, non-distended, normal bowel sounds - Genitourinary Male genitourinary: deferred, normal - Integumentary Integumentary: clear, warm, dry - Musculoskeletal Musculoskeletal: 1, strength equal bilaterally - Neurologic Neurologic: moves all extremities - Psychiatric Psychiatric: memory intact, appropriate mood/affect, intact judgment & insight - Labs CBC & Chem 7: 08/26/19 06:17 08/26/19 07:45 Labs: Abnormal lab results 08/25/19 08/25/19 08/26/19 Range/Units 16:44 21:54 06:17 RBC 5.33 H (3.65-5.03) M/mm3 Hgb 16.6 H (11.8-15.2) gm/dl Hct 49.1 H (35.5-45.6) % RDW 16.5 H (13.2-15.2) % [place] % (Auto) 11.6 H (0.0-7.3) % [place] # 1.0 H (0.0-0.8) K/mm3 PT 19.4 H (12.2-14.9) Sec. INR 1.61 H (0.87-1.13) BUN (9-20) mg/dL Creatinine (0.8-1.5) mg/dL Glucose (75-100) mg/dL POC Glucose 262 H (70-105) 08/26/19 08/26/19 08/26/19 Range/Units 06:17 07:45 14:05 RBC (3.65-5.03) M/mm3 Hgb (11.8-15.2) gm/dl Hct (35.5-45.6) % RDW (13.2-15.2) % [place] % (Auto) (0.0-7.3) % [place] # (0.0-0.8) K/mm3 PT 17.2 H (12.2-14.9) Sec. INR 1.38 H (0.87-1.13) BUN 34 H (9-20) mg/dL Creatinine 1.7 H (0.8-1.5) mg/dL Glucose 163 H (75-100) mg/dL POC Glucose 187 H (70-105)
[2019-08-26] MEDS ORDERED: WARFARIN 7.5 MG TAB PO SCH (17:00)
[2019-08-26] MEDS: INSULIN GLARGINE 100 UNITS/ML SUB-Q SCH (22:08)
[2019-08-27] MEDS: FUROSEMIDE 100 MG/10 ML INJ IV SCH ×2 (05:33→17:21)
[2019-08-27] MEDS: MILRINONE-D5W 20 MG/100 ML 20 MG/100 ML BAG IV SCH (06:04)
--- NOTE | 2019-08-27 08:36 | Progress Note ---
Subjective Date of service: 08/27/19 Principal diagnosis: CHF exacerbation Interval history: Assessment and Plan Non-ischemic cardiomyopathy, LVEF 15-20% Acute on chronic systolic heart failure Permanent atrial fibrillation with history of SHAJI clot by HOLLAND 10/2018 Non-compliance Recommendations: Continue current management with milrinone and IV diuresis Monitor renal function Objective Vital Signs Temp Pulse Resp BP Pulse Ox 08/27/19 04:36 98.0 F 114 H 20 112/81 65 L 08/27/19 04:00 114 H 08/26/19 23:14 98.0 F 44 L 18 137/106 93 08/26/19 22:45 95 08/26/19 22:07 70 132/96 08/26/19 20:00 138 H 08/26/19 19:44 98.9 F 68 20 132/96 100 08/26/19 18:24 97.0 F L 71 22 131/83 96 08/26/19 11:58 98.2 F 08/26/19 11:57 122.0 F H 61 20 106/72 95 08/26/19 09:42 62 111/84 08/26/19 09:40 62 111/84 08/26/19 09:00 98.7 F 85 20 131/88 95 - Physical Examination General: Appears Well HEENT: Positive: PERRL Neck: Positive: neck supple, JVD/HJR Cardiac: Positive: Reg Rate and Rhythm, S1/S2 Lungs: Positive: Normal Exam Neuro: Positive: Grossly Intact Abdomen: Positive: Soft Skin: Positive: Clear Extremities: Present: +2 Edema - Labs and Meds Comprehensive Metabolic Panel 08/26/19 Range/Units 07:45 Sodium 141 (137-145) mmol/L Potassium 3.8 (3.6-5.0) mmol/L Chloride 100.6 (98-107) mmol/L Carbon Dioxide 25 (22-30) mmol/L BUN 34 H (9-20) mg/dL Creatinine 1.7 H (0.8-1.5) mg/dL Glucose 163 H (75-100) mg/dL Calcium 8.6 (8.4-10.2) mg/dL - Imaging and Cardiology EKG: report reviewed
[2019-08-27] MEDS: INSULIN LISPRO 100 UNIT/ML SUB-Q SCH ×3 (09:04→17:21)
[2019-08-27] MEDS: LISINOPRIL 20 MG TAB PO SCH (09:09)
[2019-08-27] MEDS: FAMOTIDINE 20 MG TAB PO SCH (09:09)
[2019-08-27] MEDS: ASPIRIN 81 MG TAB CHEW PO SCH (09:09)
[2019-08-27] MEDS: carvediloL 12.5 MG TAB PO SCH (09:09)
[2019-08-27] MEDS: SPIRONOLACTONE 25 MG TAB PO SCH (09:09)
[2019-08-27 10:05] LABS: INR 0.79 (0.87-1.13)
--- NOTE | 2019-08-27 15:16 | Progress Note ---
Assessment and Plan (1) CHF Exacerbation Current Visit: Yes Status: Acute Qualifiers: Heart failure chronicity: acute on chronic Qualified Code(s): I50.23 - Acute on chronic systolic (congestive) heart failure Plan to address problem: ECHO 15 to 20 percent Non-ischemic cardiomyopathy, LVEF 15-20% Acute on chronic systolic heart failure Permanent atrial fibrillation with history of SHAJI clot by HOLLAND 10/2018 Non-compliance Continue current management with milrinone and IV diuresis Monitor renal function (2) HTN (hypertension) Current Visit: Yes Status: Acute Qualifiers: Hypertension type: essential hypertension Qualified Code(s): I10 - Essential (primary) hypertension Plan to address problem: Cont antihypertensives (3) Obesity hypoventilation syndrome Current Visit: Yes Status: Acute Plan to address problem: Supplemental oxygen, nebulizer therapy, pulse oximetry, chest x-ray, noninvasive positive pressure ventilation as clinically indicated, outpatient sleep study. (4) Atrial fibrillation with RVR Current Visit: Yes Status: Acute Plan to address problem: Patient responded to oral cardioversion with Cardizem, cardiology consulted, continue therapeutic anticoagulation. (5) Diabetes Current Visit: Yes Status: Acute Plan to address problem: Consistent carbohydrate diet, sliding scale insulin, Accu-Chek, hypoglycemia protocol. (6) TESSA (acute kidney injury) Current Visit: Yes Status: Acute Plan to address problem: Repeat BMP in a.m., monitor urine output every shift, gentle IV fluid resuscitation therapy as tolerated, urine electrolytes. (7) Atrial thrombus Current Visit: Yes Status: Acute Plan to address problem: HOLLAND from prior admission reviewed, cardiology consulted, continue therapeutic anticoagulation. (8) DVT prophylaxis Current Visit: Yes Status: Acute Plan to address problem: SCD to bilateral lower extremities while in bed, continue therapeutic anticoagulation. Discharge planning issues On Milrinone drip D/c home when cardiology clears Subjective Date of service: 08/27/19 Principal diagnosis: CHF exacerbation Interval history: 59-year-old male with systolic congestive heart failure with ejection fraction of 15%, DM, HTN, atrial fibrillation, renal insufficiency, left atrial thrombus, on systemic anticoagulation, ejection fraction 15-20%, nonobstructive heart disease, noncompliance presents to ED for evaluation. Patient states that he martinez d experienced shortness of breath over the last 2 days with worsening symptoms over the same timeframe. Patient acknowledges orthopnea and paroxysmal nocturnal dyspnea, decreased exercise tolerance, dyspnea on exertion, dyspnea at rest. Patient reports that he is compliant with some of his medications however he has ran out of other medication. Patient is unsure of which exact medication that he is taking. Patient transported to [facility] via private vehicle. Patient seen and evaluated in the emergency department. Patient lab and imaging studies reviewed. Patient sitting in bed using accessory muscles to breathe, patient appears uncomfortable, patient agitated. Patient unable to walk 10 feet without worsening shortness of breath. Patient found to have lab findings and clinical findings consistent with CHF decompensation as well as atrial fibrillation with rapid ventricular response. Patient admitted to telemetry for medical stabilization due to high likelihood of cardiac decompensation. Cardiology team consulted in the emergency department. Patient prior echo results reviewed. Patient initiated on CHF decompensation protocol. Prior admission on 07/19/2019 reviewed. All listed medication at time of admission has been reconciled. Symptomatically better Objective - Constitutional Vitals: Vital Signs - 12hr 08/27/19 08/27/19 08/27/19 04:00 04:36 08:27 Temperature 98.0 F 98.3 F Pulse Rate 114 H 114 H 67 Respiratory 20 18 Rate Blood Pressure 112/81 127/106 O2 Sat by Pulse 65 L 94 Oximetry 08/27/19 08/27/19 10:00 12:06 Temperature 98.2 F Pulse Rate 127 H 55 L Respiratory 18 Rate Blood Pressure 135/101 O2 Sat by Pulse 94 97 Oximetry General appearance: Present: no acute distress, well-nourished - EENT Eyes: PERRL, EOM intact ENT: hearing intact, clear oral mucosa Ears: bilateral: normal - Neck Neck: supple, normal ROM - Respiratory Respiratory effort: normal Respiratory: bilateral: CTA - Breasts Breasts: normal - Cardiovascular Heart rate: 78 Rhythm: regular Heart Sounds: Present: S1 & S2. Absent: gallop, rub Extremities: pulses intact, No edema, normal color, Full ROM - Gastrointestinal General gastrointestinal: Present: soft, non-tender, non-distended, normal bowel sounds - Genitourinary Male genitourinary: normal - Integumentary Integumentary: clear, warm, dry - Musculoskeletal Musculoskeletal: 1, strength equal bilaterally - Neurologic Neurologic: moves all extremities - Psychiatric Psychiatric: memory intact, appropriate mood/affect, intact judgment & insight - Labs CBC & Chem 7: 08/26/19 06:17 08/26/19 07:45 Labs: Abnormal lab results 08/26/19 08/27/19 Range/Units 22:09 08:21 PT 11.0 L (12.2-14.9) Sec. INR 0.79 L (0.87-1.13) POC Glucose 182 H (70-105)
[2019-08-27] MEDS: WARFARIN 10 MG TAB PO SCH (17:21)
[2019-08-28] MEDS: carvediloL 12.5 MG TAB PO SCH ×3 (00:08→21:57)
[2019-08-28] MEDS: INSULIN LISPRO 100 UNIT/ML SUB-Q SCH ×3 (00:09→21:59)
[2019-08-28] MEDS: INSULIN GLARGINE 100 UNITS/ML SUB-Q SCH ×2 (00:10→21:58)
[2019-08-28] MEDS ORDERED: AMIODARONE 150 MG in DEXTROSE 5% IN WATER 97 ML IV ONE (02:45)
[2019-08-28] MEDS ORDERED: AMIODARONE 900 MG in DEXTROSE 5% IN WATER 482 ML IV SCH (03:00)
[2019-08-28] MEDS: MILRINONE-D5W 20 MG/100 ML 20 MG/100 ML BAG IV SCH ×2 (05:13→19:30)
[2019-08-28] MEDS: FUROSEMIDE 100 MG/10 ML INJ IV SCH (05:54)
[2019-08-28] MEDS: ASPIRIN 81 MG TAB CHEW PO SCH (11:06)
[2019-08-28] MEDS: SPIRONOLACTONE 25 MG TAB PO SCH (11:06)
[2019-08-28] MEDS: LISINOPRIL 20 MG TAB PO SCH (11:06)
[2019-08-28] MEDS: FAMOTIDINE 20 MG TAB PO SCH (11:06)
--- NOTE | 2019-08-28 11:31 | Progress Note ---
Assessment and Plan Assessment and plan: 1) CHF Exacerbation Current Visit: Yes Status: Acute ECHO 15 to 20 percent Non-ischemic cardiomyopathy, LVEF 15-20% Acute on chronic systolic heart failure Permanent atrial fibrillation with history of SHAJI clot by HOLLAND 10/2018 Non-compliance Continue current management with milrinone and IV diuresis Monitor renal function (2) HTN (hypertension) Current Visit: Yes Status: Acute Cont antihypertensives (3) Obesity hypoventilation syndrome Current Visit: Yes Status: Acute Supplemental oxygen, nebulizer therapy, pulse oximetry, chest x-ray, noninvasive positive pressure ventilation as clinically indicated, outpatient sleep study. (4) Atrial fibrillation with RVR Current Visit: Yes Status: Acute Patient responded to oral cardioversion with Cardizem, cardiology following, continue therapeutic anticoagulation. (5) Diabetes Current Visit: Yes Status: Acute Consistent carbohydrate diet, sliding scale insulin, Accu-Chek, hypoglycemia protocol. (6) TESSA (acute kidney injury) Current Visit: Yes Status: Acute Repeat BMP in a.m., monitor urine output every shift, gentle IV fluid resuscitation therapy as tolerated, urine electrolytes. (7) Atrial thrombus Current Visit: Yes Status: Acute HOLLAND from prior admission reviewed, cardiology consulted, continue therapeutic anticoagulation. On amiodarone drip (8) DVT prophylaxis Current Visit: Yes Status: Acute SCD to bilateral lower extremities while in bed, continue therapeutic anticoagulation. Possible discharge in 1 to 2 days if stable And cleared by cardiology History Interval history: Patient seen and examined medical records reviewed Patient feels slightly better still complains of shortness of breath Patient denies chest pain Alert awake oriented x3 Vital signs reviewed Patient is on milrinone and amiodarone drips per cardiology Hospitalist Physical - Constitutional Vitals: Temp Pulse Resp BP Pulse Ox 98.2 F 84 22 135/76 93 08/28/19 08:23 08/28/19 11:05 08/28/19 09:00 08/28/19 11:05 08/28/19 09:00 General appearance: Present: no acute distress, well-nourished - EENT Eyes: Present: PERRL, EOM intact - Neck Neck: Present: supple, normal ROM - Respiratory Respiratory effort: normal Respiratory: bilateral: diminished, rales, negative: rhonchi, wheezing - Cardiovascular Rhythm: regular Heart Sounds: Present: S1 & S2 - Extremities Extremities: no ischemia, No edema - Abdominal General gastrointestinal: soft, non-tender, non-distended, normal bowel sounds - Integumentary Integumentary: Present: clear, warm - Psychiatric Psychiatric: appropriate mood/affect, cooperative - Neurologic Neurologic: CNII-XII intact, moves all extremities Results - Labs CBC & Chem 7: 08/28/19 07:57 08/28/19 07:57 Labs: Laboratory Last Values WBC 8.4 K/mm3 (4.5-11.0) 08/26/19 06:17 RBC 5.33 M/mm3 (3.65-5.03) H 08/26/19 06:17 Hgb 16.6 gm/dl (11.8-15.2) H 08/26/19 06:17 Hct 49.1 % (35.5-45.6) H 08/26/19 06:17 MCV 92 fl (84-94) 08/26/19 06:17 MCH 31 pg (28-32) 08/26/19 06:17 MCHC 34 % (32-34) 08/26/19 06:17 RDW 16.5 % (13.2-15.2) H 08/26/19 06:17 Plt Count 144 K/mm3 (140-440) 08/26/19 06:17 Lymph % (Auto) 24.6 % (13.4-35.0) 08/26/19 06:17 [place] % (Auto) 11.6 % (0.0-7.3) H 08/26/19 06:17 Eos % (Auto) 1.2 % (0.0-4.3) 08/26/19 06:17 Baso % (Auto) 0.6 % (0.0-1.8) 08/26/19 06:17 Lymph # 2.1 K/mm3 (1.2-5.4) 08/26/19 06:17 [place] # 1.0 K/mm3 (0.0-0.8) H 08/26/19 06:17 Eos # 0.1 K/mm3 (0.0-0.4) 08/26/19 06:17 Baso # 0.0 K/mm3 (0.0-0.1) 08/26/19 06:17 Seg Neutrophils % 62.0 % (40.0-70.0) 08/26/19 06:17 Seg Neutrophils # 5.2 K/mm3 (1.8-7.7) 08/26/19 06:17 PT 11.0 Sec. (12.2-14.9) L 08/27/19 08:21 INR 0.79 (0.87-1.13) L 08/27/19 08:21 Sodium 141 mmol/L (137-145) 08/26/19 07:45 Potassium 3.8 mmol/L (3.6-5.0) 08/26/19 07:45 Chloride 100.6 mmol/L (98-107) 08/26/19 07:45 Carbon Dioxide 25 mmol/L (22-30) 08/26/19 07:45 Anion Gap 19 mmol/L 08/26/19 07:45 BUN 34 mg/dL (9-20) H 08/26/19 07:45 Creatinine 1.7 mg/dL (0.8-1.5) H 08/26/19 07:45 Estimated GFR 50 ml/min 08/26/19 07:45 BUN/Creatinine Ratio 20 % 08/26/19 07:45 Glucose 163 mg/dL (75-100) H 08/26/19 07:45 POC Glucose 185 (70-105) H 08/28/19 08:41 Calcium 8.6 mg/dL (8.4-10.2) 08/26/19 07:45 Magnesium 2.10 mg/dL (1.7-2.3) 08/24/19 17:30 Total Creatine Kinase 195 units/L (55-170) H 08/24/19 17:30 Troponin T 0.035 ng/mL (0.00-0.029) H 08/24/19 17:30 NT-Pro-B Natriuret Pep 8127 pg/mL (0-900) H 08/24/19 12:19 Triglycerides 89 mg/dL (2-149) 08/24/19 12:19 Cholesterol 159 mg/dL (50-199) 08/24/19 12:19 LDL Cholesterol Direct 111 mg/dL (50-130) 08/24/19 12:19 HDL Cholesterol 58 mg/dL (40-59) 08/24/19 12:19 Cholesterol/HDL Ratio 2.74 % 08/24/19 12:19 Active Medications - Current Medications Current Medications: Generic Name Dose Route Start Last Admin Trade Name Freq PRN Reason Stop Dose Admin Acetaminophen 650 mg 08/24/19 18:04 08/27/19 13:16 Tylenol PO 650 mg Q4H PRN Administration Pain MILD(1-3)/Fever >100.5/HOWELL Albuterol 2.5 mg 08/24/19 18:04 Proventil IH Q4HRT PRN Shortness Of Breath Aspirin 81 mg 08/25/19 10:00 08/28/19 11:06 Baby Aspirin PO 81 mg QDAY IBIS Administration Atorvastatin Calcium 40 mg 08/25/19 10:00 08/28/19 11:06 Lipitor PO 40 mg QDAY IBIS Administration Carvedilol 12.5 mg 08/24/19 22:00 08/28/19 11:05 Coreg PO 12.5 mg BID IBIS Administration Famotidine 20 mg 08/25/19 10:00 08/28/19 11:06 Pepcid PO 20 mg QDAY IBIS Administration Furosemide 60 mg 08/25/19 18:00 08/28/19 05:54 Lasix IV 60 mg 0600,1800 IBIS Administration Milrinone Lactate/Dextrose 20 mg in 100 mls @ 13.421 mls/hr 08/25/19 13:00 08/28/19 05:13 Milrinone-D5w 20 Mg/100 Ml IV 08/30/19 12:59 0.375 mcg/kg/min TITR IBIS 13.421 mls/hr Administration 0.375 MCG/KG/MIN Amiodarone HCl 900 mg/ 500 mls @ 33.333 mls/hr 08/28/19 03:00 08/28/19 03:45 Dextrose IV 1 mg/min DIRECT IBIS 33.333 mls/hr Administration Protocol 1 MG/MIN Insulin Glargine 25 units 08/24/19 22:00 08/28/19 00:10 Lantus SUB-Q 25 units QHS IBIS Administration Insulin Human Lispro 0 unit 08/27/19 07:30 08/28/19 09:15 Humalog SUB-Q 2 unit ACHS IBIS Administration Protocol Lisinopril 20 mg 08/25/19 10:00 08/28/19 11:06 Zestril PO 20 mg QDAY IBIS Administration Ondansetron HCl 4 mg 08/24/19 18:04 Zofran IV Q8H PRN Nausea And Vomiting Sodium Chloride 10 ml 08/24/19 22:00 08/28/19 11:07 Sodium Chloride Flush Syringe 10 Ml IV 10 ml BID IBIS Administration Sodium Chloride 10 ml 08/24/19 18:04 08/28/19 00:20 Sodium Chloride Flush Syringe 10 Ml IV 10 ml PRN PRN Administration LINE FLUSH Spironolactone 25 mg 08/25/19 10:00 08/28/19 11:06 Aldactone PO 25 mg QDAY IBIS Administration Warfarin Sodium 10 mg 08/27/19 17:00 08/27/19 17:21 Coumadin PO 10 mg DAILY@1700 IBIS Administration Nutrition/Malnutrition Assess - Dietary Evaluation Nutrition/Malnutrition Findings: Nutrition Notes Start: 08/26/19 11:59 Freq: Status: Active Protocol: Document 08/26/19 11:59 LP (Rec: 08/26/19 12:02 LP [id number]) Nutrition Notes Need for Assessment generated from: Education Initial or Follow up Brief Note Current Diagnosis Acute Kidney Injury,Diabetes, Hypertension,Heart Failure Pertinent Medications Lasix, coumadin Subjective/Other Information Screen for coumadin. Pt states eating well [employer] and now. Pt states he was not on Coumadin before and consumes green leafy vegetables sometimes. #1 Nutrition Diagnosis Food and nutrition-related knowledge deficit Etiology Coumadin As Evidenced by Signs and Symptoms Pt new to Coumadin Nutrition Intervention Teaching Recipient Patient Learning Readiness Good Teaching Methods Discussion Response to Teaching Verbalize understanding Education Handouts Provided Vitamin K interaction Barriers to Learning No Barriers RD phone number provided Yes Patient aware of follow up options Yes Revisit per MD consult or patient Sign Off request:
[2019-08-28 12:42] LABS: Hematocrit 47.8 % (35.5-45.6); Hemoglobin 16.1 gm/dl (11.8-15.2); Mean Corpuscular HGB Conc 34 % (32-34); Mean Corpuscular Volume 92 fl (84-94); Platelet Count 135 K/mm3 (140-440); Red Blood Count 5.22 M/mm3 (3.65-5.03); Red Cell Distribution Width 15.8 % (13.2-15.2)
[2019-08-28 12:58] LABS: INR 1.15 (0.87-1.13)
[2019-08-28 13:09] LABS: Alanine Aminotransferase 54 units/L (7-56); Albumin 3.5 g/dL (3.9-5); BUN/Creatinine Ratio 17; Blood Urea Nitrogen 20 mg/dL (9-20); Hemolysis Index 50
[2019-08-28 13:59] LABS: Band Neutrophils # (Manual) 0.1 K/mm3; Total Cells Counted 100
[2019-08-28 14:00] LABS: Platelet Estimate Consistent w Auto; Target Cells 2+
--- NOTE | 2019-08-28 18:41 | Progress Note ---
Subjective Date of service: 08/28/19 Principal diagnosis: CHF exacerbation Interval history: Assessment and Plan Non-ischemic cardiomyopathy, LVEF 15-20% Acute on chronic systolic heart failure Permanent atrial fibrillation with history of SHAJI clot by HOLLAND 10/2018 Non-compliance Recommendations: Continue current management with IV milrinone and IV diuresis monitor renal function Objective Vital Signs Temp Pulse Resp BP Pulse Ox 08/28/19 16:41 97.9 F 75 18 108/84 98 08/28/19 11:05 84 135/76 08/28/19 10:00 123 H 08/28/19 09:00 22 93 08/28/19 08:49 93 08/28/19 08:23 98.2 F 47 L 18 119/84 93 08/28/19 04:23 98.0 F 61 18 115/81 92 08/28/19 00:08 70 116/87 08/27/19 23:45 98.0 F 58 L 18 127/92 92 08/27/19 22:50 95 08/27/19 20:11 98.0 F 70 20 116/87 97 08/27/19 19:24 128 H - Physical Examination General: Appears Well, No Apparent Distress HEENT: Positive: PERRL Neck: Positive: neck supple, JVD/HJR Cardiac: Positive: Reg Rate and Rhythm, S1/S2 Lungs: Positive: Normal Exam Neuro: Positive: Grossly Intact Abdomen: Positive: Soft Skin: Positive: Clear Extremities: Present: +2 Edema - Labs and Meds Cardiac Enzymes 08/28/19 Range/Units 07:57 AST 47 H (5-40) units/L Coagulation 08/28/19 Range/Units 07:57 PT 14.9 (12.2-14.9) Sec. INR 1.15 H (0.87-1.13) CBC 08/28/19 Range/Units 07:57 WBC 7.1 (4.5-11.0) K/mm3 RBC 5.22 H (3.65-5.03) M/mm3 Hgb 16.1 H (11.8-15.2) gm/dl Hct 47.8 H (35.5-45.6) % Plt Count 135 L (140-440) K/mm3 Comprehensive Metabolic Panel 08/28/19 Range/Units 07:57 Sodium 140 (137-145) mmol/L Potassium 4.0 (3.6-5.0) mmol/L Chloride 95.0 L (98-107) mmol/L Carbon Dioxide 28 (22-30) mmol/L BUN 20 (9-20) mg/dL Creatinine 1.2 (0.8-1.5) mg/dL Glucose 174 H (75-100) mg/dL Calcium 8.0 L (8.4-10.2) mg/dL AST 47 H (5-40) units/L ALT 54 (7-56) units/L Alkaline Phosphatase 146 H (35-129) units/L Total Protein 6.0 L (6.3-8.2) g/dL Albumin 3.5 L (3.9-5) g/dL - Imaging and Cardiology EKG: report reviewed
[2019-08-29] MEDS: MILRINONE-D5W 20 MG/100 ML 20 MG/100 ML BAG IV SCH ×3 (03:29→21:58)
[2019-08-29] MEDS: FUROSEMIDE 100 MG/10 ML INJ IV SCH (06:23)
[2019-08-29 08:32] LABS: INR 1.56 (0.87-1.13)
[2019-08-29] MEDS: INSULIN LISPRO 100 UNIT/ML SUB-Q SCH ×3 (09:15→17:34)
[2019-08-29] MEDS: LISINOPRIL 20 MG TAB PO SCH (09:31)
[2019-08-29] MEDS: FAMOTIDINE 20 MG TAB PO SCH (09:31)
[2019-08-29] MEDS: ASPIRIN 81 MG TAB CHEW PO SCH (09:32)
[2019-08-29] MEDS: carvediloL 12.5 MG TAB PO SCH ×2 (09:32→22:00)
[2019-08-29] MEDS: SPIRONOLACTONE 25 MG TAB PO SCH (09:40)
--- NOTE | 2019-08-29 09:51 | Progress Note ---
Assessment and Plan Chronic systolic heart failure Chronic atrial fibrillation currently on warfarin for oral anticoagulation Hx of SHAJI thrombus Non-ischemic cardiomyopathy LVEF 15-20% by echo 10/2018 Non-obstructive CAD by cardiac cath 10/2018 Hypertension Diabetes Recommendations: Fluid/sodium restriction. Rate control strategy for chronic atrial fibrillation. We will transition to oral amiodarone. Continue aggressive management for systolic heart failure including intravenous milrinone therapy. Subjective Date of service: 08/29/19 Principal diagnosis: CHF exacerbation Interval history: IV amiodarone continues; Afib with a well controlled ventricular rate on telemetry. IV milrinone continues for chronic systolic heart failure. Objective Vital Signs Temp Pulse Resp BP BP Pulse Ox 08/29/19 09:40 67 116/86 08/29/19 09:32 67 116/86 08/29/19 09:31 67 116/86 08/29/19 04:42 98.4 F 54 L 18 112/81 95 08/29/19 04:04 98.4 F 51 L 18 112/81 97 08/28/19 23:59 98.7 F 52 L 20 114/85 97 08/28/19 22:00 136 H 08/28/19 21:57 112 H 106/83 08/28/19 20:28 114 H 08/28/19 20:01 97.9 F 39 L 20 106/83 96 08/28/19 16:41 97.9 F 75 18 108/84 98 08/28/19 11:05 84 135/76 08/28/19 10:00 123 H - Physical Examination General: Appears Well, No Apparent Distress HEENT: Positive: PERRL Neck: Positive: neck supple, JVD/HJR Neuro: Positive: Grossly Intact Abdomen: Positive: Soft Skin: Positive: Clear Extremities: Present: +2 Edema - Labs and Meds Cardiac Enzymes 08/28/19 Range/Units 07:57 AST 47 H (5-40) units/L Coagulation 08/28/19 08/29/19 Range/Units 07:57 07:15 PT 14.9 18.9 H (12.2-14.9) Sec. INR 1.15 H 1.56 H (0.87-1.13) CBC 08/28/19 Range/Units 07:57 WBC 7.1 (4.5-11.0) K/mm3 RBC 5.22 H (3.65-5.03) M/mm3 Hgb 16.1 H (11.8-15.2) gm/dl Hct 47.8 H (35.5-45.6) % Plt Count 135 L (140-440) K/mm3 Comprehensive Metabolic Panel 08/28/19 Range/Units 07:57 Sodium 140 (137-145) mmol/L Potassium 4.0 (3.6-5.0) mmol/L Chloride 95.0 L (98-107) mmol/L Carbon Dioxide 28 (22-30) mmol/L BUN 20 (9-20) mg/dL Creatinine 1.2 (0.8-1.5) mg/dL Glucose 174 H (75-100) mg/dL Calcium 8.0 L (8.4-10.2) mg/dL AST 47 H (5-40) units/L ALT 54 (7-56) units/L Alkaline Phosphatase 146 H (35-129) units/L Total Protein 6.0 L (6.3-8.2) g/dL Albumin 3.5 L (3.9-5) g/dL - Imaging and Cardiology EKG: report reviewed
--- NOTE | 2019-08-29 19:03 | Progress Note ---
Assessment and Plan Assessment and plan: -- Atrial fibrillation with RVR Current Visit: Yes Status: Acute Patient responded to oral cardioversion with Cardizem, cardiology following, continue therapeutic anticoagulation. -- CHF Exacerbation Current Visit: Yes Status: Acute ECHO 15 to 20 percent Non-ischemic cardiomyopathy, LVEF 15-20% Acute on chronic systolic heart failure Permanent atrial fibrillation with history of SHAJI clot by HOLLAND 10/2018 Non-compliance Continue current management with milrinone and IV diuresis Monitor renal function -- HTN (hypertension) Current Visit: Yes Status: Acute Cont antihypertensives -- Obesity hypoventilation syndrome Current Visit: Yes Status: Acute Supplemental oxygen, nebulizer therapy, pulse oximetry, chest x-ray, noninvasive positive pressure ventilation as clinically indicated, outpatient sleep study. -- Diabetes Current Visit: Yes Status: Acute Consistent carbohydrate diet, sliding scale insulin, Accu-Chek, hypoglycemia protocol. -- TESSA (acute kidney injury) Current Visit: Yes Status: Acute Repeat BMP in a.m., monitor urine output every shift, gentle IV fluid resuscitation therapy as tolerated, urine electrolytes. -- Atrial thrombus Current Visit: Yes Status: Acute HOLLAND from prior admission reviewed, cardiology consulted, continue therapeutic anticoagulation. On amiodarone drip -- DVT prophylaxis Current Visit: Yes Status: Acute SCD to bilateral lower extremities while in bed, continue therapeutic an ticoagulation. Possible discharge in 1 to 2 days if stable And cleared by cardiology History Interval history: Disposition seen and examined medical records reviewed Physical slightly better continues to have severe shortness of breath Lower extremity edema slightly improved Denies chest pain Vital signs noted Hospitalist Physical - Constitutional Vitals: Temp Pulse Resp BP Pulse Ox 98.2 F 54 L 18 129/78 95 08/29/19 12:02 08/29/19 12:02 08/29/19 12:08 08/29/19 12:02 08/29/19 12:08 General appearance: Present: no acute distress, well-nourished - EENT Eyes: Present: PERRL, EOM intact - Neck Neck: Present: supple, normal ROM - Respiratory Respiratory effort: normal Respiratory: bilateral: diminished, rales, negative: rhonchi, wheezing - Cardiovascular Rhythm: regular Heart Sounds: Present: S1 & S2 - Extremities Extremity abnormal: edema - Abdominal General gastrointestinal: soft, non-tender, non-distended, normal bowel sounds - Integumentary Integumentary: Present: clear, warm - Psychiatric Psychiatric: appropriate mood/affect, cooperative - Neurologic Neurologic: CNII-XII intact, moves all extremities Results - Labs CBC & Chem 7: 08/28/19 07:57 08/28/19 07:57 Labs: Laboratory Last Values WBC 7.1 K/mm3 (4.5-11.0) 08/28/19 07:57 RBC 5.22 M/mm3 (3.65-5.03) H 08/28/19 07:57 Hgb 16.1 gm/dl (11.8-15.2) H 08/28/19 07:57 Hct 47.8 % (35.5-45.6) H 08/28/19 07:57 MCV 92 fl (84-94) 08/28/19 07:57 MCH 31 pg (28-32) 08/28/19 07:57 MCHC 34 % (32-34) 08/28/19 07:57 RDW 15.8 % (13.2-15.2) H 08/28/19 07:57 Plt Count 135 K/mm3 (140-440) L 08/28/19 07:57 Lymph % (Auto) 24.6 % (13.4-35.0) 08/26/19 06:17 [place] % (Auto) Patient Liaison 08/28/19 07:57 Eos % (Auto) 1.2 % (0.0-4.3) 08/26/19 06:17 Baso % (Auto) 0.6 % (0.0-1.8) 08/26/19 06:17 Lymph # 2.1 K/mm3 (1.2-5.4) 08/26/19 06:17 [place] # 1.0 K/mm3 (0.0-0.8) H 08/26/19 06:17 Eos # 0.1 K/mm3 (0.0-0.4) 08/26/19 06:17 Baso # 0.0 K/mm3 (0.0-0.1) 08/26/19 06:17 Add Manual Diff Complete 08/28/19 07:57 Total Counted 100 08/28/19 07:57 Seg Neutrophils % 62.0 % (40.0-70.0) 08/26/19 06:17 Seg Neuts % (Manual) 73.0 % (40.0-70.0) H 08/28/19 07:57 Band Neutrophils % 1.0 % 08/28/19 07:57 Lymphocytes % (Manual) 10.0 % (13.4-35.0) L 08/28/19 07:57 Reactive Lymphs % (Man) 1.0 % 08/28/19 07:57 Monocytes % (Manual) 13.0 % (0.0-7.3) H 08/28/19 07:57 Eosinophils % (Manual) 1.0 % (0.0-4.3) 08/28/19 07:57 Basophils % (Manual) 1.0 % (0.0-1.8) 08/28/19 07:57 Metamyelocytes % 0 % 08/28/19 07:57 Myelocytes % 0 % 08/28/19 07:57 Promyelocytes % 0 % 08/28/19 07:57 Blast Cells % 0 % 08/28/19 07:57 Nucleated RBC % Not Reportable 08/28/19 07:57 Seg Neutrophils # 5.2 K/mm3 (1.8-7.7) 08/26/19 06:17 Seg Neutrophils # Man 5.2 K/mm3 (1.8-7.7) 08/28/19 07:57 Band Neutrophils # 0.1 K/mm3 08/28/19 07:57 Lymphocytes # (Manual) 0.7 K/mm3 (1.2-5.4) L 08/28/19 07:57 Abs React Lymphs (Man) 0.1 K/mm3 08/28/19 07:57 Monocytes # (Manual) 0.9 K/mm3 (0.0-0.8) H 08/28/19 07:57 Eosinophils # (Manual) 0.1 K/mm3 (0.0-0.4) 08/28/19 07:57 Basophils # (Manual) 0.1 K/mm3 (0.0-0.1) 08/28/19 07:57 Metamyelocytes # 0.0 K/mm3 08/28/19 07:57 Myelocytes # 0.0 K/mm3 08/28/19 07:57 Promyelocytes # 0.0 K/mm3 08/28/19 07:57 Blast Cells # 0.0 K/mm3 08/28/19 07:57 WBC Morphology Not Reportable 08/28/19 07:57 Hypersegmented Neuts Not Reportable 08/28/19 07:57 Hyposegmented Neuts Not Reportable 08/28/19 07:57 Hypogranular Neuts Not Reportable 08/28/19 07:57 Smudge Cells Not Reportable 08/28/19 07:57 Toxic Granulation Not Reportable 08/28/19 07:57 Toxic Vacuolation Not Reportable 08/28/19 07:57 Dohle Bodies Not Reportable 08/28/19 07:57 Pelger-Huet Anomaly Not Reportable 08/28/19 07:57 Michael Rods Not Reportable 08/28/19 07:57 Platelet Estimate Consistent w auto 08/28/19 07:57 Clumped Platelets Not Reportable 08/28/19 07:57 Plt Clumps, EDTA Not Reportable 08/28/19 07:57 Large Platelets Not Reportable 08/28/19 07:57 Giant Platelets Not Reportable 08/28/19 07:57 Platelet Satelliting Not Reportable 08/28/19 07:57 Plt Morphology Comment Not Reportable 08/28/19 07:57 RBC Morphology Not Reportable 08/28/19 07:57 Dimorphic RBCs Not Reportable 08/28/19 07:57 Polychromasia Not Reportable 08/28/19 07:57 Hypochromasia Not Reportable 08/28/19 07:57 Poikilocytosis Not Reportable 08/28/19 07:57 Anisocytosis Not Reportable 08/28/19 07:57 Microcytosis Not Reportable 08/28/19 07:57 Macrocytosis Not Reportable 08/28/19 07:57 Spherocytes Not Reportable 08/28/19 07:57 Pappenheimer Bodies Not Reportable 08/28/19 07:57 Sickle Cells Not Reportable 08/28/19 07:57 Target Cells 2+ 08/28/19 07:57 Tear Drop Cells Not Reportable 08/28/19 07:57 Ovalocytes Not Reportable 08/28/19 07:57 Helmet Cells Not Reportable 08/28/19 07:57 Pleitez-Neligh Bodies Not Reportable 08/28/19 07:57 [place] Rings Not Reportable 08/28/19 07:57 Claudine Cells Not Reportable 08/28/19 07:57 Bite Cells Not Reportable 08/28/19 07:57 Crenated Cell Not Reportable 08/28/19 07:57 Elliptocytes Not Reportable 08/28/19 07:57 Acanthocytes (Spur) Not Reportable 08/28/19 07:57 Rouleaux Not Reportable 08/28/19 07:57 Hemoglobin C Crystals Not Reportable 08/28/19 07:57 Schistocytes Not Reportable 08/28/19 07:57 Malaria parasites Not Reportable 08/28/19 07:57 Jorge Bodies Not Reportable 08/28/19 07:57 Hem Pathologist Commnt No 08/28/19 07:57 PT 18.9 Sec. (12.2-14.9) H 08/29/19 07:15 INR 1.56 (0.87-1.13) H 08/29/19 07:15 Sodium 140 mmol/L (137-145) 08/28/19 07:57 Potassium 4.0 mmol/L (3.6-5.0) 08/28/19 07:57 Chloride 95.0 mmol/L (98-107) L 08/28/19 07:57 Carbon Dioxide 28 mmol/L (22-30) 08/28/19 07:57 Anion Gap 21 mmol/L 08/28/19 07:57 BUN 20 mg/dL (9-20) 08/28/19 07:57 Creatinine 1.2 mg/dL (0.8-1.5) 08/28/19 07:57 Estimated GFR > 60 ml/min 08/28/19 07:57 BUN/Creatinine Ratio 17 % 08/28/19 07:57 Glucose 174 mg/dL (75-100) H 08/28/19 07:57 POC Glucose 156 (70-105) H 08/29/19 17:17 Calcium 8.0 mg/dL (8.4-10.2) L 08/28/19 07:57 Magnesium 2.10 mg/dL (1.7-2.3) 08/24/19 17:30 Total Bilirubin 1.10 mg/dL (0.1-1.2) 08/28/19 07:57 AST 47 units/L (5-40) H 08/28/19 07:57 ALT 54 units/L (7-56) 08/28/19 07:57 Alkaline Phosphatase 146 units/L (35-129) H 08/28/19 07:57 Total Creatine Kinase 195 units/L (55-170) H 08/24/19 17:30 Troponin T 0.035 ng/mL (0.00-0.029) H 08/24/19 17:30 NT-Pro-B Natriuret Pep 8127 pg/mL (0-900) H 08/24/19 12:19 Total Protein 6.0 g/dL (6.3-8.2) L 08/28/19 07:57 Albumin 3.5 g/dL (3.9-5) L 08/28/19 07:57 Albumin/Globulin Ratio 1.4 % 08/28/19 07:57 Triglycerides 89 mg/dL (2-149) 08/24/19 12:19 Cholesterol 159 mg/dL (50-199) 08/24/19 12:19 LDL Cholesterol Direct 111 mg/dL (50-130) 08/24/19 12:19 HDL Cholesterol 58 mg/dL (40-59) 08/24/19 12:19 Cholesterol/HDL Ratio 2.74 % 08/24/19 12:19 Active Medications - Current Medications Current Medications: Generic Name Dose Route Start Last Admin Trade Name Freq PRN Reason Stop Dose Admin Acetaminophen 650 mg 08/24/19 18:04 08/27/19 13:16 Tylenol PO 650 mg Q4H PRN Administration Pain MILD(1-3)/Fever >100.5/HOWELL Albuterol 2.5 mg 08/24/19 18:04 Proventil IH Q4HRT PRN Shortness Of Breath Amiodarone HCl 200 mg 08/29/19 22:00 Cordarone PO BID IBIS Aspirin 81 mg 08/25/19 10:00 08/29/19 09:32 Baby Aspirin PO 81 mg QDAY IBIS Administration Atorvastatin Calcium 40 mg 08/25/19 10:00 08/29/19 09:32 Lipitor PO 40 mg QDAY IBIS Administration Carvedilol 12.5 mg 08/24/19 22:00 08/29/19 09:32 Coreg PO 12.5 mg BID IBIS Administration Famotidine 20 mg 08/25/19 10:00 08/29/19 09:31 Pepcid PO 20 mg QDAY IBIS Administration Furosemide 60 mg 08/25/19 18:00 08/29/19 06:23 Lasix IV 60 mg 0600,1800 IBIS Administration Milrinone Lactate/Dextrose 20 mg in 100 mls @ 13.421 mls/hr 08/25/19 13:00 08/29/19 13:46 Milrinone-D5w 20 Mg/100 Ml IV 08/30/19 12:59 0.375 mcg/kg/min TITR IBIS 13.421 mls/hr Administration 0.375 MCG/KG/MIN Insulin Glargine 25 units 08/24/19 22:00 08/28/19 21:58 Lantus SUB-Q 25 units QHS IBIS Administration Insulin Human Lispro 0 unit 08/27/19 07:30 08/29/19 17:34 Humalog SUB-Q 2 unit ACHS IBIS Administration Protocol Lisinopril 20 mg 08/25/19 10:00 08/29/19 09:31 Zestril PO 20 mg QDAY IBIS Administration Ondansetron HCl 4 mg 08/24/19 18:04 Zofran IV Q8H PRN Nausea And Vomiting Sodium Chloride 10 ml 08/24/19 22:00 08/29/19 09:41 Sodium Chloride Flush Syringe 10 Ml IV 10 ml BID IBIS Administration Sodium Chloride 10 ml 08/24/19 18:04 08/28/19 00:20 Sodium Chloride Flush Syringe 10 Ml IV 10 ml PRN PRN Administration LINE FLUSH Spironolactone 25 mg 08/25/19 10:00 08/29/19 09:40 Aldactone PO 25 mg QDAY IBIS Administration Warfarin Sodium 10 mg 08/27/19 17:00 08/27/19 17:21 Coumadin PO 10 mg DAILY@1700 IBIS Administration Nutrition/Malnutrition Assess - Dietary Evaluation Nutrition/Malnutrition Findings: Nutrition Notes Start: 08/26/19 11:59 Freq: Status: Active Protocol: Document 08/26/19 11:59 LP (Rec: 08/26/19 12:02 LP [id number]) Nutrition Notes Need for Assessment generated from: Education Initial or Follow up Brief Note Current Diagnosis Acute Kidney Injury,Diabetes, Hypertension,Heart Failure Pertinent Medications Lasix, coumadin Subjective/Other Information Screen for coumadin. Pt states eating well [employer]FORM[employer] and now. Pt states he was not on Coumadin before and consumes green leafy vegetables sometimes. #1 Nutrition Diagnosis Food and nutrition-related knowledge deficit Etiology Coumadin As Evidenced by Signs and Symptoms Pt new to Coumadin Nutrition Intervention Teaching Recipient Patient Learning Readiness Good Teaching Methods Discussion Response to Teaching Verbalize understanding Education Handouts Provided Vitamin K interaction Barriers to Learning No Barriers RD phone number provided Yes Patient aware of follow up options Yes Revisit per MD consult or patient Sign Off request:
[2019-08-29] MEDS: INSULIN GLARGINE 100 UNITS/ML SUB-Q SCH (22:00)
[2019-08-29] MEDS: AMIODARONE 200 MG TAB PO SCH (22:00)
[2019-08-30] MEDS: MILRINONE-D5W 20 MG/100 ML 20 MG/100 ML BAG IV SCH (05:54)
[2019-08-30] MEDS: FUROSEMIDE 100 MG/10 ML INJ IV SCH ×2 (05:54→17:00)
[2019-08-30] MEDS: INSULIN LISPRO 100 UNIT/ML SUB-Q SCH ×5 (09:00→22:30)
[2019-08-30] MEDS: SPIRONOLACTONE 25 MG TAB PO SCH (09:32)
[2019-08-30] MEDS: FAMOTIDINE 20 MG TAB PO SCH (09:32)
[2019-08-30] MEDS: AMIODARONE 200 MG TAB PO SCH ×2 (09:32→22:30)
[2019-08-30] MEDS: carvediloL 12.5 MG TAB PO SCH ×2 (09:34→22:30)
[2019-08-30] MEDS: LISINOPRIL 20 MG TAB PO SCH (09:35)
[2019-08-30] MEDS: ASPIRIN 81 MG TAB CHEW PO SCH (09:52)
[2019-08-30 09:59] LABS: INR 1.56 (0.87-1.13)
--- NOTE | 2019-08-30 10:38 | Progress Note ---
Assessment and Plan Chronic systolic heart failure Chronic atrial fibrillation currently on warfarin for oral anticoagulation Hx of SHAJI thrombus Non-ischemic cardiomyopathy LVEF 15-20% by echo 10/2018 Non-obstructive CAD by cardiac cath 10/2018 Hypertension Diabetes Recommendations: Fluid/sodium restriction. Continue rate controlling agents for chronic atrial fibrillation. Continue aggressive management for systolic heart failure. Subjective Date of service: 08/30/19 Principal diagnosis: CHF exacerbation Interval history: IV milrinone continues for chronic systolic heart failure. Patient is diuresing well. Objective Vital Signs Temp Pulse Resp BP Pulse Ox 08/30/19 09:35 116 H 117/92 08/30/19 09:34 116 H 117/92 08/30/19 09:32 116 H 117/92 08/30/19 07:59 18 97 08/30/19 07:36 98.1 F 18 117/92 08/30/19 05:48 99.3 F 08/30/19 05:46 51 L 18 104/60 96 08/30/19 00:03 100.0 F H 64 18 119/74 92 08/29/19 22:00 146 H 114/75 08/29/19 20:55 22 08/29/19 20:32 99.8 F H 56 L 20 114/75 95 08/29/19 12:08 18 95 08/29/19 12:02 98.2 F 54 L 18 129/78 93 - Physical Examination General: No Apparent Distress HEENT: Positive: PERRL Neck: Positive: trachea midline Cardiac: Positive: irregularly irregular Lungs: Positive: Decreased Breath Sounds Neuro: Positive: Grossly Intact Abdomen: Positive: Soft Skin: Positive: Clear Extremities: Present: +2 Edema - Labs and Meds Coagulation 08/30/19 Range/Units 08:39 PT 18.9 H (12.2-14.9) Sec. INR 1.56 H (0.87-1.13)
[2019-08-30] MEDS: WARFARIN 10 MG TAB PO SCH ×2 (17:00→18:30)
--- NOTE | 2019-08-30 19:53 | Progress Note ---
Assessment and Plan Assessment and plan: -- Atrial fibrillation with RVR Current Visit: Yes Status: Acute Patient responded to oral cardioversion with Cardizem, cardiology following, continue therapeutic anticoagulation. -- CHF Exacerbation EF 15-20% continue anti-failure medications Low-sodium diet fluid restriction On milrinone drip, received this afternoon -- HTN (hypertension) Current Visit: Yes Status: Acute Cont antihypertensives -- Obesity BMI 32.4 Current Visit: Yes Status: Acute Supplemental oxygen, nebulizer therapy, pulse oximetry, chest x-ray, noninvasive positive pressure ventilation as clinically indicated, outpatient sleep study. -- Diabetes Current Visit: Yes Status: Acute Consistent carbohydrate diet, sliding scale insulin, Accu-Chek, hypoglycemia protocol. -- TESSA (acute kidney injury) vasomotor nephropathy Current Visit: Yes Status: Acute Resolved, avoid nephrotoxins, monitor renal function -- Atrial thrombus Current Visit: Yes Status: Acute HOLLAND from prior admission reviewed, cardiology consulted, continue therapeutic anticoagulation. Subtherapeutic INR closely monitor target 2-3 -- DVT prophylaxis Current Visit: Yes Status: Acute SCD and Coumadin Consults and recommendations noted and appreciated Possible discharge in 1 to 2 days if stable And cleared by cardiology History Interval history: Patient seen and examined medical records reviewed Patient feels slightly better still has shortness of breath And complaints of generalized weakness and fatigue Denies chest pain Vital signs reviewed Hospitalist Physical - Constitutional Vitals: Temp Pulse Resp BP Pulse Ox 98.1 F 122 H 18 117/92 95 08/30/19 07:36 08/30/19 11:10 08/30/19 07:59 08/30/19 09:35 08/30/19 11:57 General appearance: Present: no acute distress, well-nourished - EENT Eyes: Present: PERRL, EOM intact - Neck Neck: Present: supple, normal ROM - Respiratory Respiratory effort: normal Respiratory: bilateral: diminished, rales, negative: rhonchi, wheezing - Cardiovascular Rhythm: regular Heart Sounds: Present: S1 & S2 - Extremities Extremities: no ischemia Extremity abnormal: edema - Abdominal General gastrointestinal: soft, non-tender, non-distended, normal bowel sounds - Integumentary Integumentary: Present: clear, warm - Psychiatric Psychiatric: appropriate mood/affect, cooperative - Neurologic Neurologic: CNII-XII intact, moves all extremities Results - Labs CBC & Chem 7: 08/28/19 07:57 08/28/19 07:57 Labs: Laboratory Last Values WBC 7.1 K/mm3 (4.5-11.0) 08/28/19 07:57 RBC 5.22 M/mm3 (3.65-5.03) H 08/28/19 07:57 Hgb 16.1 gm/dl (11.8-15.2) H 08/28/19 07:57 Hct 47.8 % (35.5-45.6) H 08/28/19 07:57 MCV 92 fl (84-94) 08/28/19 07:57 MCH 31 pg (28-32) 08/28/19 07:57 MCHC 34 % (32-34) 08/28/19 07:57 RDW 15.8 % (13.2-15.2) H 08/28/19 07:57 Plt Count 135 K/mm3 (140-440) L 08/28/19 07:57 Lymph % (Auto) 24.6 % (13.4-35.0) 08/26/19 06:17 [place] % (Auto) Loading Inspector 08/28/19 07:57 Eos % (Auto) 1.2 % (0.0-4.3) 08/26/19 06:17 Baso % (Auto) 0.6 % (0.0-1.8) 08/26/19 06:17 Lymph # 2.1 K/mm3 (1.2-5.4) 08/26/19 06:17 [place] # 1.0 K/mm3 (0.0-0.8) H 08/26/19 06:17 Eos # 0.1 K/mm3 (0.0-0.4) 08/26/19 06:17 Baso # 0.0 K/mm3 (0.0-0.1) 08/26/19 06:17 Add Manual Diff Complete 08/28/19 07:57 Total Counted 100 08/28/19 07:57 Seg Neutrophils % 62.0 % (40.0-70.0) 08/26/19 06:17 Seg Neuts % (Manual) 73.0 % (40.0-70.0) H 08/28/19 07:57 Band Neutrophils % 1.0 % 08/28/19 07:57 Lymphocytes % (Manual) 10.0 % (13.4-35.0) L 08/28/19 07:57 Reactive Lymphs % (Man) 1.0 % 08/28/19 07:57 Monocytes % (Manual) 13.0 % (0.0-7.3) H 08/28/19 07:57 Eosinophils % (Manual) 1.0 % (0.0-4.3) 08/28/19 07:57 Basophils % (Manual) 1.0 % (0.0-1.8) 08/28/19 07:57 Metamyelocytes % 0 % 08/28/19 07:57 Myelocytes % 0 % 08/28/19 07:57 Promyelocytes % 0 % 08/28/19 07:57 Blast Cells % 0 % 08/28/19 07:57 Nucleated RBC % Not Reportable 08/28/19 07:57 Seg Neutrophils # 5.2 K/mm3 (1.8-7.7) 08/26/19 06:17 Seg Neutrophils # Man 5.2 K/mm3 (1.8-7.7) 08/28/19 07:57 Band Neutrophils # 0.1 K/mm3 08/28/19 07:57 Lymphocytes # (Manual) 0.7 K/mm3 (1.2-5.4) L 08/28/19 07:57 Abs React Lymphs (Man) 0.1 K/mm3 08/28/19 07:57 Monocytes # (Manual) 0.9 K/mm3 (0.0-0.8) H 08/28/19 07:57 Eosinophils # (Manual) 0.1 K/mm3 (0.0-0.4) 08/28/19 07:57 Basophils # (Manual) 0.1 K/mm3 (0.0-0.1) 08/28/19 07:57 Metamyelocytes # 0.0 K/mm3 08/28/19 07:57 Myelocytes # 0.0 K/mm3 08/28/19 07:57 Promyelocytes # 0.0 K/mm3 08/28/19 07:57 Blast Cells # 0.0 K/mm3 08/28/19 07:57 WBC Morphology Not Reportable 08/28/19 07:57 Hypersegmented Neuts Not Reportable 08/28/19 07:57 Hyposegmented Neuts Not Reportable 08/28/19 07:57 Hypogranular Neuts Not Reportable 08/28/19 07:57 Smudge Cells Not Reportable 08/28/19 07:57 Toxic Granulation Not Reportable 08/28/19 07:57 Toxic Vacuolation Not Reportable 08/28/19 07:57 Dohle Bodies Not Reportable 08/28/19 07:57 Pelger-Huet Anomaly Not Reportable 08/28/19 07:57 Michael Rods Not Reportable 08/28/19 07:57 Platelet Estimate Consistent w auto 08/28/19 07:57 Clumped Platelets Not Reportable 08/28/19 07:57 Plt Clumps, EDTA Not Reportable 08/28/19 07:57 Large Platelets Not Reportable 08/28/19 07:57 Giant Platelets Not Reportable 08/28/19 07:57 Platelet Satelliting Not Reportable 08/28/19 07:57 Plt Morphology Comment Not Reportable 08/28/19 07:57 RBC Morphology Not Reportable 08/28/19 07:57 Dimorphic RBCs Not Reportable 08/28/19 07:57 Polychromasia Not Reportable 08/28/19 07:57 Hypochromasia Not Reportable 08/28/19 07:57 Poikilocytosis Not Reportable 08/28/19 07:57 Anisocytosis Not Reportable 08/28/19 07:57 Microcytosis Not Reportable 08/28/19 07:57 Macrocytosis Not Reportable 08/28/19 07:57 Spherocytes Not Reportable 08/28/19 07:57 Pappenheimer Bodies Not Reportable 08/28/19 07:57 Sickle Cells Not Reportable 08/28/19 07:57 Target Cells 2+ 08/28/19 07:57 Tear Drop Cells Not Reportable 08/28/19 07:57 Ovalocytes Not Reportable 08/28/19 07:57 Helmet Cells Not Reportable 08/28/19 07:57 Pleitez-Ingalls Bodies Not Reportable 08/28/19 07:57 [place] Rings Not Reportable 08/28/19 07:57 Claudine Cells Not Reportable 08/28/19 07:57 Bite Cells Not Reportable 08/28/19 07:57 Crenated Cell Not Reportable 08/28/19 07:57 Elliptocytes Not Reportable 08/28/19 07:57 Acanthocytes (Spur) Not Reportable 08/28/19 07:57 Rouleaux Not Reportable 08/28/19 07:57 Hemoglobin C Crystals Not Reportable 08/28/19 07:57 Schistocytes Not Reportable 08/28/19 07:57 Malaria parasites Not Reportable 08/28/19 07:57 Jorge Bodies Not Reportable 08/28/19 07:57 Hem Pathologist Commnt No 08/28/19 07:57 PT 18.9 Sec. (12.2-14.9) H 08/30/19 08:39 INR 1.56 (0.87-1.13) H 08/30/19 08:39 Sodium 140 mmol/L (137-145) 08/28/19 07:57 Potassium 4.0 mmol/L (3.6-5.0) 08/28/19 07:57 Chloride 95.0 mmol/L (98-107) L 08/28/19 07:57 Carbon Dioxide 28 mmol/L (22-30) 08/28/19 07:57 Anion Gap 21 mmol/L 08/28/19 07:57 BUN 20 mg/dL (9-20) 08/28/19 07:57 Creatinine 1.2 mg/dL (0.8-1.5) 08/28/19 07:57 Estimated GFR > 60 ml/min 08/28/19 07:57 BUN/Creatinine Ratio 17 % 08/28/19 07:57 Glucose 174 mg/dL (75-100) H 08/28/19 07:57 POC Glucose 143 (70-105) H 08/30/19 16:56 Calcium 8.0 mg/dL (8.4-10.2) L 08/28/19 07:57 Magnesium 2.10 mg/dL (1.7-2.3) 08/24/19 17:30 Total Bilirubin 1.10 mg/dL (0.1-1.2) 08/28/19 07:57 AST 47 units/L (5-40) H 08/28/19 07:57 ALT 54 units/L (7-56) 08/28/19 07:57 Alkaline Phosphatase 146 units/L (35-129) H 08/28/19 07:57 Total Creatine Kinase 195 units/L (55-170) H 08/24/19 17:30 Troponin T 0.035 ng/mL (0.00-0.029) H 08/24/19 17:30 NT-Pro-B Natriuret Pep 8127 pg/mL (0-900) H 08/24/19 12:19 Total Protein 6.0 g/dL (6.3-8.2) L 08/28/19 07:57 Albumin 3.5 g/dL (3.9-5) L 08/28/19 07:57 Albumin/Globulin Ratio 1.4 % 08/28/19 07:57 Triglycerides 89 mg/dL (2-149) 08/24/19 12:19 Cholesterol 159 mg/dL (50-199) 08/24/19 12:19 LDL Cholesterol Direct 111 mg/dL (50-130) 08/24/19 12:19 HDL Cholesterol 58 mg/dL (40-59) 08/24/19 12:19 Cholesterol/HDL Ratio 2.74 % 08/24/19 12:19 Active Medications - Current Medications Current Medications: Generic Name Dose Route Start Last Admin Trade Name Freq PRN Reason Stop Dose Admin Acetaminophen 650 mg 08/24/19 18:04 08/27/19 13:16 Tylenol PO 650 mg Q4H PRN Administration Pain MILD(1-3)/Fever >100.5/HOWELL Albuterol 2.5 mg 08/24/19 18:04 Proventil IH Q4HRT PRN Shortness Of Breath Amiodarone HCl 200 mg 08/29/19 22:00 08/30/19 09:32 Cordarone PO 200 mg BID IBIS Administration Aspirin 81 mg 08/25/19 10:00 08/30/19 09:52 Baby Aspirin PO 81 mg QDAY IBIS Administration Atorvastatin Calcium 40 mg 08/25/19 10:00 08/30/19 09:32 Lipitor PO 40 mg QDAY IBIS Administration Carvedilol 12.5 mg 08/24/19 22:00 08/30/19 09:34 Coreg PO 12.5 mg BID IBIS Administration Famotidine 20 mg 08/25/19 10:00 08/30/19 09:32 Pepcid PO 20 mg QDAY IBIS Administration Furosemide 60 mg 08/25/19 18:00 08/30/19 17:00 Lasix IV 60 mg 0600,1800 IBIS Administration Insulin Glargine 25 units 08/24/19 22:00 08/29/19 22:00 Lantus SUB-Q 25 units QHS IBIS Administration Insulin Human Lispro 0 unit 08/27/19 07:30 08/30/19 16:56 Humalog SUB-Q Not Given ACHS [facility] Protocol Lisinopril 20 mg 08/25/19 10:00 08/30/19 09:35 Zestril PO 20 mg QDAY IBIS Administration Ondansetron HCl 4 mg 08/24/19 18:04 Zofran IV Q8H PRN Nausea And Vomiting Sodium Chloride 10 ml 08/24/19 22:00 08/30/19 09:35 Sodium Chloride Flush Syringe 10 Ml IV 10 ml BID IBIS Administration Sodium Chloride 10 ml 08/24/19 18:04 08/28/19 00:20 Sodium Chloride Flush Syringe 10 Ml IV 10 ml PRN PRN Administration LINE FLUSH Spironolactone 25 mg 08/25/19 10:00 08/30/19 09:32 Aldactone PO 25 mg QDAY IBIS Administration Warfarin Sodium 10 mg 08/27/19 17:00 08/30/19 18:30 Coumadin PO 10 mg DAILY@1700 IBIS Administration Nutrition/Malnutrition Assess - Dietary Evaluation Nutrition/Malnutrition Findings: Nutrition Notes Start: 08/26/19 11:59 Freq: Status: Active Protocol: Document 08/26/19 11:59 LP (Rec: 08/26/19 12:02 LP [id number]) Nutrition Notes Need for Assessment generated from: Education Initial or Follow up Brief Note Current Diagnosis Acute Kidney Injury,Diabetes, Hypertension,Heart Failure Pertinent Medications Lasix, coumadin Subjective/Other Information Screen for coumadin. Pt states eating well [employer] and now. Pt states he was not on Coumadin before and consumes green leafy vegetables sometimes. #1 Nutrition Diagnosis Food and nutrition-related knowledge deficit Etiology Coumadin As Evidenced by Signs and Symptoms Pt new to Coumadin Nutrition Intervention Teaching Recipient Patient Learning Readiness Good Teaching Methods Discussion Response to Teaching Verbalize understanding Education Handouts Provided Vitamin K interaction Barriers to Learning No Barriers RD phone number provided Yes Patient aware of follow up options Yes Revisit per MD consult or patient Sign Off request:
[2019-08-30] MEDS: INSULIN GLARGINE 100 UNITS/ML SUB-Q SCH (22:29)
[2019-08-31] MEDS: FUROSEMIDE 100 MG/10 ML INJ IV SCH ×3 (06:50→17:35)
[2019-08-31 08:53] LABS: INR 1.58 (0.87-1.13)
[2019-08-31 09:24] LABS: BUN/Creatinine Ratio 18; Blood Urea Nitrogen 23 mg/dL (9-20); Calcium 8.4 mg/dL (8.4-10.2); Hemolysis Index 5
[2019-08-31] MEDS: INSULIN LISPRO 100 UNIT/ML SUB-Q SCH ×3 (10:34→22:00)
[2019-08-31] MEDS: carvediloL 12.5 MG TAB PO SCH ×2 (10:35→22:41)
[2019-08-31] MEDS: AMIODARONE 200 MG TAB PO SCH ×2 (10:35→22:40)
[2019-08-31] MEDS: ASPIRIN 81 MG TAB CHEW PO SCH (10:35)
[2019-08-31] MEDS: SPIRONOLACTONE 25 MG TAB PO SCH (10:35)
[2019-08-31] MEDS: LISINOPRIL 20 MG TAB PO SCH (10:35)
[2019-08-31] MEDS: FAMOTIDINE 20 MG TAB PO SCH (10:35)
--- NOTE | 2019-08-31 11:59 | Progress Note ---
Assessment and Plan - Patient Problems (1) Acute on chronic systolic heart failure Current Visit: Yes Status: Acute Plan to address problem: The patient was admitted with acute on chronic systolic heart failure, edema and heart failure symptoms are improving on aggressive medical therapy. (2) Chronic atrial fibrillation Current Visit: Yes Status: Acute Plan to address problem: Chronic atrial fibrillation will be managed on a rate control strategy and warfarin for anticoagulation. Subjective Date of service: 08/31/19 Principal diagnosis: CHF exacerbation Interval history: Patient continues to diurese well, no new cardiac complaints. Objective Vital Signs Temp Pulse Resp BP BP Pulse Ox 08/31/19 09:00 120 H 08/31/19 08:46 94 08/31/19 05:03 99.1 F 106 H 20 119/86 94 08/31/19 01:41 99.5 F 46 L 20 109/81 94 08/30/19 22:30 60 112/88 08/30/19 22:00 122 H 08/30/19 20:30 99.6 F 60 22 112/88 88 08/30/19 20:12 99 08/30/19 20:00 100 08/30/19 16:49 97.3 F L 18 118/88 - Physical Examination General: No Apparent Distress HEENT: Positive: PERRL Neck: Positive: trachea midline Cardiac: Positive: Reg Rate and Rhythm Lungs: Positive: Decreased Breath Sounds Neuro: Positive: Grossly Intact Abdomen: Positive: Soft Skin: Positive: Clear Extremities: Present: +2 Edema - Labs and Meds Coagulation 08/31/19 Range/Units 07:59 PT 19.1 H (12.2-14.9) Sec. INR 1.58 H (0.87-1.13) Comprehensive Metabolic Panel 08/31/19 Range/Units 07:59 Sodium 136 L (137-145) mmol/L Potassium 3.7 (3.6-5.0) mmol/L Chloride 93.4 L (98-107) mmol/L Carbon Dioxide 26 (22-30) mmol/L BUN 23 H (9-20) mg/dL Creatinine 1.3 (0.8-1.5) mg/dL Glucose 99 (75-100) mg/dL Calcium 8.4 (8.4-10.2) mg/dL - Imaging and Cardiology EKG: report reviewed
[2019-08-31] MEDS: WARFARIN 10 MG TAB PO SCH ×2 (17:34→17:35)
--- NOTE | 2019-08-31 18:53 | Progress Note ---
Assessment and Plan Assessment and plan: -- Lt.Atrial thrombus; on HOLLAND Current Visit: Yes Status: Acute HOLLAND from prior admission reviewed, Continue therapeutic anticoagulation on Coumadin Subtherapeutic INR closely monitor target 2-3 --Ac on Sheet Folder systolic CHF EF 15-20% continue anti-failure medications Low-sodium diet fluid restriction s/p milrinone drip symptoms significantly improved -- Atrial fibrillation with RVR Current Visit: Yes Status: Acute Patient responded to oral cardioversion with Cardizem, cardiology following, continue therapeutic anticoagulation. -- HTN (hypertension) Current Visit: Yes Status: Acute Cont antihypertensives -- Obesity BMI 32.4 Current Visit: Yes Status: Acute Supplemental oxygen, nebulizer therapy, pulse oximetry, chest x-ray, noninvasive positive pressure ventilation as clinically indicated, outpatient sleep study. -- Diabetes Current Visit: Yes Status: Acute Consistent carbohydrate diet, sliding scale insulin, Accu-Chek, hypoglycemia protocol. -- TESSA (acute kidney injury) vasomotor nephropathy Current Visit: Yes Status: Acute Resolved, avoid nephrotoxins, monitor renal function --Medical noncompliance: Patient strongly advised to comply with medications diet follow-up visits Patient verbalize understanding -- DVT prophylaxis Current Visit: Yes Status: Acute SCD and Coumadin --DC planning per case management Multiple social, insurance and financial issues Consults and recommendations noted and appreciated . Possible discharge in 1 to 2 days if stable And cleared by cardiology History Interval history: Patient Seen and examined medical records reviewed Patient complains of generalized weakness and fatigue Completed milrinone drip Denies chest pain mild shortness of breath Vital signs reviewed Hospitalist Physical - Constitutional Vitals: Temp Pulse Resp BP Pulse Ox 99.1 F 120 H 20 119/86 94 08/31/19 05:03 08/31/19 09:00 08/31/19 05:03 08/31/19 05:03 08/31/19 08:46 General appearance: Present: no acute distress, well-nourished - EENT Eyes: Present: PERRL, EOM intact - Neck Neck: Present: supple, normal ROM - Respiratory Respiratory effort: normal Respiratory: bilateral: diminished, rales, negative: rhonchi, wheezing - Cardiovascular Rhythm: regular Heart Sounds: Present: S1 & S2 - Extremities Extremities: no ischemia Extremity abnormal: edema - Abdominal General gastrointestinal: soft, non-tender, non-distended, normal bowel sounds - Integumentary Integumentary: Present: clear, warm - Psychiatric Psychiatric: appropriate mood/affect, cooperative - Neurologic Neurologic: CNII-XII intact, moves all extremities Results - Labs CBC & Chem 7: 08/28/19 07:57 08/31/19 07:59 Labs: Laboratory Last Values WBC 7.1 K/mm3 (4.5-11.0) 08/28/19 07:57 RBC 5.22 M/mm3 (3.65-5.03) H 08/28/19 07:57 Hgb 16.1 gm/dl (11.8-15.2) H 08/28/19 07:57 Hct 47.8 % (35.5-45.6) H 08/28/19 07:57 MCV 92 fl (84-94) 08/28/19 07:57 MCH 31 pg (28-32) 08/28/19 07:57 MCHC 34 % (32-34) 08/28/19 07:57 RDW 15.8 % (13.2-15.2) H 08/28/19 07:57 Plt Count 135 K/mm3 (140-440) L 08/28/19 07:57 Lymph % (Auto) 24.6 % (13.4-35.0) 08/26/19 06:17 [place] % (Auto) Senior [employer] Administrator 08/28/19 07:57 Eos % (Auto) 1.2 % (0.0-4.3) 08/26/19 06:17 Baso % (Auto) 0.6 % (0.0-1.8) 08/26/19 06:17 Lymph # 2.1 K/mm3 (1.2-5.4) 08/26/19 06:17 [place] # 1.0 K/mm3 (0.0-0.8) H 08/26/19 06:17 Eos # 0.1 K/mm3 (0.0-0.4) 08/26/19 06:17 Baso # 0.0 K/mm3 (0.0-0.1) 08/26/19 06:17 Add Manual Diff Complete 08/28/19 07:57 Total Counted 100 08/28/19 07:57 Seg Neutrophils % 62.0 % (40.0-70.0) 08/26/19 06:17 Seg Neuts % (Manual) 73.0 % (40.0-70.0) H 08/28/19 07:57 Band Neutrophils % 1.0 % 08/28/19 07:57 Lymphocytes % (Manual) 10.0 % (13.4-35.0) L 08/28/19 07:57 Reactive Lymphs % (Man) 1.0 % 08/28/19 07:57 Monocytes % (Manual) 13.0 % (0.0-7.3) H 08/28/19 07:57 Eosinophils % (Manual) 1.0 % (0.0-4.3) 08/28/19 07:57 Basophils % (Manual) 1.0 % (0.0-1.8) 08/28/19 07:57 Metamyelocytes % 0 % 08/28/19 07:57 Myelocytes % 0 % 08/28/19 07:57 Promyelocytes % 0 % 08/28/19 07:57 Blast Cells % 0 % 08/28/19 07:57 Nucleated RBC % Not Reportable 08/28/19 07:57 Seg Neutrophils # 5.2 K/mm3 (1.8-7.7) 08/26/19 06:17 Seg Neutrophils # Man 5.2 K/mm3 (1.8-7.7) 08/28/19 07:57 Band Neutrophils # 0.1 K/mm3 08/28/19 07:57 Lymphocytes # (Manual) 0.7 K/mm3 (1.2-5.4) L 08/28/19 07:57 Abs React Lymphs (Man) 0.1 K/mm3 08/28/19 07:57 Monocytes # (Manual) 0.9 K/mm3 (0.0-0.8) H 08/28/19 07:57 Eosinophils # (Manual) 0.1 K/mm3 (0.0-0.4) 08/28/19 07:57 Basophils # (Manual) 0.1 K/mm3 (0.0-0.1) 08/28/19 07:57 Metamyelocytes # 0.0 K/mm3 08/28/19 07:57 Myelocytes # 0.0 K/mm3 08/28/19 07:57 Promyelocytes # 0.0 K/mm3 08/28/19 07:57 Blast Cells # 0.0 K/mm3 08/28/19 07:57 WBC Morphology Not Reportable 08/28/19 07:57 Hypersegmented Neuts Not Reportable 08/28/19 07:57 Hyposegmented Neuts Not Reportable 08/28/19 07:57 Hypogranular Neuts Not Reportable 08/28/19 07:57 Smudge Cells Not Reportable 08/28/19 07:57 Toxic Granulation Not Reportable 08/28/19 07:57 Toxic Vacuolation Not Reportable 08/28/19 07:57 Dohle Bodies Not Reportable 08/28/19 07:57 Pelger-Huet Anomaly Not Reportable 08/28/19 07:57 Michael Rods Not Reportable 08/28/19 07:57 Platelet Estimate Consistent w auto 08/28/19 07:57 Clumped Platelets Not Reportable 08/28/19 07:57 Plt Clumps, EDTA Not Reportable 08/28/19 07:57 Large Platelets Not Reportable 08/28/19 07:57 Giant Platelets Not Reportable 08/28/19 07:57 Platelet Satelliting Not Reportable 08/28/19 07:57 Plt Morphology Comment Not Reportable 08/28/19 07:57 RBC Morphology Not Reportable 08/28/19 07:57 Dimorphic RBCs Not Reportable 08/28/19 07:57 Polychromasia Not Reportable 08/28/19 07:57 Hypochromasia Not Reportable 08/28/19 07:57 Poikilocytosis Not Reportable 08/28/19 07:57 Anisocytosis Not Reportable 08/28/19 07:57 Microcytosis Not Reportable 08/28/19 07:57 Macrocytosis Not Reportable 08/28/19 07:57 Spherocytes Not Reportable 08/28/19 07:57 Pappenheimer Bodies Not Reportable 08/28/19 07:57 Sickle Cells Not Reportable 08/28/19 07:57 Target Cells 2+ 08/28/19 07:57 Tear Drop Cells Not Reportable 08/28/19 07:57 Ovalocytes Not Reportable 08/28/19 07:57 Helmet Cells Not Reportable 08/28/19 07:57 [place] Bodies Not Reportable 08/28/19 07:57 [place] Rings Not Reportable 08/28/19 07:57 [place] Cells Not Reportable 08/28/19 07:57 Bite Cells Not Reportable 08/28/19 07:57 Crenated Cell Not Reportable 08/28/19 07:57 Elliptocytes Not Reportable 08/28/19 07:57 Acanthocytes (Spur) Not Reportable 08/28/19 07:57 Rouleaux Not Reportable 08/28/19 07:57 Hemoglobin C Crystals Not Reportable 08/28/19 07:57 Schistocytes Not Reportable 08/28/19 07:57 Malaria parasites Not Reportable 08/28/19 07:57 Jorge Bodies Not Reportable 08/28/19 07:57 Hem Pathologist Commnt No 08/28/19 07:57 PT 19.1 Sec. (12.2-14.9) H 08/31/19 07:59 INR 1.58 (0.87-1.13) H 08/31/19 07:59 Sodium 136 mmol/L (137-145) L 08/31/19 07:59 Potassium 3.7 mmol/L (3.6-5.0) 08/31/19 07:59 Chloride 93.4 mmol/L (98-107) L 08/31/19 07:59 Carbon Dioxide 26 mmol/L (22-30) 08/31/19 07:59 Anion Gap 20 mmol/L 08/31/19 07:59 BUN 23 mg/dL (9-20) H 08/31/19 07:59 Creatinine 1.3 mg/dL (0.8-1.5) 08/31/19 07:59 Estimated GFR > 60 ml/min 08/31/19 07:59 BUN/Creatinine Ratio 18 % 08/31/19 07:59 Glucose 99 mg/dL (75-100) 08/31/19 07:59 POC Glucose 161 (70-105) H 08/30/19 22:02 Calcium 8.4 mg/dL (8.4-10.2) 08/31/19 07:59 Magnesium 1.80 mg/dL (1.7-2.3) 08/31/19 07:59 Total Bilirubin 1.10 mg/dL (0.1-1.2) 08/28/19 07:57 AST 47 units/L (5-40) H 08/28/19 07:57 ALT 54 units/L (7-56) 08/28/19 07:57 Alkaline Phosphatase 146 units/L (35-129) H 08/28/19 07:57 Total Creatine Kinase 195 units/L (55-170) H 08/24/19 17:30 Troponin T 0.035 ng/mL (0.00-0.029) H 08/24/19 17:30 NT-Pro-B Natriuret Pep 8127 pg/mL (0-900) H 08/24/19 12:19 Total Protein 6.0 g/dL (6.3-8.2) L 08/28/19 07:57 Albumin 3.5 g/dL (3.9-5) L 08/28/19 07:57 Albumin/Globulin Ratio 1.4 % 08/28/19 07:57 Triglycerides 89 mg/dL (2-149) 08/24/19 12:19 Cholesterol 159 mg/dL (50-199) 08/24/19 12:19 LDL Cholesterol Direct 111 mg/dL (50-130) 08/24/19 12:19 HDL Cholesterol 58 mg/dL (40-59) 08/24/19 12:19 Cholesterol/HDL Ratio 2.74 % 08/24/19 12:19 Active Medications - Current Medications Current Medications: Generic Name Dose Route Start Last Admin Trade Name Freq PRN Reason Stop Dose Admin Acetaminophen 650 mg 08/24/19 18:04 08/27/19 13:16 Tylenol PO 650 mg Q4H PRN Administration Pain MILD(1-3)/Fever >100.5/HOWELL Albuterol 2.5 mg 08/24/19 18:04 Proventil IH Q4HRT PRN Shortness Of Breath Amiodarone HCl 200 mg 08/29/19 22:00 08/31/19 10:35 Cordarone PO 200 mg BID IBIS Administration Aspirin 81 mg 08/25/19 10:00 08/31/19 10:35 Baby Aspirin PO 81 mg QDAY IBIS Administration Atorvastatin Calcium 40 mg 08/25/19 10:00 08/31/19 10:35 Lipitor PO 40 mg QDAY IBIS Administration Carvedilol 12.5 mg 08/24/19 22:00 08/31/19 10:35 Coreg PO 12.5 mg BID IBIS Administration Famotidine 20 mg 08/25/19 10:00 08/31/19 10:35 Pepcid PO 20 mg QDAY IBIS Administration Furosemide 60 mg 08/25/19 18:00 08/31/19 17:35 Lasix IV 60 mg 0600,1800 IBIS Administration Insulin Glargine 25 units 08/24/19 22:00 08/30/19 22:29 Lantus SUB-Q 25 units QHS IBIS Administration Insulin Human Lispro 0 unit 08/27/19 07:30 08/31/19 17:22 Humalog SUB-Q Not Given [facility] Protocol Lisinopril 20 mg 08/25/19 10:00 08/31/19 10:35 Zestril PO 20 mg QDAY IBIS Administration Ondansetron HCl 4 mg 08/24/19 18:04 Zofran IV Q8H PRN Nausea And Vomiting Sodium Chloride 10 ml 08/24/19 22:00 08/31/19 10:36 Sodium Chloride Flush Syringe 10 Ml IV 10 ml BID IBIS Administration Sodium Chloride 10 ml 08/24/19 18:04 08/28/19 00:20 Sodium Chloride Flush Syringe 10 Ml IV 10 ml PRN PRN Administration LINE FLUSH Spironolactone 25 mg 08/25/19 10:00 08/31/19 10:35 Aldactone PO 25 mg QDAY IBIS Administration Warfarin Sodium 10 mg 08/27/19 17:00 08/31/19 17:35 Coumadin PO 10 mg DAILY@1700 IBIS Administration Nutrition/Malnutrition Assess - Dietary Evaluation Nutrition/Malnutrition Findings: Nutrition Notes Start: 08/26/19 11:59 Freq: Status: Active Protocol: Document 08/26/19 11:59 LP (Rec: 08/26/19 12:02 LP [id number]) Nutrition Notes Need for Assessment generated from: Education Initial or Follow up Brief Note Current Diagnosis Acute Kidney Injury,Diabetes, Hypertension,Heart Failure Pertinent Medications Lasix, coumadin Subjective/Other Information Screen for coumadin. Pt states eating well [employer] and now. Pt states he was not on Coumadin before and consumes green leafy vegetables sometimes. #1 Nutrition Diagnosis Food and nutrition-related knowledge deficit Etiology Coumadin As Evidenced by Signs and Symptoms Pt new to Coumadin Nutrition Intervention Teaching Recipient Patient Learning Readiness Good Teaching Methods Discussion Response to Teaching Verbalize understanding Education Handouts Provided Vitamin K interaction Barriers to Learning No Barriers RD phone number provided Yes Patient aware of follow up options Yes Revisit per MD consult or patient Sign Off request:
[2019-08-31] MEDS: INSULIN GLARGINE 100 UNITS/ML SUB-Q SCH (22:00)
[2019-09-01] MEDS: FUROSEMIDE 100 MG/10 ML INJ IV SCH ×2 (05:50→18:29)
[2019-09-01 08:17] LABS: INR 2.42 (0.87-1.13)
--- NOTE | 2019-09-01 09:41 | Progress Note ---
Assessment and Plan Chronic systolic heart failure Chronic atrial fibrillation currently on warfarin for oral anticoagulation Hx of SHAJI thrombus Non-ischemic cardiomyopathy LVEF 15-20% by echo 10/2018 Non-obstructive CAD by cardiac cath 10/2018 Hypertension Diabetes Recommendations: Fluid/sodium restriction. Continue rate controlling agents for chronic atrial fibrillation. Continue aggressive management for systolic heart failure. Subjective Date of service: 09/01/19 Principal diagnosis: CHF exacerbation Interval history: Patient has no complaints. Patient admits he is diuresing well. Objective Vital Signs Temp Pulse Resp BP Pulse Ox 09/01/19 07:41 104 H 09/01/19 05:06 98.5 F 68 20 129/98 94 09/01/19 00:02 98.8 F 51 L 18 156/91 98 08/31/19 22:41 106 H 114/92 08/31/19 22:00 104 H 20 99 08/31/19 20:40 98.8 F 106 H 20 114/92 92 08/31/19 12:25 98.2 F 53 L 18 85/63 91 - Physical Examination General: No Apparent Distress HEENT: Positive: PERRL Neck: Positive: trachea midline Cardiac: Positive: irregularly irregular Lungs: Positive: Decreased Breath Sounds Neuro: Positive: Grossly Intact Abdomen: Positive: Soft Extremities: Present: +2 Edema - Labs and Meds Coagulation 09/01/19 Range/Units 07:44 PT 26.8 H (12.2-14.9) Sec. INR 2.42 H (0.87-1.13)
[2019-09-01] MEDS: LISINOPRIL 20 MG TAB PO SCH (10:21)
[2019-09-01] MEDS: carvediloL 12.5 MG TAB PO SCH ×2 (10:22→23:14)
[2019-09-01] MEDS: AMIODARONE 200 MG TAB PO SCH ×2 (10:22→23:14)
[2019-09-01] MEDS: SPIRONOLACTONE 25 MG TAB PO SCH (10:23)
[2019-09-01] MEDS: FAMOTIDINE 20 MG TAB PO SCH (10:24)
[2019-09-01] MEDS: INSULIN LISPRO 100 UNIT/ML SUB-Q SCH ×6 (10:25→23:19)
[2019-09-01] MEDS: ASPIRIN 81 MG TAB CHEW PO SCH (10:26)
[2019-09-01] MEDS ORDERED: WARFARIN 7.5 MG TAB PO SCH (17:00)
--- NOTE | 2019-09-01 20:19 | Progress Note ---
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 -- HTN (hypertension) Current Visit: Yes Status: Acute Cont antihypertensives -- Obesity BMI 32.4 Current Visit: Yes Status: Acute Supplemental oxygen, nebulizer therapy, pulse oximetry, chest x-ray, noninvasive positive pressure ventilation as clinically indicated, outpatient sleep study. -- Diabetes Current Visit: Yes Status: Acute Consistent carbohydrate diet, sliding scale insulin, Accu-Chek, hypoglycemia protocol. -- TESSA (acute kidney injury) vasomotor nephropathy Current Visit: Yes Status: Acute Resolved, avoid nephrotoxins, monitor renal function --Medical noncompliance: Patient strongly advised to comply with medications diet follow-up visits Patient verbalize understanding -- DVT prophylaxis Current Visit: Yes Status: Acute SCD and Coumadin --DC planning per case management Multiple social, insurance and financial issues Consults and recommendations noted and appreciated . Possible discharge in 1 to 2 days if stable And cleared by cardiology History Interval history: Complaints of generalized weakness and fatigue Denies chest pain or shortness of breath Vital signs noted Hospitalist Physical - Constitutional Vitals: Temp Pulse Resp BP Pulse Ox 97.9 F 80 18 109/89 96 09/01/19 12:19 09/01/19 12:19 09/01/19 12:19 09/01/19 12:19 09/01/19 12:19 General appearance: Present: no acute distress, well-nourished - EENT Eyes: Present: PERRL, EOM intact - Neck Neck: Present: supple, normal ROM - Respiratory Respiratory effort: normal Respiratory: bilateral: diminished, negative: rales, rhonchi, wheezing - Cardiovascular Rhythm: regular Heart Sounds: Present: S1 & S2 - Extremities Extremities: no ischemia, No edema - Abdominal General gastrointestinal: soft, non-tender, non-distended, normal bowel sounds - Integumentary Integumentary: Present: clear, warm - Psychiatric Psychiatric: appropriate mood/affect, cooperative - Neurologic Neurologic: CNII-XII intact, moves all extremities Results - Labs CBC & Chem 7: 08/28/19 07:57 08/31/19 07:59 Labs: Laboratory Last Values WBC 7.1 K/mm3 (4.5-11.0) 08/28/19 07:57 RBC 5.22 M/mm3 (3.65-5.03) H 08/28/19 07:57 Hgb 16.1 gm/dl (11.8-15.2) H 08/28/19 07:57 Hct 47.8 % (35.5-45.6) H 08/28/19 07:57 MCV 92 fl (84-94) 08/28/19 07:57 MCH 31 pg (28-32) 08/28/19 07:57 MCHC 34 % (32-34) 08/28/19 07:57 RDW 15.8 % (13.2-15.2) H 08/28/19 07:57 Plt Count 135 K/mm3 (140-440) L 08/28/19 07:57 Lymph % (Auto) 24.6 % (13.4-35.0) 08/26/19 06:17 [place] % (Auto) Absorber Operator 08/28/19 07:57 Eos % (Auto) 1.2 % (0.0-4.3) 08/26/19 06:17 Baso % (Auto) 0.6 % (0.0-1.8) 08/26/19 06:17 Lymph # 2.1 K/mm3 (1.2-5.4) 08/26/19 06:17 [place] # 1.0 K/mm3 (0.0-0.8) H 08/26/19 06:17 Eos # 0.1 K/mm3 (0.0-0.4) 08/26/19 06:17 Baso # 0.0 K/mm3 (0.0-0.1) 08/26/19 06:17 Add Manual Diff Complete 08/28/19 07:57 Total Counted 100 08/28/19 07:57 Seg Neutrophils % 62.0 % (40.0-70.0) 08/26/19 06:17 Seg Neuts % (Manual) 73.0 % (40.0-70.0) H 08/28/19 07:57 Band Neutrophils % 1.0 % 08/28/19 07:57 Lymphocytes % (Manual) 10.0 % (13.4-35.0) L 08/28/19 07:57 Reactive Lymphs % (Man) 1.0 % 08/28/19 07:57 Monocytes % (Manual) 13.0 % (0.0-7.3) H 08/28/19 07:57 Eosinophils % (Manual) 1.0 % (0.0-4.3) 08/28/19 07:57 Basophils % (Manual) 1.0 % (0.0-1.8) 08/28/19 07:57 Metamyelocytes % 0 % 08/28/19 07:57 Myelocytes % 0 % 08/28/19 07:57 Promyelocytes % 0 % 08/28/19 07:57 Blast Cells % 0 % 08/28/19 07:57 Nucleated RBC % Not Reportable 08/28/19 07:57 Seg Neutrophils # 5.2 K/mm3 (1.8-7.7) 08/26/19 06:17 Seg Neutrophils # Man 5.2 K/mm3 (1.8-7.7) 08/28/19 07:57 Band Neutrophils # 0.1 K/mm3 08/28/19 07:57 Lymphocytes # (Manual) 0.7 K/mm3 (1.2-5.4) L 08/28/19 07:57 Abs React Lymphs (Man) 0.1 K/mm3 08/28/19 07:57 Monocytes # (Manual) 0.9 K/mm3 (0.0-0.8) H 08/28/19 07:57 Eosinophils # (Manual) 0.1 K/mm3 (0.0-0.4) 08/28/19 07:57 Basophils # (Manual) 0.1 K/mm3 (0.0-0.1) 08/28/19 07:57 Metamyelocytes # 0.0 K/mm3 08/28/19 07:57 Myelocytes # 0.0 K/mm3 08/28/19 07:57 Promyelocytes # 0.0 K/mm3 08/28/19 07:57 Blast Cells # 0.0 K/mm3 08/28/19 07:57 WBC Morphology Not Reportable 08/28/19 07:57 Hypersegmented Neuts Not Reportable 08/28/19 07:57 Hyposegmented Neuts Not Reportable 08/28/19 07:57 Hypogranular Neuts Not Reportable 08/28/19 07:57 Smudge Cells Not Reportable 08/28/19 07:57 Toxic Granulation Not Reportable 08/28/19 07:57 Toxic Vacuolation Not Reportable 08/28/19 07:57 Dohle Bodies Not Reportable 08/28/19 07:57 Pelger-Huet Anomaly Not Reportable 08/28/19 07:57 Michael Rods Not Reportable 08/28/19 07:57 Platelet Estimate Consistent w auto 08/28/19 07:57 Clumped Platelets Not Reportable 08/28/19 07:57 Plt Clumps, EDTA Not Reportable 08/28/19 07:57 Large Platelets Not Reportable 08/28/19 07:57 Giant Platelets Not Reportable 08/28/19 07:57 Platelet Satelliting Not Reportable 08/28/19 07:57 Plt Morphology Comment Not Reportable 08/28/19 07:57 RBC Morphology Not Reportable 08/28/19 07:57 Dimorphic RBCs Not Reportable 08/28/19 07:57 Polychromasia Not Reportable 08/28/19 07:57 Hypochromasia Not Reportable 08/28/19 07:57 Poikilocytosis Not Reportable 08/28/19 07:57 Anisocytosis Not Reportable 08/28/19 07:57 Microcytosis Not Reportable 08/28/19 07:57 Macrocytosis Not Reportable 08/28/19 07:57 Spherocytes Not Reportable 08/28/19 07:57 Pappenheimer Bodies Not Reportable 08/28/19 07:57 Sickle Cells Not Reportable 08/28/19 07:57 Target Cells 2+ 08/28/19 07:57 Tear Drop Cells Not Reportable 08/28/19 07:57 Ovalocytes Not Reportable 08/28/19 07:57 Helmet Cells Not Reportable 08/28/19 07:57 Pleitez-Owings Bodies Not Reportable 08/28/19 07:57 [place] Rings Not Reportable 08/28/19 07:57 [place] Cells Not Reportable 08/28/19 07:57 Bite Cells Not Reportable 08/28/19 07:57 Crenated Cell Not Reportable 08/28/19 07:57 Elliptocytes Not Reportable 08/28/19 07:57 Acanthocytes (Spur) Not Reportable 08/28/19 07:57 Rouleaux Not Reportable 08/28/19 07:57 Hemoglobin C Crystals Not Reportable 08/28/19 07:57 Schistocytes Not Reportable 08/28/19 07:57 Malaria parasites Not Reportable 08/28/19 07:57 Jorge Bodies Not Reportable 08/28/19 07:57 Hem Pathologist Commnt No 08/28/19 07:57 PT 26.8 Sec. (12.2-14.9) H 09/01/19 07:44 INR 2.42 (0.87-1.13) H 09/01/19 07:44 Sodium 136 mmol/L (137-145) L 08/31/19 07:59 Potassium 3.7 mmol/L (3.6-5.0) 08/31/19 07:59 Chloride 93.4 mmol/L (98-107) L 08/31/19 07:59 Carbon Dioxide 26 mmol/L (22-30) 08/31/19 07:59 Anion Gap 20 mmol/L 08/31/19 07:59 BUN 23 mg/dL (9-20) H 08/31/19 07:59 Creatinine 1.3 mg/dL (0.8-1.5) 08/31/19 07:59 Estimated GFR > 60 ml/min 08/31/19 07:59 BUN/Creatinine Ratio 18 % 08/31/19 07:59 Glucose 99 mg/dL (75-100) 08/31/19 07:59 POC Glucose 200 (70-105) H 09/01/19 16:14 Calcium 8.4 mg/dL (8.4-10.2) 08/31/19 07:59 Magnesium 1.80 mg/dL (1.7-2.3) 08/31/19 07:59 Total Bilirubin 1.10 mg/dL (0.1-1.2) 08/28/19 07:57 AST 47 units/L (5-40) H 08/28/19 07:57 ALT 54 units/L (7-56) 08/28/19 07:57 Alkaline Phosphatase 146 units/L (35-129) H 08/28/19 07:57 Total Creatine Kinase 195 units/L (55-170) H 08/24/19 17:30 Troponin T 0.035 ng/mL (0.00-0.029) H 08/24/19 17:30 NT-Pro-B Natriuret Pep 8127 pg/mL (0-900) H 08/24/19 12:19 Total Protein 6.0 g/dL (6.3-8.2) L 08/28/19 07:57 Albumin 3.5 g/dL (3.9-5) L 08/28/19 07:57 Albumin/Globulin Ratio 1.4 % 08/28/19 07:57 Triglycerides 89 mg/dL (2-149) 08/24/19 12:19 Cholesterol 159 mg/dL (50-199) 08/24/19 12:19 LDL Cholesterol Direct 111 mg/dL (50-130) 08/24/19 12:19 HDL Cholesterol 58 mg/dL (40-59) 08/24/19 12:19 Cholesterol/HDL Ratio 2.74 % 08/24/19 12:19 Active Medications - Current Medications Current Medications: Generic Name Dose Route Start Last Admin Trade Name Freq PRN Reason Stop Dose Admin Acetaminophen 650 mg 08/24/19 18:04 08/27/19 13:16 Tylenol PO 650 mg Q4H PRN Administration Pain MILD(1-3)/Fever >100.5/HOWELL Albuterol 2.5 mg 08/24/19 18:04 Proventil IH Q4HRT PRN Shortness Of Breath Amiodarone HCl 200 mg 08/29/19 22:00 09/01/19 10:22 Cordarone PO 200 mg BID IBIS Administration Aspirin 81 mg 08/25/19 10:00 09/01/19 10:26 Baby Aspirin PO 81 mg QDAY IBIS Administration Atorvastatin Calcium 40 mg 08/25/19 10:00 09/01/19 10:22 Lipitor PO 40 mg QDAY IBIS Administration Carvedilol 12.5 mg 08/24/19 22:00 09/01/19 10:22 Coreg PO 12.5 mg BID IBIS Administration Famotidine 20 mg 08/25/19 10:00 09/01/19 10:24 Pepcid PO 20 mg QDAY IBIS Administration Furosemide 60 mg 08/25/19 18:00 09/01/19 18:29 Lasix IV 60 mg 0600,1800 IBIS Administration Insulin Glargine 25 units 08/24/19 22:00 08/31/19 22:00 Lantus SUB-Q Not Given QHS IBIS Insulin Human Lispro 0 unit 08/27/19 07:30 09/01/19 18:35 Humalog SUB-Q Not Given ACHS [facility] Protocol Lisinopril 20 mg 08/25/19 10:00 09/01/19 10:21 Zestril PO 20 mg QDAY IBIS Administration Ondansetron HCl 4 mg 08/24/19 18:04 Zofran IV Q8H PRN Nausea And Vomiting Sodium Chloride 10 ml 08/24/19 22:00 09/01/19 10:26 Sodium Chloride Flush Syringe 10 Ml IV 10 ml BID IBIS Administration Sodium Chloride 10 ml 08/24/19 18:04 08/28/19 00:20 Sodium Chloride Flush Syringe 10 Ml IV 10 ml PRN PRN Administration LINE FLUSH Spironolactone 25 mg 08/25/19 10:00 09/01/19 10:23 Aldactone PO 25 mg QDAY IBIS Administration Warfarin Sodium 7.5 mg 09/01/19 17:00 09/01/19 18:30 Coumadin PO 7.5 mg DAILY@1700 [facility] Administration Nutrition/Malnutrition Assess - Dietary Evaluation Nutrition/Malnutrition Findings: Nutrition Notes Start: 08/26/19 11:59 Freq: Status: Active Protocol: Document 08/26/19 11:59 LP (Rec: 08/26/19 12:02 LP [id number]) Nutrition Notes Need for Assessment generated from: Education Initial or Follow up Brief Note Current Diagnosis Acute Kidney Injury,Diabetes, Hypertension,Heart Failure Pertinent Medications Lasix, coumadin Subjective/Other Information Screen for coumadin. 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 Pt states he was not on Coumadin before and consumes green leafy vegetables sometimes. #1 Nutrition Diagnosis Food and nutrition-related knowledge deficit Etiology Coumadin As Evidenced by Signs and Symptoms Pt new to Coumadin Nutrition Intervention Teaching Recipient Patient Learning Readiness Good Teaching Methods Discussion Response to Teaching Verbalize understanding Education Handouts Provided Vitamin K interaction Barriers to Learning No Barriers RD phone number provided Yes Patient aware of follow up options Yes Revisit per MD consult or patient Sign Off request:
[2019-09-01] MEDS: INSULIN GLARGINE 100 UNITS/ML SUB-Q SCH (23:09)
[2019-09-02] MEDS: INSULIN LISPRO 100 UNIT/ML SUB-Q SCH ×4 (09:27→21:21)
--- NOTE | 2019-09-02 10:39 | Progress Note ---
Assessment and Plan Chronic systolic heart failure Chronic atrial fibrillation currently on warfarin for oral anticoagulation Hx of SHAJI thrombus Non-ischemic cardiomyopathy LVEF 15-20% by echo 10/2018 Non-obstructive CAD by cardiac cath 10/2018 Generalized weakness Hypertension Diabetes Recommendations: Fluid/sodium restriction. Continue rate controlling agents for chronic atrial fibrillation. Continue aggressive management for systolic heart failure. Subjective Date of service: 09/02/19 Principal diagnosis: CHF exacerbation Interval history: Patient has no complaints. Patient admits he is diuresing well. Afib with a well controlled ventricular rate on telemetry. Objective Vital Signs Temp Pulse Resp BP Pulse Ox 09/02/19 08:33 98.0 F 18 108/72 09/02/19 04:03 98.0 F 55 L 18 105/74 95 09/02/19 00:01 98.0 F 55 L 18 143/87 09/01/19 22:00 101 H 09/01/19 20:36 98.0 F 69 20 101/83 96 09/01/19 19:00 22 98 09/01/19 18:50 97.4 F L 41 L 18 108/82 95 09/01/19 12:19 97.9 F 80 18 109/89 96 - Physical Examination General: No Apparent Distress HEENT: Positive: PERRL Neck: Positive: trachea midline Cardiac: Positive: irregularly irregular Neuro: Positive: Grossly Intact Abdomen: Positive: Soft Skin: Positive: Clear Extremities: Present: +2 Edema - Imaging and Cardiology EKG: report reviewed
[2019-09-02] MEDS: AMIODARONE 200 MG TAB PO SCH ×2 (10:51→21:20)
[2019-09-02] MEDS: ASPIRIN 81 MG TAB CHEW PO SCH (10:51)
[2019-09-02] MEDS: FAMOTIDINE 20 MG TAB PO SCH (10:51)
[2019-09-02] MEDS: carvediloL 12.5 MG TAB PO SCH ×2 (10:52→21:20)
[2019-09-02] MEDS: SPIRONOLACTONE 25 MG TAB PO SCH (10:52)
[2019-09-02] MEDS: LISINOPRIL 20 MG TAB PO SCH (10:56)
[2019-09-02] MEDS: FUROSEMIDE 100 MG/10 ML INJ IV SCH ×2 (11:08→18:52)
[2019-09-02 11:22] LABS: INR 3.92 (0.87-1.13)
[2019-09-02] MEDS ORDERED: WARFARIN NO DOSE TODAY PO ONE (17:00)
[2019-09-02] MEDS ORDERED: MAGNESIUM SULFATE 2 GM/50 ML BAG IV ONE (18:37)
--- NOTE | 2019-09-02 20:26 | Progress Note ---
Assessment and Plan Assessment and plan: INR is supratherapeutic Hold Coumadin tonight Closely monitor, target INR 2-3 No Evidence of bleeding -- Lt.Atrial thrombus; on HOLLAND Current Visit: Yes Status: Acute HOLLAND from prior admission reviewed, on Coumadin. 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 -- TESSA (acute kidney injury) vasomotor nephropathy Current Visit: Yes Status: Acute Resolved, avoid nephrotoxins, monitor renal function --Medical noncompliance: Patient strongly advised to comply with medications diet follow-up visits Patient verbalize understanding -- DVT prophylaxis Current Visit: Yes Status: Acute SCD and Coumadin --DC planning per case management Multiple social, insurance and financial issues Consults and recommendations noted and appreciated . Possible discharge in 1 to 2 days if stable And cleared by cardiology History Interval history: Patient Seen and examined medical records reviewed Complaints of generalized weakness and shortness of breath INR is supratherapeutic today, no evidence of bleeding Vital signs noted Hospitalist Physical - Constitutional Vitals: Temp Pulse Resp BP Pulse Ox 97.7 F 53 L 18 107/84 89 09/02/19 16:49 09/02/19 16:49 09/02/19 16:49 09/02/19 16:49 09/02/19 16:49 General appearance: Present: no acute distress, well-nourished - EENT Eyes: Present: PERRL, EOM intact - Neck Neck: Present: supple, normal ROM - Respiratory Respiratory effort: normal Respiratory: bilateral: diminished, rales, negative: rhonchi, wheezing - Cardiovascular Rhythm: regular Heart Sounds: Present: S1 & S2 - Extremities Extremities: no ischemia Extremity abnormal: edema - Abdominal General gastrointestinal: soft, non-tender, non-distended, normal bowel sounds - Integumentary Integumentary: Present: clear, warm - Psychiatric Psychiatric: appropriate mood/affect, cooperative - Neurologic Neurologic: CNII-XII intact, moves all extremities Results - Labs CBC & Chem 7: 08/28/19 07:57 08/31/19 07:59 Labs: Laboratory Last Values WBC 7.1 K/mm3 (4.5-11.0) 08/28/19 07:57 RBC 5.22 M/mm3 (3.65-5.03) H 08/28/19 07:57 Hgb 16.1 gm/dl (11.8-15.2) H 08/28/19 07:57 Hct 47.8 % (35.5-45.6) H 08/28/19 07:57 MCV 92 fl (84-94) 08/28/19 07:57 MCH 31 pg (28-32) 08/28/19 07:57 MCHC 34 % (32-34) 08/28/19 07:57 RDW 15.8 % (13.2-15.2) H 08/28/19 07:57 Plt Count 135 K/mm3 (140-440) L 08/28/19 07:57 Lymph % (Auto) 24.6 % (13.4-35.0) 08/26/19 06:17 [place] % (Auto) Cloth Shrinking Supervisor 08/28/19 07:57 Eos % (Auto) 1.2 % (0.0-4.3) 08/26/19 06:17 Baso % (Auto) 0.6 % (0.0-1.8) 08/26/19 06:17 Lymph # 2.1 K/mm3 (1.2-5.4) 08/26/19 06:17 [place] # 1.0 K/mm3 (0.0-0.8) H 08/26/19 06:17 Eos # 0.1 K/mm3 (0.0-0.4) 08/26/19 06:17 Baso # 0.0 K/mm3 (0.0-0.1) 08/26/19 06:17 Add Manual Diff Complete 08/28/19 07:57 Total Counted 100 08/28/19 07:57 Seg Neutrophils % 62.0 % (40.0-70.0) 08/26/19 06:17 Seg Neuts % (Manual) 73.0 % (40.0-70.0) H 08/28/19 07:57 Band Neutrophils % 1.0 % 08/28/19 07:57 Lymphocytes % (Manual) 10.0 % (13.4-35.0) L 08/28/19 07:57 Reactive Lymphs % (Man) 1.0 % 08/28/19 07:57 Monocytes % (Manual) 13.0 % (0.0-7.3) H 08/28/19 07:57 Eosinophils % (Manual) 1.0 % (0.0-4.3) 08/28/19 07:57 Basophils % (Manual) 1.0 % (0.0-1.8) 08/28/19 07:57 Metamyelocytes % 0 % 08/28/19 07:57 Myelocytes % 0 % 08/28/19 07:57 Promyelocytes % 0 % 08/28/19 07:57 Blast Cells % 0 % 08/28/19 07:57 Nucleated RBC % Not Reportable 08/28/19 07:57 Seg Neutrophils # 5.2 K/mm3 (1.8-7.7) 08/26/19 06:17 Seg Neutrophils # Man 5.2 K/mm3 (1.8-7.7) 08/28/19 07:57 Band Neutrophils # 0.1 K/mm3 08/28/19 07:57 Lymphocytes # (Manual) 0.7 K/mm3 (1.2-5.4) L 08/28/19 07:57 Abs React Lymphs (Man) 0.1 K/mm3 08/28/19 07:57 Monocytes # (Manual) 0.9 K/mm3 (0.0-0.8) H 08/28/19 07:57 Eosinophils # (Manual) 0.1 K/mm3 (0.0-0.4) 08/28/19 07:57 Basophils # (Manual) 0.1 K/mm3 (0.0-0.1) 08/28/19 07:57 Metamyelocytes # 0.0 K/mm3 08/28/19 07:57 Myelocytes # 0.0 K/mm3 08/28/19 07:57 Promyelocytes # 0.0 K/mm3 08/28/19 07:57 Blast Cells # 0.0 K/mm3 08/28/19 07:57 WBC Morphology Not Reportable 08/28/19 07:57 Hypersegmented Neuts Not Reportable 08/28/19 07:57 Hyposegmented Neuts Not Reportable 08/28/19 07:57 Hypogranular Neuts Not Reportable 08/28/19 07:57 Smudge Cells Not Reportable 08/28/19 07:57 Toxic Granulation Not Reportable 08/28/19 07:57 Toxic Vacuolation Not Reportable 08/28/19 07:57 Dohle Bodies Not Reportable 08/28/19 07:57 Pelger-Huet Anomaly Not Reportable 08/28/19 07:57 Michael Rods Not Reportable 08/28/19 07:57 Platelet Estimate Consistent w auto 08/28/19 07:57 Clumped Platelets Not Reportable 08/28/19 07:57 Plt Clumps, EDTA Not Reportable 08/28/19 07:57 Large Platelets Not Reportable 08/28/19 07:57 Giant Platelets Not Reportable 08/28/19 07:57 Platelet Satelliting Not Reportable 08/28/19 07:57 Plt Morphology Comment Not Reportable 08/28/19 07:57 RBC Morphology Not Reportable 08/28/19 07:57 Dimorphic RBCs Not Reportable 08/28/19 07:57 Polychromasia Not Reportable 08/28/19 07:57 Hypochromasia Not Reportable 08/28/19 07:57 Poikilocytosis Not Reportable 08/28/19 07:57 Anisocytosis Not Reportable 08/28/19 07:57 Microcytosis Not Reportable 08/28/19 07:57 Macrocytosis Not Reportable 08/28/19 07:57 Spherocytes Not Reportable 08/28/19 07:57 Pappenheimer Bodies Not Reportable 08/28/19 07:57 Sickle Cells Not Reportable 08/28/19 07:57 Target Cells 2+ 08/28/19 07:57 Tear Drop Cells Not Reportable 08/28/19 07:57 Ovalocytes Not Reportable 08/28/19 07:57 Helmet Cells Not Reportable 08/28/19 07:57 Pleitez-Percy Bodies Not Reportable 08/28/19 07:57 [place] Rings Not Reportable 08/28/19 07:57 [place] Cells Not Reportable 08/28/19 07:57 Bite Cells Not Reportable 08/28/19 07:57 Crenated Cell Not Reportable 08/28/19 07:57 Elliptocytes Not Reportable 08/28/19 07:57 Acanthocytes (Spur) Not Reportable 08/28/19 07:57 Rouleaux Not Reportable 08/28/19 07:57 Hemoglobin C Crystals Not Reportable 08/28/19 07:57 Schistocytes Not Reportable 08/28/19 07:57 Malaria parasites Not Reportable 08/28/19 07:57 Jorge Bodies Not Reportable 08/28/19 07:57 Hem Pathologist Commnt No 08/28/19 07:57 PT 39.3 Sec. (12.2-14.9) H 09/02/19 09:47 INR 3.92 (0.87-1.13) H 09/02/19 09:47 Sodium 136 mmol/L (137-145) L 08/31/19 07:59 Potassium 3.7 mmol/L (3.6-5.0) 08/31/19 07:59 Chloride 93.4 mmol/L (98-107) L 08/31/19 07:59 Carbon Dioxide 26 mmol/L (22-30) 08/31/19 07:59 Anion Gap 20 mmol/L 08/31/19 07:59 BUN 23 mg/dL (9-20) H 08/31/19 07:59 Creatinine 1.3 mg/dL (0.8-1.5) 08/31/19 07:59 Estimated GFR > 60 ml/min 08/31/19 07:59 BUN/Creatinine Ratio 18 % 08/31/19 07:59 Glucose 99 mg/dL (75-100) 08/31/19 07:59 POC Glucose 181 (70-105) H 09/02/19 16:54 Calcium 8.4 mg/dL (8.4-10.2) 08/31/19 07:59 Magnesium 1.80 mg/dL (1.7-2.3) 08/31/19 07:59 Total Bilirubin 1.10 mg/dL (0.1-1.2) 08/28/19 07:57 AST 47 units/L (5-40) H 08/28/19 07:57 ALT 54 units/L (7-56) 08/28/19 07:57 Alkaline Phosphatase 146 units/L (35-129) H 08/28/19 07:57 Total Creatine Kinase 195 units/L (55-170) H 08/24/19 17:30 Troponin T 0.035 ng/mL (0.00-0.029) H 08/24/19 17:30 NT-Pro-B Natriuret Pep 8127 pg/mL (0-900) H 08/24/19 12:19 Total Protein 6.0 g/dL (6.3-8.2) L 08/28/19 07:57 Albumin 3.5 g/dL (3.9-5) L 08/28/19 07:57 Albumin/Globulin Ratio 1.4 % 08/28/19 07:57 Triglycerides 89 mg/dL (2-149) 08/24/19 12:19 Cholesterol 159 mg/dL (50-199) 08/24/19 12:19 LDL Cholesterol Direct 111 mg/dL (50-130) 08/24/19 12:19 HDL Cholesterol 58 mg/dL (40-59) 08/24/19 12:19 Cholesterol/HDL Ratio 2.74 % 08/24/19 12:19 Active Medications - Current Medications Current Medications: Generic Name Dose Route Start Last Admin Trade Name Freq PRN Reason Stop Dose Admin Acetaminophen 650 mg 08/24/19 18:04 08/27/19 13:16 Tylenol PO 650 mg Q4H PRN Administration Pain MILD(1-3)/Fever >100.5/HOWELL Albuterol 2.5 mg 08/24/19 18:04 Proventil IH Q4HRT PRN Shortness Of Breath Amiodarone HCl 200 mg 08/29/19 22:00 09/02/19 10:51 Cordarone PO 200 mg BID IBIS Administration Aspirin 81 mg 08/25/19 10:00 09/02/19 10:51 Baby Aspirin PO 81 mg QDAY IBIS Administration Atorvastatin Calcium 40 mg 08/25/19 10:00 09/02/19 10:51 Lipitor PO 40 mg QDAY IBIS Administration Carvedilol 12.5 mg 08/24/19 22:00 09/02/19 10:52 Coreg PO 12.5 mg BID IBIS Administration Famotidine 20 mg 08/25/19 10:00 09/02/19 10:51 Pepcid PO 20 mg QDAY IBIS Administration Furosemide 60 mg 12/26/19 18:00 09/02/19 18:52 Lasix IV 60 mg 0600,1800 IBIS Administration Magnesium Sulfate 2 gm in 50 mls @ 25 mls/hr 09/02/19 18:37 Magnesium Sulfate 2gm/50ml IV 09/02/19 20:36 ONCE ONE Insulin Glargine 25 units 08/24/19 22:00 09/01/19 23:09 Lantus SUB-Q 25 units QHS IBIS Administration Insulin Human Lispro 0 unit 08/27/19 07:30 09/02/19 18:52 Humalog SUB-Q 2 unit ACHS [facility] Administration Protocol Lisinopril 20 mg 08/25/19 10:00 09/02/19 10:56 Zestril PO Not Given QDAY IBIS Ondansetron HCl 4 mg 08/24/19 18:04 Zofran IV Q8H PRN Nausea And Vomiting Sodium Chloride 10 ml 08/24/19 22:00 09/02/19 10:53 Sodium Chloride Flush Syringe 10 Ml IV 10 ml BID IBIS Administration Sodium Chloride 10 ml 08/24/19 18:04 08/28/19 00:20 Sodium Chloride Flush Syringe 10 Ml IV 10 ml PRN PRN Administration LINE FLUSH Spironolactone 25 mg 08/25/19 10:00 09/02/19 10:52 Aldactone PO 25 mg QDAY IBIS Administration Nutrition/Malnutrition Assess - Dietary Evaluation Nutrition/Malnutrition Findings: Nutrition Notes Start: 08/26/19 11:59 Freq: Status: Active Protocol: Document 08/26/19 11:59 LP (Rec: 08/26/19 12:02 LP [id number]) Nutrition Notes Need for Assessment generated from: Education Initial or Follow up Brief Note Current Diagnosis Acute Kidney Injury,Diabetes, Hypertension,Heart Failure Pertinent Medications Lasix, coumadin Subjective/Other Information Screen for coumadin. 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 Pt states he was not on Coumadin before and consumes green leafy vegetables sometimes. #1 Nutrition Diagnosis Food and nutrition-related knowledge deficit Etiology Coumadin As Evidenced by Signs and Symptoms Pt new to Coumadin Nutrition Intervention Teaching Recipient Patient Learning Readiness Good Teaching Methods Discussion Response to Teaching Verbalize understanding Education Handouts Provided Vitamin K interaction Barriers to Learning No Barriers RD phone number provided Yes Patient aware of follow up options Yes Revisit per MD consult or patient Sign Off request:
[2019-09-02 21:11] LABS: Albumin 2.8 g/dL (3.9-5); Calcium 8.4 mg/dL (8.4-10.2)
[2019-09-02] MEDS: INSULIN GLARGINE 100 UNITS/ML SUB-Q SCH (21:22)
[2019-09-03] MEDS: FUROSEMIDE 100 MG/10 ML INJ IV SCH ×2 (05:31→17:25)
[2019-09-03] MEDS: INSULIN LISPRO 100 UNIT/ML SUB-Q SCH ×3 (07:30→22:58)
[2019-09-03 07:54] LABS: INR 4.52 (0.87-1.13)
[2019-09-03] MEDS: SPIRONOLACTONE 25 MG TAB PO SCH (12:17)
[2019-09-03] MEDS: AMIODARONE 200 MG TAB PO SCH ×2 (12:18→22:57)
[2019-09-03] MEDS: LISINOPRIL 20 MG TAB PO SCH (12:18)
[2019-09-03] MEDS: FAMOTIDINE 20 MG TAB PO SCH (12:18)
[2019-09-03] MEDS: ASPIRIN 81 MG TAB CHEW PO SCH (12:18)
[2019-09-03] MEDS: carvediloL 12.5 MG TAB PO SCH ×2 (12:19→22:57)
--- NOTE | 2019-09-03 14:03 | Progress Note ---
Assessment and Plan - Patient Problems (1) Acute on chronic systolic heart failure Current Visit: Yes Status: Acute Plan to address problem: The patient was admitted with acute on chronic systolic heart failure, edema and heart failure symptoms are improving on aggressive medical therapy. (2) Chronic atrial fibrillation Current Visit: Yes Status: Acute Plan to address problem: Chronic atrial fibrillation will be managed on a rate control strategy and warfarin for anticoagulation. Subjective Date of service: 09/03/19 Principal diagnosis: CHF exacerbation Interval history: Patient is diuresing well, edema is resolving, shortness of breath has resolved, no new cardiac complaints. Objective Vital Signs Temp Pulse Resp BP Pulse Ox 09/03/19 12:19 100 H 111/89 09/03/19 12:18 100 H 111/89 09/03/19 12:17 100 H 111/89 09/03/19 05:19 98.4 F 56 L 18 111/89 98 09/03/19 01:09 98.1 F 77 18 111/88 96 09/02/19 21:30 96 09/02/19 21:20 86 132/90 09/02/19 19:58 84 09/02/19 16:49 97.7 F 53 L 18 107/84 89 - Physical Examination General: No Apparent Distress HEENT: Positive: PERRL Neck: Positive: trachea midline Cardiac: Positive: Reg Rate and Rhythm Lungs: Positive: Decreased Breath Sounds Neuro: Positive: Grossly Intact Abdomen: Positive: Soft Skin: Positive: Clear Extremities: Present: +1 Edema - Labs and Meds Cardiac Enzymes 09/02/19 Range/Units 19:36 AST 63 H (5-40) units/L Coagulation 09/03/19 Range/Units 06:52 PT 44.0 H (12.2-14.9) Sec. INR 4.52 H (0.87-1.13) Comprehensive Metabolic Panel 09/02/19 Range/Units 19:36 Sodium 136 L (137-145) mmol/L Potassium 4.1 (3.6-5.0) mmol/L Chloride 92.6 L (98-107) mmol/L Carbon Dioxide 28 (22-30) mmol/L BUN 31 H (9-20) mg/dL Creatinine 1.5 (0.8-1.5) mg/dL Glucose 225 H (75-100) mg/dL Calcium 8.4 (8.4-10.2) mg/dL AST 63 H (5-40) units/L ALT 58 H (7-56) units/L Alkaline Phosphatase 131 H (35-129) units/L Total Protein 5.8 L (6.3-8.2) g/dL Albumin 2.8 L (3.9-5) g/dL - Imaging and Cardiology EKG: report reviewed
--- NOTE | 2019-09-03 18:34 | Progress Note ---
Assessment and Plan Assessment and plan: INR is supratherapeutic Hold Coumadin tonight Closely monitor, target INR 2-3 No Evidence of bleeding -- Lt.Atrial thrombus; on HOLLAND Current Visit: Yes Status: Acute HOLLAND from prior admission reviewed, on Coumadin. target INR 2-3 --Ac on Concrete Block Layer systolic CHF EF 15-20% continue anti-failure medications Low-sodium diet fluid restriction s/p milrinone drip symptoms significantly improved -- Atrial fibrillation with RVR Current Visit: Yes Status: Acute Rate control-- HTN (hypertension) Current Visit: Yes Status: Acute Cont antihypertensives -- Obesity BMI 32.4 Current Visit: Yes Status: Acute Supplemental oxygen, advised weight reduction Outpatient sleep study to rule out REILLY -- Diabetes Current Visit: Yes Status: Acute Consistent carbohydrate diet, sliding scale insulin, Accu-Chek, hypoglycemia protocol. -- TESSA (acute kidney injury) vasomotor nephropathy Current Visit: Yes Status: Acute Resolved, avoid nephrotoxins, monitor renal function --Medical noncompliance: Patient strongly advised to comply with medications diet follow-up visits Patient verbalize understanding --Severe Malnutrition: supportive care,nutrition supplements, treat underlying cause -- DVT prophylaxis Current Visit: Yes Status: Acute SCD and Coumadin --DC planning per case management Multiple social, insurance and financial issues Consults and recommendations noted and appreciated . Possible discharge in 1 to 2 days if stable And cleared by cardiology History Interval history: Patient seen and examined medical records reviewed Patient feels slightly better INR supratherapeutic, Coumadin is on hold No evidence of bleeding Hospitalist Physical - Constitutional Vitals: Temp Pulse Resp BP Pulse Ox 98.4 F 100 H 20 111/89 98 09/03/19 05:19 09/03/19 12:19 09/03/19 09:00 09/03/19 12:19 09/03/19 09:00 General appearance: Present: no acute distress, well-nourished - EENT Eyes: Present: PERRL, EOM intact - Neck Neck: Present: supple, normal ROM - Respiratory Respiratory effort: normal Respiratory: bilateral: diminished, rales, negative: rhonchi, wheezing - Cardiovascular Rhythm: regular Heart Sounds: Present: S1 & S2 - Extremities Extremities: no ischemia Extremity abnormal: edema - Abdominal General gastrointestinal: soft, non-tender, non-distended - Integumentary Integumentary: Present: clear, warm - Psychiatric Psychiatric: appropriate mood/affect, cooperative - Neurologic Neurologic: moves all extremities Results - Labs CBC & Chem 7: 08/28/19 07:57 09/02/19 19:36 Labs: Laboratory Last Values WBC 7.1 K/mm3 (4.5-11.0) 08/28/19 07:57 RBC 5.22 M/mm3 (3.65-5.03) H 08/28/19 07:57 Hgb 16.1 gm/dl (11.8-15.2) H 08/28/19 07:57 Hct 47.8 % (35.5-45.6) H 08/28/19 07:57 MCV 92 fl (84-94) 08/28/19 07:57 MCH 31 pg (28-32) 08/28/19 07:57 MCHC 34 % (32-34) 08/28/19 07:57 RDW 15.8 % (13.2-15.2) H 08/28/19 07:57 Plt Count 135 K/mm3 (140-440) L 08/28/19 07:57 Lymph % (Auto) 24.6 % (13.4-35.0) 08/26/19 06:17 [place] % (Auto) Warehouse Administrator 08/28/19 07:57 Eos % (Auto) 1.2 % (0.0-4.3) 08/26/19 06:17 Baso % (Auto) 0.6 % (0.0-1.8) 08/26/19 06:17 Lymph # 2.1 K/mm3 (1.2-5.4) 08/26/19 06:17 [place] # 1.0 K/mm3 (0.0-0.8) H 08/26/19 06:17 Eos # 0.1 K/mm3 (0.0-0.4) 08/26/19 06:17 Baso # 0.0 K/mm3 (0.0-0.1) 08/26/19 06:17 Add Manual Diff Complete 08/28/19 07:57 Total Counted 100 08/28/19 07:57 Seg Neutrophils % 62.0 % (40.0-70.0) 08/26/19 06:17 Seg Neuts % (Manual) 73.0 % (40.0-70.0) H 08/28/19 07:57 Band Neutrophils % 1.0 % 08/28/19 07:57 Lymphocytes % (Manual) 10.0 % (13.4-35.0) L 08/28/19 07:57 Reactive Lymphs % (Man) 1.0 % 08/28/19 07:57 Monocytes % (Manual) 13.0 % (0.0-7.3) H 08/28/19 07:57 Eosinophils % (Manual) 1.0 % (0.0-4.3) 08/28/19 07:57 Basophils % (Manual) 1.0 % (0.0-1.8) 08/28/19 07:57 Metamyelocytes % 0 % 08/28/19 07:57 Myelocytes % 0 % 08/28/19 07:57 Promyelocytes % 0 % 08/28/19 07:57 Blast Cells % 0 % 08/28/19 07:57 Nucleated RBC % Not Reportable 08/28/19 07:57 Seg Neutrophils # 5.2 K/mm3 (1.8-7.7) 08/26/19 06:17 Seg Neutrophils # Man 5.2 K/mm3 (1.8-7.7) 08/28/19 07:57 Band Neutrophils # 0.1 K/mm3 08/28/19 07:57 Lymphocytes # (Manual) 0.7 K/mm3 (1.2-5.4) L 08/28/19 07:57 Abs React Lymphs (Man) 0.1 K/mm3 08/28/19 07:57 Monocytes # (Manual) 0.9 K/mm3 (0.0-0.8) H 08/28/19 07:57 Eosinophils # (Manual) 0.1 K/mm3 (0.0-0.4) 08/28/19 07:57 Basophils # (Manual) 0.1 K/mm3 (0.0-0.1) 08/28/19 07:57 Metamyelocytes # 0.0 K/mm3 08/28/19 07:57 Myelocytes # 0.0 K/mm3 08/28/19 07:57 Promyelocytes # 0.0 K/mm3 08/28/19 07:57 Blast Cells # 0.0 K/mm3 08/28/19 07:57 WBC Morphology Not Reportable 08/28/19 07:57 Hypersegmented Neuts Not Reportable 08/28/19 07:57 Hyposegmented Neuts Not Reportable 08/28/19 07:57 Hypogranular Neuts Not Reportable 08/28/19 07:57 Smudge Cells Not Reportable 08/28/19 07:57 Toxic Granulation Not Reportable 08/28/19 07:57 Toxic Vacuolation Not Reportable 08/28/19 07:57 Dohle Bodies Not Reportable 08/28/19 07:57 Pelger-Huet Anomaly Not Reportable 08/28/19 07:57 Michael Rods Not Reportable 08/28/19 07:57 Platelet Estimate Consistent w auto 08/28/19 07:57 Clumped Platelets Not Reportable 08/28/19 07:57 Plt Clumps, EDTA Not Reportable 08/28/19 07:57 Large Platelets Not Reportable 08/28/19 07:57 Giant Platelets Not Reportable 08/28/19 07:57 Platelet Satelliting Not Reportable 08/28/19 07:57 Plt Morphology Comment Not Reportable 08/28/19 07:57 RBC Morphology Not Reportable 08/28/19 07:57 Dimorphic RBCs Not Reportable 08/28/19 07:57 Polychromasia Not Reportable 08/28/19 07:57 Hypochromasia Not Reportable 08/28/19 07:57 Poikilocytosis Not Reportable 08/28/19 07:57 Anisocytosis Not Reportable 08/28/19 07:57 Microcytosis Not Reportable 08/28/19 07:57 Macrocytosis Not Reportable 08/28/19 07:57 Spherocytes Not Reportable 08/28/19 07:57 Pappenheimer Bodies Not Reportable 08/28/19 07:57 Sickle Cells Not Reportable 08/28/19 07:57 Target Cells 2+ 08/28/19 07:57 Tear Drop Cells Not Reportable 08/28/19 07:57 Ovalocytes Not Reportable 08/28/19 07:57 Helmet Cells Not Reportable 08/28/19 07:57 [place] Bodies Not Reportable 08/28/19 07:57 [place] Rings Not Reportable 08/28/19 07:57 [place] Cells Not Reportable 08/28/19 07:57 Bite Cells Not Reportable 08/28/19 07:57 Crenated Cell Not Reportable 08/28/19 07:57 Elliptocytes Not Reportable 08/28/19 07:57 Acanthocytes (Spur) Not Reportable 08/28/19 07:57 Rouleaux Not Reportable 08/28/19 07:57 Hemoglobin C Crystals Not Reportable 08/28/19 07:57 Schistocytes Not Reportable 08/28/19 07:57 Malaria parasites Not Reportable 08/28/19 07:57 Jorge Bodies Not Reportable 08/28/19 07:57 Hem Pathologist Commnt No 08/28/19 07:57 PT 44.0 Sec. (12.2-14.9) H 09/03/19 06:52 INR 4.52 (0.87-1.13) H 09/03/19 06:52 Sodium 136 mmol/L (137-145) L 09/02/19 19:36 Potassium 4.1 mmol/L (3.6-5.0) 09/02/19 19:36 Chloride 92.6 mmol/L (98-107) L 09/02/19 19:36 Carbon Dioxide 28 mmol/L (22-30) 09/02/19 19:36 Anion Gap 20 mmol/L 09/02/19 19:36 BUN 31 mg/dL (9-20) H 09/02/19 19:36 Creatinine 1.5 mg/dL (0.8-1.5) 09/02/19 19:36 Estimated GFR 58 ml/min 09/02/19 19:36 BUN/Creatinine Ratio 21 % 09/02/19 19:36 Glucose 225 mg/dL (75-100) H 09/02/19 19:36 POC Glucose 135 (70-105) H 09/03/19 17:15 Calcium 8.4 mg/dL (8.4-10.2) 09/02/19 19:36 Magnesium 1.90 mg/dL (1.7-2.3) 09/02/19 19:37 Total Bilirubin 0.90 mg/dL (0.1-1.2) 09/02/19 19:36 AST 63 units/L (5-40) H 09/02/19 19:36 ALT 58 units/L (7-56) H 09/02/19 19:36 Alkaline Phosphatase 131 units/L (35-129) H 09/02/19 19:36 Total Creatine Kinase 195 units/L (55-170) H 08/24/19 17:30 Troponin T 0.035 ng/mL (0.00-0.029) H 08/24/19 17:30 NT-Pro-B Natriuret Pep 8127 pg/mL (0-900) H 08/24/19 12:19 Total Protein 5.8 g/dL (6.3-8.2) L 09/02/19 19:36 Albumin 2.8 g/dL (3.9-5) L 09/02/19 19:36 Albumin/Globulin Ratio 0.9 % 09/02/19 19:36 Triglycerides 89 mg/dL (2-149) 08/24/19 12:19 Cholesterol 159 mg/dL (50-199) 08/24/19 12:19 LDL Cholesterol Direct 111 mg/dL (50-130) 08/24/19 12:19 HDL Cholesterol 58 mg/dL (40-59) 08/24/19 12:19 Cholesterol/HDL Ratio 2.74 % 08/24/19 12:19 Active Medications - Current Medications Current Medications: Generic Name Dose Route Start Last Admin Trade Name Freq PRN Reason Stop Dose Admin Acetaminophen 650 mg 08/24/19 18:04 08/27/19 13:16 Tylenol PO 650 mg Q4H PRN Administration Pain MILD(1-3)/Fever >100.5/HOWELL Albuterol 2.5 mg 08/24/19 18:04 Proventil IH Q4HRT PRN Shortness Of Breath Amiodarone HCl 200 mg 08/29/19 22:00 09/03/19 12:18 Cordarone PO 200 mg BID IBIS Administration Aspirin 81 mg 08/25/19 10:00 09/03/19 12:18 Baby Aspirin PO 81 mg QDAY IBIS Administration Atorvastatin Calcium 40 mg 08/25/19 10:00 09/03/19 12:19 Lipitor PO 40 mg QDAY IBIS Administration Carvedilol 12.5 mg 08/24/19 22:00 09/03/19 12:19 Coreg PO 12.5 mg BID IBIS Administration Famotidine 20 mg 08/25/19 10:00 09/03/19 12:18 Pepcid PO 20 mg QDAY IBIS Administration Furosemide 60 mg 12/26/19 18:00 09/03/19 17:25 Lasix IV 60 mg 0600,1800 IBIS Administration Hydralazine HCl 10 mg 09/03/19 22:00 Apresoline PO Q8HR IBIS Insulin Glargine 25 units 08/24/19 22:00 09/02/19 21:22 Lantus SUB-Q 25 units QHS IBIS Administration Insulin Human Lispro 0 unit 08/27/19 07:30 09/03/19 11:30 Humalog SUB-Q Not Given ACHS [facility] Protocol Lisinopril 20 mg 08/25/19 10:00 09/03/19 12:18 Zestril PO 20 mg QDAY IBIS Administration Ondansetron HCl 4 mg 08/24/19 18:04 Zofran IV Q8H PRN Nausea And Vomiting Sodium Chloride 10 ml 08/24/19 22:00 09/03/19 12:19 Sodium Chloride Flush Syringe 10 Ml IV 10 ml BID IBIS Administration Sodium Chloride 10 ml 08/24/19 18:04 08/28/19 00:20 Sodium Chloride Flush Syringe 10 Ml IV 10 ml PRN PRN Administration LINE FLUSH Spironolactone 25 mg 08/25/19 10:00 09/03/19 12:17 Aldactone PO 25 mg QDAY IBIS Administration Nutrition/Malnutrition Assess - Dietary Evaluation Nutrition/Malnutrition Findings: Nutrition Notes Start: 08/26/19 11:59 Freq: Status: Active Protocol: Document 08/26/19 11:59 LP (Rec: 08/26/19 12:02 LP [id number]) Nutrition Notes Need for Assessment generated from: Education Initial or Follow up Brief Note Current Diagnosis Acute Kidney Injury,Diabetes, Hypertension,Heart Failure Pertinent Medications Lasix, coumadin Subjective/Other Information Screen for coumadin. 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 Pt states he was not on Coumadin before and consumes green leafy vegetables sometimes. #1 Nutrition Diagnosis Food and nutrition-related knowledge deficit Etiology Coumadin As Evidenced by Signs and Symptoms Pt new to Coumadin Nutrition Intervention Teaching Recipient Patient Learning Readiness Good Teaching Methods Discussion Response to Teaching Verbalize understanding Education Handouts Provided Vitamin K interaction Barriers to Learning No Barriers RD phone number provided Yes Patient aware of follow up options Yes Revisit per MD consult or patient Sign Off request:
[2019-09-03] MEDS: hydrALAZINE 10 MG TAB PO SCH (22:56)
[2019-09-03] MEDS: INSULIN GLARGINE 100 UNITS/ML SUB-Q SCH (22:59)
[2019-09-04] MEDS: FUROSEMIDE 100 MG/10 ML INJ IV SCH ×2 (06:13→17:06)
[2019-09-04] MEDS: hydrALAZINE 10 MG TAB PO SCH ×3 (06:13→22:21)
[2019-09-04] MEDS: INSULIN LISPRO 100 UNIT/ML SUB-Q SCH ×4 (08:19→22:21)
[2019-09-04 09:10] LABS: INR 2.89 (0.87-1.13)
[2019-09-04] MEDS: AMIODARONE 200 MG TAB PO SCH ×2 (09:46→22:21)
[2019-09-04] MEDS: carvediloL 12.5 MG TAB PO SCH ×2 (09:46→22:21)
[2019-09-04] MEDS: ASPIRIN 81 MG TAB CHEW PO SCH (09:46)
[2019-09-04] MEDS: LISINOPRIL 20 MG TAB PO SCH (09:46)
[2019-09-04] MEDS: FAMOTIDINE 20 MG TAB PO SCH (09:46)
[2019-09-04] MEDS: SPIRONOLACTONE 25 MG TAB PO SCH (09:46)
--- NOTE | 2019-09-04 14:30 | Progress Note ---
Assessment and Plan Assessment and plan: INR is therapeutic at 2.89 Continue to monitor Extremities therapeutic tomorrow They be discharged home -- Lt.Atrial thrombus; on HOLLAND Current Visit: Yes Status: Acute HOLLAND from prior admission reviewed, on Coumadin. 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 -- TESSA (acute kidney injury) vasomotor nephropathy Current Visit: Yes Status: Acute Resolved, avoid nephrotoxins, monitor renal function --Medical noncompliance: Patient strongly advised to comply with medications diet follow-up visits Patient verbalize understanding --Severe Malnutrition: supportive care,nutrition supplements, treat underlying cause -- DVT prophylaxis Current Visit: Yes Status: Acute SCD and Coumadin --DC planning per case management Multiple social, insurance and financial issues Consults and recommendations noted and appreciated . Possible discharge in 1-2 days Disposition per cardiology History Interval history: Patient seen and examined medical records reviewed Patient feels slightly better INR therapeutic today 2.89 Denies Shortness of breath Vital signs rotated Hospitalist Physical - Constitutional Vitals: Temp Pulse Resp BP Pulse Ox 97.5 F L 82 18 103/76 91 09/04/19 08:34 09/04/19 08:55 09/04/19 08:34 09/04/19 08:34 09/04/19 08:34 General appearance: Present: no acute distress, well-nourished - EENT Eyes: Present: PERRL, EOM intact - Neck Neck: Present: supple, normal ROM - Respiratory Respiratory effort: normal Respiratory: bilateral: diminished, rales, negative: rhonchi, wheezing - Cardiovascular Rhythm: regular Heart Sounds: Present: S1 & S2 - Extremities Extremities: no ischemia Extremity abnormal: edema - Abdominal General gastrointestinal: soft, non-tender, non-distended, normal bowel sounds - Integumentary Integumentary: Present: clear, warm - Psychiatric Psychiatric: appropriate mood/affect, cooperative - Neurologic Neurologic: CNII-XII intact, moves all extremities Results - Labs CBC & Chem 7: 08/28/19 07:57 09/02/19 19:36 Labs: Laboratory Last Values WBC 7.1 K/mm3 (4.5-11.0) 08/28/19 07:57 RBC 5.22 M/mm3 (3.65-5.03) H 08/28/19 07:57 Hgb 16.1 gm/dl (11.8-15.2) H 08/28/19 07:57 Hct 47.8 % (35.5-45.6) H 08/28/19 07:57 MCV 92 fl (84-94) 08/28/19 07:57 MCH 31 pg (28-32) 08/28/19 07:57 MCHC 34 % (32-34) 08/28/19 07:57 RDW 15.8 % (13.2-15.2) H 08/28/19 07:57 Plt Count 135 K/mm3 (140-440) L 08/28/19 07:57 Lymph % (Auto) 24.6 % (13.4-35.0) 08/26/19 06:17 [place] % (Auto) Adventure Guide 08/28/19 07:57 Eos % (Auto) 1.2 % (0.0-4.3) 08/26/19 06:17 Baso % (Auto) 0.6 % (0.0-1.8) 08/26/19 06:17 Lymph # 2.1 K/mm3 (1.2-5.4) 08/26/19 06:17 [place] # 1.0 K/mm3 (0.0-0.8) H 08/26/19 06:17 Eos # 0.1 K/mm3 (0.0-0.4) 08/26/19 06:17 Baso # 0.0 K/mm3 (0.0-0.1) 08/26/19 06:17 Add Manual Diff Complete 08/28/19 07:57 Total Counted 100 08/28/19 07:57 Seg Neutrophils % 62.0 % (40.0-70.0) 08/26/19 06:17 Seg Neuts % (Manual) 73.0 % (40.0-70.0) H 08/28/19 07:57 Band Neutrophils % 1.0 % 08/28/19 07:57 Lymphocytes % (Manual) 10.0 % (13.4-35.0) L 08/28/19 07:57 Reactive Lymphs % (Man) 1.0 % 08/28/19 07:57 Monocytes % (Manual) 13.0 % (0.0-7.3) H 08/28/19 07:57 Eosinophils % (Manual) 1.0 % (0.0-4.3) 08/28/19 07:57 Basophils % (Manual) 1.0 % (0.0-1.8) 08/28/19 07:57 Metamyelocytes % 0 % 08/28/19 07:57 Myelocytes % 0 % 08/28/19 07:57 Promyelocytes % 0 % 08/28/19 07:57 Blast Cells % 0 % 08/28/19 07:57 Nucleated RBC % Not Reportable 08/28/19 07:57 Seg Neutrophils # 5.2 K/mm3 (1.8-7.7) 08/26/19 06:17 Seg Neutrophils # Man 5.2 K/mm3 (1.8-7.7) 08/28/19 07:57 Band Neutrophils # 0.1 K/mm3 08/28/19 07:57 Lymphocytes # (Manual) 0.7 K/mm3 (1.2-5.4) L 08/28/19 07:57 Abs React Lymphs (Man) 0.1 K/mm3 08/28/19 07:57 Monocytes # (Manual) 0.9 K/mm3 (0.0-0.8) H 08/28/19 07:57 Eosinophils # (Manual) 0.1 K/mm3 (0.0-0.4) 08/28/19 07:57 Basophils # (Manual) 0.1 K/mm3 (0.0-0.1) 08/28/19 07:57 Metamyelocytes # 0.0 K/mm3 08/28/19 07:57 Myelocytes # 0.0 K/mm3 08/28/19 07:57 Promyelocytes # 0.0 K/mm3 08/28/19 07:57 Blast Cells # 0.0 K/mm3 08/28/19 07:57 WBC Morphology Not Reportable 08/28/19 07:57 Hypersegmented Neuts Not Reportable 08/28/19 07:57 Hyposegmented Neuts Not Reportable 08/28/19 07:57 Hypogranular Neuts Not Reportable 08/28/19 07:57 Smudge Cells Not Reportable 08/28/19 07:57 Toxic Granulation Not Reportable 08/28/19 07:57 Toxic Vacuolation Not Reportable 08/28/19 07:57 Dohle Bodies Not Reportable 08/28/19 07:57 Pelger-Huet Anomaly Not Reportable 08/28/19 07:57 Michael Rods Not Reportable 08/28/19 07:57 Platelet Estimate Consistent w auto 08/28/19 07:57 Clumped Platelets Not Reportable 08/28/19 07:57 Plt Clumps, EDTA Not Reportable 08/28/19 07:57 Large Platelets Not Reportable 08/28/19 07:57 Giant Platelets Not Reportable 08/28/19 07:57 Platelet Satelliting Not Reportable 08/28/19 07:57 Plt Morphology Comment Not Reportable 08/28/19 07:57 RBC Morphology Not Reportable 08/28/19 07:57 Dimorphic RBCs Not Reportable 08/28/19 07:57 Polychromasia Not Reportable 08/28/19 07:57 Hypochromasia Not Reportable 08/28/19 07:57 Poikilocytosis Not Reportable 08/28/19 07:57 Anisocytosis Not Reportable 08/28/19 07:57 Microcytosis Not Reportable 08/28/19 07:57 Macrocytosis Not Reportable 08/28/19 07:57 Spherocytes Not Reportable 08/28/19 07:57 Pappenheimer Bodies Not Reportable 08/28/19 07:57 Sickle Cells Not Reportable 08/28/19 07:57 Target Cells 2+ 08/28/19 07:57 Tear Drop Cells Not Reportable 08/28/19 07:57 Ovalocytes Not Reportable 08/28/19 07:57 Helmet Cells Not Reportable 08/28/19 07:57 Pleitez[place] Bodies Not Reportable 08/28/19 07:57 [place] Rings Not Reportable 08/28/19 07:57 [place] Cells Not Reportable 08/28/19 07:57 Bite Cells Not Reportable 08/28/19 07:57 Crenated Cell Not Reportable 08/28/19 07:57 Elliptocytes Not Reportable 08/28/19 07:57 Acanthocytes (Spur) Not Reportable 08/28/19 07:57 Rouleaux Not Reportable 08/28/19 07:57 Hemoglobin C Crystals Not Reportable 08/28/19 07:57 Schistocytes Not Reportable 08/28/19 07:57 Malaria parasites Not Reportable 08/28/19 07:57 Jorge Bodies Not Reportable 08/28/19 07:57 Hem Pathologist Commnt No 08/28/19 07:57 PT 30.9 Sec. (12.2-14.9) H 09/04/19 06:50 INR 2.89 (0.87-1.13) H 09/04/19 06:50 Sodium 136 mmol/L (137-145) L 09/02/19 19:36 Potassium 4.1 mmol/L (3.6-5.0) 09/02/19 19:36 Chloride 92.6 mmol/L (98-107) L 09/02/19 19:36 Carbon Dioxide 28 mmol/L (22-30) 09/02/19 19:36 Anion Gap 20 mmol/L 09/02/19 19:36 BUN 31 mg/dL (9-20) H 09/02/19 19:36 Creatinine 1.5 mg/dL (0.8-1.5) 09/02/19 19:36 Estimated GFR 58 ml/min 09/02/19 19:36 BUN/Creatinine Ratio 21 % 09/02/19 19:36 Glucose 225 mg/dL (75-100) H 09/02/19 19:36 POC Glucose 134 (70-105) H 09/04/19 12:00 Calcium 8.4 mg/dL (8.4-10.2) 09/02/19 19:36 Magnesium 1.90 mg/dL (1.7-2.3) 09/02/19 19:37 Total Bilirubin 0.90 mg/dL (0.1-1.2) 09/02/19 19:36 AST 63 units/L (5-40) H 09/02/19 19:36 ALT 58 units/L (7-56) H 09/02/19 19:36 Alkaline Phosphatase 131 units/L (35-129) H 09/02/19 19:36 Total Creatine Kinase 195 units/L (55-170) H 08/24/19 17:30 Troponin T 0.035 ng/mL (0.00-0.029) H 08/24/19 17:30 NT-Pro-B Natriuret Pep 8127 pg/mL (0-900) H 08/24/19 12:19 Total Protein 5.8 g/dL (6.3-8.2) L 09/02/19 19:36 Albumin 2.8 g/dL (3.9-5) L 09/02/19 19:36 Albumin/Globulin Ratio 0.9 % 09/02/19 19:36 Triglycerides 89 mg/dL (2-149) 08/24/19 12:19 Cholesterol 159 mg/dL (50-199) 08/24/19 12:19 LDL Cholesterol Direct 111 mg/dL (50-130) 08/24/19 12:19 HDL Cholesterol 58 mg/dL (40-59) 08/24/19 12:19 Cholesterol/HDL Ratio 2.74 % 08/24/19 12:19 Active Medications - Current Medications Current Medications: Generic Name Dose Route Start Last Admin Trade Name Freq PRN Reason Stop Dose Admin Acetaminophen 650 mg 08/24/19 18:04 08/27/19 13:16 Tylenol PO 650 mg Q4H PRN Administration Pain MILD(1-3)/Fever >100.5/HOWELL Albuterol 2.5 mg 08/24/19 18:04 Proventil IH Q4HRT PRN Shortness Of Breath Amiodarone HCl 200 mg 08/29/19 22:00 09/04/19 09:46 Cordarone PO 200 mg BID IBIS Administration Aspirin 81 mg 08/25/19 10:00 09/04/19 09:46 Baby Aspirin PO 81 mg QDAY IBIS Administration Atorvastatin Calcium 40 mg 08/25/19 10:00 09/04/19 09:46 Lipitor PO 40 mg QDAY IBIS Administration Carvedilol 12.5 mg 08/24/19 22:00 09/04/19 09:46 Coreg PO 12.5 mg BID IBIS Administration Famotidine 20 mg 08/25/19 10:00 09/04/19 09:46 Pepcid PO 20 mg QDAY IBIS Administration Furosemide 60 mg 08/25/19 18:00 09/04/19 06:13 Lasix IV 60 mg 0600,1800 IBIS Administration Hydralazine HCl 10 mg 09/03/19 22:00 09/04/19 06:13 Apresoline PO 10 mg Q8HR IBIS Administration Insulin Glargine 25 units 08/24/19 22:00 09/03/19 22:59 Lantus SUB-Q 25 units QHS IBIS Administration Insulin Human Lispro 0 unit 08/27/19 07:30 09/04/19 12:40 Humalog SUB-Q Not Given ACHS [facility] Protocol Lisinopril 20 mg 08/25/19 10:00 09/04/19 09:46 Zestril PO 20 mg QDAY IBIS Administration Ondansetron HCl 4 mg 08/24/19 18:04 Zofran IV Q8H PRN Nausea And Vomiting Sodium Chloride 10 ml 08/24/19 22:00 09/04/19 09:46 Sodium Chloride Flush Syringe 10 Ml IV 10 ml BID IBIS Administration Sodium Chloride 10 ml 08/24/19 18:04 08/28/19 00:20 Sodium Chloride Flush Syringe 10 Ml IV 10 ml PRN PRN Administration LINE FLUSH Spironolactone 25 mg 08/25/19 10:00 09/04/19 09:46 Aldactone PO 25 mg QDAY [facility] Administration Warfarin Sodium 1 mg 09/04/19 17:00 Coumadin PO DAILY@1700 [facility] Nutrition/Malnutrition Assess - Dietary Evaluation Nutrition/Malnutrition Findings: Nutrition Notes Start: 08/26/19 11:59 Freq: Status: Active Protocol: Document 08/26/19 11:59 LP (Rec: 08/26/19 12:02 LP [email or web address]) Nutrition Notes Need for Assessment generated from: Education Initial or Follow up Brief Note Current Diagnosis Acute Kidney Injury,Diabetes, Hypertension,Heart Failure Pertinent Medications Lasix, coumadin Subjective/Other Information Screen for coumadin. Pt states eating well [employer] and now. Pt states he was not on Coumadin before and consumes green leafy vegetables sometimes. #1 Nutrition Diagnosis Food and nutrition-related knowledge deficit Etiology Coumadin As Evidenced by Signs and Symptoms Pt new to Coumadin Nutrition Intervention Teaching Recipient Patient Learning Readiness Good Teaching Methods Discussion Response to Teaching Verbalize understanding Education Handouts Provided Vitamin K interaction Barriers to Learning No Barriers RD phone number provided Yes Patient aware of follow up options Yes Revisit per MD consult or patient Sign Off request:
[2019-09-04] MEDS ORDERED: WARFARIN 1 MG TAB PO SCH (17:00)
--- NOTE | 2019-09-04 18:01 | Progress Note ---
Assessment and Plan - Patient Problems (1) Acute on chronic systolic heart failure Current Visit: Yes Status: Acute Plan to address problem: The patient was admitted with acute on chronic systolic heart failure, edema and heart failure symptoms are improving on aggressive medical therapy. We will discontinue milrinone therapy tomorrow, continue physical therapy and start discharge planning. (2) Chronic atrial fibrillation Current Visit: Yes Status: Acute Plan to address problem: Chronic atrial fibrillation will be managed on a rate control strategy and warfarin for anticoagulation. Subjective Date of service: 09/04/19 Principal diagnosis: CHF exacerbation Interval history: Patient is diuresing well, edema is resolving, shortness of breath has resolved, no new cardiac complaints. Objective Vital Signs Temp Pulse Pulse Pulse Resp BP BP 09/04/19 13:00 98.0 F 84 102/60 09/04/19 08:55 82 09/04/19 08:34 97.5 F L 60 18 103/76 09/04/19 06:13 82 124/80 09/04/19 04:32 97.5 F L 55 L 18 107/78 09/04/19 01:19 97.2 F L 56 L 18 112/72 09/03/19 22:57 95 H 142/88 09/03/19 22:56 95 H 142/88 09/03/19 22:00 85 09/03/19 21:00 85 85 20 09/03/19 19:53 97.9 F 66 20 142/88 Pulse Ox 09/04/19 13:00 09/04/19 08:55 09/04/19 08:34 91 09/04/19 06:13 09/04/19 04:32 93 09/04/19 01:19 100 09/03/19 22:57 09/03/19 22:56 09/03/19 22:00 09/03/19 21:00 98 09/03/19 19:53 93 - Physical Examination General: No Apparent Distress HEENT: Positive: PERRL Neck: Positive: trachea midline Cardiac: Positive: Reg Rate and Rhythm Lungs: Positive: Decreased Breath Sounds Neuro: Positive: Grossly Intact Abdomen: Positive: Soft Skin: Positive: Clear Extremities: Present: +1 Edema - Labs and Meds Coagulation 09/04/19 Range/Units 06:50 PT 30.9 H (12.2-14.9) Sec. INR 2.89 H (0.87-1.13) - Imaging and Cardiology EKG: report reviewed
[2019-09-04] MEDS: INSULIN GLARGINE 100 UNITS/ML SUB-Q SCH (22:21)
[2019-09-05] MEDS: hydrALAZINE 10 MG TAB PO SCH ×3 (05:20→22:10)
[2019-09-05] MEDS: FUROSEMIDE 100 MG/10 ML INJ IV SCH ×2 (05:20→18:59)
[2019-09-05] MEDS: INSULIN LISPRO 100 UNIT/ML SUB-Q SCH ×3 (08:09→19:58)
[2019-09-05 08:14] LABS: INR 2.55 (0.87-1.13)
--- NOTE | 2019-09-05 09:54 | Progress Note ---
Assessment and Plan Chronic systolic heart failure Chronic atrial fibrillation currently on warfarin for oral anticoagulation Hx of SHAJI thrombus Non-ischemic cardiomyopathy LVEF 15-20% by echo 10/2018 Non-obstructive CAD by cardiac cath 10/2018 Generalized weakness Hypertension Diabetes Recommendations: Continue fluid/sodium restriction. Continue rate controlling agents for chronic atrial fibrillation. Continue aggressive management for systolic heart failure. Stable cardiac edgar for discharge. Patient advised to follow up with [facility] in 5-7 days for an INR check. Subjective Date of service: 09/05/19 Principal diagnosis: CHF exacerbation Interval history: Patient has no complaints. He continues to diuresing well. INR at 2.55 today. Afib with a well controlled ventricular rate on telemetry. Objective Vital Signs Temp Pulse Pulse Pulse Resp BP BP 09/05/19 08:42 91 H 93 H 20 09/05/19 08:17 92 H 09/05/19 05:20 60 135/84 09/05/19 04:42 98.3 F 69 18 115/90 09/04/19 23:49 97.9 F 46 L 18 135/84 09/04/19 22:21 73 131/82 09/04/19 22:00 81 09/04/19 19:54 98.3 F 73 18 131/82 09/04/19 13:00 98.0 F 84 102/60 Pulse Ox 09/05/19 08:42 99 09/05/19 08:17 09/05/19 05:20 09/05/19 04:42 99 09/04/19 23:49 95 09/04/19 22:21 09/04/19 22:00 09/04/19 19:54 92 09/04/19 13:00 - Physical Examination General: No Apparent Distress HEENT: Positive: PERRL Neck: Positive: trachea midline Cardiac: Positive: irregularly irregular Lungs: Positive: Decreased Breath Sounds Neuro: Positive: Grossly Intact Abdomen: Positive: Soft Extremities: Present: +1 Edema - Labs and Meds Coagulation 09/05/19 Range/Units 07:10 PT 28.0 H (12.2-14.9) Sec. INR 2.55 H (0.87-1.13)
[2019-09-05] MEDS: AMIODARONE 200 MG TAB PO SCH ×2 (10:15→22:10)
[2019-09-05] MEDS: FAMOTIDINE 20 MG TAB PO SCH (10:15)
[2019-09-05] MEDS: SPIRONOLACTONE 25 MG TAB PO SCH (10:15)
[2019-09-05] MEDS: ASPIRIN 81 MG TAB CHEW PO SCH (10:15)
[2019-09-05] MEDS: LISINOPRIL 20 MG TAB PO SCH (10:16)
[2019-09-05] MEDS: carvediloL 12.5 MG TAB PO SCH ×2 (10:16→22:00)
--- NOTE | 2019-09-05 14:31 | Progress Note ---
Assessment and Plan Assessment and plan: -- Lt.Atrial thrombus; on HOLLAND Current Visit: Yes Status: Acute on Coumadin. INR therapeutic INR is therapeutic at 2.55 --Ac on Fur Nailer systolic CHF EF 15-20% continue anti-failure medications Low-sodium diet fluid restriction s/p milrinone drip -- Atrial fibrillation with RVR Current Visit: Yes Status: Acute Rate control, on Coumadin -- HTN (hypertension) Current Visit: Yes Status: Acute Cont antihypertensives -- Obesity BMI 32.4 Current Visit: Yes Status: Acute Supplemental oxygen, advised weight reduction Outpatient sleep study to rule out REILLY -- Diabetes Current Visit: Yes Status: Acute Accu-Chek sliding scale coverage ADA diet Insulin, A1c 10.6 -- TESSA : vasomotor nephropathy Current Visit: Yes Status: Acute Resolved, avoid nephrotoxins --Medical noncompliance: Counseling done advised to comply with Medications, diet, follow-up visits --Severe malnutrition: supportive care,nutrition supplements, treat underlying cause -- DVT prophylaxis Current Visit: Yes Status: Acute SCD and Coumadin Disposition: discharge 1-2 days And when cleared by cardiology Brief history; 59-year-old male with systolic congestive heart failure with ejection fraction of 15%, DM, HTN, atrial fibrillation, renal insufficiency, left atrial thrombus, on systemic anticoagulation, ejection fraction 15-20%, nonobstructive heart disease, noncompliance presents to ED for evaluation. Patient states that he had experienced shortness of breath over the last 2 days with worsening symptoms over the same timeframe. Patient acknowledges orthopnea and paroxysmal nocturnal dyspnea, decreased exercise tolerance, dyspnea on exertion, dyspnea at rest. Patient reports that he is compliant with some of his medications however he has ran out of other medication. Noncompliant History Interval history: Patient feels slightly better Denies chest pain or shortness of breath Lower extremity swelling significantly improved However stability mattress Vital signs reviewed Hospitalist Physical - Constitutional Vitals: Temp Pulse Resp BP Pulse Ox 98.3 F 89 20 132/74 99 09/05/19 04:42 09/05/19 10:16 09/05/19 08:42 09/05/19 10:15 09/05/19 08:42 General appearance: Present: no acute distress, well-nourished - EENT Eyes: Present: PERRL, EOM intact - Neck Neck: Present: supple, normal ROM - Respiratory Respiratory effort: normal Respiratory: bilateral: diminished, rales, negative: rhonchi, wheezing - Cardiovascular Rhythm: regular Heart Sounds: Present: S1 & S2 - Extremities Extremities: no ischemia Extremity abnormal: edema - Abdominal General gastrointestinal: soft, non-tender, non-distended, normal bowel sounds - Integumentary Integumentary: Present: clear, warm - Psychiatric Psychiatric: appropriate mood/affect, cooperative - Neurologic Neurologic: CNII-XII intact, moves all extremities Results - Labs CBC & Chem 7: 08/28/19 07:57 09/02/19 19:36 Labs: Laboratory Last Values WBC 7.1 K/mm3 (4.5-11.0) 08/28/19 07:57 RBC 5.22 M/mm3 (3.65-5.03) H 08/28/19 07:57 Hgb 16.1 gm/dl (11.8-15.2) H 08/28/19 07:57 Hct 47.8 % (35.5-45.6) H 08/28/19 07:57 MCV 92 fl (84-94) 08/28/19 07:57 MCH 31 pg (28-32) 08/28/19 07:57 MCHC 34 % (32-34) 08/28/19 07:57 RDW 15.8 % (13.2-15.2) H 08/28/19 07:57 Plt Count 135 K/mm3 (140-440) L 08/28/19 07:57 Lymph % (Auto) 24.6 % (13.4-35.0) 08/26/19 06:17 Wright % (Auto) Resident Athletic Trainer 08/28/19 07:57 Eos % (Auto) 1.2 % (0.0-4.3) 08/26/19 06:17 Baso % (Auto) 0.6 % (0.0-1.8) 08/26/19 06:17 Lymph # 2.1 K/mm3 (1.2-5.4) 08/26/19 06:17 Wright # 1.0 K/mm3 (0.0-0.8) H 08/26/19 06:17 Eos # 0.1 K/mm3 (0.0-0.4) 08/26/19 06:17 Baso # 0.0 K/mm3 (0.0-0.1) 08/26/19 06:17 Add Manual Diff Complete 08/28/19 07:57 Total Counted 100 08/28/19 07:57 Seg Neutrophils % 62.0 % (40.0-70.0) 08/26/19 06:17 Seg Neuts % (Manual) 73.0 % (40.0-70.0) H 08/28/19 07:57 Band Neutrophils % 1.0 % 08/28/19 07:57 Lymphocytes % (Manual) 10.0 % (13.4-35.0) L 08/28/19 07:57 Reactive Lymphs % (Man) 1.0 % 08/28/19 07:57 Monocytes % (Manual) 13.0 % (0.0-7.3) H 08/28/19 07:57 Eosinophils % (Manual) 1.0 % (0.0-4.3) 08/28/19 07:57 Basophils % (Manual) 1.0 % (0.0-1.8) 08/28/19 07:57 Metamyelocytes % 0 % 08/28/19 07:57 Myelocytes % 0 % 08/28/19 07:57 Promyelocytes % 0 % 08/28/19 07:57 Blast Cells % 0 % 08/28/19 07:57 Nucleated RBC % Not Reportable 08/28/19 07:57 Seg Neutrophils # 5.2 K/mm3 (1.8-7.7) 08/26/19 06:17 Seg Neutrophils # Man 5.2 K/mm3 (1.8-7.7) 08/28/19 07:57 Band Neutrophils # 0.1 K/mm3 08/28/19 07:57 Lymphocytes # (Manual) 0.7 K/mm3 (1.2-5.4) L 08/28/19 07:57 Abs React Lymphs (Man) 0.1 K/mm3 08/28/19 07:57 Monocytes # (Manual) 0.9 K/mm3 (0.0-0.8) H 08/28/19 07:57 Eosinophils # (Manual) 0.1 K/mm3 (0.0-0.4) 08/28/19 07:57 Basophils # (Manual) 0.1 K/mm3 (0.0-0.1) 08/28/19 07:57 Metamyelocytes # 0.0 K/mm3 08/28/19 07:57 Myelocytes # 0.0 K/mm3 08/28/19 07:57 Promyelocytes # 0.0 K/mm3 08/28/19 07:57 Blast Cells # 0.0 K/mm3 08/28/19 07:57 WBC Morphology Not Reportable 08/28/19 07:57 Hypersegmented Neuts Not Reportable 08/28/19 07:57 Hyposegmented Neuts Not Reportable 08/28/19 07:57 Hypogranular Neuts Not Reportable 08/28/19 07:57 Smudge Cells Not Reportable 08/28/19 07:57 Toxic Granulation Not Reportable 08/28/19 07:57 Toxic Vacuolation Not Reportable 08/28/19 07:57 Dohle Bodies Not Reportable 08/28/19 07:57 Pelger-Huet Anomaly Not Reportable 08/28/19 07:57 Michael Rods Not Reportable 08/28/19 07:57 Platelet Estimate Consistent w auto 08/28/19 07:57 Clumped Platelets Not Reportable 08/28/19 07:57 Plt Clumps, EDTA Not Reportable 08/28/19 07:57 Large Platelets Not Reportable 08/28/19 07:57 Giant Platelets Not Reportable 08/28/19 07:57 Platelet Satelliting Not Reportable 08/28/19 07:57 Plt Morphology Comment Not Reportable 08/28/19 07:57 RBC Morphology Not Reportable 08/28/19 07:57 Dimorphic RBCs Not Reportable 08/28/19 07:57 Polychromasia Not Reportable 08/28/19 07:57 Hypochromasia Not Reportable 08/28/19 07:57 Poikilocytosis Not Reportable 08/28/19 07:57 Anisocytosis Not Reportable 08/28/19 07:57 Microcytosis Not Reportable 08/28/19 07:57 Macrocytosis Not Reportable 08/28/19 07:57 Spherocytes Not Reportable 08/28/19 07:57 Pappenheimer Bodies Not Reportable 08/28/19 07:57 Sickle Cells Not Reportable 08/28/19 07:57 Target Cells 2+ 08/28/19 07:57 Tear Drop Cells Not Reportable 08/28/19 07:57 Ovalocytes Not Reportable 08/28/19 07:57 Helmet Cells Not Reportable 08/28/19 07:57 [place] Bodies Not Reportable 08/28/19 07:57 Hearne Rings Not Reportable 08/28/19 07:57 Claudine Cells Not Reportable 08/28/19 07:57 Bite Cells Not Reportable 08/28/19 07:57 Crenated Cell Not Reportable 08/28/19 07:57 Elliptocytes Not Reportable 08/28/19 07:57 Acanthocytes (Spur) Not Reportable 08/28/19 07:57 Rouleaux Not Reportable 08/28/19 07:57 Hemoglobin C Crystals Not Reportable 08/28/19 07:57 Schistocytes Not Reportable 08/28/19 07:57 Malaria parasites Not Reportable 08/28/19 07:57 Jorge Bodies Not Reportable 08/28/19 07:57 Hem Pathologist Commnt No 08/28/19 07:57 PT 28.0 Sec. (12.2-14.9) H 09/05/19 07:10 INR 2.55 (0.87-1.13) H 09/05/19 07:10 Sodium 136 mmol/L (137-145) L 09/02/19 19:36 Potassium 4.1 mmol/L (3.6-5.0) 09/02/19 19:36 Chloride 92.6 mmol/L (98-107) L 09/02/19 19:36 Carbon Dioxide 28 mmol/L (22-30) 09/02/19 19:36 Anion Gap 20 mmol/L 09/02/19 19:36 BUN 31 mg/dL (9-20) H 09/02/19 19:36 Creatinine 1.5 mg/dL (0.8-1.5) 09/02/19 19:36 Estimated GFR 58 ml/min 09/02/19 19:36 BUN/Creatinine Ratio 21 % 09/02/19 19:36 Glucose 225 mg/dL (75-100) H 09/02/19 19:36 POC Glucose 114 (70-105) H 09/05/19 12:16 Calcium 8.4 mg/dL (8.4-10.2) 09/02/19 19:36 Magnesium 1.90 mg/dL (1.7-2.3) 09/02/19 19:37 Total Bilirubin 0.90 mg/dL (0.1-1.2) 09/02/19 19:36 AST 63 units/L (5-40) H 09/02/19 19:36 ALT 58 units/L (7-56) H 09/02/19 19:36 Alkaline Phosphatase 131 units/L (35-129) H 09/02/19 19:36 Total Creatine Kinase 195 units/L (55-170) H 08/24/19 17:30 Troponin T 0.035 ng/mL (0.00-0.029) H 08/24/19 17:30 NT-Pro-B Natriuret Pep 8127 pg/mL (0-900) H 08/24/19 12:19 Total Protein 5.8 g/dL (6.3-8.2) L 09/02/19 19:36 Albumin 2.8 g/dL (3.9-5) L 09/02/19 19:36 Albumin/Globulin Ratio 0.9 % 09/02/19 19:36 Triglycerides 89 mg/dL (2-149) 08/24/19 12:19 Cholesterol 159 mg/dL (50-199) 08/24/19 12:19 LDL Cholesterol Direct 111 mg/dL (50-130) 08/24/19 12:19 HDL Cholesterol 58 mg/dL (40-59) 08/24/19 12:19 Cholesterol/HDL Ratio 2.74 % 08/24/19 12:19 Active Medications - Current Medications Current Medications: Generic Name Dose Route Start Last Admin Trade Name Freq PRN Reason Stop Dose Admin Acetaminophen 650 mg 08/24/19 18:04 08/27/19 13:16 Tylenol PO 650 mg Q4H PRN Administration Pain MILD(1-3)/Fever >100.5/HOWELL Albuterol 2.5 mg 08/24/19 18:04 Proventil IH Q4HRT PRN Shortness Of Breath Amiodarone HCl 200 mg 08/29/19 22:00 09/05/19 10:15 Cordarone PO 200 mg BID IBIS Administration Aspirin 81 mg 08/25/19 10:00 09/05/19 10:15 Baby Aspirin PO 81 mg QDAY IBIS Administration Atorvastatin Calcium 40 mg 08/25/19 10:00 09/05/19 10:16 Lipitor PO 40 mg QDAY [facility] Administration Carvedilol 12.5 mg 08/24/19 22:00 09/05/19 10:16 Coreg PO 12.5 mg BID IBIS Administration Famotidine 20 mg 08/25/19 10:00 09/05/19 10:15 Pepcid PO 20 mg QDAY [facility] Administration Furosemide 60 mg 08/25/19 18:00 09/05/19 05:20 Lasix IV 60 mg 0600,1800 [facility] Administration Hydralazine HCl 10 mg 09/03/19 22:00 09/05/19 05:20 Apresoline PO 10 mg Q8HR [facility] Administration Insulin Glargine 25 units 08/24/19 22:00 09/04/19 22:21 Lantus SUB-Q 25 units QHS [facility] Administration Insulin Human Lispro 0 unit 08/27/19 07:30 09/05/19 08:09 Humalog SUB-Q Not Given [facility] Protocol Lisinopril 20 mg 08/25/19 10:00 09/05/19 10:16 Zestril PO 20 mg QDAY [facility] Administration Metolazone 5 mg 09/05/19 13:00 Zaroxolyn PO QDAY IBIS Ondansetron HCl 4 mg 08/24/19 18:04 Zofran IV Q8H PRN Nausea And Vomiting Sodium Chloride 10 ml 08/24/19 22:00 09/04/19 22:21 Sodium Chloride Flush Syringe 10 Ml IV 10 ml BID IBIS Administration Sodium Chloride 10 ml 08/24/19 18:04 08/28/19 00:20 Sodium Chloride Flush Syringe 10 Ml IV 10 ml PRN PRN Administration LINE FLUSH Spironolactone 25 mg 08/25/19 10:00 09/05/19 10:15 Aldactone PO 25 mg QDAY [facility] Administration Warfarin Sodium 2.5 mg 09/05/19 17:00 Coumadin PO DAILY@1700 [facility] Nutrition/Malnutrition Assess - Dietary Evaluation Nutrition/Malnutrition Findings: Nutrition Notes Start: 08/26/19 11:59 Freq: Status: Active Protocol: Document 08/26/19 11:59 LP (Rec: 08/26/19 12:02 LP [id number]) Nutrition Notes Need for Assessment generated from: Education Initial or Follow up Brief Note Current Diagnosis Acute Kidney Injury,Diabetes, Hypertension,Heart Failure Pertinent Medications Lasix, coumadin Subjective/Other Information Screen for coumadin. Pt states eating well [address] [employer] and now. Pt states he was not on Coumadin before and consumes green leafy vegetables sometimes. #1 Nutrition Diagnosis Food and nutrition-related knowledge deficit Etiology Coumadin As Evidenced by Signs and Symptoms Pt new to Coumadin Nutrition Intervention Teaching Recipient Patient Learning Readiness Good Teaching Methods Discussion Response to Teaching Verbalize understanding Education Handouts Provided Vitamin K interaction Barriers to Learning No Barriers RD phone number provided Yes Patient aware of follow up options Yes Revisit per MD consult or patient Sign Off request:
[2019-09-05] MEDS ORDERED: WARFARIN 2.5 MG TAB PO SCH (17:00)
[2019-09-05] MEDS: metOLazone 5 MG TAB PO SCH (18:59)
[2019-09-05] MEDS: INSULIN GLARGINE 100 UNITS/ML SUB-Q SCH (22:12)
[2019-09-06] MEDS: FUROSEMIDE 100 MG/10 ML INJ IV SCH (06:33)
[2019-09-06] MEDS: hydrALAZINE 10 MG TAB PO SCH ×2 (06:33→15:06)
[2019-09-06 08:58] VITALS: BP 117/97
[2019-09-06] MEDS: INSULIN LISPRO 100 UNIT/ML SUB-Q SCH ×2 (10:17→12:34)
[2019-09-06 10:25] LABS: INR 1.93 (0.87-1.13)
[2019-09-06] MEDS: carvediloL 12.5 MG TAB PO SCH (12:31)
[2019-09-06] MEDS: LISINOPRIL 20 MG TAB PO SCH (12:32)
[2019-09-06] MEDS: SPIRONOLACTONE 25 MG TAB PO SCH (12:32)
[2019-09-06] MEDS: ASPIRIN 81 MG TAB CHEW PO SCH (12:32)
[2019-09-06] MEDS: metOLazone 5 MG TAB PO SCH (12:32)
[2019-09-06] MEDS: AMIODARONE 200 MG TAB PO SCH (12:32)
[2019-09-06] MEDS: FAMOTIDINE 20 MG TAB PO SCH (12:32)
--- NOTE | 2019-09-06 12:59 | Progress Note ---
Assessment and Plan Chronic systolic heart failure Chronic atrial fibrillation currently on warfarin for oral anticoagulation Hx of SHAJI thrombus Non-ischemic cardiomyopathy LVEF 15-20% by echo 10/2018 Non-obstructive CAD by cardiac cath 10/2018 Generalized weakness Hypertension Diabetes Recommendations: Continue fluid/sodium restriction. Continue rate controlling agents for chronic atrial fibrillation. Continue aggressive management for systolic heart failure. Stable cardiac edgar for discharge. Patient advised to follow up with [facility] in 5-7 days for an INR check. Subjective Date of service: 09/06/19 Principal diagnosis: CHF exacerbation Interval history: Patient has no complaints. Afib with a well controlled ventricular rate on telemetry. Objective Vital Signs Temp Pulse Pulse Resp BP Pulse Ox 09/06/19 10:45 101 H 09/06/19 08:57 49 L 117/97 98 09/06/19 06:33 57 L 144/89 09/06/19 04:47 98.0 F 57 L 18 144/89 92 09/06/19 00:24 97.8 F 76 18 117/92 89 09/05/19 22:10 51 L 118/88 09/05/19 22:00 51 L 09/05/19 20:24 97.8 F 51 L 20 118/88 90 09/05/19 20:00 89 18 99 09/05/19 17:29 98.0 F 59 L 20 116/86 96 09/05/19 14:15 97.9 F 97 H 20 106/76 98 - Physical Examination General: No Apparent Distress HEENT: Positive: PERRL Neck: Positive: trachea midline Cardiac: Positive: irregularly irregular Lungs: Positive: Decreased Breath Sounds Neuro: Positive: Grossly Intact Abdomen: Positive: Soft Extremities: Present: +1 Edema - Labs and Meds Coagulation 09/06/19 Range/Units 07:31 PT 22.4 H (12.2-14.9) Sec. INR 1.93 H (0.87-1.13)
--- NOTE | 2019-09-06 14:58 | Discharge Summary ---
Providers - Providers Date of Admission: 08/24/19 18:05 Date of discharge: 09/06/19 Attending physician: SHANNON GALARZA 08/24/19 18:58 Consult to Physician [CONS] Routine Comment: Consulting Provider: ASTRID MCMILLAN Physician Instructions: Reason For Exam: CHF 08/31/19 12:22 Physical Therapy Evaluation and Treat [CONS] Routine Comment: Reason For Exam: Gen Debility [facility] Condition: Serious Disposition: DC-01 TO HOME OR SELFCARE Time spent for discharge: 32 min Core Measure Documentation - Palliative Care Palliative Care/ Comfort Measures: Not Applicable - Core Measures Any of the following diagnoses?: heart failure - Heart Failure Discharge Requirements KELLY/ARB for LVSD if EF <40%: Yes Beta darien at discharge: Yes Exam - Constitutional Vitals: Temp Pulse Resp BP Pulse Ox 98.0 F 101 H 18 117/97 98 09/06/19 04:47 09/06/19 10:45 09/06/19 04:47 09/06/19 08:57 09/06/19 08:57 General appearance: Present: no acute distress, well-nourished - EENT Eyes: Present: PERRL, EOM intact - Neck Neck: Present: supple, normal ROM - Respiratory Respiratory effort: normal Respiratory: bilateral: diminished, rales, negative: rhonchi, wheezing - Cardiovascular Rhythm: regular Heart Sounds: Present: S1 & S2 - Extremities Extremities: no ischemia, No edema - Abdominal General gastrointestinal: Present: soft, non-tender, non-distended, normal bowel sounds - Integumentary Integumentary: Present: clear, warm - Musculoskeletal Musculoskeletal: strength equal bilaterally - Psychiatric Psychiatric: appropriate mood/affect, cooperative - Neurologic Neurologic: CNII-XII intact, moves all extremities Plan Activity: advance as tolerated Diet: low salt, other (cardiac diet) Special Instructions: restrict fluid intake to (1200 ml/day) Additional Instructions: Patient advised to follow up with [facility] in 5-7 days for an INR check. Advised to comply with medications, diet and follow-up visits. Periodic checks of INR at your certified professional controller office, target INR 2-3 Follow up with: [facility] ROSALINA [Primary Care Provider] - 3-5 Days ASTRID MCMILLAN MD [Staff Physician] - 7 Days Forms: Warfarin Discharge Instruction Prescriptions: Spironolactone [Aldactone] 25 mg PO QDAY #30 hydrALAZINE [Apresoline TAB] 10 mg PO Q8HR #90 tablet Aspirin [Aspirin BABY CHEW TAB] 81 mg PO QDAY #30 Amiodarone [Cordarone 200 MG TAB] 200 mg PO BID #60 tablet carvediloL [Coreg] 12.5 mg PO BID #60 tablet Warfarin [Coumadin] 5 mg PO DAILY@1700 #30 tablet Insulin Glargine [Lantus VIAL] 25 units SUB-Q QHS #10 ml Furosemide [Lasix TAB] 60 mg PO BID #60 tablet AtorvaSTATin [Lipitor] 40 mg PO QDAY #30 tablet metOLazone [Zaroxolyn] 5 mg PO QDAY #30 tablet lisinopriL [Zestril TAB] 20 mg PO QDAY #30 tablet
[2019-09-06] MEDS ORDERED: WARFARIN 5 MG TAB PO SCH (17:00)
[2019-09-06] MEDS ORDERED: FUROSEMIDE 40 MG TAB PO SCH (22:00)
== END 2019-09-06 17:20 | disposition home or self-care (01) | DRG 682 ==
LOC: ED 11:38 → 4A 18:05
PROVIDERS: ADMIT Internal Medicine; ATTEND Internal Medicine
DX: N17.0 Acute kidney failure with tubular necrosis (principal); E43 Unspecified severe protein-calorie malnutrition; I50.23 Acute on chronic systolic (congestive) heart failure; I48.20 Chronic atrial fibrillation, unspecified; E66.2 Morbid (severe) obesity with alveolar hypoventilation; I42.8 Other cardiomyopathies; I11.0 Hypertensive heart disease with heart failure; I51.3 Intracardiac thrombosis, not elsewhere classified; E11.9 Type 2 diabetes mellitus without complications; Z91.11 Patient's noncompliance with dietary regimen; Z68.30 Body mass index [BMI] 30.0-30.9, adult; Z79.01 Long term (current) use of anticoagulants; Z82.49 Family history of ischemic heart disease and other diseases of the circulatory system; Z83.3 Family history of diabetes mellitus; Z79.899 Other long term (current) drug therapy; Z79.4 Long term (current) use of insulin; Z79.82 Long term (current) use of aspirin; Z72.89 Other problems related to lifestyle
CPT/HCPCS: 36415; 71045; 80048; 80053; 80061; 82550; 82962; 83735; 83880; 84484; 85007; 85025; 85610; 87116; 93005; 93010; 94760; G0378; A9270-GY; J0282; J1815; J1940; J2260; J3475; J7060